=== PATIENT | male | born 1950 | race Caucasian/White ===

== ENCOUNTER 2021-01-18 20:30 | Emergency (ER) | payer OTHER ==
[2021-01-18] MEDS ORDERED: SODIUM CHLORIDE 0.9% 1,000 ML IV STA (21:09)
[2021-01-18] MEDS ORDERED: MORPHINE SULFATE 2 MG/ML SYRINGE IVP STA (21:09)
[2021-01-18] MEDS ORDERED: KETOROLAC 15 MG/ML 1 ML VIAL IVP STA (21:24)
[2021-01-18 21:41] LABS: Basophils # (A) 0.1 k/uL (0-0.2); Basophils % (A) 1 %; Eosinophils # (A) 0.3 k/uL (0-0.7); Eosinophils % (A) 3 %; HCT 39.8 % (39.0-53.0); HGB 12.4 gm/dL (13.0-17.5); Lymphocytes # (A) 1.5 k/uL (1.0-4.8); Lymphocytes % (A) 15 %; MCH 25.7 pg (25.0-35.0); MCHC 31.2 g/dL (31.0-37.0); MCV 82.2 fL (80.0-100.0); Mean Platelet Volume 7.2; Monocytes # (A) 0.4 k/uL (0-1.0); Monocytes % (A) 3 %; Neutrophils # (A) 7.7 k/uL (1.3-7.7); Neutrophils % (A) 76 %; Platelet Count 230 k/uL (150-450); RBC 4.84 m/uL (4.30-5.90); RDW 15.4 % (11.5-15.5); WBC 10.1 k/uL (3.8-10.6)
[2021-01-18 21:58] LABS: Albumin 4.4 g/dL (3.5-5.0); Calcium 10.1 mg/dL (8.4-10.2); Potassium 4.7 mmol/L (3.5-5.1); Total Bilirubin 0.6 mg/dL (0.2-1.3); Total Protein 7.7 g/dL (6.3-8.2)
--- NOTE | 2021-01-18 22:33 | XR ---
EXAMINATION TYPE: XR KUB DATE OF EXAM: 01/18/2021 COMPARISON: NONE HISTORY: Abdominal pain TECHNIQUE: 2 views FINDINGS: There is some blunting of the costophrenic angles. There is gaseous distention of multiple small bowel loops. There is lesion surgery in the lumbar spine. There is left hip prosthesis. IMPRESSION: There is evidence of intestinal ileus. No free air. Small pleural effusions and pleural r eaction at the lung bases.
--- NOTE | 2021-01-18 22:37 | ED ---
Abdominal Pain HPI <RamonGabe - Last Filed: 01/19/21 03:17> - General Source: patient, EMS, RN notes reviewed Mode of arrival: EMS Limitations: no limitations <Kvng Villarreal - Last Filed: 01/19/21 14:54> - General Chief Complaint: Abdominal Pain Stated Complaint: GI issues Time Seen by Provider: 01/18/21 20:53 - History of Present Illness Initial Comments: Patient is a 70-year-old male that presents to the emergency department complaining of abdominal pain with diarrhea. He notes he was recently discharged from [facility] this morning. He notes he was diagnosed with possible acute mild diverticulitis. He was sent home with antibiotics. Is on Bactrim and Flagyl. Patient notes that he came back to the hospital due to still having diarrhea. Patient was otherwise well-appearing. He denied any other issues or complaints. He denied chest pain shortness of breath headache nausea vomiting constipation fever fatigue chills. (Kvng Villarreal) - Related Data Home Medications Medication Instructions Recorded Confirmed ALPRAZolam [Xanax] 1 mg PO HS PRN 01/18/21 01/18/21 Previous Rx's Medication Instructions Recorded Levofloxacin [Levaquin] 750 mg PO DAILY 10 Days #10 tab 01/18/21 Allergies Allergy/AdvReac Type Severity Reaction Status Date / Time iodine Allergy Anaphylaxis Verified 01/18/21 22:52 Review of Systems ROS Other: All systems not noted in ROS Statement are negative. <Gabe Navarro - Last Filed: 01/19/21 03:17> ROS Other: All systems not noted in ROS Statement are negative. <Kvng Villarreal - Last Filed: 01/19/21 14:54> ROS Statement: Those systems with pertinent positive or pertinent negative responses have been documented in the HPI. Past Medical History Past Medical History: Atrial Fibrillation, Chest Pain / Angina, COPD, Eye Disorder, Hypertension, Myocardial Infarction ([place]), Respiratory Disorder, Thyroid Disorder History of Any Multi-Drug Resistant Organisms: None Reported Past Surgical History: Back Surgery, Heart Catheterization With Stent Additional Past Surgical History / Comment(s): eye resection Past Psychological History: Anxiety, Depression, PTSD Smoking Status: Former smoker Past Alcohol Use History: None Reported Past Drug Use History: None Reported <Kvng Villarreal - Last Filed: 01/19/21 14:54> General Exam Limitations: no limitations General appearance: alert, in no apparent distress, obese Head exam: Present: atraumatic, normocephalic, normal inspection Eye exam: Present: normal appearance, PERRL, EOMI. Absent: scleral icterus, conjunctival injection, periorbital swelling ENT exam: Present: normal exam, mucous membranes moist Neck exam: Present: normal inspection Respiratory exam: Present: normal lung sounds bilaterally. Absent: respiratory distress, wheezes, rales, rhonchi, stridor Cardiovascular Exam: Present: regular rate, normal rhythm, normal heart sounds. Absent: systolic murmur, diastolic murmur, rubs, gallop, clicks GI/Abdominal exam: Present: soft, tenderness (Left Lower quadrant), normal bowel sounds. Absent: distended, guarding, rebound, rigid Extremities exam: Present: normal inspection, full ROM, normal capillary refill. Absent: tenderness, pedal edema, joint swelling, calf tenderness Neurological exam: Present: alert, oriented X3 Psychiatric exam: Present: normal affect, normal mood Skin exam: Present: warm, dry, intact, normal color. Absent: rash <Kvng Villarreal - Last Filed: 01/19/21 14:54> Course Vital Signs 01/18/21 01/18/21 01/18/21 20:48 21:56 23:00 Temperature 99.3 F Pulse Rate 123 H 118 H 110 H Respiratory 16 22 25 H Rate Blood Pressure 160/116 151/100 130/87 O2 Sat by Pulse 95 97 97 Oximetry 01/19/21 01/19/21 06:00 11:44 Temperature 97.2 F L Pulse Rate 86 86 Respiratory 20 18 Rate Blood Pressure 157/87 112/74 O2 Sat by Pulse 95 96 Oximetry Medical Decision Making - Lab Data Result diagrams: 01/18/21 21:31 01/18/21 21:31 <Gabe Navarro - Last Filed: 01/19/21 03:17> - Lab Data Result diagrams: 01/18/21 21:31 01/18/21 21:31 <Kvng Villarreal - Last Filed: 01/19/21 14:54> - Medical Decision Making I did see the patient and complete the clinical symptoms (Gabe Navarro) Patient is 70-year-old male complaining of diarrhea with left lower quadrant pain. Computed tomography scan results from [facility] show tiny increased density noted dependent portion of the gallbladder raising suspicion for gallbladder stone sludge. Mild wall thickening along the sigmoid colon which could be related to early developing acute diverticulitis versus colitis. No bowel obstruction. 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 Labs unremarkable within normal limits. No white count. Case discussed with Dr. Mcmahon, patient will be discharged home on different antibiotics. Levaquin and Flagyl sent to pharmacy. Patient informed to discontinue Bactrim. EPS evaluation patient will work on transferring to [facility] for psych. (Kvng Villarreal) - Lab Data Lab Results 01/18/21 01/18/21 01/19/21 Range/Units 21:31 21:31 01:30 EST WBC 10.1 (3.8-10.6) k/uL RBC 4.84 (4.30-5.90) m/uL Hgb 12.4 L (13.0-17.5) gm/dL Hct 39.8 (39.0-53.0) % MCV 82.2 (80.0-100.0) fL MCH 25.7 (25.0-35.0) pg MCHC 31.2 (31.0-37.0) g/dL RDW 15.4 (11.5-15.5) % Plt Count 230 (150-450) k/uL MPV 7.2 Neutrophils % 76 % Lymphocytes % 15 % Monocytes % 3 % Eosinophils % 3 % Basophils % 1 % Neutrophils # 7.7 (1.3-7.7) k/uL Lymphocytes # 1.5 (1.0-4.8) k/uL Monocytes # 0.4 (0-1.0) k/uL Eosinophils # 0.3 (0-0.7) k/uL Basophils # 0.1 (0-0.2) k/uL Sodium 135 L (137-145) mmol/L Potassium 4.7 (3.5-5.1) mmol/L Chloride 99 (98-107) mmol/L Carbon Dioxide 21 L (22-30) mmol/L Anion Gap 15 mmol/L BUN 26 H (9-20) mg/dL Creatinine 2.17 H (0.66-1.25) mg/dL Est GFR (CKD-EPI)AfAm 35 (>60 ml/min/1.73 sqM) Est GFR (CKD-EPI)NonAf 30 (>60 ml/min/1.73 sqM) Glucose 88 (74-99) mg/dL Calcium 10.1 (8.4-10.2) mg/dL Total Bilirubin 0.6 (0.2-1.3) mg/dL AST 28 (17-59) U/L ALT 11 (4-49) U/L Alkaline Phosphatase 139 H (38-126) U/L Total Protein 7.7 (6.3-8.2) g/dL Albumin 4.4 (3.5-5.0) g/dL Amylase 54 (30-110) U/L Lipase 163 (23-300) U/L Urine Color Urine Appearance (Clear) Urine pH (5.0-8.0) Ur Specific [place] (1.001-1.035) Urine Protein (Negative) Urine Glucose (UA) (Negative) Urine Ketones (Negative) Urine Blood (Negative) Urine Nitrite (Negative) Urine Bilirubin (Negative) Urine Urobilinogen (<2.0) mg/dL Ur Leukocyte Esterase (Negative) Urine RBC (0-5) /hpf Urine WBC (0-5) /hpf Ur Squamous Epith Cells (0-4) /hpf Urine Bacteria (None) /hpf Hyaline Casts (0-2) /lpf Urine Mucus (None) /hpf Urine Opiates Screen (NotDetected) Ur Oxycodone Screen (NotDetected) Urine Methadone Screen (NotDetected) Ur Propoxyphene Screen (NotDetected) Ur Barbiturates Screen (NotDetected) U Tricyclic Antidepress (NotDetected) Ur Phencyclidine Scrn (NotDetected) Ur Amphetamines Screen (NotDetected) U Methamphetamines Scrn (NotDetected) U Benzodiazepines Scrn (NotDetected) Urine Cocaine Screen (NotDetected) U Marijuana (THC) Screen (NotDetected) Coronavirus (PCR) Not Detected (Not Detectd) 01/19/21 01/19/21 Range/Units 02:01 02:01 WBC (3.8-10.6) k/uL RBC (4.30-5.90) m/uL Hgb (13.0-17.5) gm/dL Hct (39.0-53.0) % MCV (80.0-100.0) fL MCH (25.0-35.0) pg MCHC (31.0-37.0) g/dL RDW (11.5-15.5) % Plt Count (150-450) k/uL MPV Neutrophils % % Lymphocytes % % Monocytes % % Eosinophils % % Basophils % % Neutrophils # (1.3-7.7) k/uL Lymphocytes # (1.0-4.8) k/uL Monocytes # (0-1.0) k/uL Eosinophils # (0-0.7) k/uL Basophils # (0-0.2) k/uL Sodium (137-145) mmol/L Potassium (3.5-5.1) mmol/L Chloride (98-107) mmol/L Carbon Dioxide (22-30) mmol/L Anion Gap mmol/L BUN (9-20) mg/dL Creatinine (0.66-1.25) mg/dL Est GFR (CKD-EPI)AfAm (>60 ml/min/1.73 sqM) Est GFR (CKD-EPI)NonAf (>60 ml/min/1.73 sqM) Glucose (74-99) mg/dL Calcium (8.4-10.2) mg/dL Total Bilirubin (0.2-1.3) mg/dL AST (17-59) U/L ALT (4-49) U/L Alkaline Phosphatase (38-126) U/L Total Protein (6.3-8.2) g/dL Albumin (3.5-5.0) g/dL Amylase (30-110) U/L Lipase (23-300) U/L Urine Color Yellow Urine Appearance Clear (Clear) Urine pH 6.0 (5.0-8.0) Ur Specific [place] 1.022 (1.001-1.035) Urine Protein 3+ H (Negative) Urine Glucose (UA) Negative (Negative) Urine Ketones 2+ H (Negative) Urine Blood Small H (Negative) Urine Nitrite Negative (Negative) Urine Bilirubin 1+ H (Negative) Urine Urobilinogen 3.0 (<2.0) mg/dL Ur Leukocyte Esterase Negative (Negative) Urine RBC 1 (0-5) /hpf Urine WBC 1 (0-5) /hpf Ur Squamous Epith Cells 1 (0-4) /hpf Urine Bacteria Rare H (None) /hpf Hyaline Casts 3 H (0-2) /lpf Urine Mucus Rare H (None) /hpf Urine Opiates Screen Not Detected (NotDetected) Ur Oxycodone Screen Not Detected (NotDetected) Urine Methadone Screen Not Detected (NotDetected) Ur Propoxyphene Screen Not Detected (NotDetected) Ur Barbiturates Screen Not Detected (NotDetected) U Tricyclic Antidepress Not Detected (NotDetected) Ur Phencyclidine Scrn Not Detected (NotDetected) Ur Amphetamines Screen Not Detected (NotDetected) U Methamphetamines Scrn Not Detected (NotDetected) U Benzodiazepines Scrn Detected H (NotDetected) Urine Cocaine Screen Not Detected (NotDetected) U Marijuana (THC) Screen Detected H (NotDetected) Coronavirus (PCR) (Not Detectd) Disposition <Gabe Navarro - Last Filed: 01/19/21 03:17> Is patient prescribed a controlled substance at d/c from ED?: No Time of Disposition: 14:54 <Kvng Villarreal - Last Filed: 01/19/21 14:54> Clinical Impression: Diverticulitis Disposition: TRANSFER TO PSYCH HOSP/UNIT Condition: Stable Instructions (If sedation given, give patient instructions): Diverticulitis (ED) Additional Instructions: Please return to the Emergency Department if symptoms worsen or any other concerns. Follow-up with primary care in 1-2 days. Discontinue Bactrim, start Levaquin and continue Flagyl. Prescriptions: Levofloxacin [Levaquin] 750 mg PO DAILY 10 Days #10 tab Referrals: [facility],Clinic [Primary Care Provider] - 1-2 days
[2021-01-19 02:17] LABS: Appearance,Urine Clear (Clear); Bacteria,Urine Rare /hpf; Bilirubin,Urine 1+ (Negative); Blood,Urine Small (Negative); Color,Urine Yellow; Glucose,Urine (UA) Negative (Negative); Hyaline Casts,Urine 3 /lpf (0-2); Ketones,Urine 2+ (Negative); Leukocyte Esterase,Urine Negative (Negative); Mucus,Urine Rare /hpf; Nitrite,Urine Negative (Negative); Protein,Urine 3+ (Negative); RBC,Urine 1 /hpf (0-5); Specific Gravity,Urine 1.022 (1.001-1.035); Squamous Epithelial Cell,Urine 1 /hpf (0-4); WBC,Urine 1 /hpf (0-5)
[2021-01-19 02:24] LABS: Amphetamine Screen,Urine Not Detected (NotDetected); Barbiturate Screen,Urine Not Detected (NotDetected); Benzodiazepines Screen,Urine Detected (NotDetected); Cocaine Screen,Urine Not Detected (NotDetected); Methadone Screen, Urine Not Detected (NotDetected); Opiate Screen,Urine Not Detected (NotDetected); Oxycodone Screen, Urine Not Detected (NotDetected); Phencyclidine Screen,Urine Not Detected (NotDetected); Tricyclic Antidepressant,Urine Not Detected (NotDetected); Urn Cannabinoid Scrn Detected (NotDetected)
[2021-01-19] MEDS ORDERED: KETOROLAC 15 MG/ML 1 ML VIAL IM STA ×2 (08:33→19:52)
[2021-01-19 11:45] VITALS: RESP 18; TEMP 97.2
[2021-01-19] MEDS ORDERED: MORPHINE SULFATE 4 MG/ML SYRINGE IM STA (11:53)
--- NOTE | 2021-01-19 15:30 | ED ---
Medical Decision Making - Medical Decision Making EPS to Return called and states that she's called several hospitals Take patient due to his O2 need. Patient can discharge home with outpatient resources and to continue his antibiotics here Case discussed with Dr. Mcmahon, patient discharge home with follow-up to his primary care. Patient was informed that he does need to take his antibiotics as prescribed for diverticulitis. - Lab Data Result diagrams: 01/18/21 21:01/18/21 21:31 Lab Results 01/18/21 01/18/21 01/19/21 Range/Units : 21: 01:30 EST WBC 10.1 (3.8-10.6) k/uL RBC 4.84 (4.30-5.90) m/uL Hgb 12.4 L (13.0-17.5) gm/dL Hct 39.8 (39.0-53.0) % MCV 82.2 (80.0-100.0) fL MCH 25.7 (25.0-35.0) pg MCHC 31.2 (31.0-37.0) g/dL RDW 15.4 (11.5-15.5) % Plt Count 230 (150-450) k/uL MPV 7.2 Neutrophils % 76 % Lymphocytes % 15 % Monocytes % 3 % Eosinophils % 3 % Basophils % 1 % Neutrophils # 7.7 (1.3-7.7) k/uL Lymphocytes # 1.5 (1.0-4.8) k/uL Monocytes # 0.4 (0-1.0) k/uL Eosinophils # 0.3 (0-0.7) k/uL Basophils # 0.1 (0-0.2) k/uL Sodium 135 L (137-145) mmol/L Potassium 4.7 (3.5-5.1) mmol/L Chloride 99 (98-107) mmol/L Carbon Dioxide 21 L (22-30) mmol/L Anion Gap 15 mmol/L BUN 26 H (9-20) mg/dL Creatinine 2.17 H (0.66-1.25) mg/dL Est GFR (CKD-EPI)AfAm 35 (>60 ml/min/1.73 sqM) Est GFR (CKD-EPI)NonAf 30 (>60 ml/min/1.73 sqM) Glucose 88 (74-99) mg/dL Calcium 10.1 (8.4-10.2) mg/dL Total Bilirubin 0.6 (0.2-1.3) mg/dL AST 28 (17-59) U/L ALT 11 (4-49) U/L Alkaline Phosphatase 139 H (38-126) U/L Total Protein 7.7 (6.3-8.2) g/dL Albumin 4.4 (3.5-5.0) g/dL Amylase 54 (30-110) U/L Lipase 163 (23-300) U/L Urine Color Urine Appearance (Clear) Urine pH (5.0-8.0) Ur Specific [place] (1.001-1.035) Urine Protein (Negative) Urine Glucose (UA) (Negative) Urine Ketones (Negative) Urine Blood (Negative) Urine Nitrite (Negative) Urine Bilirubin (Negative) Urine Urobilinogen (<2.0) mg/dL Ur Leukocyte Esterase (Negative) Urine RBC (0-5) /hpf Urine WBC (0-5) /hpf Ur Squamous Epith Cells (0-4) /hpf Urine Bacteria (None) /hpf Hyaline Casts (0-2) /lpf Urine Mucus (None) /hpf Urine Opiates Screen (NotDetected) Ur Oxycodone Screen (NotDetected) Urine Methadone Screen (NotDetected) Ur Propoxyphene Screen (NotDetected) Ur Barbiturates Screen (NotDetected) U Tricyclic Antidepress (NotDetected) Ur Phencyclidine Scrn (NotDetected) Ur Amphetamines Screen (NotDetected) U Methamphetamines Scrn (NotDetected) U Benzodiazepines Scrn (NotDetected) Urine Cocaine Screen (NotDetected) U Marijuana (THC) Screen (NotDetected) Coronavirus (PCR) Not Detected (Not Detectd) 01/19/21 01/19/21 Range/Units 02:01 02:01 WBC (3.8-10.6) k/uL RBC (4.30-5.90) m/uL Hgb (13.0-17.5) gm/dL Hct (39.0-53.0) % MCV (80.0-100.0) fL MCH (25.0-35.0) pg MCHC (31.0-37.0) g/dL RDW (11.5-15.5) % Plt Count (150-450) k/uL MPV Neutrophils % % Lymphocytes % % Monocytes % % Eosinophils % % Basophils % % Neutrophils # (1.3-7.7) k/uL Lymphocytes # (1.0-4.8) k/uL Monocytes # (0-1.0) k/uL Eosinophils # (0-0.7) k/uL Basophils # (0-0.2) k/uL Sodium (137-145) mmol/L Potassium (3.5-5.1) mmol/L Chloride (98-107) mmol/L Carbon Dioxide (22-30) mmol/L Anion Gap mmol/L BUN (9-20) mg/dL Creatinine (0.66-1.25) mg/dL Est GFR (CKD-EPI)AfAm (>60 ml/min/1.73 sqM) Est GFR (CKD-EPI)NonAf (>60 ml/min/1.73 sqM) Glucose (74-99) mg/dL Calcium (8.4-10.2) mg/dL Total Bilirubin (0.2-1.3) mg/dL AST (17-59) U/L ALT (4-49) U/L Alkaline Phosphatase (38-126) U/L Total Protein (6.3-8.2) g/dL Albumin (3.5-5.0) g/dL Amylase (30-110) U/L Lipase (23-300) U/L Urine Color Yellow Urine Appearance Clear (Clear) Urine pH 6.0 (5.0-8.0) Ur Specific [place] 1.022 (1.001-1.035) Urine Protein 3+ H (Negative) Urine Glucose (UA) Negative (Negative) Urine Ketones 2+ H (Negative) Urine Blood Small H (Negative) Urine Nitrite Negative (Negative) Urine Bilirubin 1+ H (Negative) Urine Urobilinogen 3.0 (<2.0) mg/dL Ur Leukocyte Esterase Negative (Negative) Urine RBC 1 (0-5) /hpf Urine WBC 1 (0-5) /hpf Ur Squamous Epith Cells 1 (0-4) /hpf Urine Bacteria Rare H (None) /hpf Hyaline Casts 3 H (0-2) /lpf Urine Mucus Rare H (None) /hpf Urine Opiates Screen Not Detected (NotDetected) Ur Oxycodone Screen Not Detected (NotDetected) Urine Methadone Screen Not Detected (NotDetected) Ur Propoxyphene Screen Not Detected (NotDetected) Ur Barbiturates Screen Not Detected (NotDetected) U Tricyclic Antidepress Not Detected (NotDetected) Ur Phencyclidine Scrn Not Detected (NotDetected) Ur Amphetamines Screen Not Detected (NotDetected) U Methamphetamines Scrn Not Detected (NotDetected) U Benzodiazepines Scrn Detected H (NotDetected) Urine Cocaine Screen Not Detected (NotDetected) U Marijuana (THC) Screen Detected H (NotDetected) Coronavirus (PCR) (Not Detectd) Disposition Clinical Impression: Diverticulitis Disposition: HOME SELF-CARE Condition: Stable Instructions (If sedation given, give patient instructions): Diverticulitis (ED) Additional Instructions: Please return to the Emergency Department if symptoms worsen or any other concerns. Follow-up with primary care in 1-2 days. Discontinue Bactrim, start Levaquin and continue Flagyl. Prescriptions: Levofloxacin [Levaquin] 750 mg PO DAILY 10 Days #10 tab Is patient prescribed a controlled substance at d/c from ED?: No Referrals: [facility],Clinic [Primary Care Provider] - 1-2 days Time of Disposition: 15:30
[2021-01-19 20:10] VITALS: BP 135/88; PULSE 94
== END 2021-01-19 20:15 | disposition home or self-care (01) ==
LOC: EC 20:30
DX: K57.32 Diverticulitis of large intestine without perforation or abscess without bleeding (principal); I48.91 Unspecified atrial fibrillation; J44.9 Chronic obstructive pulmonary disease, unspecified; I10 Essential (primary) hypertension; I25.2 Old myocardial infarction; E07.9 Disorder of thyroid, unspecified; F32.9 Major depressive disorder, single episode, unspecified; F41.9 Anxiety disorder, unspecified; F43.12 Post-traumatic stress disorder, chronic; Z20.822 Contact with and (suspected) exposure to COVID-19; Z87.891 Personal history of nicotine dependence
CPT/HCPCS: 99285; 96374; 96372 ×3; 96361; 82075; 80053; 82150; 83690; 85025; 81001; 80306; 87635; 74018; J2270; J1885 ×2

== ENCOUNTER 2021-01-20 16:39 | Emergency (ER) | payer OTHER ==
[2021-01-20 16:48] VITALS: BP 125/86; PULSE 77; RESP 16
--- NOTE | 2021-01-20 17:16 | ED ---
General Adult HPI - General Chief complaint: Psychiatric Symptoms Stated complaint: Altered mental state Time Seen by Provider: 01/20/21 17:01 Source: patient, RN notes reviewed, old records reviewed Mode of arrival: EMS Limitations: no limitations - History of Present Illness Initial comments: 70-year-old male presents under court ordered psychiatric evaluation. Patient has been recommended to admission for psychiatric evaluation. He does have a history of depression and apparently has made some statements indicating that he no longer wants to live and may take his medication inappropriately. Patient currently denying this. Uncertain exactly why he was here. He has no physical complaints. - Related Data Home Medications Medication Instructions Recorded Confirmed ALPRAZolam [Xanax] 1 mg PO HS PRN 01/18/21 01/20/21 Previous Rx's Medication Instructions Recorded Levofloxacin [Levaquin] 750 mg PO DAILY 10 Days #10 tab 01/18/21 Allergies Allergy/AdvReac Type Severity Reaction Status Date / Time iodine Allergy Anaphylaxis Verified 01/20/21 18:41 Review of Systems ROS Statement: Those systems with pertinent positive or pertinent negative responses have been documented in the HPI. ROS Other: All systems not noted in ROS Statement are negative. Past Medical History Past Medical History: Atrial Fibrillation, Chest Pain / Angina, COPD, Eye Disorder, Hypertension, Myocardial Infarction ([place]), Respiratory Disorder, Thyroid Disorder History of Any Multi-Drug Resistant Organisms: None Reported Past Surgical History: Back Surgery, Heart Catheterization With Stent Additional Past Surgical History / Comment(s): eye resection Past Psychological History: Anxiety, Depression, PTSD Smoking Status: Former smoker Past Alcohol Use History: None Reported Past Drug Use History: None Reported General Exam Limitations: no limitations General appearance: alert, in no apparent distress Head exam: Present: atraumatic, normocephalic Eye exam: Present: normal appearance, PERRL ENT exam: Present: normal exam Neck exam: Present: normal inspection. Absent: tenderness, meningismus Respiratory exam: Present: normal lung sounds bilaterally. Absent: respiratory distress, wheezes Cardiovascular Exam: Present: regular rate, normal rhythm GI/Abdominal exam: Present: soft. Absent: distended, tenderness, guarding Extremities exam: Present: normal inspection, normal capillary refill. Absent: pedal edema Neurological exam: Present: alert, oriented X3, CN II-XII intact. Absent: motor sensory deficit Psychiatric exam: Present: depressed, suicidal ideation Skin exam: Present: warm, dry, intact. Absent: cyanosis, diaphoretic Course Vital Signs 01/20/21 16:41 Pulse Rate 77 Respiratory 16 Rate Blood Pressure 125/86 O2 Sat by Pulse 98 Oximetry Medical Decision Making - Medical Decision Making Patient was evaluated by EPS. He was found to have a bed waiting for him at the [facility] in [place] he will be discharged from this ER, his [facility] [place] [facility]. - Lab Data Lab Results 01/20/21 01/20/21 Range/Units 18:39 18:39 Urine Opiates Screen Detected H (NotDetected) Ur Oxycodone Screen Not Detected (NotDetected) Urine Methadone Screen Not Detected (NotDetected) Ur Propoxyphene Screen Not Detected (NotDetected) Ur Barbiturates Screen Not Detected (NotDetected) U Tricyclic Antidepress Not Detected (NotDetected) Ur Phencyclidine Scrn Not Detected (NotDetected) Ur Amphetamines Screen Not Detected (NotDetected) U Methamphetamines Scrn Not Detected (NotDetected) U Benzodiazepines Scrn Detected H (NotDetected) Urine Cocaine Screen Not Detected (NotDetected) U Marijuana (THC) Screen Detected H (NotDetected) Serum Alcohol <10 mg/dL Disposition Clinical Impression: Depression Disposition: HOME SELF-CARE Condition: Fair Instructions (If sedation given, give patient instructions): Depression (ED) Is patient prescribed a controlled substance at d/c from ED?: No Referrals: [facility],Clinic [Primary Care Provider] - 1-2 days Time of Disposition: 22:20
[2021-01-20 19:03] LABS: Amphetamine Screen,Urine Not Detected (NotDetected); Barbiturate Screen,Urine Not Detected (NotDetected); Benzodiazepines Screen,Urine Detected (NotDetected); Cocaine Screen,Urine Not Detected (NotDetected); Methadone Screen, Urine Not Detected (NotDetected); Opiate Screen,Urine Detected (NotDetected); Oxycodone Screen, Urine Not Detected (NotDetected); Phencyclidine Screen,Urine Not Detected (NotDetected); Tricyclic Antidepressant,Urine Not Detected (NotDetected); Urn Cannabinoid Scrn Detected (NotDetected)
== END 2021-01-20 23:45 | disposition home or self-care (01) ==
LOC: EC 16:39
DX: F32.9 Major depressive disorder, single episode, unspecified (principal); I10 Essential (primary) hypertension; I25.2 Old myocardial infarction; F41.9 Anxiety disorder, unspecified; Z87.891 Personal history of nicotine dependence
CPT/HCPCS: 36415; 80306; 80320; 82075; 99284

== ENCOUNTER 2023-09-27 08:00 | Inpatient (IN) | payer OTHER, MEDICARE ==
[2023-09-27] MEDS: IPRATROPIUM-ALBUTEROL 3 ML NEB INHALATION STA ×2 (08:14→11:25)
--- NOTE | 2023-09-27 08:15 | ED ---
SOB HPI - General Chief Complaint: Shortness of Breath Stated Complaint: COPD, KARTHIK Time Seen by Provider: 09/27/23 08:10 Source: EMS, RN notes reviewed, old records reviewed Mode of arrival: EMS Limitations: no limitations - History of Present Illness Initial Comments: This is a 72-year-old male to the ER today. He presents for significant shortness of breath with possible unresponsiveness. Unresponsive initially on EMS arrival patient is generalized weakness shortness of breath and altered mental status initially placed on BiPAP here in the emergency department secondary to altered mental status and hypoxia. EMS reports patient was difficult to respond on initial evaluation. Patient does suffer from severe asthma and obesity MD Complaint: shortness of breath, cough, "asthma attack", anxiety -: unknown Severity: severe Severity scale (1-10): 10 Consistency: constant Improves With: nothing Worsens With: exertion, movement Known History Of: COPD, asthma Associated Symptoms: other (Mental status and confusion) Treatments Prior to Arrival: none - Related Data Home Medications Medication Instructions Recorded Confirmed ALPRAZolam [Xanax] 1 mg PO TID PRN 01/18/21 09/27/23 Albuterol Inhaler [Ventolin Hfa 1 puff INHALATION RT-Q4H PRN 09/27/23 09/27/23 Inhaler] Carboxymethylcellulose Sodium 1 drop BOTH EYES QID PRN 09/27/23 09/27/23 [Refresh Tears] Cholecalciferol [Vitamin D3 (25 25 mcg PO DAILY 09/27/23 09/27/23 Mcg = 1000 Iu)] Fluticasone/Umeclidin/Vilanter 1 puff INHALATION RT-DAILY 09/27/23 09/27/23 [Trelegy Ellipta 100-62.5-25] Isosorbide Mononitrate ER [Imdur] 15 mg PO DAILY 09/27/23 09/27/23 Levothyroxine Sodium [Synthroid] 274 mcg PO DAILY 09/27/23 09/27/23 Metoprolol Tartrate [Lopressor] 75 mg PO BID 09/27/23 09/27/23 Rivaroxaban [Xarelto] 15 mg PO DAILY 09/27/23 09/27/23 Rosuvastatin Calcium [Crestor] 20 mg PO HS 09/27/23 09/27/23 Sertraline [Zoloft] 200 mg PO DAILY 09/27/23 09/27/23 hydroCHLOROthiazide [Hydrodiuril] 25 mg PO DAILY 09/27/23 09/27/23 predniSONE 5 mg PO DAILY 09/27/23 09/27/23 Previous Rx's Medication Instructions Recorded predniSONE [Deltasone] 40 mg PO DAILY #6 tab 09/29/23 Allergies Allergy/AdvReac Type Severity Reaction Status Date / Time iodine AdvReac Hypotension, Verified 09/27/23 10:58 itching, watering eyes lisinopril AdvReac hyperkalemi Verified 09/27/23 10:58 a morphine AdvReac hallucinations, Verified 09/27/23 10:58 behavior change temazepam AdvReac headache Verified 09/27/23 10:58 Review of Systems ROS Statement: Those systems with pertinent positive or pertinent negative responses have been documented in the HPI. ROS Other: All systems not noted in ROS Statement are negative. Past Medical History Past Medical History: Atrial Fibrillation, Chest Pain / Angina, COPD, Eye Disorder, Hypertension, Myocardial Infarction ([place]), Respiratory Disorder, Thyroid Disorder History of Any Multi-Drug Resistant Organisms: None Reported Past Surgical History: Back Surgery, Heart Catheterization With Stent Additional Past Surgical History / Comment(s): eye resection Past Psychological History: Anxiety, Depression, PTSD Smoking Status: Former smoker Past Alcohol Use History: None Reported Past Drug Use History: None Reported - Past Family History Mother History Unknown: Yes Father History Unknown: Yes General Exam Limitations: altered mental status, physical limitation General appearance: alert, in no apparent distress, anxious, in distress Head exam: Present: atraumatic, normocephalic, normal inspection Eye exam: Present: normal appearance, PERRL, EOMI. Absent: scleral icterus, conjunctival injection, periorbital swelling ENT exam: Present: normal exam, mucous membranes moist Neck exam: Present: normal inspection. Absent: tenderness, meningismus, lymphadenopathy Respiratory exam: Present: respiratory distress, wheezes, accessory muscle use, decreased breath sounds, prolonged expiratory. Absent: rales, rhonchi, stridor Cardiovascular Exam: Present: regular rate, normal rhythm, normal heart sounds. Absent: systolic murmur, diastolic murmur, rubs, gallop, clicks GI/Abdominal exam: Present: soft, normal bowel sounds. Absent: distended, tenderness, guarding, rebound, rigid Extremities exam: Present: normal inspection, full ROM, normal capillary refill. Absent: tenderness, pedal edema, joint swelling, calf tenderness Back exam: Present: normal inspection Neurological exam: Present: alert, oriented X3, CN II-XII intact Psychiatric exam: Present: normal affect, normal mood Skin exam: Present: warm, dry, intact, normal color. Absent: rash Course Vital Signs 09/27/23 09/27/23 09/27/23 08:01 08:07 08:08 Temperature 96.8 F L Pulse Rate 78 Respiratory 18 Rate Blood Pressure 113/72 Blood Pressure [Right Arm] O2 Sat by Pulse 92 L Oximetry Fraction of 50 40 Inspired Oxygen (FIO2) 09/27/23 09/27/23 09/27/23 08:09 08:10 08:11 Temperature Pulse Rate Respiratory 8 L 10 L Rate Blood Pressure Blood Pressure [Right Arm] O2 Sat by Pulse 97 Oximetry Fraction of 40 Inspired Oxygen (FIO2) 09/27/23 09/27/23 09/27/23 08:12 08:17 08:25 Temperature Pulse Rate 75 Respiratory 8 L Rate Blood Pressure Blood Pressure [Right Arm] O2 Sat by Pulse Oximetry Fraction of 40 Inspired Oxygen (FIO2) 09/27/23 09/27/23 09/27/23 08:29 09:05 11:05 Temperature Pulse Rate 74 67 83 Respiratory 10 L 16 Rate Blood Pressure 105/66 131/93 Blood Pressure [Right Arm] O2 Sat by Pulse 93 L 95 Oximetry Fraction of Inspired Oxygen (FIO2) 09/27/23 09/27/23 09/27/23 11:23 11:25 11:44 Temperature Pulse Rate 76 84 Respiratory Rate Blood Pressure Blood Pressure [Right Arm] O2 Sat by Pulse Oximetry Fraction of 40 Inspired Oxygen (FIO2) 09/27/23 09/27/23 09/27/23 12:26 13:00 14:37 Temperature Pulse Rate 76 Respiratory 16 12 Rate Blood Pressure 134/67 Blood Pressure [Right Arm] O2 Sat by Pulse 96 96 99 Oximetry Fraction of Inspired Oxygen (FIO2) 09/27/23 09/27/23 09/27/23 16:32 16:45 17:05 Temperature Pulse Rate 84 90 72 Respiratory 12 Rate Blood Pressure 128/72 Blood Pressure [Right Arm] O2 Sat by Pulse 99 Oximetry Fraction of Inspired Oxygen (FIO2) 09/27/23 09/27/23 09/27/23 18:21 19:55 20:06 Temperature Pulse Rate 84 80 77 Respiratory 12 Rate Blood Pressure 125/85 Blood Pressure [Right Arm] O2 Sat by Pulse 99 Oximetry Fraction of Inspired Oxygen (FIO2) 09/27/23 09/27/23 20:43 21:00 Temperature 98.2 F Pulse Rate 77 Respiratory 16 19 Rate Blood Pressure 124/76 Blood Pressure 109/62 [Right Arm] O2 Sat by Pulse 97 96 Oximetry Fraction of Inspired Oxygen (FIO2) - Reevaluation(s) Reevaluation #1: 09/27/23 08:38 Medical record is reviewed Reevaluation #2: 09/27/23 08:39 Patient is remains difficult to respond here in the ER Reevaluation #3: 09/27/23 10:36 Patient symptoms are improving and patient just woke up after 3 hours of BiPAP treatment and no response, initially unresponsive in the emergency department Reevaluation #4: Was pt. sent in by a medical professional or institution (, PA, BEATER OUT, urgent care, hospital, or alf...) When possible be specific @ -no Did you speak to anyone other than the patient for history (EMS, parent, family, police, friend...)? What history was obtained from this source @ -no Did you review nursing and triage notes (agree or disagree)? Why? @ -agree Are old charts reviewed (outside hosp., previous admission, EMS record, old EKG, old radiological studies, urgent care reports/EKG's, alf records)? Report findings @ -yes Differential Diagnosis (chest pain, altered mental status, abdominal pain women, abdominal pain men, vaginal bleeding, weakness, fever, dyspnea, syncope, headache, dizziness, GI bleed, back pain, seizure, CVA, palpatations, mental health, musculoskeletal)? @ -prior EKG interpreted by me (3pts min.). @ -yes X-rays interpreted by me (1pt min.). @ -yes negative for acute disease CT interpreted by me (1pt min.). @ -no U/S interpreted by me (1pt. min.). @ -no What testing was considered but not performed or refused? (CT, X-rays, U/S, labs)? Why? @ -none What meds were considered but not given or refused? Why? @ -none Did you discuss the management of the patient with other professionals (professionals i.e. , PA, BEATER OUT, lab, RT, psych nurse, social worker palliative care, intellectual property lawyer, teacher, chief privacy officer, case therapist)? Give summary @ -no Was smoking cessation discussed for >3mins.? @ -no Was critical care preformed (if so, how long)? @ -yes31 Were there social determinants of health that impacted care today? How? (Homelessness, low income, unemployed, alcoholism, drug addiction, transportation, low edu. Level, literacy, decrease access to med. care, prison, rehab)? @ -none Was there de-escalation of care discussed even if they declined (Discuss DNR or withdrawal of care, Hospice)? DNR status @ -no What co-morbidities impacted this encounter? (DM, HTN, Smoking, COPD, CAD, Cancer, CVA, ARF, Chemo, Hep., AIDS, mental health diagnosis, sleep apnea, morbid obesity)? @ -none Was patient admitted / discharged? Hospital course, mention meds given and route, prescriptions, significant lab abnormalities, going to OR and other pert inent info. @ - 72 male to the ER for significant respiratory failure, patient came in unresponsive and slowly improved after prolonged BiPAP treatment, patient will be admitted for further supportive care with respiratory failure Admitted Undiagnosed new problem with uncertain prognosis? @ -no Drug Therapy requiring intensive monitoring for toxicity (Heparin, Nitro, Insulin, Cardizem)? @ -no Were any procedures done? @ -no Diagnosis/symptom? @ -Respiratory failure Acute, or Chronic, or Acute on Chronic? @ -Acute Uncomplicated (without systemic symptoms) or Complicated (systemic symptoms)? @ -Complicated Side effects of treatment? @ -no Exacerbation, Progression, or Severe Exacerbation? @ -exacerbation Poses a threat to life or bodily function? How? (Chest pain, [place], [place], pneumonia, PE, COPD, DKA, ARF, appy, cholecystitis, CVA, Diverticulitis, Homicidal, Suicidal, threat to staff... and all critical care pts) @ -yes extremes of age Reevaluation #5: Differential Dyspnea: Coronary syndrome, arrhythmia, tamponade, asthma, COPD, pulmonary embolism, pne umonia, pneumothorax, pulmonary effusion, anaphylaxis, diabetic ketoacidosis, flailed chest, pulmonary contusion, diaphragmatic rupture, anemia, neuromuscular, this is not meant to be an all-inclusive list. - Consultations Consultation #1: Spoke with heather who agrees to admit this patient Medical Decision Making - Medical Decision Making 72 male to the ER for significant respiratory failure, patient came in unresponsive and slowly improved after prolonged BiPAP treatment, patient will be admitted for further supportive care with respiratory failure - Lab Data Result diagrams: 09/29/23 07:51 09/29/23 07:51 Lab Results 09/27/23 09/27/23 09/27/23 Range/Units 08:11 08:13 08:13 WBC 9.4 (3.8-10.6) k/uL RBC 4.16 L (4.30-5.90) m/uL Hgb 11.7 L (13.0-17.5) gm/dL Hct 38.7 L (39.0-53.0) % MCV 93.0 (80.0-100.0) fL MCH 28.1 (25.0-35.0) pg MCHC 30.2 L (31.0-37.0) g/dL RDW 15.3 (11.5-15.5) % Plt Count 131 L (150-450) k/uL MPV 8.1 Neutrophils % 87 % Lymphocytes % 5 % Monocytes % 7 % Eosinophils % 1 % Basophils % 0 % Neutrophils # 8.1 H (1.3-7.7) k/uL Lymphocytes # 0.5 L (1.0-4.8) k/uL Monocytes # 0.6 (0-1.0) k/uL Eosinophils # 0.1 (0-0.7) k/uL Basophils # 0.0 (0-0.2) k/uL Hypochromasia Moderate PT 10.3 (10.0-12.5) sec INR 0.9 (<1.2) APTT 24.3 (22.0-30.0) sec VBG pH (7.31-7.41) VBG pCO2 (37-51) mmHg VBG HCO3 (24-28) mmol/L Sodium (137-145) mmol/L Potassium (3.5-5.1) mmol/L Chloride (98-107) mmol/L Carbon Dioxide (22-30) mmol/L Anion Gap mmol/L BUN (9-20) mg/dL Creatinine (0.66-1.25) mg/dL Est GFR (CKD-EPI)AfAm (>60 ml/min/1.73 sqM) Est GFR (CKD-EPI)NonAf (>60 ml/min/1.73 sqM) Glucose (74-99) mg/dL POC Glucose (mg/dL) 126 H (70-110) mg/dL POC Glu Cushion Assembler ID Kasey, Jose G Plasma Lactic Acid [place] (0.7-2.0) mmol/L Calcium (8.4-10.2) mg/dL Magnesium (1.6-2.3) mg/dL Total Bilirubin (0.2-1.3) mg/dL AST (17-59) U/L ALT (4-49) U/L Alkaline Phosphatase (38-126) U/L Troponin I (0.000-0.034) ng/mL NT-Pro-B Natriuret Pep pg/mL Total Protein (6.3-8.2) g/dL Albumin (3.5-5.0) g/dL Urine Color Urine Appearance (Clear) Urine pH (5.0-8.0) Ur Specific [place] (1.001-1.035) Urine Protein (Negative) Urine Glucose (UA) (Negative) Urine Ketones (Negative) Urine Blood (Negative) Urine Nitrite (Negative) Urine Bilirubin (Negative) Urine Urobilinogen (<2.0) mg/dL Ur Leukocyte Esterase (Negative) Urine RBC (0-5) /hpf Urine WBC (0-5) /hpf Ur Squamous Epith Cells (0-4) /hpf Amorphous Sediment (None) /hpf Urine Bacteria (None) /hpf Urine Opiates Screen (NotDetected) Ur Oxycodone Screen (NotDetected) Urine Methadone Screen (NotDetected) Ur Barbiturates Screen (NotDetected) U Tricyclic Antidepress (NotDetected) Ur Phencyclidine Scrn (NotDetected) Ur Amphetamines Screen (NotDetected) U Methamphetamines Scrn (NotDetected) U Benzodiazepines Scrn (NotDetected) Urine Cocaine Screen (NotDetected) U Marijuana (THC) Screen (NotDetected) Serum Alcohol mg/dL 09/27/23 09/27/23 09/27/23 Range/Units 08:13 08:13 08:13 WBC (3.8-10.6) k/uL RBC (4.30-5.90) m/uL Hgb (13.0-17.5) gm/dL Hct (39.0-53.0) % MCV (80.0-100.0) fL MCH (25.0-35.0) pg MCHC (31.0-37.0) g/dL RDW (11.5-15.5) % Plt Count (150-450) k/uL MPV Neutrophils % % Lymphocytes % % Monocytes % % Eosinophils % % Basophils % % Neutrophils # (1.3-7.7) k/uL Lymphocytes # (1.0-4.8) k/uL Monocytes # (0-1.0) k/uL Eosinophils # (0-0.7) k/uL Basophils # (0-0.2) k/uL Hypochromasia PT (10.0-12.5) sec INR (<1.2) APTT (22.0-30.0) sec VBG pH (7.31-7.41) VBG pCO2 (37-51) mmHg VBG HCO3 (24-28) mmol/L Sodium 142 (137-145) mmol/L Potassium 5.2 H (3.5-5.1) mmol/L Chloride 101 (98-107) mmol/L Carbon Dioxide 38 H (22-30) mmol/L Anion Gap 3 mmol/L BUN 59 H (9-20) mg/dL Creatinine 2.22 H (0.66-1.25) mg/dL Est GFR (CKD-EPI)AfAm 34 (>60 ml/min/1.73 sqM) Est GFR (CKD-EPI)NonAf 29 (>60 ml/min/1.73 sqM) Glucose 124 H (74-99) mg/dL POC Glucose (mg/dL) (70-110) mg/dL POC Glu Cushion Assembler ID Plasma Lactic Acid [place] 0.7 (0.7-2.0) mmol/L Calcium 9.2 (8.4-10.2) mg/dL Magnesium 2.2 (1.6-2.3) mg/dL Total Bilirubin 0.5 (0.2-1.3) mg/dL AST 31 (17-59) U/L ALT 18 (4-49) U/L Alkaline Phosphatase 124 (38-126) U/L Troponin I 0.017 (0.000-0.034) ng/mL NT-Pro-B Natriuret Pep 6000 pg/mL Total Protein 6.8 (6.3-8.2) g/dL Albumin 3.9 (3.5-5.0) g/dL Urine Color Urine Appearance (Clear) Urine pH (5.0-8.0) Ur Specific [place] (1.001-1.035) Urine Protein (Negative) Urine Glucose (UA) (Negative) Urine Ketones (Negative) Urine Blood (Negative) Urine Nitrite (Negative) Urine Bilirubin (Negative) Urine Urobilinogen (<2.0) mg/dL Ur Leukocyte Esterase (Negative) Urine RBC (0-5) /hpf Urine WBC (0-5) /hpf Ur Squamous Epith Cells (0-4) /hpf Amorphous Sediment (None) /hpf Urine Bacteria (None) /hpf Urine Opiates Screen (NotDetected) Ur Oxycodone Screen (NotDetected) Urine Methadone Screen (NotDetected) Ur Barbiturates Screen (NotDetected) U Tricyclic Antidepress (NotDetected) Ur Phencyclidine Scrn (NotDetected) Ur Amphetamines Screen (NotDetected) U Methamphetamines Scrn (NotDetected) U Benzodiazepines Scrn (NotDetected) Urine Cocaine Screen (NotDetected) U Marijuana (THC) Screen (NotDetected) Serum Alcohol mg/dL 09/27/23 09/27/23 09/27/23 Range/Units 09:30 09:30 09:57 WBC (3.8-10.6) k/uL RBC (4.30-5.90) m/uL Hgb (13.0-17.5) gm/dL Hct (39.0-53.0) % MCV (80.0-100.0) fL MCH (25.0-35.0) pg MCHC (31.0-37.0) g/dL RDW (11.5-15.5) % Plt Count (150-450) k/uL MPV Neutrophils % % Lymphocytes % % Monocytes % % Eosinophils % % Basophils % % Neutrophils # (1.3-7.7) k/uL Lymphocytes # (1.0-4.8) k/uL Monocytes # (0-1.0) k/uL Eosinophils # (0-0.7) k/uL Basophils # (0-0.2) k/uL Hypochromasia PT (10.0-12.5) sec INR (<1.2) APTT (22.0-30.0) sec VBG pH 7.21 L (7.31-7.41) VBG pCO2 94 H* (37-51) mmHg VBG HCO3 37 H (24-28) mmol/L Sodium (137-145) mmol/L Potassium (3.5-5.1) mmol/L Chloride (98-107) mmol/L Carbon Dioxide (22-30) mmol/L Anion Gap mmol/L BUN (9-20) mg/dL Creatinine (0.66-1.25) mg/dL Est GFR (CKD-EPI)AfAm (>60 ml/min/1.73 sqM) Est GFR (CKD-EPI)NonAf (>60 ml/min/1.73 sqM) Glucose (74-99) mg/dL POC Glucose (mg/dL) (70-110) mg/dL POC Glu Cushion Assembler ID Plasma Lactic Acid [place] (0.7-2.0) mmol/L Calcium (8.4-10.2) mg/dL Magnesium (1.6-2.3) mg/dL Total Bilirubin (0.2-1.3) mg/dL AST (17-59) U/L ALT (4-49) U/L Alkaline Phosphatase (38-126) U/L Troponin I (0.000-0.034) ng/mL NT-Pro-B Natriuret Pep pg/mL Total Protein (6.3-8.2) g/dL Albumin (3.5-5.0) g/dL Urine Color Colorless Urine Appearance Clear (Clear) Urine pH 5.5 (5.0-8.0) Ur Specific [place] 1.013 (1.001-1.035) Urine Protein 2+ H (Negative) Urine Glucose (UA) Negative (Negative) Urine Ketones Negative (Negative) Urine Blood Small H (Negative) Urine Nitrite Negative (Negative) Urine Bilirubin Negative (Negative) Urine Urobilinogen <2.0 (<2.0) mg/dL Ur Leukocyte Esterase Negative (Negative) Urine RBC 2 (0-5) /hpf Urine WBC 8 H (0-5) /hpf Ur Squamous Epith Cells 1 (0-4) /hpf Amorphous Sediment Rare H (None) /hpf Urine Bacteria Rare H (None) /hpf Urine Opiates Screen Not Detected (NotDetected) Ur Oxycodone Screen Not Detected (NotDetected) Urine Methadone Screen Not Detected (NotDetected) Ur Barbiturates Screen Not Detected (NotDetected) U Tricyclic Antidepress Not Detected (NotDetected) Ur Phencyclidine Scrn Not Detected (NotDetected) Ur Amphetamines Screen Not Detected (NotDetected) U Methamphetamines Scrn Not Detected (NotDetected) U Benzodiazepines Scrn Detected H (NotDetected) Urine Cocaine Screen Not Detected (NotDetected) U Marijuana (THC) Screen Detected H (NotDetected) Serum Alcohol <10 mg/dL - EKG Data -: EKG Interpreted by Me (EKG is A-fib 76 QRS 182 QTc 446) - Radiology Data Radiology results: report reviewed (Chest x-ray with possible CHF), image reviewed Critical Care Time Critical Care Time: Yes Total Critical Care Time: 31 Disposition Clinical Impression: Acute exacerbation of chronic obstructive pulmonary disease, Acute respiratory failure, Hypoxia, Acute respiratory failure with hypoxia and hypercarbia, Hypercarbia Disposition: ADMITTED IP TO THIS [facility] Condition: Stable Is patient prescribed a controlled substance at d/c from ED?: No Time of Disposition: 10:30
[2023-09-27 08:16] LABS: Glucose,Whole Blood 126 mg/dL (70-110)
[2023-09-27] MEDS: SODIUM CHLORIDE 0.9% 1,000 ML IV STA (08:23)
[2023-09-27] MEDS: methylPREDNISolone SOD SUCCI 125 MG/2 ML VIAL IV STA (08:24)
[2023-09-27] MEDS: NALOXONE 0.4 MG/ML 1 ML VIAL IVP STA (08:25)
[2023-09-27 08:36] LABS: INR 0.9 (<1.2); Partial Thromboplastin Time 24.3 sec (22.0-30.0); Prothrombin Time 10.3 sec (10.0-12.5)
[2023-09-27 08:39] LABS: ALT 18 U/L (4-49); AST 31 U/L (17-59); African American GFR (CKD) 34 (>60 ml/min/1.73 sqM); Albumin 3.9 g/dL (3.5-5.0); Alkaline Phosphatase 124 U/L (38-126); Anion Gap 3 mmol/L; Blood Urea Nitrogen 59 mg/dL (9-20); Calcium 9.2 mg/dL (8.4-10.2); Carbon Dioxide 38 mmol/L (22-30); Chloride 101 mmol/L (98-107); Glucose 124 mg/dL (74-99); Magnesium 2.2 mg/dL (1.6-2.3); Non-African American GFR(CKD) 29 (>60 ml/min/1.73 sqM); Potassium 5.2 mmol/L (3.5-5.1); Sodium 142 mmol/L (137-145); Total Bilirubin 0.5 mg/dL (0.2-1.3); Total Protein 6.8 g/dL (6.3-8.2)
[2023-09-27 08:44] LABS: Basophils % (A) 0 %; Eosinophils # (A) 0.1 k/uL (0-0.7); Eosinophils % (A) 1 %; HCT 38.7 % (39.0-53.0); HGB 11.7 gm/dL (13.0-17.5); Hypochromasia Moderate; Lymphocytes # (A) 0.5 k/uL (1.0-4.8); Lymphocytes % (A) 5 %; MCH 28.1 pg (25.0-35.0); MCHC 30.2 g/dL (31.0-37.0); Mean Platelet Volume 8.1; Monocytes # (A) 0.6 k/uL (0-1.0); Monocytes % (A) 7 %; Neutrophils # (A) 8.1 k/uL (1.3-7.7); Neutrophils % (A) 87 %; Platelet Count 131 k/uL (150-450); RBC 4.16 m/uL (4.30-5.90); RDW 15.3 % (11.5-15.5); WBC 9.4 k/uL (3.8-10.6)
[2023-09-27 08:47] LABS: NT-Pro-B-Type Natriuretic Pept 6000 pg/mL
--- NOTE | 2023-09-27 09:18 | XR ---
EXAMINATION TYPE: XR chest 1V portable DATE OF EXAM: 09/27/2023 Comparison: None Clinical History: 72-year-old male cp Findings: Patient is markedly rotated towards the right and with large body habitus limiting the evaluation. Me aggie sternotomy wires and post-CABG clips. Heart appears enlarged. Left anterior chest wall pacemaker generator with right ventricular lead. Diffuse interstitial densities are present along with small e ffusions. Impression: Portable exam further limited by body habitus and marked patient rotation. Correlate for CHF with int erstitial pulmonary edema and small effusions.
[2023-09-27 10:26] LABS: VBG PH 7.21 (7.31-7.41)
[2023-09-27] MEDS ORDERED: ONDANSETRON 4 MG/2 ML VIAL IVP PRN (10:30)
[2023-09-27] MEDS ORDERED: NALOXONE 0.4 MG/ML 1 ML VIAL IVP PRN (10:30)
[2023-09-27] MEDS ORDERED: NALOXONE 0.4 MG/ML 1 ML VIAL IV PRN (10:30)
[2023-09-27] MEDS ORDERED: HYDROmorphone 1 MG/ML 1 ML SYRINGE IVP PRN (10:30)
[2023-09-27] MEDS: SODIUM CHLORIDE 0.9% 1,000 ML IV SCH (10:37)
[2023-09-27] MEDS: FUROSEMIDE 10 MG/ML 10 ML VIAL IV STA (10:58)
[2023-09-27 11:58] LABS: Amorphous Sediment,Urine Rare /hpf; Appearance,Urine Clear (Clear); Bacteria,Urine Rare /hpf; Bilirubin,Urine Negative (Negative); Blood,Urine Small (Negative); Color,Urine Colorless; Glucose,Urine (UA) Negative (Negative); Ketones,Urine Negative (Negative); Leukocyte Esterase,Urine Negative (Negative); Nitrite,Urine Negative (Negative); PH, Urine 5.5 (5.0-8.0); Protein,Urine 2+ (Negative); RBC,Urine 2 /hpf (0-5); Specific Gravity,Urine 1.013 (1.001-1.035); Squamous Epithelial Cell,Urine 1 /hpf (0-4); Urobilinogen,Urine <2.0 mg/dL (<2.0); WBC,Urine 8 /hpf (0-5)
[2023-09-27 12:12] LABS: Amphetamine Screen,Urine Not Detected (NotDetected); Benzodiazepines Screen,Urine Detected (NotDetected); Cocaine Screen,Urine Not Detected (NotDetected); Opiate Screen,Urine Not Detected (NotDetected); Phencyclidine Screen,Urine Not Detected (NotDetected); Urn Cannabinoid Scrn Detected (NotDetected)
[2023-09-27 12:13] LABS: Barbiturate Screen,Urine Not Detected (NotDetected); Methadone Screen, Urine Not Detected (NotDetected); Oxycodone Screen, Urine Not Detected (NotDetected); Tricyclic Antidepressant,Urine Not Detected (NotDetected)
[2023-09-27] MEDS: methylPREDNISolone SOD SUCCI 125 MG/2 ML VIAL IV SCH (12:23)
--- NOTE | 2023-09-27 13:29 | P.HPIM ---
History of Present Illness H&P Date: 09/27/23 Subjective: 72-year-old male with a past medical history of hypertension, COPD (on 3 to 4 L nasal cannula), asthma, A-fib on Xarelto, hypothyroidism, and CHF presents with shortness of breath for the last 4 days. Patient reports on Wednesday night his BiPAP machine broke, and has been going about his daily life without it since then. Patient reports the shortness of breath gradually got worse over the last 4 days until it got so bad today that his called EMS who brought him to the ED. While in transit, patient was put on BiPAP by EMS. In the ED the patient's vitals were within normal limits with the exception of his O2 saturation was 92. Labs in the ED were significant for sodium 142, potassium 5.2, bicarb 38, BUN 59, creatinine 2.22, glucose 124, WBC 9.4, hemoglobin 11.7, MCV 93, VBG pH 7.21, VBG pCO2 94, and VBG HCO3 37. Imaging in the ED were significant for an EKG which showed atrial fibrillation, right bundle branch block (120 ms QRS duration), left posterior fascicular block. Patient also received CXR which was limited by body habitus and patient rotation but correlate for CHF with interstitial pulmonary edema and small effusions. In the ED patient received ipratropium nebulized, methylprednisolone, Zofran, Protonix, and NS IV 130 MLS per hour. After receiving treatment patient reported feeling much better than this morning. Patient will be admitted for workup of acute on chronic respiratory failure. Pertinent positives and negatives discussed above, a complete review of systems was preformed and all the other sytems were negative. Vitals Signs Reveiwed. General: non toxic, no distress, appears at stated age, morbidly obese Derm: no unusual rashes/lesions, warm Head: atraumatic, normocephalic, symmetric Eyes: EOMI, no lid lag, anicteric sclera, pupils equal round reactive to light ENT: Nose and ears atraumatic Neck: No cervical lymphadenopathy, trachea midline, supple Mouth: no lip lesion, mucus membranes moist Cardiovascular: S1S2 reg, no murmur, positive dorsalis pedis pulse bilateral, no edema Lungs: Decreased air entry bilaterally, no rhonchi, no rales, no accessory muscle use Abdominal: soft, nontender to palpation, no guarding Ext: muscle strength 5 out of 5 in all 4 extremities grossly, no gross muscle atrophy, no contractures, Neuro: CN II-XI grossly intact, no gross focal neuro deficits Psych: Alert, oriented, appropriate affect Data Reveiwed Today: Patient Labs: Sodium 142, potassium 5.2, bicarb 38, BUN 59, creatinine 2.22, glucose 124, WBC 9.4, hemoglobin 11.7, MCV 93, VBG pH 7.21, the VBG's pCO2 94, and VBG HCO3 37. Imaging: CXR in ED: Limited by body habitus and patient rotation. Correlate for CHF with interstitial pulmonary edema and small effusions. EKG in the ED: Atrial fibrillation, right bundle branch block (120 ms QRS duration), left posterior fascicular block. Assesment and Plan: Acute on chronic respiratory failure: Likely secondary to asthma versus COPD MIRTHA: BUN 59, creatinine 2.22 Etiology = dehydration versus obstruction versus unknown etiology Continue NS IV 130 MLS per hour Will consider consulting nephrology for further recommendations Hyperkalemia: Potassium 5.2 in the ED Continue Lasix and DuoNebs Acute on chronic hypercapnic hypoxic respiratory failure: VBG shows primary respiratory acidosis with secondary metabolic alkalosis Continue BiPAP Continue IV diuresis Continue management for COPD as below Follow-up with pulmonology's recommendations Acute on chronic COPD exacerbation: Continue Trelegy INH daily DuoNeb scheduled and as needed for shortness of breath and wheezing Solu-Medrol 60 mg IV every 6 hours Follow-up pulmonology recommendations CKD: BUN 59, creatinine 2.22 Appears at baseline CHF exacerbation with unknown EF: Fluids have been discontinued Lasix 60 IV twice daily Patient had no pitting edema Strict I's and O's, daily weights, monitor electrolytes and renal function while on Lasix. Echo ordered Chronic: Hypothyroidism (continue home Synthroid to 74 mcg p.o. daily), atrial fibrillation (rate controlled. Xarelto 15 mg p.o. daily for AC. Metoprolol 75 mg p.o. twice daily.), Anxiety and depression (continue home sertraline 200 mg p.o. daily), and CAD with CABG (Xarelto and metoprolol as above. And Lipitor 40 mg p.o. nightly.) F none E none N clear liquid A[] DVT ppx: Xarelto Code Status: Full code Anticipated discharge place: To home Anticipated discharge time: Pending clinical course I have seen and evaluated the patient today. Discussed with the resident and agree with the residents subjective and objective as documented in the resident's note. The assessment and plan was discussed and outlined as below. 72 year old M with PMH of COPD on home O2, YVETTE on CPAP, AFib, CHF, Hypothyroidism, Anxiety and Depression presents to the ED for altered mental status. Patient is currently on continuous BiPAP 14/5 FiO2 40%, history of limited to discussion with ER physician. Case was discussed with the over the phone. It appears patient has had issues with using his BiPAP at home for the past 3 days. He is a previous smoker quit 25 years ago. He does [facility]. noted that he has soiled himself and confused which prompted her to call EMS. EMS noted his O2 sat to be in the 70s on EMS arrival. In the ED he underwent extensive evaluation. BP 113/72, T 96.8 F, HR 78, 92% on BiPAP. CBC, Coag panel, CMP significant for RBC 4.16, Hg 11.7, Hct 38.7, Plt 131, K 5.2, bicarb 38, BUN 59, Cr 2.22, glu 124. Lactic acid 0.7. Mag 2.2. Trop 0.017. BNP 6000. VBG pH 7.21, pCO2 94. EtOH < 10. EKG showed atrial fibrillation. CXR findings of pulmonary vascular congestion and pulmonary effusion. UA negative LE or nitrite. He was given bronchodilators, SoluMedrol, normal saline and admitted for further workup and management. General: non toxic, moderate distress, appears at stated age Derm: warm, dry Head: atraumatic, normocephalic, symmetric Eyes: EOMI, no lid lag, anicteric sclera Mouth: no lip lesion, mucus membranes moist Cardiovascular: S1S2 irreg, no murmur Lungs: Decreased BS bilateral, no rhonchi, + rales , no accessory muscle use Ext: no gross muscle atrophy, no edema, no contractures Neuro: no focal neuro deficits Psych: Alert, oriented x 2, lethargic Acute metabolic encepalopathy likely due to below: Hold Xanax for now. Fall precautions. PT and OT consult. Acute on chronic hypercapnic hypoxic respiratory failure: VBG shows primary respiratory acidosis with secondary metabolic alkaosis. Continue BiPAP. Continue IV diuresis as below. Continue management for COPD as below. Pulmonary consult. CHF exacerbation with unknown EF: Discontinue NS started in the ED. Lasix 60 mg IV BID. Strict intake and outtake. Daily weights. Monitor electrolytes and renal function while on Lasix. Echocardiogram ordered. Acute on chronic COPD exacerbation: Continue Trelegy INH QD. DuoNeb scheduled and PRN for SOB/wheezing. SoluMedrol 60 mg IV Q6H. Pulmonary consult. Hyperkalemia: Hopeful improvement with Lasix. Chronic kidney disease: Appears at baseline. Hypothyroidism: Synthroid 274 mcg PO QD. Atrial fibrillation: Rate controlled. Xarelto 15 mg PO QD for AC. Metoprolol 75 mg PO BID. Anxiety and Depression: Sertraline 200 mg PO QD. CAD with CABG: Xarelto and Metoprolol as above. Lipitor 40 mg PO QHS. CODE STATUS: FULL CODE DVT Prophylaxis: Xarelto GI Prophylaxis: Protonix Designated medical POA if patient is not able to make medical decisions for themselves: I have reviewed the following account consultant notes: ED note. I have reviewed the results of the following tests: As above. I have ordered the following tests: As above. I have discussed the care of this patient with the following independent histori an: I have independently interpreted the following test below: CXR. I have discussed the management of this patient with the following physician: Dr. Ackerman Past Medical History Past Medical History: Atrial Fibrillation, Chest Pain / Angina, COPD, Eye Disorder, Hypertension, Myocardial Infarction ([place]), Respiratory Disorder, Thyroid Disorder History of Any Multi-Drug Resistant Organisms: None Reported Past Surgical History: Back Surgery, Heart Catheterization With Stent Additional Past Surgical History / Comment(s): eye resection Past Psychological History: Anxiety, Depression, PTSD Smoking Status: Former smoker Past Alcohol Use History: None Reported Past Drug Use History: None Reported Medications and Allergies Home Medications Medication Instructions Recorded Confirmed Type ALPRAZolam [Xanax] 1 mg PO TID PRN 01/18/21 09/27/23 History Albuterol Inhaler [Ventolin Hfa 1 puff INHALATION RT-Q4H PRN 09/27/23 09/27/23 History Inhaler] Carboxymethylcellulose Sodium 1 drop BOTH EYES QID PRN 09/27/23 09/27/23 History [Refresh Tears] Cholecalciferol [Vitamin D3 (25 25 mcg PO DAILY 09/27/23 09/27/23 History Mcg = 1000 Iu)] Fluticasone/Umeclidin/Vilanter 1 puff INHALATION RT-DAILY 09/27/23 09/27/23 History [Trelegy Ellipta 100-62.5-25] Isosorbide Mononitrate ER [Imdur] 15 mg PO DAILY 09/27/23 09/27/23 History Levothyroxine Sodium [Synthroid] 274 mcg PO DAILY 09/27/23 09/27/23 History Metoprolol Tartrate [Lopressor] 75 mg PO BID 09/27/23 09/27/23 History Rivaroxaban [Xarelto] 15 mg PO DAILY 09/27/23 09/27/23 History Rosuvastatin Calcium [Crestor] 20 mg PO HS 09/27/23 09/27/23 History Sertraline [Zoloft] 200 mg PO DAILY 09/27/23 09/27/23 History hydroCHLOROthiazide [Hydrodiuril] 25 mg PO DAILY 09/27/23 09/27/23 History predniSONE 5 mg PO DAILY 09/27/23 09/27/23 History Allergies Allergy/AdvReac Type Severity Reaction Status Date / Time iodine AdvReac Hypotension, Verified 09/27/23 10:58 itching, watering eyes lisinopril AdvReac hyperkalemi Verified 09/27/23 10:58 a morphine AdvReac hallucinations, Verified 09/27/23 10:58 behavior change temazepam AdvReac headache Verified 09/27/23 10:58 Physical Exam Vitals: Vital Signs Temp Pulse Resp BP Pulse Ox FiO2 09/27/23 12:26 16 96 09/27/23 11:44 84 09/27/23 11:25 76 09/27/23 11:23 40 09/27/23 11:05 83 16 131/93 95 09/27/23 09:05 67 10 L 105/66 93 L 09/27/23 08:29 74 09/27/23 08:25 8 L 09/27/23 08:17 75 09/27/23 08:12 40 09/27/23 08:11 10 L 97 09/27/23 08:10 8 L 09/27/23 08:09 40 09/27/23 08:08 40 09/27/23 08:07 50 09/27/23 08:01 96.8 F L 78 18 113/72 92 L Intake and Output 09/26/23 09/27/23 09/27/23 22:59 06:59 14:59 Other: Weight 127.006 kg Results CBC & Chem 7: 09/27/23 08:13 09/27/23 08:13 Labs: Abnormal Lab Results - Last 24 Hours (Table) 09/27/23 09/27/23 09/27/23 Range/Units 08:11 08:13 08:13 RBC 4.16 L (4.30-5.90) m/uL Hgb 11.7 L (13.0-17.5) gm/dL Hct 38.7 L (39.0-53.0) % MCHC 30.2 L (31.0-37.0) g/dL Plt Count 131 L (150-450) k/uL Neutrophils # 8.1 H (1.3-7.7) k/uL Lymphocytes # 0.5 L (1.0-4.8) k/uL VBG pH (7.31-7.41) VBG pCO2 (37-51) mmHg VBG HCO3 (24-28) mmol/L Potassium 5.2 H (3.5-5.1) mmol/L Carbon Dioxide 38 H (22-30) mmol/L BUN 59 H (9-20) mg/dL Creatinine 2.22 H (0.66-1.25) mg/dL Glucose 124 H (74-99) mg/dL POC Glucose (mg/dL) 126 H (70-110) mg/dL Urine Protein (Negative) Urine Blood (Negative) Urine WBC (0-5) /hpf Amorphous Sediment (None) /hpf Urine Bacteria (None) /hpf U Benzodiazepines Scrn (NotDetected) U Marijuana (THC) Screen (NotDetected) 09/27/23 09/27/23 Range/Units 09:30 09:57 RBC (4.30-5.90) m/uL Hgb (13.0-17.5) gm/dL Hct (39.0-53.0) % MCHC (31.0-37.0) g/dL Plt Count (150-450) k/uL Neutrophils # (1.3-7.7) k/uL Lymphocytes # (1.0-4.8) k/uL VBG pH 7.21 L (7.31-7.41) VBG pCO2 94 H* (37-51) mmHg VBG HCO3 37 H (24-28) mmol/L Potassium (3.5-5.1) mmol/L Carbon Dioxide (22-30) mmol/L BUN (9-20) mg/dL Creatinine (0.66-1.25) mg/dL Glucose (74-99) mg/dL POC Glucose (mg/dL) (70-110) mg/dL Urine Protein 2+ H (Negative) Urine Blood Small H (Negative) Urine WBC 8 H (0-5) /hpf Amorphous Sediment Rare H (None) /hpf Urine Bacteria Rare H (None) /hpf U Benzodiazepines Scrn Detected H (NotDetected) U Marijuana (THC) Screen Detected H (NotDetected)
--- NOTE | 2023-09-27 14:16 | P.CNPUL ---
History of Present Illness Consult date: 09/27/23 Requesting physician: Alanis Ellis Reason for consult: dyspnea, abnormal CXR/CT Chief complaint: Shortness of breath x 4 days History of present illness: This is a pleasant 72-year-old obese male patient who follows at the [facility] for his primary care needs. He has a history of coronary artery disease with previous stent placement and CABG, hyperlipidemia, hypertension, atrial fibrillation anticoagulated with Xarelto, chronic obstructive pulmonary disease, oxygen and steroid-dependent for. He is maintained on Trelegy and albuterol in the outpatient setting. He normally wears oxygen at 5 L/min per nasal cannula. He presented here to the emergency room by EMS after be being found unresponsive with generalized weakness shortness of breath and altered mental status. He was placed on BiPAP on arrival. 14/5 and 40% FiO2. Chest x-ray revealed cardiomegaly and pulmonary vascular congestion. Count 9.4. Hemoglobin 11.7. Platelets 131. Sodium 142. Potassium 5.2. Bicarb 38. BUN 59. Creatinine 2.22. Glucose 124. Troponin negative x 1. proBNP 6000. Urine drug screen po sitive for benzodiazepines and marijuana. He is seen today in consultation in the emergency department. He is currently sitting up in a chair. Awake and alert in no acute distress. Somewhat of a poor historian. He is now on oxygen at 5 L/min per nasal cannula with O2 saturations in the 90s. He is feeling better. Less short of breath. Denies any chest pain or palpitations. No worsening cough or congestion. No hemoptysis. Review of Systems REVIEW OF SYSTEMS: CONSTITUTIONAL: Positive for altered mental status. Denies any recent significant weight loss or weight gain. EYES: Denies change in vision. EARS, NOSE, MOUTH, THROAT: Denies headaches, denies sore throat. CARDIOVASCULAR: Denies chest pain, palpitations or syncopal episodes. RESPIRATORY: Positive for shortness of breath, cough, congestion no hemoptysis. GASTROINTESTINAL: Denies change in appetite, denies abdominal pain GENITOURINARY: Denies hematuria, denies infections. MUSKULOSKELETAL: Denies pain, denies swelling. INTEGUMENTARY: Denies rash, denies eczema. NEUROLOGICAL: Positive for altered mental status, obtunded. PSYCHIATRIC: Denies anxiety, denies depression. HEMATOLOGIC/LYMPHATIC: Denies anemia, denies enlarged lymph nodes. Past Medical History Past Medical History: Atrial Fibrillation, Chest Pain / Angina, COPD, Eye Disorder, Hypertension, Myocardial Infarction ([place]), Respiratory Disorder, Thyroid Disorder History of Any Multi-Drug Resistant Organisms: None Reported Past Surgical History: Back Surgery, Heart Catheterization With Stent Additional Past Surgical History / Comment(s): eye resection Past Psychological History: Anxiety, Depression, PTSD Smoking Status: Former smoker Past Alcohol Use History: None Reported Past Drug Use History: None Reported Medications and Allergies Home Medications Medication Instructions Recorded Confirmed Type ALPRAZolam [Xanax] 1 mg PO TID PRN 01/18/21 09/27/23 History Albuterol Inhaler [Ventolin Hfa 1 puff INHALATION RT-Q4H PRN 09/27/23 09/27/23 History Inhaler] Carboxymethylcellulose Sodium 1 drop BOTH EYES QID PRN 09/27/23 09/27/23 History [Refresh Tears] Cholecalciferol [Vitamin D3 (25 25 mcg PO DAILY 09/27/23 09/27/23 History Mcg = 1000 Iu)] Fluticasone/Umeclidin/Vilanter 1 puff INHALATION RT-DAILY 09/27/23 09/27/23 History [Trelegy Ellipta 100-62.5-25] Isosorbide Mononitrate ER [Imdur] 15 mg PO DAILY 09/27/23 09/27/23 History Levothyroxine Sodium [Synthroid] 274 mcg PO DAILY 09/27/23 09/27/23 History Metoprolol Tartrate [Lopressor] 75 mg PO BID 09/27/23 09/27/23 History Rivaroxaban [Xarelto] 15 mg PO DAILY 09/27/23 09/27/23 History Rosuvastatin Calcium [Crestor] 20 mg PO HS 09/27/23 09/27/23 History Sertraline [Zoloft] 200 mg PO DAILY 09/27/23 09/27/23 History hydroCHLOROthiazide [Hydrodiuril] 25 mg PO DAILY 09/27/23 09/27/23 History predniSONE 5 mg PO DAILY 09/27/23 09/27/23 History Allergies Allergy/AdvReac Type Severity Reaction Status Date / Time iodine AdvReac Hypotension, Verified 09/27/23 10:58 itching, watering eyes lisinopril AdvReac hyperkalemi Verified 09/27/23 10:58 a morphine AdvReac hallucinations, Verified 09/27/23 10:58 behavior change temazepam AdvReac headache Verified 09/27/23 10:58 Physical Exam Vitals: Vital Signs Temp Pulse Resp BP Pulse Ox FiO2 09/27/23 13:00 96 09/27/23 12:26 16 96 09/27/23 11:44 84 09/27/23 11:25 76 09/27/23 11:23 40 09/27/23 11:05 83 16 131/93 95 09/27/23 09:05 67 10 L 105/66 93 L 09/27/23 08:29 74 09/27/23 08:25 8 L 09/27/23 08:17 75 09/27/23 08:12 40 09/27/23 08:11 10 L 97 09/27/23 08:10 8 L 09/27/23 08:09 40 09/27/23 08:08 40 09/27/23 08:07 50 09/27/23 08:01 96.8 F L 78 18 113/72 92 L Intake and Output 09/26/23 09/27/23 09/27/23 22:59 06:59 14:59 Intake Total 200 Output Total 1200 Balance -1000 Intake: Oral 200 Output: Urine 1200 Other: Weight 127.006 kg GENERAL EXAM: Alert, pleasant, poor historian, obese 72-year-old male patient, on 5 L nasal cannula, up in a chair comfortable in no apparent distress. HEAD: Normocephalic. EYES: Normal reaction of pupils, equal size. NOSE: Clear with pink turbinates. THROAT: No erythema or exudates. NECK: No masses, no JVD. CHEST: No chest wall deformity. LUNGS: Equal air entry with crackles in the posterior bases, diminished throu ghout. CVS: S1 and S2 normal with no audible murmur, regular rhythm. ABDOMEN: No hepatosplenomegaly, normal bowel sounds, no guarding or rigidity. SPINE: No scoliosis or deformity SKIN: No rashes CENTRAL NERVOUS SYSTEM: No focal deficits, tone is normal in all 4 extremities. EXTREMITIES: There is 1+ peripheral edema. No clubbing, no cyanosis. Peripheral pulses are intact. Results - Laboratory Findings CBC and BMP: 09/27/23 08:13 09/27/23 08:13 PT/INR, D-dimer PT 10.3 sec (10.0-12.5) 09/27/23 08:13 INR 0.9 (<1.2) 09/27/23 08:13 Abnormal lab findings: Abnormal Labs 09/27/23 09/27/23 09/27/23 08:11 08:13 08:13 RBC 4.16 L Hgb 11.7 L Hct 38.7 L MCHC 30.2 L Plt Count 131 L Neutrophils # 8.1 H Lymphocytes # 0.5 L VBG pH VBG pCO2 VBG HCO3 Potassium 5.2 H Carbon Dioxide 38 H BUN 59 H Creatinine 2.22 H Glucose 124 H POC Glucose (mg/dL) 126 H Urine Protein Urine Blood Urine WBC Amorphous Sediment Urine Bacteria U Benzodiazepines Scrn U Marijuana (THC) Screen 09/27/23 09/27/23 09:30 09:57 RBC Hgb Hct MCHC Plt Count Neutrophils # Lymphocytes # VBG pH 7.21 L VBG pCO2 94 H* VBG HCO3 37 H Potassium Carbon Dioxide BUN Creatinine Glucose POC Glucose (mg/dL) Urine Protein 2+ H Urine Blood Small H Urine WBC 8 H Amorphous Sediment Rare H Urine Bacteria Rare H U Benzodiazepines Scrn Detected H U Marijuana (THC) Screen Detected H - Diagnostic Findings Chest x-ray: image reviewed Assessment and Plan Assessment: Acute on chronic hypoxemic respiratory failure secondary to acute exacerbation of suspected systolic versus diastolic congestive heart failure, COPD exacerbation Acute kidney injury Hyperkalemia secondary to above Chronic hypoxemic respiratory failure secondary to suspected severe COPD Chronic obstructive pulmonary disease, oxygen and steroid dependent, on Trelegy and albuterol History of congestive heart failure History of coronary disease with previous stent placement, bypass Atrial fibrillation anticoagulated with Xarelto Pacemaker implantation Obesity Hypertension Hyperlipidemia Hypothyroidism History of anxiety/depression Former smoker Marijuana use Plan: The patient was seen and evaluated Chest x-ray, labs and medications reviewed Received Lasix 60 mg IVP x 1 Echocardiogram pending Continue to titrate the FiO2 as tolerated BiPAP support if needed or becomes altered Add Symbicort, DuoNeb inhalations, Solu-Medrol Anticoagulated with Xarelto We will continue to follow and make further recommendations based on his clinical status I have personally seen and examined the patient, performed the documentation and the assessment and plan as written. Number of minutes spent on the visit: 20.
[2023-09-27] MEDS: IPRATROPIUM-ALBUTEROL 3 ML NEB INHALATION SCH (16:32)
[2023-09-27] MEDS: ALPRAZolam 1 MG TAB PO PRN (19:12)
[2023-09-27] MEDS: ALPRAZolam 1 MG TAB PO SCH (19:16)
[2023-09-27] MEDS: SYMBICORT 160-4.5 MCG INHALER INHALATION SCH (19:55)
[2023-09-27] MEDS: ATORVASTATIN 40 MG TAB PO SCH (20:05)
[2023-09-27] MEDS: METOPROLOL TARTRATE 50 MG TAB PO SCH (20:05)
[2023-09-27] MEDS ORDERED: ALPRAZolam 1 MG TAB PO SCH (22:00)
[2023-09-28] MEDS: LEVOTHYROXINE 137 MCG TAB PO SCH (06:21)
[2023-09-28] MEDS: PANTOPRAZOLE 40 MG TABLET PO SCH (06:21)
[2023-09-28 07:15] LABS: Basophils % (A) 0 %; Eosinophils % (A) 0 %; HCT 36.2 % (39.0-53.0); HGB 10.9 gm/dL (13.0-17.5); Hypochromasia Marked; Lymphocytes # (A) 0.5 k/uL (1.0-4.8); Lymphocytes % (A) 6 %; MCH 28.2 pg (25.0-35.0); MCHC 30.1 g/dL (31.0-37.0); MCV 93.7 fL (80.0-100.0); Mean Platelet Volume 8.4; Monocytes # (A) 0.2 k/uL (0-1.0); Monocytes % (A) 3 %; Neutrophils # (A) 6.6 k/uL (1.3-7.7); Neutrophils % (A) 90 %; Platelet Count 154 k/uL (150-450); RBC 3.86 m/uL (4.30-5.90); RDW 15.1 % (11.5-15.5); WBC 7.4 k/uL (3.8-10.6)
[2023-09-28 07:37] LABS: ALT 16 U/L (4-49); AST 24 U/L (17-59); African American GFR (CKD) 37 (>60 ml/min/1.73 sqM); Albumin 3.5 g/dL (3.5-5.0); Alkaline Phosphatase 102 U/L (38-126); Anion Gap 3 mmol/L; Blood Urea Nitrogen 58 mg/dL (9-20); Calcium 8.9 mg/dL (8.4-10.2); Carbon Dioxide 39 mmol/L (22-30); Chloride 96 mmol/L (98-107); Glucose 130 mg/dL (74-99); Non-African American GFR(CKD) 32 (>60 ml/min/1.73 sqM); Phosphorus 3.9 mg/dL (2.5-4.5); Potassium 4.7 mmol/L (3.5-5.1); Sodium 138 mmol/L (137-145); Total Bilirubin 0.6 mg/dL (0.2-1.3); Total Protein 6.1 g/dL (6.3-8.2)
[2023-09-28] MEDS ORDERED: IPRATROPIUM 0.5 MG/2.5 ML NEBU INHALATION SCH (08:00)
[2023-09-28] MEDS ORDERED: SYMBICORT 80-4.5 MCG INHALER INHALATION SCH (08:00)
[2023-09-28] MEDS: RIVAROXABAN 15 MG TAB PO SCH (08:25)
[2023-09-28] MEDS: hydroCHLOROthiazide 25 MG TAB PO SCH (08:26)
[2023-09-28] MEDS: ISOSORBIDE MONONITRATE ER 15 MG TAB PO SCH (08:26)
[2023-09-28] MEDS: SERTRALINE 100 MG TAB PO SCH (08:26)
[2023-09-28] MEDS ORDERED: predniSONE 5 MG TAB PO SCH (09:00)
--- NOTE | 2023-09-28 10:58 | XR ---
EXAMINATION TYPE: XR chest 2V DATE OF EXAM: 09/28/2023 10:52 AM COMPARISON: Chest radiographs from 09/27/2023 TECHNIQUE: XR chest 2V Frontal and lateral views of the chest. CLINICAL INDICATION:Male, 72 years old with history of hypoxia; FINDINGS: Patient is rotated with some dilation. Additionally patient body habitus limits evaluation. Lungs/Pleura: No pneumothorax. Small bilateral pleural effusions. Diffuse interstitial densities. Pulmonary vascularity: Pulmonary vascular congestion. Heart/mediastinum: Cardiomediastinal silhouette is enlarged and stable. Left anterior chest wall pace maker generator with right ventricular lead redemonstrated. Musculoskeletal: No acute osseous pathology. Midline sternotomy wires and surgical clips project over the mediastinum. IMPRESSION: Cardiomegaly, pulmonary vascular congestion and bilateral small pleural effusions. Correlate with BNP for congestive heart failure.
[2023-09-28 11:30] LABS: Glucose,Whole Blood 134 mg/dL (70-110)
--- NOTE | 2023-09-28 11:52 | P.PN ---
Subjective Progress Note Date: 09/28/23 Principal diagnosis: Shortness of breath. This is a pleasant 72-year-old obese male patient who follows at the [facility] for his primary care needs. He has a history of coronary artery disease with previous stent placement and CABG, hyperlipidemia, hypertension, atrial fibrillation anticoagulated with Xarelto, chronic obstructive pulmonary disease, oxygen and steroid-dependent for. He is maintained on Trelegy and albuterol in the outpatient setting. He normally wears oxygen at 5 L/min per nasal cannula. He presented here to the emergency room by EMS after be being found unresponsive with generalized weakness shortness of breath and altered mental status. He was placed on BiPAP on arrival. 14/5 and 40% FiO2. Chest x-ray revealed cardiomegaly and pulmonary vascular congestion. Count 9.4. Hemoglobin 11.7. Platelets 131. Sodium 142. Potassium 5.2. Bicarb 38. BUN 59. Creatinine 2.22. Glucose 124. Troponin negative x 1. proBNP 6000. Urine drug screen po sitive for benzodiazepines and marijuana. He is seen today in consultation in the emergency department. He is currently sitting up in a chair. Awake and alert in no acute distress. Somewhat of a poor historian. He is now on oxygen at 5 L/min per nasal cannula with O2 saturations in the 90s. He is feeling better. Less short of breath. Denies any chest pain or palpitations. No worsening cough or congestion. No hemoptysis. Progress note dated September 28, 2023. 72-year-old male seen in the emergency department yesterday. The patient came in with increasing shortness of breath, and was found to have CHF exacerbation. Currently, the patient is on 5 L nasal cannula. He is not receiving any IV fluids. Last night, the patient was on BiPAP, with settings of 14/5, and 40%. He states the BiPAP really does help him quite a bit. Current labs include a white count of 7.4, hemoglobin 10.9, hematocrit 36.2, and platelet count 154,000. Sodium 138, potassium 4.7, chloride 96, CO2 39, BUN 58, creatinine 2.05. That compares to BUN/creatinine of 59-2.22 yesterday. Glucose is 134. Chest x-ray shows cardiomegaly, small bilateral effusions, and pulmonary vascular congestion. Objective - Vital Signs Vital signs: Vital Signs Temp 98.2 F 09/28/23 08:31 Pulse 80 09/28/23 11:38 Resp 18 09/28/23 11:38 BP 94/56 09/28/23 11:30 Pulse Ox 100 09/28/23 11:30 FiO2 40 09/28/23 08:50 Intake & Output 09/27/23 09/28/23 09/28/23 18:59 06:59 18:59 Intake Total 800 360 237 Output Total 2200 300 350 Balance -1400 60 -113 Weight 127.006 kg 135 kg Intake: Oral 800 360 237 Output: Urine 2200 300 350 Other: Voiding Method Urinal Urinal External Catheter - Exam No acute distress, oriented 3. The patient is currently on 5 L nasal cannula. HEENT examination is grossly unremarkable. Mucous membranes are moist. No oral lesions. Neck supple. Full range of motion. No adenopathy thyromegaly or neck vein di stention. Cardiovascular examination reveals regular rhythm rate. S1-S2 normal. No S3 or S4. No discernible murmur noted. Heart rate 80 bpm. Lungs reveal basilar crackles. No wheezes. No rhonchi. Breath sounds are equal bilaterally. 5 L saturations is 100%. Abdomen soft bowel sounds are heard. No masses or tenderness. Extremities are intact. No cyanosis or clubbing noted. 1+ edema appreciated. Skin is without rash or lesion. Neurologic examination is brief but nonfocal. - Labs CBC & Chem 7: 09/28/23 06:51 09/28/23 06:51 Labs: Abnormal Lab Results - Last 24 Hours (Table) 09/27/23 09/28/23 09/28/23 Range/Units 09:30 06:51 06:51 RBC 3.86 L (4.30-5.90) m/uL Hgb 10.9 L (13.0-17.5) gm/dL Hct 36.2 L (39.0-53.0) % MCHC 30.1 L (31.0-37.0) g/dL Lymphocytes # 0.5 L (1.0-4.8) k/uL Chloride 96 L (98-107) mmol/L Carbon Dioxide 39 H (22-30) mmol/L BUN 58 H (9-20) mg/dL Creatinine 2.05 H (0.66-1.25) mg/dL Glucose 130 H (74-99) mg/dL POC Glucose (mg/dL) (70-110) mg/dL Total Protein 6.1 L (6.3-8.2) g/dL Urine Protein 2+ H (Negative) Urine Blood Small H (Negative) Urine WBC 8 H (0-5) /hpf Amorphous Sediment Rare H (None) /hpf Urine Bacteria Rare H (None) /hpf U Benzodiazepines Scrn Detected H (NotDetected) U Marijuana (THC) Screen Detected H (NotDetected) 09/28/23 Range/Units 11:29 RBC (4.30-5.90) m/uL Hgb (13.0-17.5) gm/dL Hct (39.0-53.0) % MCHC (31.0-37.0) g/dL Lymphocytes # (1.0-4.8) k/uL Chloride (98-107) mmol/L Carbon Dioxide (22-30) mmol/L BUN (9-20) mg/dL Creatinine (0.66-1.25) mg/dL Glucose (74-99) mg/dL POC Glucose (mg/dL) 134 H (70-110) mg/dL Total Protein (6.3-8.2) g/dL Urine Protein (Negative) Urine Blood (Negative) Urine WBC (0-5) /hpf Amorphous Sediment (None) /hpf Urine Bacteria (None) /hpf U Benzodiazepines Scrn (NotDetected) U Marijuana (THC) Screen (NotDetected) Assessment and Plan Assessment: Acute on chronic hypoxemic respiratory failure secondary to acute exacerbation of suspected systolic versus diastolic congestive heart failure, and COPD exacerbation. Acute kidney injury. Hyperkalemia secondary to above. Chronic hypoxemic respiratory failure secondary to suspected severe COPD. Chronic obstructive pulmonary disease, oxygen and steroid dependent. History of congestive heart failure. History of coronary disease with previous stent placement, bypass. Atrial fibrillation. Pacemaker implantation. Obesity. Hypertension. Hyperlipidemia. Hypothyroidism. History of anxiety/depression. Former smoker. Marijuana use. Plan: Plan dated September 28, 2023. The patient is seen today in room 353. The patient is currently on 5 L of oxygen. He is laying comfortably in bed. He states the BiPAP helped him tremendously last night. Overall, his breathing is much improved. The patient continues on appropriate medications, diuretics, breathing treatments, steroids, etc. We will continue to follow make recommendations along the way. Patient's overall prognosis remains guarded. Time with Patient: Less than 30
--- NOTE | 2023-09-28 17:06 | P.PN ---
Subjective Progress Note Date: 09/28/23 Subjective: Patient seen at bedside. No significant overnight events. Currently saturating well at 98% on 5 L nasal cannula (regular home O2 requirement) Pertinent positives and negatives discussed above, a complete review of systems was preformed and all the other sytems were negative. Vitals Signs Reveiwed. General: non toxic, no distress, appears at stated age, normal weight Derm: no unusual rashes/lesions, warm Head: atraumatic, normocephalic, symmetric Eyes: EOMI, no lid lag, anicteric sclera, pupils equal round reactive to light ENT: Nose and ears atraumatic Neck: No cervical lymphadenopathy, trachea midline, supple Mouth: no lip lesion, mucus membranes moist Cardiovascular: S1S2 reg, no murmur, positive dorsalis pedis pulse bilateral, no edema Lungs: Decreased air entry bilaterally, no rhonchi, no rales, no accessory muscle use, supplemental oxygen Abdominal: soft, nontender to palpation, no guarding Ext: muscle strength 5 out of 5 in all 4 extremities grossly, no gross muscle atrophy, no contractures, Neuro: CN II-XI grossly intact, no gross focal neuro deficits Psych: Alert, oriented, appropriate affect Data Reveiwed Today: Patient Labs: Sodium 138, potassium 4.7, chloride 96, bicarb 39, BUN 58, creatinine 2.05, glucose 130, WBC 7.4, hemoglobin 10.9, and MCV 93.7. Imaging: CXR independently interpreted, similar to yesterday: Cardiomegaly, pulmonary vascular congestion and bilateral small pleural effusions. Assesment:72-year-old male with a past medical history of hypertension, COPD (on 3 to 4 L nasal cannula), asthma, A-fib on Xarelto, hypothyroidism, and CHF presents with c/o shortness of breath. Patient will be admitted for workup of acute on chronic hypercapnic hypoxic respiratory failure. Plan: Acute on chronic hypercapnic hypoxic respiratory failure: -Patient does not have tubing for his BiPAP, which is why he was not able to utilize it at home VBG shows primary respiratory acidosis with secondary metabolic alkalosis Continue BiPAP Continue management for COPD as below Acute on chronic COPD exacerbation: Continue Trelegy INH daily DuoNeb scheduled and as needed for shortness of breath and wheezing Started prednisone 40 mg p.o. daily that we will begin tomorrow (09/28), IV steroids discontinued -Pulmonology note reviewed, continue current therapy Hyperkalemia: Resolved Potassium 4.7 today Continue James CKD stage III: BUN 59, creatinine 2.22 Appears at baseline CHF with mild exacerbation with unknown EF: Fluids have been discontinued Patient had no pitting edema Strict I's and O's, daily weights, monitor electrolytes Echo scheduled for tomorrow CXR showed cardiomegaly, pulmonary vascular congestion and bilateral small pleural effusions. -If worsening respiratory status, will give another dose of IV Lasix Chronic: Hypothyroidism (continue home Synthroid 274 mcg p.o. daily), atrial fibrillation (rate controlled. Xarelto 15 mg p.o. daily for AC. Metoprolol 75 mg p.o. twice daily.), Anxiety and depression (continue home sertraline 200 mg p.o. daily), and CAD with CABG (metoprolol as above. And Lipitor 40 mg p.o. nightly.) Hypertension - Continue hydrochlorothiazide 25 mg p.o. daily, Imdur 15 mg daily F none E none N clear liquid A normally ambulates at home with a walker. DVT ppx: Xarelto Code Status: Full code Anticipated discharge place: To home Anticipated discharge time: Pending clinical course I have seen and evaluated the patient today. Discussed with the resident and agree with the residents finding and plan as documented in the resident's note. Changes highlighted in blue font. Objective - Vital Signs Vital signs: Vital Signs Temp 99.3 F 09/28/23 04:00 Pulse 82 09/28/23 04:00 Resp 14 09/28/23 04:00 BP 128/73 09/28/23 04:00 Pulse Ox 98 09/28/23 04:00 FiO2 40 09/28/23 00:06 Intake & Output 09/27/23 09/27/23 09/28/23 06:59 18:59 06:59 Intake Total 800 360 Output Total 2200 300 Balance -1400 60 Weight 127.006 kg 135 kg Intake: Oral 800 360 Output: Urine 2200 300 Other: Voiding Method Urinal External Catheter - Labs CBC & Chem 7: 09/28/23 06:51 09/28/23 06:51 Labs: Abnormal Lab Results - Last 24 Hours (Table) 09/27/23 09/27/23 09/27/23 Range/Units 08:11 08:13 08:13 RBC 4.16 L (4.30-5.90) m/uL Hgb 11.7 L (13.0-17.5) gm/dL Hct 38.7 L (39.0-53.0) % MCHC 30.2 L (31.0-37.0) g/dL Plt Count 131 L (150-450) k/uL Neutrophils # 8.1 H (1.3-7.7) k/uL Lymphocytes # 0.5 L (1.0-4.8) k/uL VBG pH (7.31-7.41) VBG pCO2 (37-51) mmHg VBG HCO3 (24-28) mmol/L Potassium 5.2 H (3.5-5.1) mmol/L Carbon Dioxide 38 H (22-30) mmol/L BUN 59 H (9-20) mg/dL Creatinine 2.22 H (0.66-1.25) mg/dL Glucose 124 H (74-99) mg/dL POC Glucose (mg/dL) 126 H (70-110) mg/dL Urine Protein (Negative) Urine Blood (Negative) Urine WBC (0-5) /hpf Amorphous Sediment (None) /hpf Urine Bacteria (None) /hpf U Benzodiazepines Scrn (NotDetected) U Marijuana (THC) Screen (NotDetected) 09/27/23 09/27/23 Range/Units 09:30 09:57 RBC (4.30-5.90) m/uL Hgb (13.0-17.5) gm/dL Hct (39.0-53.0) % MCHC (31.0-37.0) g/dL Plt Count (150-450) k/uL Neutrophils # (1.3-7.7) k/uL Lymphocytes # (1.0-4.8) k/uL VBG pH 7.21 L (7.31-7.41) VBG pCO2 94 H* (37-51) mmHg VBG HCO3 37 H (24-28) mmol/L Potassium (3.5-5.1) mmol/L Carbon Dioxide (22-30) mmol/L BUN (9-20) mg/dL Creatinine (0.66-1.25) mg/dL Glucose (74-99) mg/dL POC Glucose (mg/dL) (70-110) mg/dL Urine Protein 2+ H (Negative) Urine Blood Small H (Negative) Urine WBC 8 H (0-5) /hpf Amorphous Sediment Rare H (None) /hpf Urine Bacteria Rare H (None) /hpf U Benzodiazepines Scrn Detected H (NotDetected) U Marijuana (THC) Screen Detected H (NotDetected)
[2023-09-29] MEDS: predniSONE 20 MG TAB PO SCH (08:32)
[2023-09-29 09:09] LABS: Basophils % (A) 0 %; Eosinophils % (A) 0 %; HCT 36.6 % (39.0-53.0); HGB 11.1 gm/dL (13.0-17.5); Hypochromasia Moderate; Lymphocytes # (A) 1.1 k/uL (1.0-4.8); Lymphocytes % (A) 11 %; MCHC 30.3 g/dL (31.0-37.0); MCV 92.4 fL (80.0-100.0); Mean Platelet Volume 8.6; Monocytes # (A) 0.8 k/uL (0-1.0); Monocytes % (A) 7 %; Neutrophils # (A) 8.7 k/uL (1.3-7.7); Neutrophils % (A) 81 %; Platelet Count 190 k/uL (150-450); RBC 3.96 m/uL (4.30-5.90); RDW 15.5 % (11.5-15.5); WBC 10.7 k/uL (3.8-10.6)
[2023-09-29 09:33] LABS: African American GFR (CKD) 31 (>60 ml/min/1.73 sqM); Anion Gap 5 mmol/L; Blood Urea Nitrogen 65 mg/dL (9-20); Calcium 9.3 mg/dL (8.4-10.2); Carbon Dioxide 38 mmol/L (22-30); Chloride 95 mmol/L (98-107); Glucose 102 mg/dL (74-99); Non-African American GFR(CKD) 27 (>60 ml/min/1.73 sqM); Potassium 4.8 mmol/L (3.5-5.1); Sodium 138 mmol/L (137-145)
--- NOTE | 2023-09-29 10:04 | CA ---
Transthoracic Echo Report Name: Aris Grady Age: 72 Gender: M : 1950 Exam Date: 09/28/2023 14:06 Exam Location: [facility] Ht (in): 73 Wt (lb): 280 Ordering Physician: George Yanes MD Attending/Referring Phys: Green Building Engineer Taty Aquino RDCS Procedure CPT: Indications: Respiratory Failure Cardiac Hx: Technical Quality: Technically difficult study Contrast 1: Definity Total Dose (mL): 2 Contrast 2: Total Dose (mL): MEASUREMENTS (Male / Female) Normal Values 2D ECHO LV Diastolic Diameter PLAX 5.4 cm 4.2 - 5.9 / 3.9 - 5.3 cm LV Systolic Diameter PLAX 3.7 cm IVS Diastolic Thickness 1.0 cm 0.6 - 1.0 / 0.6 - 0.9 cm LVPW Diastolic Thickness 1.2 cm 0.6 - 1.0 / 0.6 - 0.9 cm LV Relative Wall Thickness 0.4 LVOT Diameter 2.1 cm LV Diastolic Volume MOD 4C 110.2 cm??? LV Systolic Volume MOD 4C 44.8 cm??? LV Ejection Fraction MOD 4C 59.3 % LV Cardiac Index MOD 4C 1958.7 cm???/min???m??? LV Diastolic Length 4C 8.6 cm LV Systolic Length 4C 6.9 cm LA Volume 140.3 cm??? 18 - 58 / 22 - 52 cm??? LA Volume Index 53.9 cm???/m??? 16 - 28 cm???/m??? DOPPLER AV Peak Velocity 169.8 cm/s AV Peak Gradient 11.5 mmHg AV Mean Velocity 111.4 cm/s AV Mean Gradient 5.8 mmHg AV Velocity Time Integral 29.9 cm LVOT Peak Velocity 114.9 cm/s LVOT Peak Gradient 5.3 mmHg LVOT Velocity Time Integral 21.2 cm LVOT Stroke Volume 72.2 cm??? LVOT Stroke Volume Index 29.1 ml/m??? LVOT Cardiac Index 2162.5 cm???/min???m??? AV Area Cont Eq vti 2.4 cm??? AV Area Cont Eq pk 2.3 cm??? TR Peak Velocity 289.9 cm/s TR Peak Gradient 33.6 mmHg Right Atrial Pressure 10.0 mmHg Pulmonary Artery Systolic Pressu 43.6 mmHg Right Ventricular Systolic Press 43.6 mmHg PV Peak Velocity 84.7 cm/s PV Peak Gradient 2.9 mmHg FINDINGS Left Ventricle Left ventricular ejection fraction is estimated at 55-60 %. Left ventricular cavity size normal. Left ventricular wall thickness normal. No obvious regional wall motion abnormalities. Right Ventricle Right ventricular dilatation with mild to moderately reduced fuction. Mild pulmonary hypertension. Right Atrium Severe right atrial dilatation. Catheter/pacemaker wire in the right atrial cavity. Left Atrium Severely increased left atrial volume. Moderately increased left atrial area. Mitral Valve Structurally normal mitral valve. No evidence for mitral valve prolapse. No mitral stenosis. Trace mitral regurgitation. Aortic Valve Trileaflet aortic valve. Aortic valve sclerosis. No aortic stenosis. No aortic regurgitation. Tricuspid Valve Structurally normal tricuspid valve. No tricuspid stenosis. Moderate to severe tricuspid regurgitation. Pulmonic Valve Structurally normal pulmonic valve. No pulmonic stenosis. Mild pulmonic regurgitation. Pericardium No pericardial effusion. Aorta Aortic annulus normal. Ascending aorta not well visualized. CONCLUSIONS Left ventricular ejection fraction 55-60% RVSP 43 Severe biatrial enlargement Trace mitral regurgitation Moderate to severe tricuspid regurgitation No pericardial effusion Previewed by: Dr. Donell Flores DO (Electronically Signed) Final Date: 29 September 2023 10:03
[2023-09-29 12:08] VITALS: BP 111/72; TEMP 98.1
--- NOTE | 2023-09-29 14:06 | P.PN ---
Subjective Progress Note Date: 09/29/23 Principal diagnosis: Shortness of breath. This is a pleasant 72-year-old obese male patient who follows at the [facility] for his primary care needs. He has a history of coronary artery disease with previous stent placement and CABG, hyperlipidemia, hypertension, atrial fibrillation anticoagulated with Xarelto, chronic obstructive pulmonary disease, oxygen and steroid-dependent for. He is maintained on Trelegy and albuterol in the outpatient setting. He normally wears oxygen at 5 L/min per nasal cannula. He presented here to the emergency room by EMS after be being found unresponsive with generalized weakness shortness of breath and altered mental status. He was placed on BiPAP on arrival. 14/5 and 40% FiO2. Chest x-ray revealed cardiomegaly and pulmonary vascular congestion. Count 9.4. Hemoglobin 11.7. Platelets 131. Sodium 142. Potassium 5.2. Bicarb 38. BUN 59. Creatinine 2.22. Glucose 124. Troponin negative x 1. proBNP 6000. Urine drug screen po sitive for benzodiazepines and marijuana. He is seen today in consultation in the emergency department. He is currently sitting up in a chair. Awake and alert in no acute distress. Somewhat of a poor historian. He is now on oxygen at 5 L/min per nasal cannula with O2 saturations in the 90s. He is feeling better. Less short of breath. Denies any chest pain or palpitations. No worsening cough or congestion. No hemoptysis. Progress note dated September 28, 2023. 72-year-old male seen in the emergency department yesterday. The patient came in with increasing shortness of breath, and was found to have CHF exacerbation. Currently, the patient is on 5 L nasal cannula. He is not receiving any IV fluids. Last night, the patient was on BiPAP, with settings of 14/5, and 40%. He states the BiPAP really does help him quite a bit. Current labs include a white count of 7.4, hemoglobin 10.9, hematocrit 36.2, and platelet count 154,000. Sodium 138, potassium 4.7, chloride 96, CO2 39, BUN 58, creatinine 2.05. That compares to BUN/creatinine of 59-2.22 yesterday. Glucose is 134. Chest x-ray shows cardiomegaly, small bilateral effusions, and pulmonary vascular congestion. Progress note dated September 29, 2023. 73-year-old male who was seen in the emergency department 2 days ago. The patient's birthday is today, and he turned 73. He came in with increasing shortness of breath, was found to have a CHF exacerbation. He is currently on 5 L nasal cannula. The patient uses 5 L at home. Clinically, he feels well. He feels like he does typically at home, at baseline. The patient is not receiving any IV fluids. Current labs include a white count 10.7, hemoglobin 11.1, hematocrit 36.6, and platelet count 190,000. Sodium 138, potassium 4.8, chloride 95, CO2 38, BUN 65, and creatinine 2.35. Glucose is 102. Calcium is 9.3. Chest x-ray from yesterday was consistent with cardiomegaly, and pulmonary vascular congestion. Objective - Vital Signs Vital signs: Vital Signs Temp 98.1 F 09/29/23 12:00 Pulse 74 09/29/23 12:00 Resp 18 09/29/23 12:00 BP 111/72 09/29/23 12:00 Pulse Ox 96 09/29/23 12:00 FiO2 40 09/29/23 08:11 Intake & Output 09/28/23 09/29/23 09/29/23 18:59 06:59 18:59 Intake Total 237 1080 236 Output Total 350 1125 450 Balance -113 -45 -214 Weight 129 kg Intake: Oral 237 1080 236 Output: Urine 350 1125 450 Other: Voiding Method Urinal Urinal - Exam No acute distress, oriented 3. The patient is currently on 5 L nasal cannula. HEENT examination is grossly unremarkable. Mucous membranes are moist. No oral lesions. Neck supple. Full range of motion. No adenopathy thyromegaly or neck vein distention. Cardiovascular examination reveals regular rhythm rate. S1-S2 normal. No S3 or S4. No discernible murmur noted. Heart rate 74 bpm. Lungs reveal basilar crackles. No wheezes. No rhonchi. Breath sounds are equal bilaterally. 5 L saturations is 96 %. Abdomen soft bowel sounds are heard. No masses or tenderness. Extremities are intact. No cyanosis or clubbing noted. 1+ edema appreciated. Skin is without rash or lesion. Neurologic examination is brief but nonfocal. - Labs CBC & Chem 7: 09/29/23 07:51 09/29/23 07:51 Labs: Abnormal Lab Results - Last 24 Hours (Table) 09/29/23 09/29/23 Range/Units 07:51 07:51 WBC 10.7 H (3.8-10.6) k/uL RBC 3.96 L (4.30-5.90) m/uL Hgb 11.1 L (13.0-17.5) gm/dL Hct 36.6 L (39.0-53.0) % MCHC 30.3 L (31.0-37.0) g/dL Neutrophils # 8.7 H (1.3-7.7) k/uL Chloride 95 L (98-107) mmol/L Carbon Dioxide 38 H (22-30) mmol/L BUN 65 H (9-20) mg/dL Creatinine 2.35 H (0.66-1.25) mg/dL Glucose 102 H (74-99) mg/dL Assessment and Plan Assessment: Acute on chronic hypoxemic respiratory failure secondary to acute exacerbation of suspected systolic versus diastolic congestive heart failure, and COPD exacerbation. Acute kidney injury. Hyperkalemia secondary to above. Chronic hypoxemic respiratory failure secondary to suspected severe COPD. Chronic obstructive pulmonary disease, oxygen and steroid dependent. History of congestive heart failure. History of coronary disease with previous stent placement, bypass. Atrial fibrillation. Pacemaker implantation. Obesity. Hypertension. Hyperlipidemia. Hypothyroidism. History of anxiety/depression. Former smoker. Marijuana use. Plan: Plan dated September 28, 2023. The patient is seen today in room 353. The patient is currently on 5 L of oxygen. He is laying comfortably in bed. He states the BiPAP helped him tremendously last night. Overall, his breathing is much improved. The patient continues on appropriate medications, diuretics, breathing treatments, steroids, etc. We will continue to follow make recommendations along the way. Patient's overall prognosis remains guarded. Plan dated September 29, 2023. The patient is seen today in follow-up. He is currently doing relatively well. He would like to be discharged home. He does use oxygen at home, at 5 L. He is on 5 L here with saturations of 96%. Labs, x-rays, medications are reviewed. Prognosis is guarded. We will continue to follow the patient, should he not be discharged. Time with Patient: Less than 30
[2023-09-29 15:47] VITALS: RESP 16
[2023-09-29 15:57] VITALS: PULSE 77
--- NOTE | 2023-09-29 17:11 | P.DS ---
Providers Date of admission: 09/27/23 10:30 Expected date of discharge: 09/29/23 Attending physician: Alanis Ellis MD Consults: 09/27/23 10:30 Consult Physician Routine Consulting Provider: Minesh Gonzalez Consult Reason/Comments: respFail Do you want consulting provider notified?: Yes Primary care physician: [facility] Hospital Course: Discharge Diagnosis: Acute on chronic hypercapnic hypoxic respiratory failure Acute on chronic COPD exacerbation Mild diastolic CHF exacerbation with EF of 55 to 60% Hyperkalemia Chronic kidney disease stage III-IV Hospital Course: 72-year-old male with a past medical history of hypertension, COPD (on 5L nasal cannula), asthma, A-fib on Xarelto, hypothyroidism, and CHF presents with shortness of breath for the last 4 days. In the ED the patient's vitals were within normal limits with the exception of his O2 saturation was 92. Labs in the ED were significant for sodium 142, potassium 5.2, bicarb 38, BUN 59, creatinine 2.22, glucose 124, WBC 9.4, hemoglobin 11.7, MCV 93, VBG pH 7.21, VBG pCO2 94, and VBG HCO3 37. Imaging in the ED were significant for an EKG which showed atrial fibrillation, right bundle branch block (120 ms QRS duration), left posterior fascicular block. Patient also received CXR which was limited by body habitus and patient rotation but correlate for CHF with interstitial pulmonary edema and small effusions. In the ED patient received ipratropium nebulized, methylprednisolone, Zofran, Protonix, and NS IV 130 MLS per hour. Patient will be admitted for workup of acute on chronic respiratory failure likely secondary to COPD exacerbation and BiPAP noncompliance. While admitted patient received regular regiment of BiPAP which significantly improved his respiratory distress. Patient was maintained on his home medications for his chronic conditions including but not limited to COPD. Patient received an echocardiogram which showed an EF of 55-60%, severe biatrial enlargement, trace mitral regurgitation, moderate to severe tricuspid regurgitation, and no pericardial effusion. Patient was maintained on 5 L oxygen nasal cannula through out his hospital stay, which is his home oxygen level. The patient was saturating well on his home oxygen level and receiving his normal BiPAP regiment. Was evaluated by pulmonology, stable for discharge on short course of increased steroids. Patient was discharged to home with home health services. Patient advised to follow-up with his PCP and to follow patient instructions received on discharge regarding COPD. Vital signs reveiwed and stable: General: non toxic, no distress, appears at stated age, normal weight Derm: no unusual rashes/lesions, warm Head: atraumatic, normocephalic, symmetric Eyes: EOMI, no lid lag, anicteric sclera, pupils equal round reactive to light ENT: Nose and ears atraumatic Neck: No cervical lymphadenopathy, trachea midline, supple Mouth: no lip lesion, mucus membranes moist Cardiovascular: S1S2 reg, no murmur, positive dorsalis pedis pulse bilateral, no edema Lungs: Decreased air entry bilaterally, no rhonchi, no rales, no accessory muscle use, supplemental oxygen Abdominal: soft, nontender to palpation, no guarding Ext: muscle strength 5 out of 5 in all 4 extremities grossly, no gross muscle atrophy, no contractures, Neuro: CN II-XI grossly intact, no gross focal neuro deficits Psych: Alert, oriented, appropriate affect A total of 33 minutes were spent preparing this complex discharge summary. Patient was discharged on 09/29/2023 at 1410. I have seen and evaluated the patient today. Discussed with the resident and agree with the residents finding and plan as documented in the resident's note. Changes highlighted in blue font. Patient Condition at Discharge: Stable Plan - Discharge Summary Discharge Rx Participant: No New Discharge Prescriptions: New predniSONE [Deltasone] 40 mg PO DAILY #6 tab Continue ALPRAZolam [Xanax] 1 mg PO TID PRN PRN Reason: panic hydroCHLOROthiazide [Hydrodiuril] 25 mg PO DAILY Rivaroxaban [Xarelto] 15 mg PO DAILY Metoprolol Tartrate [Lopressor] 75 mg PO BID Albuterol Inhaler [Ventolin Hfa Inhaler] 1 puff INHALATION RT-Q4H PRN PRN Reason: Shortness Of Breath/COPD Isosorbide Mononitrate ER [Imdur] 15 mg PO DAILY Fluticasone/Umeclidin/Vilanter [Trelegy Ellipta 100-62.5-25] 1 puff INHALATION RT-DAILY Cholecalciferol [Vitamin D3 (25 Mcg = 1000 Iu)] 25 mcg PO DAILY Levothyroxine Sodium [Synthroid] 274 mcg PO DAILY Rosuvastatin Calcium [Crestor] 20 mg PO HS Carboxymethylcellulose Sodium [Refresh Tears] 1 drop BOTH EYES QID PRN PRN Reason: dry eyes predniSONE 5 mg PO DAILY Sertraline [Zoloft] 200 mg PO DAILY Discharge Medication List ALPRAZolam [Xanax] 1 mg PO TID PRN 01/18/21 [History] Albuterol Inhaler [Ventolin Hfa Inhaler] 1 puff INHALATION RT-Q4H PRN 09/27/23 [History] Carboxymethylcellulose Sodium [Refresh Tears] 1 drop BOTH EYES QID PRN 09/27/23 [History] Cholecalciferol [Vitamin D3 (25 Mcg = 1000 Iu)] 25 mcg PO DAILY 09/27/23 [History] Fluticasone/Umeclidin/Vilanter [Trelegy Ellipta 100-62.5-25] 1 puff INHALATION RT-DAILY 09/27/23 [History] Isosorbide Mononitrate ER [Imdur] 15 mg PO DAILY 09/27/23 [History] Levothyroxine Sodium [Synthroid] 274 mcg PO DAILY 09/27/23 [History] Metoprolol Tartrate [Lopressor] 75 mg PO BID 09/27/23 [History] Rivaroxaban [Xarelto] 15 mg PO DAILY 09/27/23 [History] Rosuvastatin Calcium [Crestor] 20 mg PO HS 09/27/23 [History] Sertraline [Zoloft] 200 mg PO DAILY 09/27/23 [History] hydroCHLOROthiazide [Hydrodiuril] 25 mg PO DAILY 09/27/23 [History] predniSONE 5 mg PO DAILY 09/27/23 [History] predniSONE [Deltasone] 40 mg PO DAILY #6 tab 09/29/23 [Rx] Follow up Appointment(s)/Referral(s): [facility],Clinic [Primary Care Provider] - 1-2 days Patient Instructions/Handouts: COPD (Chronic Obstructive Pulmonary Disease) (DC) Activity/Diet/Wound Care/Special Instructions: Please see your PCP and pulmonology. Discharge Disposition: HOME WITH HOME HEALTH SERVICES
== END 2023-09-29 16:48 | disposition home health service (06) | DRG 189 ==
LOC: EC 08:00 → 3SCARD 10:30
PROVIDERS: ADMIT Internal Medicine; ATTEND Internal Medicine
PROC: 5A09357 Assistance with Respiratory Ventilation, Less than 24 Consecutive Hours, Continuous Positive Airway Pressure (ICD-10-PCS; principal; 2023-09-27)
DX: J96.21 Acute and chronic respiratory failure with hypoxia (principal); G93.41 Metabolic encephalopathy; I50.33 Acute on chronic diastolic (congestive) heart failure; I13.0 Hypertensive heart and chronic kidney disease with heart failure and stage 1 through stage 4 chronic kidney disease, or unspecified chronic kidney disease; J44.1 Chronic obstructive pulmonary disease with (acute) exacerbation; N17.9 Acute kidney failure, unspecified; N18.4 Chronic kidney disease, stage 4 (severe); E87.4 Mixed disorder of acid-base balance; I45.2 Bifascicular block; J96.22 Acute and chronic respiratory failure with hypercapnia; F41.9 Anxiety disorder, unspecified; G47.33 Obstructive sleep apnea (adult) (pediatric); I48.91 Unspecified atrial fibrillation; E03.9 Hypothyroidism, unspecified; F32.A Depression, unspecified; I25.10 Atherosclerotic heart disease of native coronary artery without angina pectoris; E87.5 Hyperkalemia; E66.9 Obesity, unspecified; F12.90 Cannabis use, unspecified, uncomplicated; F43.10 Post-traumatic stress disorder, unspecified; E78.5 Hyperlipidemia, unspecified; I07.1 Rheumatic tricuspid insufficiency; Z68.37 Body mass index [BMI] 37.0-37.9, adult; Z79.899 Other long term (current) drug therapy; Z99.81 Dependence on supplemental oxygen; Z95.5 Presence of coronary angioplasty implant and graft; Z95.1 Presence of aortocoronary bypass graft; Z79.01 Long term (current) use of anticoagulants; Z87.891 Personal history of nicotine dependence; Z79.890 Hormone replacement therapy; Z79.52 Long term (current) use of systemic steroids; Z95.0 Presence of cardiac pacemaker; I25.2 Old myocardial infarction; Z91.199 Patient's noncompliance with other medical treatment and regimen due to unspecified reason
CPT/HCPCS: 36415; 71045; 71046; 80048; 80053; 80306; 80320; 81001; 82803; 83605; 83735; 83880; 84100; 84484; 85025; 85610; 85730; 93005; 93306; 94640; 94660; 94760; 96361; 96374; 96375; 96376; 99291

== ENCOUNTER 2023-11-06 19:20 | Inpatient (IN) | payer OTHER, MEDICARE ==
[2023-11-07] MEDS ORDERED: HYDROcodone/APAP 7.5-325MG 1 EACH TAB PO PRN (04:59)
[2023-11-07] MEDS ORDERED: ACETAMINOPHEN TAB 325 MG TAB PO PRN (04:59)
[2023-11-07 05:56] LABS: Basophils # (A) 0.1 k/uL (0-0.2); Basophils % (A) 1 %; Eosinophils # (A) 0.1 k/uL (0-0.7); Eosinophils % (A) 1 %; HCT 35.1 % (39.0-53.0); Hypochromasia Marked; Lymphocytes # (A) 0.4 k/uL (1.0-4.8); Lymphocytes % (A) 5 %; MCH 28.6 pg (25.0-35.0); MCHC 31.2 g/dL (31.0-37.0); MCV 91.6 fL (80.0-100.0); Mean Platelet Volume 7.3; Monocytes # (A) 0.1 k/uL (0-1.0); Monocytes % (A) 1 %; Neutrophils # (A) 7.5 k/uL (1.3-7.7); Neutrophils % (A) 92 %; Platelet Count 215 k/uL (150-450); RBC 3.84 m/uL (4.30-5.90); RDW 14.8 % (11.5-15.5); WBC 8.2 k/uL (3.8-10.6)
[2023-11-07 06:25] LABS: African American GFR (CKD) 54 (>60 ml/min/1.73 sqM); Anion Gap 7 mmol/L; Blood Urea Nitrogen 34 mg/dL (9-20); Calcium 9.6 mg/dL (8.4-10.2); Carbon Dioxide 38 mmol/L (22-30); Chloride 94 mmol/L (98-107); Glucose 126 mg/dL (74-99); Non-African American GFR(CKD) 46 (>60 ml/min/1.73 sqM); Potassium 4.8 mmol/L (3.5-5.1); Sodium 139 mmol/L (137-145)
[2023-11-07] MEDS: IPRATROPIUM-ALBUTEROL 3 ML NEB INHALATION SCH (08:29)
[2023-11-07] MEDS ORDERED: ALBUTEROL NEBULIZED 2.5 MG/3 ML INHALATION PRN (08:39)
[2023-11-07] MEDS ORDERED: ARTIFICIAL TEARS-HYPROMELLOSE DROPS 15 ML BTL BOTH EYES PRN (08:39)
[2023-11-07] MEDS ORDERED: ENOXAPARIN 40 MG/0.4 ML SYRINGE SQ SCH (09:00)
[2023-11-07] MEDS: LEVOTHYROXINE 137 MCG TAB PO SCH (09:00)
[2023-11-07] MEDS: SYMBICORT 80-4.5 MCG INHALER INHALATION SCH (09:04)
[2023-11-07] MEDS: LORazepam 2 MG/ML INJ IV STA (10:36)
[2023-11-07] MEDS: ISOSORBIDE MONONITRATE ER 15 MG TAB PO SCH (10:55)
[2023-11-07] MEDS: hydroCHLOROthiazide 25 MG TAB PO SCH (10:55)
[2023-11-07] MEDS: METOPROLOL TARTRATE 25 MG TAB PO SCH (10:55)
[2023-11-07] MEDS: RIVAROXABAN 15 MG TAB PO SCH (10:55)
[2023-11-07] MEDS: SERTRALINE 100 MG TAB PO SCH (10:56)
[2023-11-07] MEDS: FUROSEMIDE 10 MG/ML 4 ML VIAL IV SCH (10:59)
--- NOTE | 2023-11-07 12:42 | P.PN ---
Subjective Progress Note Date: 11/07/23 Hospital course: Patient is a very pleasant 73-year-old male with a past medical history of CAD status post stenting, hypertension, hyperlipidemia, chronic diastolic heart failure, persistent atrial fibrillation, COPD chronic hypoxic respiratory failure 4 L O2 dependent, chronic kidney disease stage IIIb, anxiety with depression, and PTSD. He presented to the hospital on 11/06/2023 secondary to shortness of breath and is currently admitted for acute on chronic diastolic heart failure exacerbation along with acute respiratory failure with hypoxia and hypercarbia. Patient requiring continuous BiPAP at this time. Physical exam: Patient seen and fully evaluated at bedside. He is currently on BiPAP and very anxious stating he is going home. Patient expressing anxiety and agitation over being hospitalized. Vital signs reviewed and stable. General: Nontoxic, no distress and appears stated age. Derm: Skin warm and dry, normal coloration for ethnicity. Head: Atraumatic, normocephalic and symmetric. Eyes: EOM's intact, no lid lag, and anicteric sclera Mouth: no lip lesions, mucus membranes moist Cardiovascular: Irregularly irregular with systolic murmur. Positive posterior tibial pulses bilaterally, and cap refill < 2 seconds. Lungs: Respirations even, regular, and unlabored on BiPAP. Respirations unlabored however patient does have increased respiratory effort noted. Lungs diminished.. Abdominal: soft, nontender to palpation, no guarding, no appreciable organomegaly Ext: ROM intact. No gross muscle atrophy, 1-2+ bilateral lower extremity pitting edema, no contractures Neuro: Speech clear, face symmetrical and CN II-XII grossly intact with no noted focal neuro deficits Psych: Alert and oriented to person, place, time, and situation. Patient appear s anxious and agitated. Assessment and Plan of Care: Acute on chronic respiratory failure with hypoxia and hypercarbia Acute exacerbation of chronic diastolic heart failure Atrial fibrillation with RVR COPD with acute exacerbation secondary to above History of CAD status post stenting Hypertension Hyperlipidemia Chronic kidney disease stage IIIb -Cardiology consulted secondary to CHF exacerbation and atrial fibrillation with RVR. -Consult placed to Pulmonology secondary to acute respiratory failure with hypoxia and hypercarbia currently BiPAP dependent -Continue BiPAP with IPAP of 10, EPAP 5, FiO2 40% and to be titrated accordingly to keep SpO2 equal to or greater than 90%. Once weaned from BiPAP, patient to receive supplemental patient to be titrated as needed to maintain SPO2 equal to or greater than 90% -Telemetry monitoring. -Monitor pulse-oximetry -Duonebs scheduled 4 times daily and as needed for SOB and/or wheezing along with Symbicort 2 puffs twice daily -Continue Lasix 40 mg IVP twice daily. -Strict I's and O's with daily weights -Continue cardiac medication regimen with Xarelto 15 mg daily, atorvastatin 40 mg nightly, hydrochlorothiazide 25 mg daily, isosorbide mononitrate 15 mg daily, metoprolol 75 mg twice daily. -Continue close monitoring of renal function and electrolytes while diuresing. Currently creatinine 1.5 with a baseline creatinine around 2.1. Hypothyroidism Continue daily medication regimen with levothyroxine 274 mcg daily obtain a TSH with free T4 to evaluate thyroid function with current atrial fibrillation with RVR. Anxiety and depression PTSD -Continue daily medication regimen with Zoloft 200 mg daily and Xanax 1 mg 3 times daily as needed for severe anxiety/panic attack and 2 mg nightly as needed for insomnia. Data and imaging reviewed: Vital signs reviewed. Blood pressure 148/81, heart rate 100, respiratory rate 24, temp 98.4 F, and SpO2 of 94% on BiPAP with FiO2 40%. Initial labs reviewed. CBC showing normocytic anemia with hemoglobin of 11.0. BMP revealing hypochloremia with chloride of 94 and hypercarbia with bicarb of 38. BUN 34, creatinine of 1.50, and GFR 46. CTA chest completed and radiology report reviewed showing small right pleural effusion and atelectasis at the left lung base. CODE STATUS: Full code DVT prophylaxis: Xarelto Anticipated discharge date: Pending clinical course Anticipated discharge place: Pending clinical course Patient was seen independently by Nurse Pracitioner. This document was prepared using [employer] dictation software. Please allow for errors in geospatial analyst, while rare they do occur. Arnoldo He NP rendered care for this patient independently, reviewed the findings and plan as documented in the note above. I did not physically speak with or examine the patient on this date. Objective - Vital Signs Vital signs: Vital Signs Temp 98.2 F 11/07/23 04:55 Pulse 100 11/07/23 08:29 Resp 20 11/07/23 06:05 BP 110/74 11/07/23 06:05 Pulse Ox 93 L 11/07/23 06:05 FiO2 40 11/07/23 08:25 Intake & Output 11/06/23 11/07/23 11/07/23 18:59 06:59 18:59 Output Total 400 Balance -400 Weight 122.72 kg Output: Urine 400 Other: Voiding Method Urinal - Labs CBC & Chem 7: 11/08/23 06:59 11/08/23 06:59 Labs: Abnormal Lab Results - Last 24 Hours (Table) 11/07/23 11/07/23 Range/Units 04:42 04:42 RBC 3.84 L (4.30-5.90) m/uL Hgb 11.0 L (13.0-17.5) gm/dL Hct 35.1 L (39.0-53.0) % Lymphocytes # 0.4 L (1.0-4.8) k/uL Chloride 94 L (98-107) mmol/L Carbon Dioxide 38 H (22-30) mmol/L BUN 34 H (9-20) mg/dL Creatinine 1.50 H (0.66-1.25) mg/dL Glucose 126 H (74-99) mg/dL
--- NOTE | 2023-11-07 13:09 | P.CNPUL ---
History of Present Illness Consult date: 11/07/23 Requesting physician: Keiko Mccarthy Reason for consult: COPD Chief complaint: sob History of present illness: This is a 73-year-old white male with history of multiple medical including COPD, patient quit smoking over 20 years ago, history of chronic atrial fibrillation, chronic diastolic congestive heart failure, hypertension, dyslipidemia, coronary artery disease and previous stenting. Patient has history of chronic hypoxic respiratory failure maintained on oxygen and he does have severe obstructive sleep apnea syndrome maintained on BiPAP at home. In addition he has chronic kidney disease stage IIIb, depression, posttraumatic shock disorder, patient was admitted yesterday to [facility] with 3 days history of increased shortness of breath, and he was felt to have acute on chronic diastolic congestive heart failure. Patient was admitted, placed on diuretics, he was also placed on bronchodilators for underlying COPD, patient normally has CPAP at home apparently he had issues with his CPAP, and it is not functional. At any rate considering his presentation and his symptoms, this consult was initiated. At the time of my evaluation, patient was telling me that he wants to go home AGAINST MEDICAL ADVICE. CT angiogram and this admission showed a right small pleural effusion and atelectasis left lung base. There was no evidence of pulmonary embolism. Review of Systems REVIEW OF SYSTEMS: CONSTITUTIONAL: Weakness EYES: Negative. ENT: Negative. CARDIAC: Chronic shortness of breath PULMONARY: As noted in HPI GI: Negative. GENITOURINARY: Negative. MUSCULOSKELETAL: Negative. SKIN: Negative. NEUROPSYCH: Negative. ENDOCRINE: Negative. HEMATOLOGIC: Negative. Past Medical History Past Medical History: Atrial Fibrillation, Chest Pain / Angina, COPD, Eye Disorder, Hypertension, Myocardial Infarction (HI), Respiratory Disorder, Thyroid Disorder Last Myocardial Infarction Date:: 2004 History of Any Multi-Drug Resistant Organisms: None Reported Past Surgical History: Back Surgery, Heart Catheterization With Stent Additional Past Surgical History / Comment(s): eye resection Past Anesthesia/Blood Transfusion Reactions: No Reported Reaction Date of Last Stent Placement:: unknown Past Psychological History: Anxiety, Depression, PTSD Smoking Status: Former smoker Past Alcohol Use History: None Reported Past Drug Use History: None Reported - Past Family History Mother History Unknown: Yes Father History Unknown: Yes Medications and Allergies Home Medications Medication Instructions Recorded Confirmed Type ALPRAZolam [Xanax] 1 mg PO TID PRN 01/18/21 11/07/23 History Albuterol Inhaler [Ventolin Hfa 1 puff INHALATION RT-Q4H PRN 09/27/23 11/07/23 History Inhaler] Cholecalciferol [Vitamin D3 (25 25 mcg PO DAILY 09/27/23 11/07/23 History Mcg = 1000 Iu)] Fluticasone/Umeclidin/Vilanter 1 puff INHALATION RT-DAILY 09/27/23 11/07/23 History [Trelegy Ellipta 100-62.5-25] Isosorbide Mononitrate ER [Imdur] 15 mg PO DAILY 09/27/23 11/07/23 History Levothyroxine Sodium [Synthroid] 137 mcg PO DAILY 09/27/23 11/07/23 History Metoprolol Tartrate [Lopressor] 75 mg PO BID 09/27/23 11/07/23 History Rivaroxaban [Xarelto] 15 mg PO DAILY 09/27/23 11/07/23 History Rosuvastatin Calcium [Crestor] 20 mg PO HS 09/27/23 11/07/23 History Sertraline [Zoloft] 200 mg PO DAILY 09/27/23 11/07/23 History hydroCHLOROthiazide [Hydrodiuril] 25 mg PO DAILY 09/27/23 11/07/23 History ALPRAZolam [Xanax] 2 mg PO HS PRN 11/07/23 11/07/23 History Allergies Allergy/AdvReac Type Severity Reaction Status Date / Time iodine AdvReac Hypotension, Verified 11/07/23 11:03 itching, watering eyes lisinopril AdvReac hyperkalemi Verified 11/07/23 11:03 a morphine AdvReac hallucinations, Verified 11/07/23 11:03 behavior change temazepam AdvReac headache Verified 11/07/23 11:03 Physical Exam Vitals: Vital Signs Temp Pulse Pulse Pulse Resp BP Pulse Ox 11/07/23 08:46 98 11/07/23 08:29 100 11/07/23 08:25 11/07/23 08:00 98.4 F 83 24 148/81 94 L 11/07/23 06:41 11/07/23 06:05 111 H 20 110/74 93 L 11/07/23 05:35 11/07/23 04:55 98.2 F 110 H 18 117/76 91 L 11/07/23 04:00 16 FiO2 11/07/23 08:46 11/07/23 08:29 11/07/23 08:25 40 11/07/23 08:00 40 11/07/23 06:41 40 11/07/23 06:05 40 11/07/23 05:35 40 11/07/23 04:55 11/07/23 04:00 Intake and Output 11/06/23 11/07/23 11/07/23 22:59 06:59 14:59 Output Total 400 Balance -400 Output: Urine 400 Other: Voiding Method Urinal Weight 122.72 kg General: Reveals 73-year-old white male on BiPAP, in no distress. Patient is on 10/ 5/40% Skin: Skin is warm and dry and no rashes or lesions are noted. Eye: Pupils are equal, round and reactive to light, extra-ocular movements are intact; there is normal conjunctiva bilaterally. Ears, nose, mouth and throat: There are moist mucous membranes and no oral lesions. Neck: The neck is supple, there is no tenderness or JVD. Cardiovascular: There is a regular rate and rhythm. No murmur, rub or gallop is appreciated. Respiratory: Diminished breath sounds at the bases no crackles rhonchi or wheezes Gastrointestinal: Soft, non-distended, non-tender abdomen without masses or organomegaly noted. There is no rebound or guarding present. Bowel sounds are unremarkable. Back: There is no tenderness to palpation in the midline. There is no obvious deformity. Musculoskeletal: Normal ROM, no tenderness, There is no pedal edema. There is no calf tenderness or swelling. No cords were appreciated. Neurological: CN II-XII intact, Cranial nerves III through XII are intact. There are no obvious motor or sensory deficits. Coordination appears grossly intact. Speech is normal. Psychiatric: Cooperative, appropriate mood & affect, normal judgment. Results - Laboratory Findings CBC and BMP: 11/07/23 04:42 11/07/23 04:42 Abnormal lab findings: Abnormal Labs 11/07/23 11/07/23 04:42 04:42 RBC 3.84 L Hgb 11.0 L Hct 35.1 L Lymphocytes # 0.4 L Chloride 94 L Carbon Dioxide 38 H BUN 34 H Creatinine 1.50 H Glucose 126 H Assessment and Plan Assessment: Impression: Acute on chronic hypoxic and hypercapnic respiratory failure Acute exacerbation of chronic diastolic congestive heart failure Underlying COPD, presently inactive. And the patient is not in acute exacerbation of COPD. Chronic atrial fibrillation Coronary artery disease and previous stent placement Benign essential hypertension Chronic kidney disease stage IIIb Dyslipidemia history of depression/Anxiety Recommendation: Agree with the present treatment plan Continue BiPAP for now, eventually transition to nasal cannula Continue Lasix 40 mg twice daily Continue strict I's and O's Continue bronchodilators CT angiogram of the chest is reassuring Consider discharge planning in the next 24 hours. Time with Patient: Greater than 30
[2023-11-07] MEDS: CLOPIDOGREL 75 MG TAB PO SCH (14:03)
[2023-11-07] MEDS: ALPRAZolam 1 MG TAB PO PRN ×2 (15:01→20:34)
[2023-11-07] MEDS: ATORVASTATIN 40 MG TAB PO SCH (20:27)
[2023-11-08 08:17] LABS: HCT 32.4 % (39.0-53.0); HGB 10.1 gm/dL (13.0-17.5); Hypochromasia Marked; MCH 28.5 pg (25.0-35.0); MCHC 31.1 g/dL (31.0-37.0); MCV 91.7 fL (80.0-100.0); Mean Platelet Volume 7.8; Platelet Count 190 k/uL (150-450); RBC 3.53 m/uL (4.30-5.90); RDW 15.3 % (11.5-15.5)
[2023-11-08 08:58] LABS: African American GFR (CKD) 36 (>60 ml/min/1.73 sqM); Blood Urea Nitrogen 41 mg/dL (9-20); Calcium 9.1 mg/dL (8.4-10.2); Chloride 92 mmol/L (98-107); Glucose 87 mg/dL (74-99); Non-African American GFR(CKD) 31 (>60 ml/min/1.73 sqM); Potassium 4.1 mmol/L (3.5-5.1); Sodium 137 mmol/L (137-145)
[2023-11-08 09:04] LABS: Anion Gap 2 mmol/L
[2023-11-08 09:14] LABS: Carbon Dioxide 43 mmol/L (22-30)
[2023-11-08] MEDS: CHOLECALCIFEROL 25 MCG (1000 IU) TABLET PO SCH (09:17)
[2023-11-08] MEDS: CLOPIDOGREL 75 MG TAB ONE (12:09)
[2023-11-08] MEDS: LORazepam 2 MG/ML INJ ONE (12:09)
[2023-11-08] MEDS: FUROSEMIDE 10 MG/ML 4 ML VIAL ONE ×3 (12:09→12:10)
[2023-11-08] MEDS: IPRATROPIUM-ALBUTEROL 3 ML NEB ONE (12:09)
[2023-11-08] MEDS: METOPROLOL TARTRATE 25 MG TAB ONE ×4 (12:09→12:10)
[2023-11-08] MEDS: METOPROLOL TARTRATE 50 MG TAB ONE (12:10)
--- NOTE | 2023-11-08 12:43 | P.PN ---
Subjective Progress Note Date: 11/08/23 Principal diagnosis: Shortness of breath. This is a 73-year-old white male with history of multiple medical including COPD, patient quit smoking over 20 years ago, history of chronic atrial fibrillation, chronic diastolic congestive heart failure, hypertension, dyslipidemia, coronary artery disease and previous stenting. Patient has history of chronic hypoxic respiratory failure maintained on oxygen and he does have severe obstructive sleep apnea syndrome maintained on BiPAP at home. In addition he has chronic kidney disease stage IIIb, depression, posttraumatic shock disorder, patient was admitted yesterday to [facility] with 3 days history of increased shortness of breath, and he was felt to have acute on chronic diastolic congestive heart failure. Patient was admitted, placed on diuretics, he was also placed on bronchodilators for underlying COPD, patient normally has CPAP at home apparently he had issues with his CPAP, and it is not functional. At any rate considering his presentation and his symptoms, this consult was initiated. At the time of my evaluation, patient was telling me that he wants to go home AGAINST MEDICAL ADVICE. CT angiogram and this admission showed a right small pleural effusion and atelectasis left lung base. There was no evidence of pulmonary embolism. Progress note dated November 08, 2023. 73-year-old male, who looks much older than his stated age, is seen today in room 361. The patient did use BiPAP last night, with settings of 10/5, and 40%. He is currently on 6 L nasal cannula. He is not receiving any IV fluids. The patient was initially seen for congestive heart failure. The patient has a his tory of chronic atrial fibrillation, COPD, hypertension, hyperlipidemia, coronary disease, and previous stent placement. Current labs include a white count 7, hemoglobin 10.1, hematocrit 32.4, and a normal platelet count. Sodium 137, potassium 4.1, chloride 92, CO2 43, BUN 41, creatinine 2.10, increased from 34 and 1.50 yesterday. N-terminal proBNP was 2090. TSH is elevated 10.8. Objective - Vital Signs Vital signs: Vital Signs Temp 97.8 F 11/08/23 12:00 Pulse 77 11/08/23 12:00 Resp 20 11/08/23 12:00 BP 112/60 11/08/23 12:00 Pulse Ox 98 11/08/23 12:00 FiO2 40 11/08/23 04:15 Intake & Output 11/07/23 11/08/23 11/08/23 18:59 06:59 18:59 Intake Total 540 Output Total 825 700 Balance 540 -825 -700 Intake: Oral 540 Output: Urine 825 700 Other: Voiding Method Urinal Urinal - Exam No acute distress, oriented 3. No respiratory distress. Currently on 6 L nasal cannula. HEENT examination is grossly unremarkable. Mucous membranes are moist. No oral lesions. Neck supple. Full range of motion. No adenopathy thyromegaly or neck vein distention. Cardiovascular examination reveals a irregular rhythm and rate. S1-S2 normal. No S3 or S4. No discernible murmur noted. Heart rate 77 bpm. Lungs reveal bibasilar crackles. No wheezes or rhonchi. Breath sounds equal. Saturations are in the mid 90s. Abdomen soft bowel sounds are heard. No masses or tenderness. Extremities are intact. No cyanosis clubbing or edema. Skin is without rash or lesion. Neurologic examination is brief but nonfocal. - Labs CBC & Chem 7: 11/08/23 06:59 11/08/23 06:59 Labs: Abnormal Lab Results - Last 24 Hours (Table) 11/08/23 11/08/23 Range/Units 06:59 06:59 RBC 3.53 L (4.30-5.90) m/uL Hgb 10.1 L (13.0-17.5) gm/dL Hct 32.4 L (39.0-53.0) % Chloride 92 L (98-107) mmol/L Carbon Dioxide 43 H* (22-30) mmol/L BUN 41 H (9-20) mg/dL Creatinine 2.10 H (0.66-1.25) mg/dL TSH 10.800 H (0.465-4.680) mIU/L Assessment and Plan Assessment: Chronic hypoxemic and hypercapnic respiratory failure. Acute exacerbation of chronic diastolic CHF. COPD, currently inactive. History of chronic atrial fibrillation. Coronary artery disease with previous stent placement. Benign essential hypertension. Stage IIIb chronic kidney disease. Dyslipidemia. History of depression/anxiety. Plan: Plan dated November 08, 2023. The patient is seen today in room 361. The patient appears to be on appropriate treatment. He is on O2 at 6 L by nasal cannula. He is not receiving any IV fluids. The patient did use the BiPAP device last night, with settings of 10/5, and 40%. Continue Lasix. We will continue to follow make recommendations. Prognosis is guarded. Labs, x-rays, and all medications have been reviewed. Time with Patient: Less than 30
--- NOTE | 2023-11-08 12:48 | P.CRDCN ---
History of Present Illness Consult date: 11/08/23 Consult reason: congestive heart failure History of present illness: This is a 73-year-old male with past medical history of CAD status post CABG in 1988, permanent atrial fibrillation, permanent pacemaker, obstructive sleep apnea, hypertension, hyperlipidemia, chronic diastolic heart failure, chronic hypoxic respiratory failure on home O2, obstructive sleep apnea, chronic kidney disease stage III. We have been asked to evaluate the patient for CHF. Patient states that he came into the hospital because his CPAP broke. He states he was here 2 weeks ago for the same thing. He denies any lower extremity edema. Patient was seen in the past by Dr. Brush in 2019 but states [facility]. patient has been started on IV Lasix 40 mg twice daily. Blood pressure 112/60, heart rate 77, pulse ox 98% on 4 L nasal cannula. EKG: Chest x-ray: Laboratory studies: WBC 7, hemoglobin 10.1. Potassium 4.1, CO2 43, BUN 41 creatinine 2.1. proBNP 2089. TSH 10.8 Home cardiac medications: Hydrochlorothiazide 25 mg daily, Imdur 15 mg daily, Lopressor 75 mg twice daily, Xarelto 15 mg daily, Crestor 20 mg at bedtime. Echocardiogram performed on 09/27/2023 revealed EF of 55 to 60%, RVSP 43, moderate to severe TR, trace MR. Review Of Systems: At the time of my exam: CONSTITUTIONAL: Denies fever or chills. HEENT: Denies blurred vision, vision changes, or eye pain. Denies hemoptysis CARDIOVASCULAR: Denies chest pain. Denies orthopnea. Denies PND. Denies palpitations RESPIRATORY: Reports shortness of breath. GASTROINTESTINAL: Denies abdominal pain. Denies nausea or vomiting. HEMATOLOGIC: Denies bleeding disorders. GENITOURINARY: Denies any blood in urine. SKIN: Denies puritis. Denies rash. Physical examination: Gen: This is a 73-year-old male appears to be in no acute distress. VS: reviewed HEENT: Head is atraumatic, normocephalic. Pupils equal, round. Sclerae is anicteric. NECK: Supple. No JVD. LUNGS: Diminished breath sounds bilaterally. No intercostal retractions. HEART: Irregular rate and rhythm. No murmur. ABDOMEN: Soft No tenderness. EXTREMITIES: No lower extremity edema. No calf tenderness. NEUROLOGICAL: Patient is awake, alert and oriented x3. Assessment: Shortness of breath rule out CHF History of coronary artery disease Permanent atrial fibrillation Chronic kidney disease stage III Acute kidney injury Chronic hypoxic and hypercapnic respiratory failure on home O2 at 4 L nasal cannula COPD Abnormal TSH Obstructive sleep apnea with malfunctioning CPAP Plan: Resume patient's home cardiac medications Continue IV Lasix Monitor MARGARET, daily weights, electrolytes and renal function No need to repeat echocardiogram Further recommendations to follow based upon clinical course Thank you kindly for this consultation. Nurse practitioner note has been reviewed, I agree with documented findings and plan of care. Patient was seen and examined. Past Medical History Past Medical History: Atrial Fibrillation, Chest Pain / Angina, COPD, Eye Disorder, Hypertension, Myocardial Infarction (NH), Respiratory Disorder, Thyroid Disorder Last Myocardial Infarction Date:: 2004 History of Any Multi-Drug Resistant Organisms: None Reported Past Surgical History: Back Surgery, Heart Catheterization With Stent Additional Past Surgical History / Comment(s): eye resection Past Anesthesia/Blood Transfusion Reactions: No Reported Reaction Date of Last Stent Placement:: unknown Past Psychological History: Anxiety, Depression, PTSD Smoking Status: Former smoker Past Alcohol Use History: None Reported Past Drug Use History: None Reported - Past Family History Mother History Unknown: Yes Father History Unknown: Yes Medications and Allergies Home Medications Medication Instructions Recorded Confirmed Type ALPRAZolam [Xanax] 1 mg PO TID PRN 01/18/21 11/07/23 History Albuterol Inhaler [Ventolin Hfa 1 puff INHALATION RT-Q4H PRN 09/27/23 11/07/23 History Inhaler] Fluticasone/Umeclidin/Vilanter 1 puff INHALATION RT-DAILY 09/27/23 11/07/23 History [Trelegy Ellipta 100-62.5-25] Isosorbide Mononitrate ER [Imdur] 15 mg PO DAILY 09/27/23 11/07/23 History Levothyroxine Sodium [Synthroid] 274 mcg PO DAILY 09/27/23 11/07/23 History Metoprolol Tartrate [Lopressor] 75 mg PO BID 09/27/23 11/07/23 History Rivaroxaban [Xarelto] 15 mg PO DAILY 09/27/23 11/07/23 History Rosuvastatin Calcium [Crestor] 20 mg PO HS 09/27/23 11/07/23 History Sertraline [Zoloft] 200 mg PO DAILY 09/27/23 11/07/23 History hydroCHLOROthiazide [Hydrodiuril] 25 mg PO DAILY 09/27/23 11/07/23 History ALPRAZolam [Xanax] 2 mg PO HS PRN 11/07/23 11/07/23 History Allergies Allergy/AdvReac Type Severity Reaction Status Date / Time iodine AdvReac Hypotension, Verified 11/07/23 13:55 itching, watering eyes lisinopril AdvReac hyperkalemi Verified 11/07/23 13:55 a morphine AdvReac hallucinations, Verified 11/07/23 13:55 behavior change temazepam AdvReac headache Verified 11/07/23 13:55 Physical Exam Vitals: Vital Signs Temp Pulse Resp BP Pulse Ox FiO2 11/08/23 04:15 40 11/08/23 03:12 97.5 F L 63 17 113/72 95 11/08/23 00:15 40 11/07/23 23:42 97.3 F L 67 19 110/79 96 11/07/23 20:00 98.2 F 71 20 114/78 95 11/07/23 16:00 98.1 F 81 20 116/68 96 11/07/23 12:00 105 H 22 111/72 92 L Intake and Output 11/07/23 11/08/23 11/08/23 22:59 06:59 14:59 Output Total 300 525 Balance -300 -525 Output: Urine 300 525 Other: Voiding Method Urinal Urinal Results 11/08/23 06:59 11/08/23 06:59 CBC 11/08/23 Range/Units 06:59 WBC 7.0 (3.8-10.6) k/uL RBC 3.53 L (4.30-5.90) m/uL Hgb 10.1 L (13.0-17.5) gm/dL Hct 32.4 L (39.0-53.0) % Plt Count 190 (150-450) k/uL Current Medications Generic Name Dose Route Start Last Admin Trade Name Freq PRN Reason Stop Dose Admin Acetaminophen 650 mg 11/07/23 04:59 Acetaminophen Tab 325 Mg Tab PO Q6HR PRN Fever and/ or Pain Hydrocodone Bitart/Acetaminophen 1 each 11/07/23 04:59 Hydrocodone/Apap 7.5-325mg 1 Each Tab PO Q4H PRN Moderate Pain (Scale 4 to 6) Albuterol Sulfate 2.5 mg 11/07/23 08:39 Albuterol Nebulized 2.5 Mg/3 Ml INHALATION RT-Q4H PRN Shortness Of Breath/COPD Albuterol/Ipratropium 3 ml 11/07/23 08:00 11/07/23 20:55 Ipratropium-Albuterol 3 Ml Neb INHALATION Not Given RT-QID FERNANDO Alprazolam 1 mg 11/07/23 11:27 11/07/23 15:01 Alprazolam 1 Mg Tab PO 1 mg TID PRN Administration panic Alprazolam 2 mg 11/07/23 11:28 11/07/23 20:34 Alprazolam 1 Mg Tab PO 2 mg HS PRN Administration Insomnia Artificial Tears 1 drops 11/07/23 08:39 Artificial Tears-Hypromellose Drops 15 Ml Btl BOTH EYES QID PRN dry eyes Atorvastatin Calcium 40 mg 11/07/23 21:00 11/07/23 20:27 Atorvastatin 40 Mg Tab PO 40 mg HS FERNANDO Administration Budesonide/Formoterol Fumarate 2 puff 11/07/23 09:00 11/07/23 20:55 Symbicort 80-4.5 Mcg Inhaler INHALATION Not Given RT-BID FERNANDO Cholecalciferol 25 mcg 11/08/23 09:00 Cholecalciferol 25 Mcg (1000 Iu) Tablet PO DAILY FERNANDO Furosemide 40 mg 11/07/23 09:00 11/07/23 20:27 Furosemide 10 Mg/Ml 4 Ml Vial IV 40 mg BID FERNANDO Administration Hydrochlorothiazide 25 mg 11/07/23 09:00 11/07/23 10:55 Hydrochlorothiazide 25 Mg Tab PO 25 mg DAILY FERNANDO Administration Isosorbide Mononitrate 15 mg 11/07/23 09:00 11/07/23 10:55 Isosorbide Mononitrate Er 15 Mg Tab PO 15 mg DAILY FERNANDO Administration Levothyroxine Sodium 274 mcg 11/07/23 09:00 11/08/23 05:38 Levothyroxine 137 Mcg Tab PO 274 mcg DAILY@0630 FERNANDO Administration Metoprolol Tartrate 75 mg 11/07/23 09:00 11/07/23 20:27 Metoprolol Tartrate 25 Mg Tab PO 75 mg BID FERNANDO Administration Rivaroxaban 15 mg 11/07/23 09:00 11/07/23 10:55 Rivaroxaban 15 Mg Tab PO 15 mg DAILY FERNANDO Administration Protocol Sertraline HCl 200 mg 11/07/23 09:00 11/07/23 10:56 Sertraline 100 Mg Tab PO 200 mg DAILY FERNANDO Administration Intake and Output 11/07/23 11/08/23 11/08/23 22:59 06:59 14:59 Output Total 300 525 Balance -300 -525 Output: Urine 300 525 Other: Voiding Method Urinal Urinal 11/08/23 06:59 11/07/23 04:42
--- NOTE | 2023-11-08 14:16 | P.PN ---
Subjective Progress Note Date: 11/08/23 Hospital course: Patient is a very pleasant 73-year-old male with a past medical history of CAD status post stenting, hypertension, hyperlipidemia, chronic diastolic heart failure, persistent atrial fibrillation, COPD chronic hypoxic respiratory failure 4 L O2 dependent, chronic kidney disease stage IIIb, anxiety with depression, and PTSD. He presented to the hospital on 11/06/2023 secondary to shortness of breath and is currently admitted for acute on chronic diastolic heart failure exacerbation along with acute respiratory failure with hypoxia and hypercarbia. Patient initially requiring continuous BiPAP but has been weaned down to nasal cannula. Physical exam: Patient seen and fully evaluated at bedside. He has been weaned off of BiPAP and currently on 5 L O2. Patient does have noted conversational dyspnea but anxiety appears to have improved. The patient reports continued shortness of breath but denies any other complaints. Patient states he was able to walk from bed to chair this morning but did have to stop and catch his breath. Vital signs reviewed and stable. General: Nontoxic, no distress and appears stated age. Derm: Skin warm and dry, normal coloration for ethnicity. Head: Atraumatic, normocephalic and symmetric. Eyes: EOM's intact, no lid lag, and anicteric sclera Mouth: no lip lesions, mucus membranes moist Cardiovascular: Irregularly irregular with systolic murmur. Positive posterior tibial pulses bilaterally, and cap refill < 2 seconds. Lungs: Respirations even, regular, and unlabored on 5 L O2 via nasal cannula. Respirations unlabored however patient does have increased respiratory effort noted. Lungs diminished with soft expiratory wheezes noted.. Abdominal: soft, nontender to palpation, no guarding, no appreciable organ omegaly Ext: ROM intact. No gross muscle atrophy, 1-2+ bilateral lower extremity pitting edema, no contractures Neuro: Speech clear, face symmetrical and CN II-XII grossly intact with no noted focal neuro deficits Psych: Alert and oriented to person, place, time, and situation. Patient appears anxious and agitated. Assessment and Plan of Care: Acute on chronic respiratory failure with hypoxia and hypercarbia Acute exacerbation of chronic diastolic heart failure Atrial fibrillation with RVR COPD with acute exacerbation secondary to above History of CAD status post stenting Hypertension Hyperlipidemia Chronic kidney disease stage IIIb -Cardiology consulted secondary to CHF exacerbation and atrial fibrillation with RVR. -Pulmonology following secondary to acute respiratory failure with hypoxia and hypercarbia resulting in initial need for continuous BiPAP placement -Patient has been weaned off of BiPAP this morning currently on 5 L nasal cannula with SpO2 of 92%. -Telemetry monitoring. -Monitor pulse-oximetry -Duonebs scheduled 4 times daily and as needed for SOB and/or wheezing along with Symbicort 2 puffs twice daily -Continue Lasix 40 mg IVP twice daily. -Strict I's and O's with daily weights -Continue cardiac medication regimen with Xarelto 15 mg daily, atorvastatin 40 mg nightly, hydrochlorothiazide 25 mg daily, isosorbide mononitrate 15 mg daily, metoprolol 75 mg twice daily. -Continue close monitoring of renal function and electrolytes while diuresing. Currently creatinine 1.5 with a baseline creatinine around 2.1. Hypothyroidism Continue daily medication regimen with levothyroxine 274 mcg daily obtain a TSH with free T4 to evaluate thyroid function with current atrial fibrillation with RVR. Anxiety and depression PTSD -Continue daily medication regimen with Zoloft 200 mg daily and Xanax 1 mg 3 times daily as needed for severe anxiety/panic attack and 2 mg nightly as needed for insomnia. Data and imaging reviewed: Vital signs reviewed. Blood pressure 130/85, heart rate 84, respiratory rate 22, temp 98.0 F, SpO2 of 92% on 5 L. Initial labs reviewed. CBC showing stable normocytic anemia with hemoglobin of 10.1. BMP showing metabolic alkalosis with chloride of 92, bicarb 43, and anion gap of 2 with elevated renal function with BUN of 41, creatinine 2.10, and GFR of 31. Patient's baseline creatinine is around 2.1. CODE STATUS: Full code DVT prophylaxis: Xarelto Anticipated discharge date: Pending clinical course Anticipated discharge place: Pending clinical course Patient was seen independently by Nurse Pracitioner. This document was prepared using [employer] dictation software. Please allow for errors in automatic spooler operator, while rare they do occur. Arnoldo He NP rendered care for this patient independently, reviewed the find ings and plan as documented in the note above. I did not physically speak with or examine the patient on this date. Objective - Vital Signs Vital signs: Vital Signs Temp 97.5 F L 11/08/23 03:12 Pulse 63 11/08/23 03:12 Resp 17 11/08/23 03:12 BP 113/72 11/08/23 03:12 Pulse Ox 95 11/08/23 03:12 FiO2 40 11/08/23 04:15 Intake & Output 11/07/23 11/08/23 11/08/23 18:59 06:59 18:59 Intake Total 540 Output Total 825 Balance 540 -825 Intake: Oral 540 Output: Urine 825 Other: Voiding Method Urinal - Labs CBC & Chem 7: 11/08/23 06:59 11/08/23 06:59 Labs: Abnormal Lab Results - Last 24 Hours (Table) 11/08/23 Range/Units 06:59 RBC 3.53 L (4.30-5.90) m/uL Hgb 10.1 L (13.0-17.5) gm/dL Hct 32.4 L (39.0-53.0) %
[2023-11-08] MEDS: SYMBICORT 160-4.5 MCG INHALER INHALATION SCH (21:14)
--- NOTE | 2023-11-09 11:15 | P.PN ---
Subjective Progress Note Date: 11/09/23 Principal diagnosis: Shortness of breath. This is a 73-year-old white male with history of multiple medical including COPD, patient quit smoking over 20 years ago, history of chronic atrial fibrillation, chronic diastolic congestive heart failure, hypertension, dyslipidemia, coronary artery disease and previous stenting. Patient has history of chronic hypoxic respiratory failure maintained on oxygen and he does have severe obstructive sleep apnea syndrome maintained on BiPAP at home. In addition he has chronic kidney disease stage IIIb, depression, posttraumatic shock disorder, patient was admitted yesterday to [facility] with 3 days history of increased shortness of breath, and he was felt to have acute on chronic diastolic congestive heart failure. Patient was admitted, placed on diuretics, he was also placed on bronchodilators for underlying COPD, patient normally has CPAP at home apparently he had issues with his CPAP, and it is not functional. At any rate considering his presentation and his symptoms, this consult was initiated. At the time of my evaluation, patient was telling me that he wants to go home AGAINST MEDICAL ADVICE. CT angiogram and this admission showed a right small pleural effusion and atelectasis left lung base. There was no evidence of pulmonary embolism. Progress note dated November 08, 2023. 73-year-old male, who looks much older than his stated age, is seen today in room 361. The patient did use BiPAP last night, with settings of 10/5, and 40%. He is currently on 6 L nasal cannula. He is not receiving any IV fluids. The patient was initially seen for congestive heart failure. The patient has a his tory of chronic atrial fibrillation, COPD, hypertension, hyperlipidemia, coronary disease, and previous stent placement. Current labs include a white count 7, hemoglobin 10.1, hematocrit 32.4, and a normal platelet count. Sodium 137, potassium 4.1, chloride 92, CO2 43, BUN 41, creatinine 2.10, increased from 34 and 1.50 yesterday. N-terminal proBNP was 2089. TSH is elevated 10.8. Progress note dated November 09, 2023. 73-year-old male seen today in room 361. The patient continues on oxygen at 4 L. The patient is using BiPAP at nighttime, with settings of 10/5, and 40%. The patient is not receiving any IV fluids. Clinically, the patient has been stable. No new labs today. Objective - Vital Signs Vital signs: Vital Signs Temp 97.2 F L 11/09/23 07:45 Pulse 78 11/09/23 07:45 Resp 16 11/09/23 07:45 BP 111/64 11/09/23 07:45 Pulse Ox 95 11/09/23 07:45 FiO2 40 11/09/23 04:00 Intake & Output 11/08/23 11/09/23 11/09/23 18:59 06:59 18:59 Intake Total 822 818 Output Total 1600 1250 Balance -778 -1250 818 Weight 120.2 kg Intake: Oral 822 818 Output: Urine 1600 1250 Other: Voiding Method Urinal Urinal Urinal - Exam No acute distress, oriented 3. No respiratory distress. Currently on 4 L nasal cannula. HEENT examination is grossly unremarkable. Mucous membranes are moist. No oral lesions. Neck supple. Full range of motion. No adenopathy thyromegaly or neck vein distention. Cardiovascular examination reveals a irregular rhythm and rate. S1-S2 normal. No S3 or S4. No discernible murmur noted. Heart rate 78 bpm. Lungs reveal bibasilar crackles. No wheezes or rhonchi. Breath sounds equal. Saturations are 95%. Abdomen soft bowel sounds are heard. No masses or tenderness. Extremities are intact. No cyanosis clubbing or edema. Skin is without rash or lesion. Neurologic examination is brief but nonfocal. - Labs CBC & Chem 7: 11/08/23 06:59 11/08/23 06:59 Assessment and Plan Assessment: Chronic hypoxemic and hypercapnic respiratory failure. Acute exacerbation of chronic diastolic CHF. COPD, currently inactive. History of chronic atrial fibrillation. Coronary artery disease with previous stent placement. Benign essential hypertension. Stage IIIb chronic kidney disease. Dyslipidemia. History of depression/anxiety. Plan: Plan dated November 08, 2023. The patient is seen today in room 361. The patient appears to be on appropriate treatment. He is on O2 at 6 L by nasal cannula. He is not receiving any IV fluids. The patient did use the BiPAP device last night, with settings of 10/5, and 40%. Continue Lasix. We will continue to follow make recommendations. Prognosis is guarded. Labs, x-rays, and all medications have been reviewed. Plan dated November 09, 2023. The patient appears to be doing relatively well. He continues on oxygen, at 4 L. It is down from yesterday where he was on 6 L. He is using BiPAP at night time. BiPAP settings include IPAP of 10, EPAP of 5, and an FiO2 of 40%. No IV fluids are being given to this patient. The patient is doing better, and we will continue to follow the patient, and make recommendations where appropriate. Labs, x-rays, and all medications have been reviewed. Time with Patient: Less than 30
[2023-11-09 13:31] LABS: HCT 33.5 % (39.0-53.0); HGB 10.4 gm/dL (13.0-17.5); Hypochromasia Marked; MCH 28.8 pg (25.0-35.0); MCHC 31.2 g/dL (31.0-37.0); MCV 92.5 fL (80.0-100.0); Mean Platelet Volume 8.3; Platelet Count 205 k/uL (150-450); RBC 3.62 m/uL (4.30-5.90); RDW 15.1 % (11.5-15.5); WBC 7.7 k/uL (3.8-10.6)
[2023-11-09 13:40] LABS: African American GFR (CKD) 37 (>60 ml/min/1.73 sqM); Blood Urea Nitrogen 46 mg/dL (9-20); Calcium 8.9 mg/dL (8.4-10.2); Chloride 88 mmol/L (98-107); Glucose 178 mg/dL (74-99); Magnesium 1.8 mg/dL (1.6-2.3); Non-African American GFR(CKD) 32 (>60 ml/min/1.73 sqM); Potassium 4.6 mmol/L (3.5-5.1); Sodium 137 mmol/L (137-145)
[2023-11-09 13:46] LABS: Anion Gap 2 mmol/L
--- NOTE | 2023-11-09 13:46 | P.PN ---
Subjective Progress Note Date: 11/09/23 Hospital course: Patient is a very pleasant 73-year-old male with a past medical history of CAD status post stenting, hypertension, hyperlipidemia, chronic diastolic heart failure, persistent atrial fibrillation, COPD chronic hypoxic respiratory failure 4 L O2 dependent, chronic kidney disease stage IIIb, anxiety with depression, and PTSD. He presented to the hospital on 11/06/2023 secondary to shortness of breath and is currently admitted for acute on chronic diastolic heart failure exacerbation along with acute respiratory failure with hypoxia and hypercarbia. Patient initially requiring continuous BiPAP but has been weaned down to nasal cannula with BiPAP nightly. Physical exam: Patient seen and fully evaluated at bedside. He is currently on 4 L O2 via nasal cannula, and has been continuing with BiPAP nightly. He reports his breathing is better and is upset over how much he has been urinating. Patient educated on Lasix and importance of IV diuresis. Denies any headache, lightheadedness, dizziness, chest pain, or any other complaints at this time. Vital signs reviewed and stable. General: Nontoxic, no distress and appears stated age. Derm: Skin warm and dry, normal coloration for ethnicity. Head: Atraumatic, normocephalic and symmetric. Eyes: EOM's intact, no lid lag, and anicteric sclera Mouth: no lip lesions, mucus membranes moist Cardiovascular: Irregularly irregular with systolic murmur. Positive posterior tibial pulses bilaterally, and cap refill < 2 seconds. Lungs: Respirations even, regular, and unlabored on 5 L O2 via nasal cannula. Respirations unlabored however patient does have increased respiratory effort noted. Lungs diminished with soft expiratory wheezes noted.. Abdominal: soft, nontender to palpation, no guarding, no appreciable organomegaly Ext: ROM intact. No gross muscle atrophy, 1-2+ bilateral lower extremity pitting edema, no contractures Neuro: Speech clear, face symmetrical and CN II-XII grossly intact with no noted focal neuro deficits Psych: Alert and oriented to person, place, time, and situation. Patient appears anxious and agitated. Assessment and Plan of Care: Acute on chronic respiratory failure with hypoxia and hypercarbia Acute exacerbation of chronic diastolic heart failure Atrial fibrillation with RVR COPD with acute exacerbation secondary to above History of CAD status post stenting Hypertension Hyperlipidemia Chronic kidney disease stage IIIb -Cardiology consulted secondary to CHF exacerbation and atrial fibrillation with RVR. Reviewed documentation in chart. -Pulmonology following secondary to acute respiratory failure with hypoxia and hypercarbia resulting in initial need for continuous BiPAP placement. Reviewed documentation in chart. -Continue BiPAP nightly and supplemental oxygen throughout the day, titrate to maintain SpO2 equal to or greater than 90%. 4 L. -Telemetry monitoring. -Monitor pulse-oximetry -Duonebs scheduled 4 times daily and as needed for SOB and/or wheezing along with Symbicort 2 puffs twice daily -Continue Lasix 40 mg IVP twice daily. -Strict I's and O's with daily weights. -Continue cardiac medication regimen with Xarelto 15 mg daily, atorvastatin 40 mg nightly, hydrochlorothiazide 25 mg daily, isosorbide mononitrate 15 mg daily, metoprolol 75 mg twice daily. -Continue close monitoring of renal function and electrolytes while diuresing. Currently creatinine 1.5 with a baseline creatinine around 2.1. Hypothyroidism Continue daily medication regimen with levothyroxine 274 mcg daily obtain a TSH with free T4 to evaluate thyroid function with current atrial fibrillation with RVR. Anxiety and depression PTSD -Continue daily medication regimen with Zoloft 200 mg daily and Xanax 1 mg 3 times daily as needed for severe anxiety/panic attack and 2 mg nightly as needed for insomnia. Data and imaging reviewed: Vital signs reviewed. Blood pressure 111/64, heart rate 78, respiratory rate 16, temp 97.2 F, and SpO2 of 95% on 4 L. Daily labs reviewed. CBC showing stable normocytic anemia with hemoglobin of 10.4. BMP showing hypochloremia with chloride of 88, bicarb 47, anion gap of 2 and BUN of 46, creatinine of 2.05, GFR of 32. Blood glucose 178 and magnesium 1.8. CODE STATUS: Full code DVT prophylaxis: Xarelto Anticipated discharge date: Pending clinical course Anticipated discharge place: Pending clinical course Patient was seen independently by Nurse Pracitioner. This document was prepared using [employer] dictation software. Please allow for e rrors in teacher cclc, while rare they do occur. I reviewed the documentation as provided by the XAVIER above, who is the original author of this note. I agree with the documented assessment and plan, with the following changes: none Objective - Vital Signs Vital signs: Vital Signs Temp 97.2 F L 11/09/23 07:45 Pulse 78 11/09/23 07:45 Resp 16 11/09/23 07:45 BP 111/64 11/09/23 07:45 Pulse Ox 95 11/09/23 07:45 FiO2 40 11/09/23 04:00 Intake & Output 11/08/23 11/09/23 11/09/23 18:59 06:59 18:59 Intake Total 822 480 Output Total 1600 1250 Balance -778 -1250 480 Weight 120.2 kg Intake: Oral 822 480 Output: Urine 1600 1250 Other: Voiding Method Urinal Urinal - Labs CBC & Chem 7: 11/10/23 09:10 11/10/23 09:10 Labs: Abnormal Lab Results - Last 24 Hours (Table) 11/08/23 Range/Units 06:59 Chloride 92 L (98-107) mmol/L Carbon Dioxide 43 H* (22-30) mmol/L BUN 41 H (9-20) mg/dL Creatinine 2.10 H (0.66-1.25) mg/dL TSH 10.800 H (0.465-4.680) mIU/L
[2023-11-09 13:48] LABS: Carbon Dioxide 47 mmol/L (22-30)
[2023-11-10] MEDS: ALPRAZolam 1 MG TAB PO STA (03:02)
[2023-11-10] MEDS: FUROSEMIDE 20 MG TAB PO SCH (09:30)
[2023-11-10 10:02] LABS: HCT 37.3 % (39.0-53.0); HGB 11.3 gm/dL (13.0-17.5); Hypochromasia Marked; MCH 27.9 pg (25.0-35.0); MCHC 30.2 g/dL (31.0-37.0); MCV 92.2 fL (80.0-100.0); Mean Platelet Volume 7.6; Platelet Count 216 k/uL (150-450); RBC 4.04 m/uL (4.30-5.90); WBC 8.6 k/uL (3.8-10.6)
[2023-11-10 10:18] LABS: African American GFR (CKD) 35 (>60 ml/min/1.73 sqM); Anion Gap 10 mmol/L; Blood Urea Nitrogen 47 mg/dL (9-20); Calcium 9.2 mg/dL (8.4-10.2); Chloride 90 mmol/L (98-107); Glucose 151 mg/dL (74-99); Magnesium 1.9 mg/dL (1.6-2.3); Non-African American GFR(CKD) 30 (>60 ml/min/1.73 sqM); Sodium 140 mmol/L (137-145)
[2023-11-10 10:48] LABS: Carbon Dioxide 42 mmol/L (22-30)
[2023-11-10 11:24] VITALS: BP 103/64; PULSE 67; RESP 17; TEMP 98.1
--- NOTE | 2023-11-10 11:39 | P.PN ---
Subjective Progress Note Date: 11/10/23 Principal diagnosis: Shortness of breath. This is a 73-year-old white male with history of multiple medical including COPD, patient quit smoking over 20 years ago, history of chronic atrial fibrillation, chronic diastolic congestive heart failure, hypertension, dyslipidemia, coronary artery disease and previous stenting. Patient has history of chronic hypoxic respiratory failure maintained on oxygen and he does have severe obstructive sleep apnea syndrome maintained on BiPAP at home. In addition he has chronic kidney disease stage IIIb, depression, posttraumatic shock disorder, patient was admitted yesterday to with 3 days history of increased shortness of breath, and he was felt to have acute on chronic diastolic congestive heart failure. Patient was admitted, placed on diuretics, he was also placed on bronchodilators for underlying COPD, patient normally has CPAP at home apparently he had issues with his CPAP, and it is not functional. At any rate considering his presentation and his symptoms, this consult was initiated. At the time of my evaluation, patient was telling me that he wants to go home AGAINST MEDICAL ADVICE. CT angiogram and this admission showed a right small pleural effusion and atelectasis left lung base. There was no evidence of pulmonary embolism. Progress note dated November 08, 2023. 73-year-old male, who looks much older than his stated age, is seen today in room 361. The patient did use BiPAP last night, with settings of 10/5, and 40%. He is currently on 6 L nasal cannula. He is not receiving any IV fluids. The patient was initially seen for congestive heart failure. The patient has a his tory of chronic atrial fibrillation, COPD, hypertension, hyperlipidemia, coronary disease, and previous stent placement. Current labs include a white count 7, hemoglobin 10.1, hematocrit 32.4, and a normal platelet count. Sodium 137, potassium 4.1, chloride 92, CO2 43, BUN 41, creatinine 2.10, increased from 34 and 1.50 yesterday. N-terminal proBNP was 2089. TSH is elevated 10.8. Progress note dated November 09, 2023. 73-year-old male seen today in room 361. The patient continues on oxygen at 4 L. The patient is using BiPAP at nighttime, with settings of 10/5, and 40%. The patient is not receiving any IV fluids. Clinically, the patient has been stable. No new labs today. Progress note dated November 10, 2023. 73-year-old male seen in room 361. The patient is sitting in the chair next to his hospital bed. He looks very comfortable, and is not having any shortness of breath. The patient is not receiving any IV fluids. He is on nasal O2 at 6 L. White count 8.6, hemoglobin 11.3, hematocrit 37.3, platelet count 216,000. Sodium 140, potassium 4, chloride 90, CO2 42, BUN 47, and creatinine 2.14. Glucose is 151. Objective - Vital Signs Vital signs: Vital Signs Temp 98.1 F 11/10/23 11:23 Pulse 67 11/10/23 11:23 Resp 17 11/10/23 11:23 BP 103/64 11/10/23 11:23 Pulse Ox 92 L 11/10/23 11:23 FiO2 40 11/10/23 03:54 Intake & Output 11/09/23 11/10/23 11/10/23 18:59 06:59 18:59 Intake Total 1054 358 Output Total 750 750 Balance 1054 -750 -392 Weight 120.2 kg Intake: Oral 1054 358 Output: Urine 750 750 Other: Voiding Method Urinal Urinal Urinal - Exam No acute distress, oriented 3. No respiratory distress. Currently on 6 L nasal cannula. HEENT examination is grossly unremarkable. Mucous membranes are moist. No oral lesions. Neck supple. Full range of motion. No adenopathy thyromegaly or neck vein distention. Cardiovascular examination reveals a irregular rhythm and rate. S1-S2 normal. No S3 or S4. No discernible murmur noted. Heart rate 67 bpm. Lungs reveal bibasilar crackles. No wheezes or rhonchi. Breath sounds equal. Saturations are 93 %. Abdomen soft bowel sounds are heard. No masses or tenderness. Extremities are intact. No cyanosis clubbing or edema. Skin is without rash or lesion. Neurologic examination is brief but nonfocal. - Labs CBC & Chem 7: 11/10/23 09:10 11/10/23 09:10 Labs: Abnormal Lab Results - Last 24 Hours (Table) 11/09/23 11/09/23 11/10/23 Range/Units 12:57 12:57 09:10 RBC 3.62 L 4.04 L (4.30-5.90) m/uL Hgb 10.4 L 11.3 L (13.0-17.5) gm/dL Hct 33.5 L 37.3 L (39.0-53.0) % MCHC 30.2 L (31.0-37.0) g/dL Chloride 88 L (98-107) mmol/L Carbon Dioxide 47 H* (22-30) mmol/L BUN 46 H (9-20) mg/dL Creatinine 2.05 H (0.66-1.25) mg/dL Glucose 178 H (74-99) mg/dL 11/10/23 Range/Units 09:10 RBC (4.30-5.90) m/uL Hgb (13.0-17.5) gm/dL Hct (39.0-53.0) % MCHC (31.0-37.0) g/dL Chloride 90 L (98-107) mmol/L Carbon Dioxide 42 H* (22-30) mmol/L BUN 47 H (9-20) mg/dL Creatinine 2.14 H (0.66-1.25) mg/dL Glucose 151 H (74-99) mg/dL Assessment and Plan Assessment: Chronic hypoxemic and hypercapnic respiratory failure. Acute exacerbation of chronic diastolic CHF. COPD, currently inactive. History of chronic atrial fibrillation. Coronary artery disease with previous stent placement. Benign essential hypertension. Stage IIIb chronic kidney disease. Dyslipidemia. History of depression/anxiety. Plan: Plan dated November 08, 2023. The patient is seen today in room 361. The patient appears to be on appropriate treatment. He is on O2 at 6 L by nasal cannula. He is not receiving any IV fluids. The patient did use the BiPAP device last night, with settings of 10/5, and 40%. Continue Lasix. We will continue to follow make recommendations. Prognosis is guarded. Labs, x-rays, and all medications have been reviewed. Plan dated November 09, 2023. The patient appears to be doing relatively well. He continues on oxygen, at 4 L. It is down from yesterday where he was on 6 L. He is using BiPAP at nighttime. BiPAP settings include IPAP of 10, EPAP of 5, and an FiO2 of 40%. No IV fluids are being given to this patient. The patient is doing better, and we will continue to follow the patient, and make recommendations where appropriate. Labs, x-rays, and all medications have been reviewed. Plan dated November 10, 2023. The patient looks relatively comfortable. He sitting in the chair next to his hospital bed. He is on 6 L of oxygen. He is not receiving any IV fluids. The patient is angry because he states that he was admitted primarily for somebody to fix his CPAP device. We told him that would not and cannot be done as an inp atient. The patient needs to follow-up with the sleep center. No additional recommendations are made. Prognosis is guarded. The patient is stable from the pulmonary standpoint. Discharge plans are underway. Time with Patient: Less than 30
--- NOTE | 2023-11-10 11:59 | P.DS ---
Providers Date of admission: 11/06/23 23:45 Expected date of discharge: 11/10/23 Attending physician: Keiko Mccarthy MD Consults: 11/07/23 04:44 Consult Physician Routine Consulting Provider: Kareem Alejandra Consult Reason/Comments: CHF Do you want consulting provider notified?: Yes, Notify in am 11/07/23 09:33 Consult Physician Routine Consulting Provider: Derrick Man Consult Reason/Comments: Bipap dependent due to CHF exacerbation Do you want consulting provider notified?: Already Contacted Primary care physician: [facility] Hospital Course: 73-year-old male with a past medical history of CAD status post stenting, hypertension, hyperlipidemia, chronic diastolic heart failure, persistent atrial fibrillation, COPD chronic hypoxic respiratory failure 4 L O2 dependent, chronic kidney disease stage IIIb, anxiety with depression, and PTSD. He presented to the hospital on 11/06/2023 secondary to shortness of breath and is currently admitted for acute on chronic diastolic heart failure exacerbation along with acute respiratory failure with hypoxia and hypercarbia. Patient initially requiring continuous BiPAP but has been weaned down to nasal cannula. He was admitted, was found to have acute on chronic respiratory failure with hypoxia and hypercarbia likely due to acute exacerbation of chronic diastolic heart failure, atrial fibrillation with RVR. Was diuresed with lasix IV, then weaned off bipap and switched back to NC. Was continued on his cardiac medication regimen with Xarelto 15 mg daily, atorvastatin 40 mg nightly, hydrochlorothiazide 25 mg daily, isosorbide mononitrate 15 mg daily, metoprolol 75 mg twice daily. Underlying COPD, was inactive, no acute exacerbation. IV diuresis switched to oral, tolerated well. Had CT angiogram of the chest which was reassuring. when I saw patient today he was complaining to me that we did not titrate his CPAP machine which he uses at home at night. I advised him that he needed to follow- up with his primary care physician to schedule a sleep study and based on that CPAP can be titrated. time for discharge 35 minutes Patient was seen and examined on the day of discharge 11/09 Plan - Discharge Summary New Discharge Prescriptions: No Action ALPRAZolam [Xanax] 1 mg PO TID PRN PRN Reason: Anxiety hydroCHLOROthiazide [Hydrodiuril] 25 mg PO DAILY Rivaroxaban [Xarelto] 15 mg PO DAILY Metoprolol Tartrate [Lopressor] 75 mg PO BID Albuterol Inhaler [Ventolin Hfa Inhaler] 1 puff INHALATION RT-Q4H PRN PRN Reason: Shortness Of Breath/COPD Isosorbide Mononitrate ER [Imdur] 15 mg PO DAILY Fluticasone/Umeclidin/Vilanter [Trelegy Ellipta 100-62.5-25] 1 puff INHALATION RT-DAILY Levothyroxine Sodium [Synthroid] 274 mcg PO DAILY Rosuvastatin Calcium [Crestor] 20 mg PO HS ALPRAZolam [Xanax] 2 mg PO HS PRN PRN Reason: Insomnia Sertraline [Zoloft] 200 mg PO DAILY Discharge Medication List ALPRAZolam [Xanax] 1 mg PO TID PRN 01/18/21 [History] Albuterol Inhaler [Ventolin Hfa Inhaler] 1 puff INHALATION RT-Q4H PRN 09/27/23 [History] Fluticasone/Umeclidin/Vilanter [Trelegy Ellipta 100-62.5-25] 1 puff INHALATION RT-DAILY 09/27/23 [History] Isosorbide Mononitrate ER [Imdur] 15 mg PO DAILY 09/27/23 [History] Levothyroxine Sodium [Synthroid] 274 mcg PO DAILY 09/27/23 [History] Metoprolol Tartrate [Lopressor] 75 mg PO BID 09/27/23 [History] Rivaroxaban [Xarelto] 15 mg PO DAILY 09/27/23 [History] Rosuvastatin Calcium [Crestor] 20 mg PO HS 09/27/23 [History] Sertraline [Zoloft] 200 mg PO DAILY 09/27/23 [History] hydroCHLOROthiazide [Hydrodiuril] 25 mg PO DAILY 09/27/23 [History] ALPRAZolam [Xanax] 2 mg PO HS PRN 11/07/23 [History] Follow up Appointment(s)/Referral(s): [facility],Clinic [Primary Care Provider] - 1 Week
--- NOTE | 2023-11-10 14:06 | P.PN ---
Subjective Progress Note Date: 11/10/23 Consult reason: congestive heart failure History of present illness: This is a 73-year-old male with past medical history of CAD status post CABG in 1988, permanent atrial fibrillation, permanent pacemaker, obstructive sleep apnea, hypertension, hyperlipidemia, chronic diastolic heart failure, chronic hypoxic respiratory failure on home O2, obstructive sleep apnea, chronic kidney disease stage III. We have been asked to evaluate the patient for CHF. Patient states that he came into the hospital because his CPAP broke. He states he was here 2 weeks ago for the same thing. He denies any lower extremity edema. Patient was seen in the past by Dr. Brush in 2019 but [facility]. patient has been started on IV Lasix 40 mg twice daily. Blood pressure 112/60, heart rate 77, pulse ox 98% on 4 L nasal cannula. EKG: Chest x-ray: Laboratory studies: WBC 7, hemoglobin 10.1. Potassium 4.1, CO2 43, BUN 41 creatinine 2.1. proBNP 2089. TSH 10.8 Home cardiac medications: Hydrochlorothiazide 25 mg daily, Imdur 15 mg daily, Lopressor 75 mg twice daily, Xarelto 15 mg daily, Crestor 20 mg at bedtime. Echocardiogram performed on 09/27/2023 revealed EF of 55 to 60%, RVSP 43, moderate to severe TR, trace MR. 8/28 Patient noted to have cough. He is using BiPAP when sleeping. Blood pressure 103/64, heart rate 67, pulse ox 92% on 6 L nasal cannula. Repeat blood work reveals hemoglobin 11.3. BUN 47 creatinine 2.14. Patient is currently on oral Lasix 20 mg daily due to bump in creatinine. Physical examination: Gen: This is a 73-year-old male appears to be in no acute distress. VS: reviewed HEENT: Head is atraumatic, normocephalic. Pupils equal, round. Sclerae is anicteric. NECK: Supple. No JVD. LUNGS: Diminished breath sounds bilaterally. No intercostal retractions. HEART: Irregular rate and rhythm. No murmur. ABDOMEN: Soft No tenderness. EXTREMITIES: No lower extremity edema. No calf tenderness. NEUROLOGICAL: Patient is awake, alert and oriented x3. Assessment: Shortness of breath rule out CHF History of coronary artery disease Permanent atrial fibrillation Chronic kidney disease stage III Acute kidney injury Chronic hypoxic and hypercapnic respiratory failure on home O2 at 4 L nasal cannula COPD Abnormal TSH Obstructive sleep apnea with malfunctioning CPAP Plan: Continue patient's home cardiac medications Continue oral Lasix Monitor MARGARET, daily weights, electrolytes and renal function No need to repeat echocardiogram Further recommendations to follow based upon clinical course Thank you kindly for this consultation. Nurse practitioner note has been reviewed, I agree with documented findings and plan of care. Patient was seen and examined. Objective - Vital Signs Vital signs: Vital Signs Temp 98.1 F 11/10/23 03:21 Pulse 68 11/10/23 03:21 Resp 19 11/10/23 03:21 BP 104/64 11/10/23 03:21 Pulse Ox 94 L 11/10/23 08:58 FiO2 40 11/10/23 03:54 Intake & Output 11/09/23 11/10/23 11/10/23 18:59 06:59 18:59 Intake Total 1054 Output Total 750 Balance 1054 -750 Weight 120.2 kg Intake: Oral 1054 Output: Urine 750 Other: Voiding Method Urinal Urinal - Labs CBC & Chem 7: 11/10/23 09:10 11/10/23 09:10 Labs: Abnormal Lab Results - Last 24 Hours (Table) 11/09/23 11/09/23 Range/Units 12:57 12:57 RBC 3.62 L (4.30-5.90) m/uL Hgb 10.4 L (13.0-17.5) gm/dL Hct 33.5 L (39.0-53.0) % Chloride 88 L (98-107) mmol/L Carbon Dioxide 47 H* (22-30) mmol/L BUN 46 H (9-20) mg/dL Creatinine 2.05 H (0.66-1.25) mg/dL Glucose 178 H (74-99) mg/dL
--- NOTE | 2023-12-01 08:33 | XR ---
Report Patient: Aris Grady A Ordering Physician: Unknown, Unknown ID: [id number] Phone, Pager: Phone: N/A Pager: N/A : [phone] Age/Gender: 73Y, M Primary Location: N/A Procedure: XR CHEST 2V Study Date: 11/06/2023 8:45:55 PM EXAMINATION TYPE: XR chest 2V DATE OF EXAM: 11/06/2023 COMPARISON: 09/28/2023 HISTORY: 73 year-old male shortness of breath TECHNIQUE: AP and lateral views FINDINGS: Right rotation rotational or myocardial mediastinal contours. Median sternotomy wires are post-CABG c lips. Heart mild to moderately enlarged. Diffuse interstitial and vascular densities as well as small bilateral pleural effusions. Left anterior chest wall pacemaker generator with right ventricular fang d. IMPRESSION: Portable, rotated exam. Correlate for CHF with pulmonary vascular congestion. Small bilateral pleural effusions.
== END 2023-11-10 13:56 | disposition home or self-care (01) | DRG 189 ==
LOC: EC 19:20 → 4SSUR 23:45 → 3SCARD 11-07 05:55
PROVIDERS: ADMIT Internal Medicine; ATTEND Internal Medicine
PROC: 5A09457 Assistance with Respiratory Ventilation, 24-96 Consecutive Hours, Continuous Positive Airway Pressure (ICD-10-PCS; principal; 2023-11-06)
DX: J96.22 Acute and chronic respiratory failure with hypercapnia (principal); I50.33 Acute on chronic diastolic (congestive) heart failure; I13.0 Hypertensive heart and chronic kidney disease with heart failure and stage 1 through stage 4 chronic kidney disease, or unspecified chronic kidney disease; I48.21 Permanent atrial fibrillation; J44.1 Chronic obstructive pulmonary disease with (acute) exacerbation; N17.9 Acute kidney failure, unspecified; J98.11 Atelectasis; I25.119 Atherosclerotic heart disease of native coronary artery with unspecified angina pectoris; J96.21 Acute and chronic respiratory failure with hypoxia; N18.32 Chronic kidney disease, stage 3b; E78.5 Hyperlipidemia, unspecified; Z95.5 Presence of coronary angioplasty implant and graft; I25.10 Atherosclerotic heart disease of native coronary artery without angina pectoris; F32.A Depression, unspecified; F41.9 Anxiety disorder, unspecified; F43.10 Post-traumatic stress disorder, unspecified; I25.2 Old myocardial infarction; E07.9 Disorder of thyroid, unspecified; H57.9 Unspecified disorder of eye and adnexa; G47.33 Obstructive sleep apnea (adult) (pediatric); Z87.891 Personal history of nicotine dependence; Z79.01 Long term (current) use of anticoagulants; Z79.890 Hormone replacement therapy; Z79.899 Other long term (current) drug therapy; Z95.1 Presence of aortocoronary bypass graft; Z99.81 Dependence on supplemental oxygen; Z88.8 Allergy status to other drugs, medicaments and biological substances; Z91.041 Radiographic dye allergy status; Z88.5 Allergy status to narcotic agent
CPT/HCPCS: 36600; 71046; 71275; 80048; 83735; 83880; 84439; 84443; 85025; 85027; 94640; 94660; 94760; 96374; 96375; 99285

== ENCOUNTER 2023-11-21 10:05 | Inpatient (IN) | payer OTHER, MEDICARE ==
--- NOTE | 2023-11-21 10:21 | ED ---
General Adult HPI - General Chief complaint: Shortness of Breath Stated complaint: SOB Time Seen by Provider: 11/21/23 10:10 Source: patient, EMS, RN notes reviewed, old records reviewed Mode of arrival: EMS Limitations: no limitations - History of Present Illness Initial comments: This is a 73-year-old male who presents to the emergency department complaining of difficulty breathing for the last 4 to 5 days. Patient states he has COPD and is getting progressively worse. Patient states he is not fever chills patient denies any chest pain palpitations. Patient denies any back pain. Patient has abdominal pain patient has nausea vomiting diarrhea. Patient states he has had a little bit of cough for the last few days. - Related Data Home Medications Medication Instructions Recorded Confirmed ALPRAZolam [Xanax] 1 mg PO TID PRN 01/18/21 11/07/23 Albuterol Inhaler [Ventolin Hfa 1 puff INHALATION RT-Q4H PRN 09/27/23 11/07/23 Inhaler] Fluticasone/Umeclidin/Vilanter 1 puff INHALATION RT-DAILY 09/27/23 11/07/23 [Trelegy Ellipta 100-62.5-25] Isosorbide Mononitrate ER [Imdur] 15 mg PO DAILY 09/27/23 11/07/23 Levothyroxine Sodium [Synthroid] 274 mcg PO DAILY 09/27/23 11/07/23 Metoprolol Tartrate [Lopressor] 75 mg PO BID 09/27/23 11/07/23 Rivaroxaban [Xarelto] 15 mg PO DAILY 09/27/23 11/07/23 Rosuvastatin Calcium [Crestor] 20 mg PO HS 09/27/23 11/07/23 Sertraline [Zoloft] 200 mg PO DAILY 09/27/23 11/07/23 hydroCHLOROthiazide [Hydrodiuril] 25 mg PO DAILY 09/27/23 11/07/23 ALPRAZolam [Xanax] 2 mg PO HS PRN 11/07/23 11/07/23 Previous Rx's Medication Instructions Recorded Furosemide [Lasix] 20 mg PO DAILY 3 Days #60 tab 11/10/23 Allergies Allergy/AdvReac Type Severity Reaction Status Date / Time iodine AdvReac Hypotension, Verified 11/21/23 10:10 itching, watering eyes lisinopril AdvReac hyperkalemi Verified 11/21/23 10:10 a morphine AdvReac hallucinations, Verified 11/21/23 10:10 behavior change temazepam AdvReac headache Verified 11/21/23 10:10 Review of Systems ROS Statement: Those systems with pertinent positive or pertinent negative responses have been documented in the HPI. ROS Other: All systems not noted in ROS Statement are negative. Past Medical History Past Medical History: Atrial Fibrillation, Chest Pain / Angina, COPD, Eye Dis order, Hypertension, Myocardial Infarction ([place]), Respiratory Disorder, Thyroid Disorder Last Myocardial Infarction Date:: 2004 History of Any Multi-Drug Resistant Organisms: None Reported Past Surgical History: Back Surgery, Heart Catheterization With Stent Additional Past Surgical History / Comment(s): eye resection Past Anesthesia/Blood Transfusion Reactions: No Reported Reaction Date of Last Stent Placement:: unknown Past Psychological History: Anxiety, Depression, PTSD Smoking Status: Former smoker Past Alcohol Use History: None Reported Past Drug Use History: None Reported - Past Family History Mother History Unknown: Yes Father History Unknown: Yes General Exam - General Exam Comments Initial Comments: GENERAL: Patient is well-developed and well-nourished. Patient is nontoxic and well- hydrated and is in mild distress. ENT: Neck is soft and supple. No significant lymphadenopathy is noted. Oropharynx is clear. Moist mucous membranes. Neck has full range of motion without eliciting any pain. EYES: The sclera were anicteric and conjunctiva were pink and moist. Extraocular movements were intact and pupils were equal round and reactive to light. Eyelids were unremarkable. PULMONARY: Patient has rhonchi bilaterally and decreased breath sounds on the left CARDIOVASCULAR: There is a regular rate and rhythm without any murmurs gallops or rubs. ABDOMEN: Soft and nontender with normal bowel sounds. SKIN: Skin is clear with no lesions or rashes and otherwise unremarkable. NEUROLOGIC: Patient is alert and oriented x3. Cranial nerves II through XII are grossly intact. Motor and sensory are also intact. Normal speech, volume and content. Symmetrical smile. MUSCULOSKELETAL: Normal extremities with adequate strength and full range of motion. LYMPHATICS: No significant lymphadenopathy is noted PSYCHIATRIC: Normal psychiatric evaluation. Limitations: no limitations Course Vital Signs 11/21/23 11/21/23 11/21/23 10:06 10:53 11:25 Temperature 98.9 F Pulse Rate 96 95 107 H Respiratory 22 20 18 Rate Blood Pressure 107/72 117/68 O2 Sat by Pulse 93 L 93 L Oximetry Medical Decision Making - Medical Decision Making EKG is interpreted by myself read EKG shows atrial fibrillation at 98 bpm QRS is 166 QT interval 399 QTc is 454. Patient EKG shows no ST segment elevation or depression. Was pt. sent in by a medical professional or institution (BORIS Campos, HEALTH UNIT COORDINATOR, urgent care, hospital, or snf...) When possible be specific @ -No Did you speak to anyone other than the patient for history (EMS, parent, family, police, friend...)? What history was obtained from this source @ -No Did you review nursing and triage notes (agree or disagree)? Why? @ -I reviewed and agree with nursing and triage notes Were old charts reviewed (outside hosp., previous admission, EMS record, old EKG, old radiological studies, urgent care reports/EKG's, snf records)? Report findings @ -No old charts were reviewed Differential Diagnosis? @ -Differential Dyspnea: Coronary syndrome, arrhythmia, tamponade, asthma, COPD, pulmonary embolism, pneumonia, pneumothorax, pulmonary effusion, anaphylaxis, diabetic ketoacidosis, flailed chest, pulmonary contusion, diaphragmatic rupture, anemia, neuromuscula r, this is not meant to be an all-inclusive list. EKG interpreted by me (3pts min.). @ -As above X-rays interpreted by me (1pt min.). @ -Chest x-ray shows pulmonary edema CT interpreted by me (1pt min.). @ -None done U/S interpreted by me (1pt. min.). @ -None done What testing was considered but not performed or refused? (CT, X-rays, U/S, labs)? Why? @ -None What meds were considered but not given or refused? Why? @ -None Did you discuss the management of the patient with other professionals ( professionals i.e. BORIS Campos, HEALTH UNIT COORDINATOR, lab, RT, psych nurse, social insurance analyst, activities therapist, teacher, optics technical officer, supervisor case loading)? Give summary @ -I spoke with sound physicians agreed to admit the patient admit the patient with admitting orders I consulted cardiology Was smoking cessation discussed for >3mins.? @ -No Was critical care preformed (if so, how long)? @ -35 minutes Were there social determinants of health that impacted care today? How? (Homelessness, low income, unemployed, alcoholism, drug addiction, transportation, low edu. Level, literacy, decrease access to med. care, residential, rehab)? @ -No Was there de-escalation of care discussed even if they declined (Discuss DNR or withdrawal of care, Hospice)? DNR status @ -No What co-morbidities impacted this encounter? (DM, HTN, Smoking, COPD, CAD, C ancer, CVA, ARF, Chemo, Hep., AIDS, mental health diagnosis, sleep apnea, morbid obesity)? @ -None Was patient admitted / discharged? Hospital course, mention meds given and route, prescriptions, significant lab abnormalities, going to OR and other pertinent info. @ -Patient also has a history of COPD so he did get some breathing treatments while in the emergency department because he did have some diminished breath sounds. Patient also was given Lasix and Nitropaste for the pulmonary edema. P atient will be [facility] to [facility] physicians and cardiology will be consulted Undiagnosed new problem with uncertain prognosis? @ -No Drug Therapy requiring intensive monitoring for toxicity (Heparin, Nitro, Insulin, Cardizem)? @ -No Were any procedures done? @ -No Diagnosis/symptom? @ -Pulmonary edema Acute, or Chronic, or Acute on Chronic? @ -Acute Uncomplicated (without systemic symptoms) or Complicated (systemic symptoms)? @ -Complicated Side effects of treatment? @ -No Exacerbation, Progression, or Severe Exacerbation? @ -No Poses a threat to life or bodily function? How? (Chest pain, [place], [place], pneumonia, PE, COPD, DKA, ARF, appy, cholecystitis, CVA, Diverticulitis, Homicidal, Suicidal, threat to staff... and all critical care pts) @ -Yes this could lead to hypoxia and endorgan dysfunction Diagnosis/symptom? @ -Anemia Acute, or Chronic, or Acute on Chronic? @ -Acute Uncomplicated (without systemic symptoms) or Complicated (systemic symptoms)? @ -Complicated Side effects of treatment? @ -None Exacerbation, Progression, or Severe Exacerbation] @ -No Poses a threat to life or bodily function? @ -No - Lab Data Result diagrams: 11/21/23 10:29 11/21/23 10:29 Lab Results 11/21/23 11/21/2324 Range/Units 10:29 10:29 10:29 WBC 8.2 (3.8-10.6) k/uL RBC 3.59 L (4.30-5.90) m/uL Hgb 9.8 L D (13.0-17.5) gm/dL Hct 32.6 L (39.0-53.0) % MCV 91.0 (80.0-100.0) fL MCH 27.4 (25.0-35.0) pg MCHC 30.2 L (31.0-37.0) g/dL RDW 15.3 (11.5-15.5) % Plt Count 207 (150-450) k/uL MPV 7.9 Neutrophils % 79 % Lymphocytes % 11 % Monocytes % 7 % Eosinophils % 3 % Basophils % 1 % Neutrophils # 6.5 (1.3-7.7) k/uL Lymphocytes # 0.9 L (1.0-4.8) k/uL Monocytes # 0.5 (0-1.0) k/uL Eosinophils # 0.2 (0-0.7) k/uL Basophils # 0.1 (0-0.2) k/uL Hypochromasia Marked PT 11.4 (10.0-12.5) sec INR 1.0 (<1.2) APTT 26.2 (22.0-30.0) sec Sodium 141 (137-145) mmol/L Potassium 4.4 (3.5-5.1) mmol/L Chloride 95 L (98-107) mmol/L Carbon Dioxide 37 H (22-30) mmol/L Anion Gap 9 mmol/L BUN 58 H (9-20) mg/dL Creatinine 1.96 H (0.66-1.25) mg/dL Est GFR (CKD-EPI)AfAm 39 (>60 ml/min/1.73 sqM) Est GFR (CKD-EPI)NonAf 34 (>60 ml/min/1.73 sqM) Glucose 109 H (74-99) mg/dL Plasma Lactic Acid Jaydon (0.7-2.0) mmol/L Calcium 8.9 (8.4-10.2) mg/dL Magnesium 2.0 (1.6-2.3) mg/dL Total Bilirubin 0.6 (0.2-1.3) mg/dL AST 20 (17-59) U/L ALT 10 (4-49) U/L Alkaline Phosphatase 95 (38-126) U/L Troponin I (0.000-0.034) ng/mL NT-Pro-B Natriuret Pep 3940 pg/mL Total Protein 6.0 L (6.3-8.2) g/dL Albumin 3.3 L (3.5-5.0) g/dL 11/21/23 11/21/23 Range/Units 10:29 10:29 WBC (3.8-10.6) k/uL RBC (4.30-5.90) m/uL Hgb (13.0-17.5) gm/dL Hct (39.0-53.0) % MCV (80.0-100.0) fL MCH (25.0-35.0) pg MCHC (31.0-37.0) g/dL RDW (11.5-15.5) % Plt Count (150-450) k/uL MPV Neutrophils % % Lymphocytes % % Monocytes % % Eosinophils % % Basophils % % Neutrophils # (1.3-7.7) k/uL Lymphocytes # (1.0-4.8) k/uL Monocytes # (0-1.0) k/uL Eosinophils # (0-0.7) k/uL Basophils # (0-0.2) k/uL Hypochromasia PT (10.0-12.5) sec INR (<1.2) APTT (22.0-30.0) sec Sodium (137-145) mmol/L Potassium (3.5-5.1) mmol/L Chloride (98-107) mmol/L Carbon Dioxide (22-30) mmol/L Anion Gap mmol/L BUN (9-20) mg/dL Creatinine (0.66-1.25) mg/dL Est GFR (CKD-EPI)AfAm (>60 ml/min/1.73 sqM) Est GFR (CKD-EPI)NonAf (>60 ml/min/1.73 sqM) Glucose (74-99) mg/dL Plasma Lactic Acid Jaydon 1.6 (0.7-2.0) mmol/L Calcium (8.4-10.2) mg/dL Magnesium (1.6-2.3) mg/dL Total Bilirubin (0.2-1.3) mg/dL AST (17-59) U/L ALT (4-49) U/L Alkaline Phosphatase (38-126) U/L Troponin I <0.012 (0.000-0.034) ng/mL NT-Pro-B Natriuret Pep pg/mL Total Protein (6.3-8.2) g/dL Albumin (3.5-5.0) g/dL Disposition Clinical Impression: Anemia, Pulmonary edema Disposition: ADMITTED IP TO THIS HOSP Referrals: [facility]inic [Primary Care Provider] - 1-2 days Time of Disposition: 11:29
[2023-11-21 10:38] LABS: Basophils # (A) 0.1 k/uL (0-0.2); Basophils % (A) 1 %; Eosinophils # (A) 0.2 k/uL (0-0.7); Eosinophils % (A) 3 %; HCT 32.6 % (39.0-53.0); Hypochromasia Marked; Lymphocytes # (A) 0.9 k/uL (1.0-4.8); Lymphocytes % (A) 11 %; MCH 27.4 pg (25.0-35.0); MCHC 30.2 g/dL (31.0-37.0); Mean Platelet Volume 7.9; Monocytes # (A) 0.5 k/uL (0-1.0); Monocytes % (A) 7 %; Neutrophils # (A) 6.5 k/uL (1.3-7.7); Neutrophils % (A) 79 %; Platelet Count 207 k/uL (150-450); RBC 3.59 m/uL (4.30-5.90); RDW 15.3 % (11.5-15.5); WBC 8.2 k/uL (3.8-10.6)
[2023-11-21 10:42] LABS: HGB 9.8 gm/dL (13.0-17.5)
[2023-11-21 10:49] LABS: Partial Thromboplastin Time 26.2 sec (22.0-30.0); Prothrombin Time 11.4 sec (10.0-12.5)
[2023-11-21 10:50] LABS: ALT 10 U/L (4-49); AST 20 U/L (17-59); African American GFR (CKD) 39 (>60 ml/min/1.73 sqM); Albumin 3.3 g/dL (3.5-5.0); Alkaline Phosphatase 95 U/L (38-126); Blood Urea Nitrogen 58 mg/dL (9-20); Calcium 8.9 mg/dL (8.4-10.2); Chloride 95 mmol/L (98-107); Glucose 109 mg/dL (74-99); Non-African American GFR(CKD) 34 (>60 ml/min/1.73 sqM); Potassium 4.4 mmol/L (3.5-5.1); Sodium 141 mmol/L (137-145); Total Bilirubin 0.6 mg/dL (0.2-1.3)
[2023-11-21] MEDS: methylPREDNISolone SOD SUCCI 125 MG/2 ML VIAL IV STA (10:50)
[2023-11-21 10:56] LABS: Anion Gap 9 mmol/L
[2023-11-21 10:58] LABS: NT-Pro-B-Type Natriuretic Pept 3940 pg/mL
[2023-11-21] MEDS: cefTRIAXone IN SWFI 1,000 MG/10 ML SYRINGE IVP STA ×2 (11:03→11:07)
--- NOTE | 2023-11-21 11:09 | XR ---
EXAMINATION TYPE: XR chest 2V DATE OF EXAM: 11/21/2023 COMPARISON: 09/28/2023 HISTORY: Difficulty breathing TECHNIQUE: Frontal and lateral views of the chest are obtained. FINDINGS: There is been prior CABG surgery. There is a single-lead cardiac pacemaker. As on the prior study, there is cardiomegaly, pulmonary vascular congestion, pulmonary edema and prob able small bilateral pleural effusions. IMPRESSION: Findings most consistent with CHF, similar in degree to that seen on the study of 09/28/2023. IMPRESSION: No acute cardiopulmonary process.
[2023-11-21 11:10] LABS: Carbon Dioxide 37 mmol/L (22-30)
[2023-11-21] MEDS: ALBUTEROL NEBULIZED 2.5 MG/3 ML INHALATION STA (11:23)
[2023-11-21] MEDS: IPRATROPIUM 0.5 MG/2.5 ML NEBU INHALATION STA (11:23)
[2023-11-21] MEDS: FUROSEMIDE 10 MG/ML 10 ML VIAL IV STA (11:35)
[2023-11-21 12:21] LABS: Basophils # (A) 0.1 k/uL (0-0.2); Basophils % (A) 1 %; Eosinophils # (A) 0.1 k/uL (0-0.7); Eosinophils % (A) 1 %; HCT 34.7 % (39.0-53.0); HGB 10.5 gm/dL (13.0-17.5); Hypochromasia Marked; Lymphocytes # (A) 0.7 k/uL (1.0-4.8); Lymphocytes % (A) 9 %; MCH 27.9 pg (25.0-35.0); MCHC 30.3 g/dL (31.0-37.0); MCV 92.3 fL (80.0-100.0); Mean Platelet Volume 7.7; Monocytes # (A) 0.4 k/uL (0-1.0); Monocytes % (A) 4 %; Neutrophils # (A) 6.7 k/uL (1.3-7.7); Neutrophils % (A) 84 %; Platelet Count 221 k/uL (150-450); RBC 3.76 m/uL (4.30-5.90); RDW 15.2 % (11.5-15.5)
[2023-11-21] MEDS ORDERED: ALPRAZolam 1 MG TAB PO PRN (12:35)
[2023-11-21] MEDS ORDERED: IPRATROPIUM-ALBUTEROL 3 ML NEB INHALATION PRN (12:37)
[2023-11-21] MEDS: NITROGLYCERIN OINT 1 INCH/GM PACKET TOPICAL SCH (12:43)
--- NOTE | 2023-11-21 13:32 | P.HPIM ---
History of Present Illness H&P Date: 11/21/23 History of Presenting Illness: Patient is a very pleasant 73-year-old male with a past medical history of CAD status post stenting, hypertension, hyperlipidemia, chronic diastolic heart failure, persistent atrial fibrillation, COPD chronic hypoxic respiratory failure 4 L O2 dependent, chronic kidney disease stage IIIb, anxiety with de pression, and PTSD. He presented to the hospital secondary to increased shortness of breath over the past 4 to 5 days accompanied by extreme fatigue. In addition patient reported significant loss of appetite. Patient denies having any fevers, chills, diaphoresis, chest pain, palpitations, increases and or changes in baseline chronic cough, abdominal pain, nausea, vomiting, diarrhea or constipation (stating last bowel movement was yesterday and was normal), denies having any melena or hematochezia, denies any difficulties with or changes in his urinary function, and denies any numbness/ting ling/weakness/swelling in his extremities. On arrival to our facility, patient underwent evaluation in the emergency department. Vital signs upon arrival showing blood pressure 107/72, heart rate 96, respiratory rate 22, temp 98.9 F, and SpO2 of 93% on 5 L. EKG completed showing atrial fibrillation with a controlled ventricular rate of 98 bpm with a right bundle branch block. Chest x-ray completed negative for acute cardiopulmonary process showing CHF but similar in degree to that seen on study of 09/28/2023. Reviewed. CBC showing normocytic anemia with hemoglobin of 9.8 with baseline hemoglobin of 11. BMP showing non-anion gap metabolic alkalosis with chloride of 95, bicarb of 37, and anion gap of 9. Renal function consistent with known CKD stage IIIb with BUN of 58, creatinine of 1.96, GFR of 34 with baseline creatinine of 2.1.. Troponin less than 0.012 and proBNP 3940 which is increased when compared with proBNP just prior to recent discharge from hospital on 11/08/2023 at 2090. Patient was provided with IV Lasix, Solu-Medrol, and nebulizer treatment in the emergency department. He is being admitted under our services with consultation to cardiology and nephrology. Review of systems: Pertinent positives and negatives as discussed in HPI, a complete review of systems was performed and all other systems are negative. Physical exam: Vital signs reviewed and stable. General: Nontoxic, no distress and appears stated age. Chronically ill- appearing. Derm: Skin warm and dry, normal coloration for ethnicity. Head: Atraumatic, normocephalic and symmetric. Eyes: EOM's intact, no lid lag, and anicteric sclera Mouth: no lip lesions, mucus membranes moist Cardiovascular: Irregularly irregular with systolic murmur. Positive posterior tibial pulses bilaterally, and cap refill < 2 seconds. Lungs: Respirations even, regular, and unlabored on 5 L O2 via nasal cannula. Respirations unlabored however patient does have conversational dyspnea after approximately 4 words. Lungs diminished with soft expiratory wheezes noted.. Abdominal: soft, nontender to palpation, no guarding, no appreciable o rganomegaly. Ext: ROM intact. No gross muscle atrophy, no lower extremity edema, no contractures Neuro: Speech clear, face symmetrical and CN II-XII grossly intact with no noted focal neuro deficits Psych: Alert and oriented to person, place, time, and situation. Assessment and Plan of Care: Acute on chronic respiratory failure with hypoxia and hypercarbia Mild exacerbation of chronic diastolic heart failure COPD with mild exacerbation secondary to above Generalized weakness and fatigue, secondary to above Chronic persistent atrial fibrillation History of CAD status post stenting Hypertension Hyperlipidemia Chronic kidney disease stage IIIb -Consults placed to cardiology and nephrology. -Continue to provide supplemental oxygen and titrate as patient tolerates. Currently on 5 L O2 via nasal cannula. -Telemetry monitoring. -Monitor pulse-oximetry -Duonebs scheduled 4 times daily and as needed for SOB and/or wheezing along with Symbicort 2 puffs twice daily -Continue Lasix 40 mg IVP every 8 hours -Strict I's and O's with daily weights -Continue cardiac medication regimen with Xarelto 15 mg daily, atorvastatin 40 mg nightly, hydrochlorothiazide 25 mg daily, isosorbide mononitrate 15 mg daily, metoprolol 75 mg twice daily. -Continue close monitoring of renal function and electrolytes while diuresing. Currently creatinine 1.96 with a baseline creatinine around 2.1. -Consult placed to consult and Occupational Therapy for evaluation secondary to patient's reports of extreme fatigue and weakness. Acute on chronic anemia. -Patient with anemia of chronic disease secondary to CKD. Baseline hemoglobin was around 11 and upon arrival hemoglobin was 9.8 with repeat hemoglobin of 10.5. -Patient denies having any noted bleeding or black tarry stools. -Will continue with Xarelto at this time and continue to m trend hemoglobin closely every 6 hours x 2 and with repeat a.m. labs. If further drop in hemoglobin will hold Xarelto and place additional orders at that time. Hypothyroidism Continue daily medication regimen with levothyroxine 274 mcg daily Anxiety and depression PTSD -Continue daily medication regimen with Zoloft 200 mg daily and Xanax 1 mg 3 times daily as needed for severe anxiety/panic attack and 2 mg nightly as needed for insomnia. Data and imaging reviewed: As stated above in HPI The patient is admitted with an anticipated greater than 2 midnight stay for e valuation of acute on chronic respiratory failure with hypoxia and hypercarbia secondary to acute on chronic diastolic heart failure exacerbation CODE STATUS: Full code DVT prophylaxis: Xarelto Anticipated discharge date: Pending clinical course Anticipated discharge place: Pending clinical course Patient was seen independently by Nurse Practitioner. This document was prepared using [employer] dictation software. Please allow for errors in lawnmower mechanic while rare they do occur. I reviewed the documentation as provided by the XAVIER above, who is the original author of this note. I agree with the documented assessment and plan, with the following changes: none Past Medical History Past Medical History: Atrial Fibrillation, Chest Pain / Angina, COPD, Eye Disorder, Hypertension, Myocardial Infarction ([place]), Respiratory Disorder, Thyroid Disorder Last Myocardial Infarction Date:: 2004 History of Any Multi-Drug Resistant Organisms: None Reported Past Surgical History: Back Surgery, Heart Catheterization With Stent Additional Past Surgical History / Comment(s): eye resection Past Anesthesia/Blood Transfusion Reactions: No Reported Reaction Date of Last Stent Placement:: unknown Past Psychological History: Anxiety, Depression, PTSD Smoking Status: Former smoker Past Alcohol Use History: None Reported Past Drug Use History: None Reported - Past Family History Mother History Unknown: Yes Father History Unknown: Yes Medications and Allergies Home Medications Medication Instructions Recorded Confirmed Type ALPRAZolam [Xanax] 1 mg PO TID PRN 01/18/21 11/21/23 History Albuterol Inhaler [Ventolin Hfa 1 puff INHALATION RT-Q4H PRN 09/27/23 11/21/23 History Inhaler] Fluticasone/Umeclidin/Vilanter 1 puff INHALATION RT-DAILY 09/27/23 11/21/23 Hi story [Trelegy Ellipta 100-62.5-25] Isosorbide Mononitrate ER [Imdur] 15 mg PO DAILY 09/27/23 11/21/23 History Levothyroxine Sodium [Synthroid] 274 mcg PO DAILY 09/27/23 11/21/23 History Metoprolol Tartrate [Lopressor] 75 mg PO BID 09/27/23 11/21/23 History Rivaroxaban [Xarelto] 15 mg PO DAILY 09/27/23 11/21/23 History Rosuvastatin Calcium [Crestor] 20 mg PO HS 09/27/23 11/21/23 History Sertraline [Zoloft] 200 mg PO DAILY 09/27/23 11/21/23 History hydroCHLOROthiazide [Hydrodiuril] 25 mg PO DAILY 09/27/23 11/21/23 History ALPRAZolam [Xanax] 2 mg PO HS PRN 11/07/23 11/21/23 History Furosemide [Lasix] 20 mg PO DAILY 3 Days #60 tab 11/10/23 11/21/23 Rx Allergies Allergy/AdvReac Type Severity Reaction Status Date / Time iodine AdvReac Hypotension, Verified 11/21/23 12:56 itching, watering eyes lisinopril AdvReac hyperkalemi Verified 11/21/23 12:56 a morphine AdvReac hallucinations, Verified 11/21/23 12:56 behavior change temazepam AdvReac headache Verified 11/21/23 12:56 Physical Exam Osteopathic Statement: *. No significant issues noted on an osteopathic structural exam other than those noted in the History and Physical/Consult. Vitals: Vital Signs Temp Pulse Resp BP Pulse Ox 11/21/23 11:25 107 H 18 11/21/23 10:53 95 20 117/68 93 L 11/21/23 10:06 98.9 F 96 22 107/72 93 L Intake and Output 11/20/23 11/21/23 11/21/23 22:59 06:59 14:59 Other: Weight 121.109 kg Results CBC & Chem 7: 11/21/23 11:54 11/21/23 10:29 Labs: Abnormal Lab Results - Last 24 Hours (Table) 11/21/23 11/21/23 11/21/23 Range/Units 10:29 10:29 11:54 RBC 3.59 L 3.76 L (4.30-5.90) m/uL Hgb 9.8 L D 10.5 L (13.0-17.5) gm/dL Hct 32.6 L 34.7 L (39.0-53.0) % MCHC 30.2 L 30.3 L (31.0-37.0) g/dL Lymphocytes # 0.9 L 0.7 L (1.0-4.8) k/uL Chloride 95 L (98-107) mmol/L Carbon Dioxide 37 H (22-30) mmol/L BUN 58 H (9-20) mg/dL Creatinine 1.96 H (0.66-1.25) mg/dL Glucose 109 H (74-99) mg/dL Total Protein 6.0 L (6.3-8.2) g/dL Albumin 3.3 L (3.5-5.0) g/dL
[2023-11-21] MEDS: FUROSEMIDE 10 MG/ML 4 ML VIAL IV SCH (14:08)
[2023-11-21] MEDS: IPRATROPIUM-ALBUTEROL 3 ML NEB INHALATION SCH (15:06)
[2023-11-21] MEDS ORDERED: FUROSEMIDE 40 MG TAB PO SCH (16:00)
[2023-11-21 18:26] LABS: Basophils % (A) 0 %; Eosinophils % (A) 0 %; HCT 31.8 % (39.0-53.0); HGB 9.9 gm/dL (13.0-17.5); Hypochromasia Marked; Lymphocytes # (A) 0.3 k/uL (1.0-4.8); Lymphocytes % (A) 4 %; MCH 28.5 pg (25.0-35.0); MCHC 31.2 g/dL (31.0-37.0); MCV 91.4 fL (80.0-100.0); Mean Platelet Volume 7.6; Monocytes # (A) 0.1 k/uL (0-1.0); Monocytes % (A) 2 %; Neutrophils # (A) 6.5 k/uL (1.3-7.7); Neutrophils % (A) 93 %; Platelet Count 192 k/uL (150-450); RBC 3.48 m/uL (4.30-5.90); RDW 15.2 % (11.5-15.5)
--- NOTE | 2023-11-21 20:03 | P.CRDCN ---
History of Present Illness Consult date: 11/21/23 History of present illness: HISTORY OF PRESENTING ILLNESS 73-year-old with PMH of CAD status post CABG 99, permanent atrial fibrillation, PPM, YVETTE, hypertension, hyperlipidemia, chronic diastolic heart failure, chronic hypoxic respiratory failure, CKD. He was recently hospitalized for CHF exacerbation and was treated with IV diuretics. He presented again to the hospital with acute worsening of shortness of breath and respiratory distress. Along with this he has been reporting significant loss of appetite. He denies any fever or chills. Troponin is not elevated, NT proBNP 4000, TSH 1.8, creatinine 1.96 which appears to be his baseline, hemoglobin 9.9 REVIEW OF SYSTEMS 14 point review of system is negative except what is mentioned above in HPI. PHYSICAL EXAMINATION Vital signs reviewed. Head: Normocephalic. Eyes: Sclerae nonicteric. Neck: Brisk carotid upstroke, elevated jugular venous distention. Lungs: Diminished breath sounds due to diminished inspiratory effort. Mild wheezing audible. Mild crackles audible in the bases Heart: Irregularly irregular, pulse, mild systolic murmur audible Abdomen: Soft nontender, positive bowel sounds. Extremities: 1-2+ pitting edema in bilateral extremity Neuro: Alert, oritented, no focal deficits. Detailed neuro exam was not performed. ASSESSMENT Acute HFpEF exacerbation, NYHA class IV symptoms Acute on chronic hypoxic respiratory failure. On 4 L of oxygen at home Mild to moderate COPD exacerbation CKD stage IIIb Anemia Echo September 2023, EF 55 to 60%, moderate to severe tricuspid regurgitation with RVSP of 43 mmHg, trace MR PLAN Continue IV diuretics Lasix 40 mg twice daily IV From tomorrow start Farxiga 10 mg daily, Xarelto 15 mg daily Metoprolol 75 mg twice daily Continue current cardiac medications Will need to repeat echocardiogram Toi Arce MD, FACC, RPVI Thank you for allowing [facility] to participate in this patient's care. Feel free to reach out in case of any followup questions. Past Medical History Past Medical History: Atrial Fibrillation, Chest Pain / Angina, COPD, Eye Disorder, Hypertension, Myocardial Infarction ([place]), Respiratory Disorder, Thyroid Disorder Last Myocardial Infarction Date:: 2004 History of Any Multi-Drug Resistant Organisms: None Reported Past Surgical History: Back Surgery, Heart Catheterization With Stent Additional Past Surgical History / Comment(s): eye resection Past Anesthesia/Blood Transfusion Reactions: No Reported Reaction Date of Last Stent Placement:: unknown Type of Cardiac Device: Permanent Pacemaker Device Placement Date:: 2012 Past Psychological History: Anxiety, Depression, PTSD Smoking Status: Former smoker Past Alcohol Use History: None Reported Past Drug Use History: None Reported - Past Family History Mother History Unknown: Yes Father History Unknown: Yes Medications and Allergies Home Medications Medication Instructions Recorded Confirmed Type ALPRAZolam [Xanax] 1 mg PO TID PRN 01/18/21 11/21/23 History Albuterol Inhaler [Ventolin Hfa 1 puff INHALATION RT-Q4H PRN 09/27/23 11/21/23 History Inhaler] Fluticasone/Umeclidin/Vilanter 1 puff INHALATION RT-DAILY 09/27/23 11/21/23 History [Trelegy Ellipta 100-62.5-25] Isosorbide Mononitrate ER [Imdur] 15 mg PO DAILY 09/27/23 11/21/23 History Levothyroxine Sodium [Synthroid] 274 mcg PO DAILY 09/27/23 11/21/23 History Metoprolol Tartrate [Lopressor] 75 mg PO BID 09/27/23 11/21/23 History Rivaroxaban [Xarelto] 15 mg PO DAILY 09/27/23 11/21/23 History Rosuvastatin Calcium [Crestor] 20 mg PO HS 09/27/23 11/21/23 History Sertraline [Zoloft] 200 mg PO DAILY 09/27/23 11/21/23 History hydroCHLOROthiazide [Hydrodiuril] 25 mg PO DAILY 09/27/23 11/21/23 History ALPRAZolam [Xanax] 2 mg PO HS PRN 11/07/23 11/21/23 History Furosemide [Lasix] 20 mg PO DAILY 3 Days #60 tab 11/10/23 11/21/23 Rx Allergies Allergy/AdvReac Type Severity Reaction Status Date / Time iodine AdvReac Hypotension, Verified 11/21/23 12:56 itching, watering eyes lisinopril AdvReac hyperkalemi Verified 11/21/23 12:56 a morphine AdvReac hallucinations, Verified 11/21/23 12:56 behavior change temazepam AdvReac headache Verified 11/21/23 12:56 Physical Exam Vitals: Vital Signs Temp Pulse Pulse Resp BP BP Pulse Ox 11/21/23 18:52 11/21/23 16:14 97.3 F L 99 18 105/64 99 11/21/23 15:41 98.0 F 102 H 22 111/77 95 11/21/23 15:08 94 L 11/21/23 15:06 107 H 18 11/21/23 12:39 97.5 F L 92 22 111/67 98 11/21/23 11:34 107 H 18 11/21/23 11:25 107 H 18 11/21/23 10:53 95 20 117/68 93 L 11/21/23 10:06 98.9 F 96 22 107/72 93 L FiO2 11/21/23 18:52 40 11/21/23 16:14 11/21/23 15:41 11/21/23 15:08 11/21/23 15:06 11/21/23 12:39 11/21/23 11:34 11/21/23 11:25 11/21/23 10:53 11/21/23 10:06 Intake and Output 11/21/23 11/21/23 11/21/23 06:59 14:59 22:59 Intake Total 370 Output Total 200 Balance 170 Intake: IV 10 Invasive Line 1 10 Oral 360 Output: Urine 200 Other: Voiding Method Urinal Weight 121.109 kg 121.109 kg Results 11/21/23 18:11 11/21/23 10:29 Cardiac Enzymes 11/21/23 11/21/23 Range/Units 10:29 10:29 AST 20 (17-59) U/L Troponin I <0.012 (0.000-0.034) ng/mL Coagulation 11/21/23 Range/Units 10:29 PT 11.4 (10.0-12.5) sec APTT 26.2 (22.0-30.0) sec CBC 11/21/23 11/21/23 11/21/23 Range/Units 10:29 11:54 18:11 WBC 8.2 8.0 7.0 (3.8-10.6) k/uL RBC 3.59 L 3.76 L 3.48 L (4.30-5.90) m/uL Hgb 9.8 L D 10.5 L 9.9 L (13.0-17.5) gm/dL Hct 32.6 L 34.7 L 31.8 L (39.0-53.0) % Plt Count 207 221 192 (150-450) k/uL Comprehensive Metabolic Panel 11/21/23 Range/Units 10:29 Sodium 141 (137-145) mmol/L Potassium 4.4 (3.5-5.1) mmol/L Chloride 95 L (98-107) mmol/L Carbon Dioxide 37 H (22-30) mmol/L BUN 58 H (9-20) mg/dL Creatinine 1.96 H (0.66-1.25) mg/dL Glucose 109 H (74-99) mg/dL Calcium 8.9 (8.4-10.2) mg/dL AST 20 (17-59) U/L ALT 10 (4-49) U/L Alkaline Phosphatase 95 (38-126) U/L Total Protein 6.0 L (6.3-8.2) g/dL Albumin 3.3 L (3.5-5.0) g/dL Current Medications Generic Name Dose Route Start Last Admin Trade Name Freq PRN Reason Stop Dose Admin Albuterol/Ipratropium 3 ml 11/21/23 16:00 11/21/23 15:06 Ipratropium-Albuterol 3 Ml Neb INHALATION 3 ml RT-QID FERNANDO Administration Albuterol/Ipratropium 3 ml 11/21/23 12:37 Ipratropium-Albuterol 3 Ml Neb INHALATION RT-Q2H PRN Shortness Of Breath Or Wheezing Alprazolam 1 mg 11/21/23 12:35 Alprazolam 1 Mg Tab PO TID PRN Anxiety Alprazolam 2 mg 11/21/23 12:35 Alprazolam 1 Mg Tab PO HS PRN Insomnia Atorvastatin Calcium 40 mg 11/21/23 21:00 Atorvastatin 40 Mg Tab PO HS FERNANDO Budesonide/Formoterol Fumarate 2 puff 11/22/23 08:00 Symbicort 80-4.5 Mcg Inhaler INHALATION RT-BID FERNANDO Furosemide 40 mg 11/21/23 13:02 11/21/23 14:08 Furosemide 10 Mg/Ml 4 Ml Vial IV 40 mg Q12HR FERNANDO Administration Isosorbide Mononitrate 15 mg 11/22/23 09:00 Isosorbide Mononitrate Er 15 Mg Tab PO DAILY [facility] Levothyroxine Sodium 274 mcg 11/22/23 06:30 Levothyroxine 137 Mcg Tab PO DAILY@0630 [facility] Metoprolol Tartrate 75 mg 11/21/23 21:00 Metoprolol Tartrate 50 Mg Tab PO BID [facility] Nitroglycerin 1 inch 11/21/23 12:00 11/21/23 17:42 Nitroglycerin Oint 1 Inch/Gm Packet TOPICAL 11/22/23 11:59 Not Given Q6HR [facility] Rivaroxaban 15 mg 11/22/23 09:00 Rivaroxaban 15 Mg Tab PO DAILY [facility] Protocol Sertraline HCl 200 mg 11/22/23 09:00 Sertraline 100 Mg Tab PO DAILY [facility] Intake and Output 11/21/23 11/21/23 11/21/23 06:59 14:59 22:59 Intake Total 370 Output Total 200 Balance 170 Intake: IV 10 Invasive Line 1 10 Oral 360 Output: Urine 200 Other: Voiding Method Urinal Weight 121.109 kg 121.109 kg Patient Weight 11/22/23 06:59 Weight 121.109 kg 11/21/23 18:11 11/21/23 10:29
[2023-11-21] MEDS: SYMBICORT 80-4.5 MCG INHALER INHALATION SCH (20:08)
[2023-11-21] MEDS: METOPROLOL TARTRATE 50 MG TAB PO SCH (21:22)
[2023-11-21] MEDS: ALPRAZolam 1 MG TAB PO PRN (21:22)
[2023-11-21] MEDS: ATORVASTATIN 40 MG TAB PO SCH (21:22)
[2023-11-22] MEDS: LEVOTHYROXINE 137 MCG TAB PO SCH (06:59)
[2023-11-22 07:07] LABS: HGB 9.7 gm/dL (13.0-17.5); Hypochromasia Moderate; MCH 28.4 pg (25.0-35.0); MCHC 31.3 g/dL (31.0-37.0); MCV 90.8 fL (80.0-100.0); Mean Platelet Volume 8.3; Platelet Count 208 k/uL (150-450); RBC 3.41 m/uL (4.30-5.90); RDW 15.4 % (11.5-15.5); WBC 7.6 k/uL (3.8-10.6)
[2023-11-22 07:20] LABS: ALT 8 U/L (4-49); AST 20 U/L (17-59); African American GFR (CKD) 33 (>60 ml/min/1.73 sqM); Albumin 3.3 g/dL (3.5-5.0); Alkaline Phosphatase 88 U/L (38-126); Blood Urea Nitrogen 59 mg/dL (9-20); Calcium 9.2 mg/dL (8.4-10.2); Chloride 92 mmol/L (98-107); Glucose 100 mg/dL (74-99); Magnesium 1.9 mg/dL (1.6-2.3); Non-African American GFR(CKD) 29 (>60 ml/min/1.73 sqM); Potassium 4.3 mmol/L (3.5-5.1); Sodium 138 mmol/L (137-145); Total Bilirubin 0.4 mg/dL (0.2-1.3); Total Protein 5.9 g/dL (6.3-8.2)
[2023-11-22 07:26] LABS: Anion Gap 9 mmol/L
[2023-11-22 08:19] LABS: Carbon Dioxide 37 mmol/L (22-30)
[2023-11-22] MEDS ORDERED: hydroCHLOROthiazide 25 MG TAB PO SCH (09:00)
[2023-11-22] MEDS: SERTRALINE 100 MG TAB PO SCH (09:21)
[2023-11-22] MEDS: RIVAROXABAN 15 MG TAB PO SCH (09:21)
--- NOTE | 2023-11-22 09:32 | P.NPCON ---
History of Present Illness - Reason for Consult acute renal failure, chronic renal failure - History of Present Illness Reason for consultation: Acute kidney injury on chronic kidney disease History of present illness: Patient is a 73-year-old male seen in renal consultation for acute kidney injury on chronic kidney disease. Patient has chronic kidney disease stage IIIb with baseline creatinine near 2. Creatinine was 1.96 on admission and is 2.22 today. Patient came to the hospital due to worsening shortness of breath over the last 4 to 5 days. Patient does have history of COPD and wears 6 L oxygen at home. He is currently on 6 L nasal cannula. Patient denies history of diabetes. He does have history of coronary artery disease and is status post CABG several years ago. Echocardiogram from September 2023 showed moderate to severe tricuspid regurgitation. He is currently on IV Lasix 40 mg twice daily. Admits to good urine output. Denies gross hematuria or dysuria. Hemodynamically stable. Denies use of nonsteroidals. Vital signs are stable. General: No acute distress. HEENT: Head exam is unremarkable. On nasal cannula. LUNGS: Scattered wheezing. HEART: Rate and Rhythm are regular. ABDOMEN: A obese, nontender. EXTREMITITES: No edema. Past Medical History Past Medical History: Atrial Fibrillation, Chest Pain / Angina, COPD, Eye Disorder, Hypertension, Myocardial Infarction ([place]), Respiratory Disorder, Thyroid Disorder Last Myocardial Infarction Date:: 2004 History of Any Multi-Drug Resistant Organisms: None Reported Past Surgical History: Back Surgery, Heart Catheterization With Stent Additional Past Surgical History / Comment(s): eye resection Past Anesthesia/Blood Transfusion Reactions: No Reported Reaction Date of Last Stent Placement:: unknown Type of Cardiac Device: Permanent Pacemaker Device Placement Date:: 2012 Past Psychological History: Anxiety, Depression, PTSD Smoking Status: Former smoker Past Alcohol Use History: None Reported Past Drug Use History: None Reported - Past Family History Mother History Unknown: Yes Father History Unknown: Yes Medications and Allergies Home Medications Medication Instructions Recorded Confirmed Type ALPRAZolam [Xanax] 1 mg PO TID PRN 01/18/21 11/21/23 History Albuterol Inhaler [Ventolin Hfa 1 puff INHALATION RT-Q4H PRN 09/27/23 11/21/23 History Inhaler] Fluticasone/Umeclidin/Vilanter 1 puff INHALATION RT-DAILY 09/27/23 11/21/23 History [Trelegy Ellipta 100-62.5-25] Isosorbide Mononitrate ER [Imdur] 15 mg PO DAILY 09/27/23 11/21/23 History Levothyroxine Sodium [Synthroid] 274 mcg PO DAILY 09/27/23 11/21/23 History Metoprolol Tartrate [Lopressor] 75 mg PO BID 09/27/23 11/21/23 History Rivaroxaban [Xarelto] 15 mg PO DAILY 09/27/23 11/21/23 History Rosuvastatin Calcium [Crestor] 20 mg PO HS 09/27/23 11/21/23 History Sertraline [Zoloft] 200 mg PO DAILY 09/27/23 11/21/23 History hydroCHLOROthiazide [Hydrodiuril] 25 mg PO DAILY 09/27/23 11/21/23 History ALPRAZolam [Xanax] 2 mg PO HS PRN 11/07/23 11/21/23 History Furosemide [Lasix] 20 mg PO DAILY 3 Days #60 tab 11/10/23 11/21/23 Rx Allergies Allergy/AdvReac Type Severity Reaction Status Date / Time iodine AdvReac Hypotension, Verified 11/21/23 12:56 itching, watering eyes lisinopril AdvReac hyperkalemi Verified 11/21/23 12:56 a morphine AdvReac hallucinations, Verified 11/21/23 12:56 behavior change temazepam AdvReac headache Verified 11/21/23 12:56 Physical Exam Vitals: Vital Signs Temp Pulse Pulse Resp BP BP Pulse Ox 11/22/23 09:16 79 20 113/77 95 11/22/23 08:19 88 11/22/23 08:04 84 11/22/23 04:00 97.5 F L 102 H 20 113/70 95 11/22/23 00:00 100 18 118/71 97 11/21/23 20:21 100 11/21/23 20:11 104 H 11/21/23 20:00 97.8 F 105 H 18 121/72 96 11/21/23 18:52 11/21/23 16:14 97.3 F L 99 18 105/64 99 11/21/23 15:41 98.0 F 102 H 22 111/77 95 11/21/23 15:08 94 L 11/21/23 15:06 107 H 18 11/21/23 12:39 97.5 F L 92 22 111/67 98 11/21/23 11:34 107 H 18 11/21/23 11:25 107 H 18 11/21/23 10:53 95 20 117/68 93 L 11/21/23 10:06 98.9 F 96 22 107/72 93 L FiO2 11/22/23 09:16 11/22/23 08:19 11/22/23 08:04 11/22/23 04:00 11/22/23 00:00 11/21/23 20:21 11/21/23 20:11 11/21/23 20:00 11/21/23 18:52 40 11/21/23 16:14 11/21/23 15:41 11/21/23 15:08 11/21/23 15:06 11/21/23 12:39 11/21/23 11:34 11/21/23 11:25 11/21/23 10:53 11/21/23 10:06 Intake and Output 11/21/23 11/22/23 11/22/23 22:59 06:59 14:59 Intake Total 380 10 240 Output Total 200 400 Balance 180 10 -160 Intake: IV 20 10 Invasive Line 1 20 10 Oral 360 240 Output: Urine 200 400 Other: Voiding Method Urinal Urinal External Catheter External Catheter Weight 121.109 kg 122.2 kg Results - Lab Results Most recent lab results Calcium 9.2 mg/dL (8.4-10.2) 11/22/23 06:12 Magnesium 1.9 mg/dL (1.6-2.3) 11/22/23 06:12 11/22/23 06:12 11/22/23 06:12 Assessment and Plan Plan: Assessment: 1. Acute kidney injury secondary to ATN secondary to cardiorenal syndrome. Creatinine 2.22 today. 2. Chronic kidney disease stage IIIb with baseline creatinine near 2. Suspect nephrosclerosis. 3. Volume overload. 4. Acute on chronic diastolic CHF and moderate to severe tricuspid regurgitation. 5. Volume overload. 6. Coronary artery disease status post CABG. 7. Anemia of chronic kidney disease. Plan: Maintain IV Lasix for now. Check urinalysis. Check renal ultrasound. Check iron studies. Avoid nephrotoxins. Check bladder scan. Follow-up echocardiogram. Thank you for the consultation. I will continue to follow the patient with you during his hospital stay
--- NOTE | 2023-11-22 10:05 | US ---
EXAMINATION TYPE: US kidneys/renal and bladder DATE OF EXAM: 11/22/2023 COMPARISON: NONE CLINICAL INDICATION: Male, 73 years old with history of mirtha; MIRTHA EXAM MEASUREMENTS: Right Kidney: 5.2 x 3.2 x 3.2cm Left Kidney: 11.4 x 4.7 x 6.2cm Right Kidney: appears atropic and hard to evaluate Left Kidney: decreased corticomedullary differentiation Bladder: not distended There is no evidence for hydronephrosis at this point in time. No nephrolithiasis is seen. No maritza s are identified. The urinary bladder is anechoic. Bilateral ureteral jets are seen. IMPRESSION: Atrophic right kidney.
[2023-11-22] MEDS: ISOSORBIDE MONONITRATE ER 15 MG TAB PO SCH (10:28)
--- NOTE | 2023-11-22 11:43 | P.PN ---
Subjective Progress Note Date: 11/22/23 Hospital course: Patient is a very pleasant 73-year-old male with a past medical history of CAD status post stenting, hypertension, hyperlipidemia, chronic diastolic heart failure, persistent atrial fibrillation, COPD chronic hypoxic respiratory failure 4 L O2 dependent, chronic kidney disease stage IIIb, anxiety with depression, and PTSD. He presented to the hospital secondary to increased shortness of breath over the past 4 to 5 days accompanied by extreme fatigue. In addition patient reported significant loss of appetite. On arrival to our facility, patient underwent evaluation in the emergency department. Vital signs upon arrival showing blood pressure 107/72, heart rate 96, respiratory rate 22, temp 98.9 F, and SpO2 of 93% on 5 L. EKG completed showing atrial fibrillation with a controlled ventricular rate of 98 bpm with a right bundle branch block. Chest x-ray completed negative for acute cardiopulmonary process showing CHF but similar in degree to that seen on study of 09/28/2023. Reviewed. CBC showing normocytic anemia with hemoglobin of 9.8 with baseline hemoglobin of 11. BMP showing non-anion gap metabolic alkalosis with chloride of 95, bicarb of 37, and anion gap of 9. Renal function consistent with known CKD stage IIIb with BUN of 58, creatinine of 1.96, GFR of 34 with baseline creatinine of 2.1.. Troponin less than 0.012 and proBNP 3940 which is increased when compared with proBNP just prior to recent discharge from hospital on 11/08/2023 at 2090. Patient was provided with IV Lasix, Solu-Medrol, and nebulizer treatment in the emergency department. He was admitted under our services with consultation to cardiology and nephrology. Physical exam: Patient seen and fully evaluated at bedside. He reports overall feeling "horrible" this morning. Patient reports continued fatigue and shortness of breath. He is currently on 6 L O2 via nasal cannula with SpO2 of 95%. Vital signs reviewed and stable. General: Nontoxic, no distress and appears stated age. Chronically ill- appearing. Derm: Skin warm and dry, normal coloration for ethnicity. Head: Atraumatic, normocephalic and symmetric. Eyes: EOM's intact, no lid lag, and anicteric sclera Mouth: no lip lesions, mucus membranes moist Cardiovascular: Irregularly irregular with systolic murmur. Positive posterior tibial pulses bilaterally, and cap refill < 2 seconds. Lungs: Respirations even, regular, and unlabored on 6 L O2 via nasal cannula. R espirations unlabored however patient does have conversational dyspnea after approximately 4 words. Lungs diminished with soft expiratory wheezes noted.. Abdominal: soft, nontender to palpation, no guarding, no appreciable organomegaly. Ext: ROM intact. No gross muscle atrophy, no lower extremity edema, no contractures Neuro: Speech clear, face symmetrical and CN II-XII grossly intact with no noted focal neuro deficits Psych: Alert and oriented to person, place, time, and situation. Assessment and Plan of Care: Acute on chronic respiratory failure with hypoxia and hypercarbia Mild exacerbation of chronic diastolic heart failure COPD with mild exacerbation secondary to above Generalized weakness and fatigue, secondary to above Chronic persistent atrial fibrillation History of CAD status post stenting Hypertension Hyperlipidemia Chronic kidney disease stage IIIb -Cardiology evaluated recommending starting patient on Farxiga 10 mg daily and repeating echocardiogram. -Nephrology consulted, discussed plan of care with Dr. Bateman and he is recommending only starting pt on Farxiga 5 mg daily. -Continue to provide supplemental oxygen and titrate as patient tolerates. Currently on 5 L O2 via nasal cannula. -Telemetry monitoring. -Monitor pulse-oximetry -Duonebs scheduled 4 times daily and as needed for SOB and/or wheezing along with Symbicort 2 puffs twice daily -Continue Lasix 40 mg IVP every 12 hours -Strict I's and O's with daily weights -Continue cardiac medication regimen with Xarelto 15 mg daily, atorvastatin 40 mg nightly, hydrochlorothiazide 25 mg daily, isosorbide mononitrate 15 mg daily, metoprolol 75 mg twice daily. -Continue close monitoring of renal function and electrolytes while diuresing. Currently creatinine 1.96 with a baseline creatinine around 2.1. -Consult placed to consult and Occupational Therapy for evaluation secondary to patient's reports of extreme fatigue and weakness. -BiPAP nightly and while napping. Acute on chronic anemia. -Hemoglobin currently stable at 9.7.. -Patient denies having any noted bleeding or black tarry stools. -Will continue with Xarelto at this time and continue to m trend hemoglobin closely every 6 hours x 2 and with repeat a.m. labs. If further drop in hemoglobin will hold Xarelto and place additional orders at that time. Hypothyroidism -Continue daily medication regimen with levothyroxine 274 mcg daily. TSH normal findings at 1.830. Anxiety and depression PTSD -Continue daily medication regimen with Zoloft 200 mg daily and Xanax 1 mg 3 times daily as needed for severe anxiety/panic attack and 2 mg nightly as needed for insomnia. Data and imaging reviewed: Morning labs reviewed. CBC showing stable hemoglobin of 9.7. BMP showing continued metabolic alkalosis with chloride of 92, bicarb of 37, and anion gap of 9 with elevated renal function with BUN of 59, creatinine of 2.22, and GFR of 29 with baseline creatinine around 2.1. Blood glucose 100. Liver profile showing hypoalbuminemia with albumin of 3.3. TSH was 1.830. Vital signs reviewed. Blood pressure 113/70, heart rate 102, respiratory rate 20, temp 97.5 F SpO2 of 95% on 6 L. CODE STATUS: Full code DVT prophylaxis: Xarelto Anticipated discharge date: Pending clinical course Anticipated discharge place: Pending clinical course Patient was seen independently by Nurse Practitioner. This document was prepared using [employer] dictation software. Please allow for errors in aircraft refueler while rare they do occur. I reviewed the documentation as provided by the XAVIER above, who is the original author of this note. I agree with the documented assessment and plan, with the following changes: none Objective - Vital Signs Vital signs: Vital Signs Temp 97.5 F L 11/22/23 04:00 Pulse 102 H 11/22/23 04:00 Resp 20 11/22/23 04:00 BP 113/70 11/22/23 04:00 Pulse Ox 95 11/22/23 04:00 FiO2 40 11/21/23 18:52 Intake & Output 11/21/23 11/22/23 11/22/23 18:59 06:59 18:59 Intake Total 370 20 Output Total 200 Balance 170 20 Weight 121.109 kg 122.2 kg Intake: IV 10 20 Invasive Line 1 10 20 Oral 360 Output: Urine 200 Other: Voiding Method Urinal Urinal External Catheter - Labs CBC & Chem 7: 11/23/23 05:58 11/22/23 06:12 Labs: Abnormal Lab Results - Last 24 Hours (Table) 11/21/23 11/21/23 11/21/23 Range/Units 10:29 10:29 11:54 RBC 3.59 L 3.76 L (4.30-5.90) m/uL Hgb 9.8 L D 10.5 L (13.0-17.5) gm/dL Hct 32.6 L 34.7 L (39.0-53.0) % MCHC 30.2 L 30.3 L (31.0-37.0) g/dL Lymphocytes # 0.9 L 0.7 L (1.0-4.8) k/uL Chloride 95 L (98-107) mmol/L Carbon Dioxide 37 H (22-30) mmol/L BUN 58 H (9-20) mg/dL Creatinine 1.96 H (0.66-1.25) mg/dL Glucose 109 H (74-99) mg/dL Total Protein 6.0 L (6.3-8.2) g/dL Albumin 3.3 L (3.5-5.0) g/dL 11/21/23 11/22/23 Range/Units 18:11 06:12 RBC 3.48 L 3.41 L (4.30-5.90) m/uL Hgb 9.9 L 9.7 L (13.0-17.5) gm/dL Hct 31.8 L 31.0 L (39.0-53.0) % MCHC (31.0-37.0) g/dL Lymphocytes # 0.3 L (1.0-4.8) k/uL Chloride (98-107) mmol/L Carbon Dioxide (22-30) mmol/L BUN (9-20) mg/dL Creatinine (0.66-1.25) mg/dL Glucose (74-99) mg/dL Total Protein (6.3-8.2) g/dL Albumin (3.5-5.0) g/dL
[2023-11-22] MEDS: DAPAGLIFLOZIN PROPANEDIOL 5 MG TABLET PO SCH (12:19)
--- NOTE | 2023-11-22 14:04 | P.PN ---
Subjective Progress Note Date: 11/22/23 HISTORY OF PRESENTING ILLNESS 73-year-old with PMH of CAD status post CABG 99, permanent atrial fibrillation, PPM, YVETTE, hypertension, hyperlipidemia, chronic diastolic heart failure, chronic hypoxic respiratory failure, CKD. He was recently hospitalized for CHF exacerbation and was treated with IV diuretics. He presented again to the hospital with acute worsening of shortness of breath and respiratory distress. Along with this he has been reporting significant loss of appetite. He denies any fever or chills. Troponin is not elevated, NT proBNP 4000, TSH 1.8, creatinine 1.96 which appears to be his baseline, hemoglobin 9.9 REVIEW OF SYSTEMS 14 point review of system is negative except what is mentioned above in HPI. 11/21 Patient states he is still having shortness of breath and not back to his baseline. He is normally on 6 L nasal cannula of oxygen at home. He denies having any chest pain. He still has some mild lower extremity edema. Patient is on IV Lasix 40 mg every 12 hours and he has been started on Farxiga at lower dose due to renal function. PHYSICAL EXAMINATION Vital signs reviewed. Head: Normocephalic. Eyes: Sclerae nonicteric. Lungs: Diminished breath sounds bilaterally Heart: Irregularly irregular, pulse, mild systolic murmur audible Abdomen: Soft nontender, positive bowel sounds. Extremities: Mild pitting edema in bilateral extremity Neuro: Alert, oritented, no focal deficits. Detailed neuro exam was not performed. ASSESSMENT Acute HFpEF exacerbation, NYHA class IV symptoms Acute on chronic hypoxic respiratory failure. On 6 L of oxygen at home Mild to moderate COPD exacerbation CKD stage IIIb Anemia Permanent atrial fibrillation Echo September 2023, EF 55 to 60%, moderate to severe tricuspid regurgitation with RVSP of 43 mmHg, trace MR PLAN Continue IV diuretics Lasix 40 mg twice daily IV Continue Farxiga 5 mg daily, Xarelto 15 mg daily, Metoprolol 75 mg twice daily Further recommendations as patient progresses. Nurse practitioner note has been reviewed, I agree with documented findings and plan of care. Patient was seen and examined. Objective - Vital Signs Vital signs: Vital Signs Temp 97.5 F L 11/22/23 04:00 Pulse 84 11/22/23 08:04 Resp 20 11/22/23 04:00 BP 113/70 11/22/23 04:00 Pulse Ox 95 11/22/23 04:00 FiO2 40 11/21/23 18:52 Intake & Output 11/21/23 11/22/23 11/22/23 18:59 06:59 18:59 Intake Total 370 20 Output Total 200 Balance 170 20 Weight 121.109 kg 122.2 kg Intake: IV 10 20 Invasive Line 1 10 20 Oral 360 Output: Urine 200 Other: Voiding Method Urinal Urinal External Catheter - Labs CBC & Chem 7: 11/22/23 06:12 11/22/23 06:12 Labs: Abnormal Lab Results - Last 24 Hours (Table) 11/21/23 11/21/23 11/21/23 Range/Units 10:29 10:29 11:54 RBC 3.59 L 3.76 L (4.30-5.90) m/uL Hgb 9.8 L D 10.5 L (13.0-17.5) gm/dL Hct 32.6 L 34.7 L (39.0-53.0) % MCHC 30.2 L 30.3 L (31.0-37.0) g/dL Lymphocytes # 0.9 L 0.7 L (1.0-4.8) k/uL Chloride 95 L (98-107) mmol/L Carbon Dioxide 37 H (22-30) mmol/L BUN 58 H (9-20) mg/dL Creatinine 1.96 H (0.66-1.25) mg/dL Glucose 109 H (74-99) mg/dL Total Protein 6.0 L (6.3-8.2) g/dL Albumin 3.3 L (3.5-5.0) g/dL 11/21/23 11/22/23 Range/Units 18:11 06:12 RBC 3.48 L 3.41 L (4.30-5.90) m/uL Hgb 9.9 L 9.7 L (13.0-17.5) gm/dL Hct 31.8 L 31.0 L (39.0-53.0) % MCHC (31.0-37.0) g/dL Lymphocytes # 0.3 L (1.0-4.8) k/uL Chloride (98-107) mmol/L Carbon Dioxide (22-30) mmol/L BUN (9-20) mg/dL Creatinine (0.66-1.25) mg/dL Glucose (74-99) mg/dL Total Protein (6.3-8.2) g/dL Albumin (3.5-5.0) g/dL
[2023-11-22 15:50] LABS: % Iron Saturation 10.98 (15.00-50.00)
[2023-11-22 18:45] LABS: Appearance,Urine Clear (Clear); Bilirubin,Urine Negative (Negative); Blood,Urine Negative (Negative); Color,Urine Colorless; Glucose,Urine (UA) 1+ (Negative); Ketones,Urine Negative (Negative); Leukocyte Esterase,Urine Negative (Negative); Nitrite,Urine Negative (Negative); Protein,Urine Trace (Negative); Urobilinogen,Urine <2.0 mg/dL (<2.0)
[2023-11-23] MEDS: FUROSEMIDE 10 MG/ML 4 ML VIAL IV SCH (06:05)
[2023-11-23 07:00] LABS: HCT 30.6 % (39.0-53.0); HGB 9.7 gm/dL (13.0-17.5); Hypochromasia Marked; MCH 28.9 pg (25.0-35.0); MCHC 31.8 g/dL (31.0-37.0); Mean Platelet Volume 8.1; Platelet Count 205 k/uL (150-450); Poikilocytosis Slight; RBC 3.36 m/uL (4.30-5.90); RDW 15.5 % (11.5-15.5); WBC 7.1 k/uL (3.8-10.6)
[2023-11-23 07:34] LABS: African American GFR (CKD) 29 (>60 ml/min/1.73 sqM); Blood Urea Nitrogen 62 mg/dL (9-20); Chloride 91 mmol/L (98-107); Glucose 92 mg/dL (74-99); Magnesium 1.8 mg/dL (1.6-2.3); Non-African American GFR(CKD) 25 (>60 ml/min/1.73 sqM); Sodium 140 mmol/L (137-145)
[2023-11-23 07:48] LABS: Anion Gap 6 mmol/L
[2023-11-23 07:58] LABS: Carbon Dioxide 43 mmol/L (22-30)
[2023-11-23] MEDS ORDERED: DAPAGLIFLOZIN PROPANEDIOL 5 MG TABLET PO SCH (09:00)
--- NOTE | 2023-11-23 11:19 | P.PN ---
Subjective Patient is seen in follow-up for acute kidney injury on chronic kidney disease. Renal function worsening from diuresis. Bicarb level 43. Denies chest pain or shortness of breath. On 6 L nasal cannula. Vital signs are stable. General: No acute distress. HEENT: Head exam is unremarkable. On nasal cannula. LUNGS: No audible rhonchi or wheezes. HEART: Rate and Rhythm are regular. ABDOMEN: Nontender. EXTREMITITES: No edema. Objective - Vital Signs Vital signs: Vital Signs Temp 97.9 F 11/23/23 08:59 Pulse 72 11/23/23 08:59 Resp 20 11/23/23 08:59 BP 111/70 11/23/23 08:59 Pulse Ox 95 11/23/23 08:59 FiO2 40 11/21/23 18:52 Intake & Output 11/22/23 11/23/23 11/23/23 18:59 06:59 18:59 Intake Total 600 190 Output Total 925 450 400 Balance -325 -450 -210 Weight 122.2 kg 117.2 kg Intake: IV 10 Invasive Line 1 10 Oral 600 180 Output: Urine 925 450 400 Other: Voiding Method Urinal Urinal Urinal External Catheter - Labs CBC & Chem 7: 11/23/23 05:58 11/23/23 05:58 Labs: Abnormal Lab Results - Last 24 Hours (Table) 11/22/23 11/22/23 11/23/23 Range/Units 06:12 18:26 05:58 RBC 3.36 L (4.30-5.90) m/uL Hgb 9.7 L (13.0-17.5) gm/dL Hct 30.6 L (39.0-53.0) % Chloride (98-107) mmol/L Carbon Dioxide (22-30) mmol/L BUN (9-20) mg/dL Creatinine (0.66-1.25) mg/dL Iron 36 L (65-175) UG/DL % Saturation 10.98 L (15.00-50.00) Urine Protein Trace H (Negative) Urine Glucose (UA) 1+ H (Negative) 11/23/23 Range/Units 05:58 RBC (4.30-5.90) m/uL Hgb (13.0-17.5) gm/dL Hct (39.0-53.0) % Chloride 91 L (98-107) mmol/L Carbon Dioxide 43 H* (22-30) mmol/L BUN 62 H (9-20) mg/dL Creatinine 2.46 H (0.66-1.25) mg/dL Iron (65-175) UG/DL % Saturation (15.00-50.00) Urine Protein (Negative) Urine Glucose (UA) (Negative) Microbiology - Last 24 Hours (Table) 11/21/23 11:00 Blood Culture - Preliminary Blood Assessment and Plan Plan: Assessment: 1. Acute kidney injury secondary to ATN secondary to cardiorenal syndrome. Renal function worsening with diuresis. Creatinine 2.46 today. UA fairly benign. Right kidney atrophic. No hydronephrosis noted on ultrasound. 2. Chronic kidney disease stage IIIb with baseline creatinine near 2. Suspect nephrosclerosis. 3. Volume overload. Improved with diuresis. 4. Acute on chronic diastolic CHF and moderate to severe tricuspid regurgitation. 5. Metabolic alkalosis from volume contraction. Partially compensatory for underlying respiratory acidosis. 6. Coronary artery disease status post CABG. 7. Anemia of chronic kidney disease. Iron deficiency noted. Plan: Lasix discontinued this morning. Maintain Farxiga. Add IV iron. Avoid nephrotoxins. Repeat labs in the morning. Check chest x-ray tomorrow morning.
--- NOTE | 2023-11-23 11:36 | P.PN ---
Subjective Progress Note Date: 11/23/23 Hospital course: Patient is a very pleasant 73-year-old male with a past medical history of CAD status post stenting, hypertension, hyperlipidemia, chronic diastolic heart failure, persistent atrial fibrillation, COPD chronic hypoxic respiratory failure 4 L O2 dependent, chronic kidney disease stage IIIb, anxiety with depression, and PTSD. He presented to the hospital secondary to increased shortness of breath over the past 4 to 5 days accompanied by extreme fatigue. In addition patient reported significant loss of appetite. On arrival to our facility, patient underwent evaluation in the emergency department. Vital signs upon arrival showing blood pressure 107/72, heart rate 96, respiratory rate 22, temp 98.9 F, and SpO2 of 93% on 5 L. EKG completed showing atrial fibrillation with a controlled ventricular rate of 98 bpm with a right bundle branch block. Chest x-ray completed negative for acute cardiopulmonary process showing CHF but similar in degree to that seen on study of 09/28/2023. Reviewed. CBC showing normocytic anemia with hemoglobin of 9.8 with baseline hemoglobin of 11. BMP showing non-anion gap metabolic alkalosis with chloride of 95, bicarb of 37, and anion gap of 9. Renal function consistent with known CKD stage IIIb with BUN of 58, creatinine of 1.96, GFR of 34 with baseline creatinine of 2.1.. Troponin less than 0.012 and proBNP 3940 which is increased when compared with proBNP just prior to recent discharge from hospital on 11/08/2023 at 2090. Patient was provided with IV Lasix, Solu-Medrol, and nebulizer treatment in the emergency department. He was admitted under our services with consultation to cardiology and nephrology. Physical exam: Patient seen and fully evaluated at bedside. He reports overall feeling a bit better this morning stating breathing a little easier. He remains on 6 L O2 at this time. Patient reports he feels as though things are breaking up and he is to get some of the sputum out when he coughs. Vital signs reviewed and stable. General: Nontoxic, no distress and appears stated age. Chronically ill- appearing. Derm: Skin warm and dry, normal coloration for ethnicity. Head: Atraumatic, normocephalic and symmetric. Eyes: EOM's intact, no lid lag, and anicteric sclera Mouth: no lip lesions, mucus membranes moist Cardiovascular: Irregularly irregular with systolic murmur. Positive posterior tibial pulses bilaterally, and cap refill < 2 seconds. Lungs: Respirations even, regular, and unlabored on 6 L O2 via nasal cannula. Respirations unlabored however patient does have conversational dyspnea after approximately 4 words. Lungs diminished with soft expiratory wheezes noted.. Abdominal: soft, nontender to palpation, no guarding, no appreciable organomegal y. Ext: ROM intact. No gross muscle atrophy, no lower extremity edema, no contractures Neuro: Speech clear, face symmetrical and CN II-XII grossly intact with no noted focal neuro deficits Psych: Alert and oriented to person, place, time, and situation. Assessment and Plan of Care: Acute on chronic respiratory failure with hypoxia and hypercarbia Mild exacerbation of chronic diastolic heart failure COPD with mild exacerbation secondary to above Generalized weakness and fatigue, secondary to above Chronic persistent atrial fibrillation History of CAD status post stenting Hypertension Hyperlipidemia Chronic kidney disease stage IIIb -Cardiology evaluated, discussed plan of care with cardiology [employer]. -Nephrology consulted, discussed plan of care with Dr. Bateman and he is recommending discontinuation of Lasix this morning.. -Continue to provide supplemental oxygen and titrate as patient tolerates. Currently on 5 L O2 via nasal cannula. -Telemetry monitoring. -Monitor pulse-oximetry -Duonebs scheduled 4 times daily and as needed for SOB and/or wheezing along wit h Symbicort 2 puffs twice daily -Continue monitoring I's and O's with daily weights -Continue cardiac medication regimen with Xarelto 15 mg daily, atorvastatin 40 mg nightly, Farxiga 5 mg daily, hydrochlorothiazide 25 mg daily, isosorbide mononitrate 15 mg daily, and metoprolol 75 mg twice daily. -Continue close monitoring of renal function and electrolytes while diuresing. Currently creatinine 1.96 with a baseline creatinine around 2.1. -Consult placed to physical therapy and Occupational Therapy for evaluation secondary to patient's reports of extreme fatigue and weakness. -BiPAP nightly and while napping. Acute on chronic anemia. -Hemoglobin currently stable at 9.7.. -Patient denies having any noted bleeding or black tarry stools. -Will continue with Xarelto at this time and continue to m trend hemoglobin closely. If further drop in hemoglobin may consider holding Xarelto and place additional orders at that time. Hypothyroidism -Continue daily medication regimen with levothyroxine 274 mcg daily. TSH normal findings at 1.830. Anxiety and depression PTSD -Continue daily medication regimen with Zoloft 200 mg daily and Xanax 1 mg 3 times daily as needed for severe anxiety/panic attack and 2 mg nightly as needed for insomnia. Data and imaging reviewed: Morning labs reviewed. CBC showing stable hemoglobin of 9.7. BMP showing continued metabolic alkalosis with chloride of 91, bicarb of 43, and anion gap of 6 with elevated renal function with BUN of 62, creatinine of 2.46, and GFR of 25 with baseline creatinine around 2.1. magnesium 1.8 Vital signs reviewed. Blood pressure 111/70, heart rate 72, respiratory rate 20, temp 97.9 F, and SpO2 of 95% on 6 L. CODE STATUS: Full code DVT prophylaxis: Xarelto Anticipated discharge date: Pending clinical course Anticipated discharge place: Pending clinical course Patient was seen independently by Nurse Practitioner. This document was prepared using [employer] dictation software. Please allow for errors in respiratory coordinator while rare they do occur. I reviewed the documentation as provided by the XAVIER above, who is the original author of this note. I agree with the documented assessment and plan, with the following changes: none Objective - Vital Signs Vital signs: Vital Signs Temp 97.8 F 11/23/23 04:00 Pulse 100 11/23/23 08:19 Resp 20 11/23/23 04:00 BP 110/64 11/23/23 04:00 Pulse Ox 95 11/23/23 04:00 FiO2 40 11/21/23 18:52 Intake & Output 11/22/23 11/23/23 11/23/23 18:59 06:59 18:59 Intake Total 600 180 Output Total 925 450 200 Balance -325 -450 -20 Weight 122.2 kg 117.2 kg Intake: Oral 600 180 Output: Urine 925 450 200 Other: Voiding Method Urinal Urinal External Catheter - Labs CBC & Chem 7: 11/25/23 07:50 11/26/23 06:22 Labs: Abnormal Lab Results - Last 24 Hours (Table) 11/22/23 11/22/23 11/23/23 Range/Units 06:12 18:26 05:58 RBC 3.36 L (4.30-5.90) m/uL Hgb 9.7 L (13.0-17.5) gm/dL Hct 30.6 L (39.0-53.0) % Chloride (98-107) mmol/L Carbon Dioxide (22-30) mmol/L BUN (9-20) mg/dL Creatinine (0.66-1.25) mg/dL Iron 36 L (65-175) UG/DL % Saturation 10.98 L (15.00-50.00) Urine Protein Trace H (Negative) Urine Glucose (UA) 1+ H (Negative) 11/23/23 Range/Units 05:58 RBC (4.30-5.90) m/uL Hgb (13.0-17.5) gm/dL Hct (39.0-53.0) % Chloride 91 L (98-107) mmol/L Carbon Dioxide 43 H* (22-30) mmol/L BUN 62 H (9-20) mg/dL Creatinine 2.46 H (0.66-1.25) mg/dL Iron (65-175) UG/DL % Saturation (15.00-50.00) Urine Protein (Negative) Urine Glucose (UA) (Negative) Microbiology - Last 24 Hours (Table) 11/21/23 11:00 Blood Culture - Preliminary Blood
[2023-11-23] MEDS: SODIUM FERRIC GLUCONAT-SUCROSE 125 MG in SODIUM CHLORIDE 0.9% 100 ML IVPB SCH (13:01)
--- NOTE | 2023-11-23 14:12 | P.PN ---
Subjective Progress Note Date: 11/23/23 HISTORY OF PRESENTING ILLNESS 73-year-old with PMH of CAD status post CABG 99, permanent atrial fibrillation, PPM, YVETTE, hypertension, hyperlipidemia, chronic diastolic heart failure, chronic hypoxic respiratory failure, CKD. He was recently hospitalized for CHF exacerbation and was treated with IV diuretics. He presented again to the hospital with acute worsening of shortness of breath and respiratory distress. Along with this he has been reporting significant loss of appetite. He denies any fever or chills. Troponin is not elevated, NT proBNP 4000, TSH 1.8, creatinine 1.96 which appears to be his baseline, hemoglobin 9.9 REVIEW OF SYSTEMS 14 point review of system is negative except what is mentioned above in HPI. 11/21 Patient states he is still having shortness of breath and not back to his baseline. He is normally on 6 L nasal cannula of oxygen at home. He denies having any chest pain. He still has some mild lower extremity edema. Patient is on IV Lasix 40 mg every 12 hours and he has been started on Farxiga at lower dose due to renal function. 11/22 Patient has been on Lasix 40 mg IV twice daily and noted that renal function has worsened with BUN 62 and creatinine 2.46 and also CO2 is 43. Patient continues to sound congested. He does seem to be more COPD versus CHF. Blood pressure 111/70, heart rate 72, pulse ox 95% on 6 L nasal cannula. Nephrology has started patient on iron infusions. PHYSICAL EXAMINATION Vital signs reviewed. Head: Normocephalic. Eyes: Sclerae nonicteric. Lungs: Diminished breath sounds with bilateral bilaterally Heart: Irregularly irregular, pulse, mild systolic murmur audible Abdomen: Soft nontender, positive bowel sounds. Extremities: Mild pitting edema in bilateral extremity Neuro: Alert, oritented, no focal deficits. Detailed neuro exam was not performed. ASSESSMENT Acute HFpEF exacerbation, NYHA class IV symptoms Acute on chronic hypoxic respiratory failure. On 6 L of oxygen at home Mild to moderate COPD exacerbation CKD stage IIIb Anemia, started on iron infusion Permanent atrial fibrillation Echo September 2023, EF 55 to 60%, moderate to severe tricuspid regurgitation with RVSP of 43 mmHg, trace MR PLAN Discontinue IV Lasix Continue Farxiga 5 mg daily, Xarelto 15 mg daily, Metoprolol 75 mg twice daily Continue treatment for COPD Further recommendations as patient progresses. Nurse practitioner note has been reviewed, I agree with documented findings and plan of care. Patient was seen and examined. Objective - Vital Signs Vital signs: Vital Signs Temp 97.9 F 11/23/23 08:59 Pulse 72 11/23/23 08:59 Resp 20 11/23/23 08:59 BP 111/70 11/23/23 08:59 Pulse Ox 95 11/23/23 08:59 FiO2 40 11/21/23 18:52 Intake & Output 11/22/23 11/23/23 11/23/23 18:59 06:59 18:59 Intake Total 600 190 Output Total 925 450 400 Balance -325 -450 -210 Weight 122.2 kg 117.2 kg Intake: IV 10 Invasive Line 1 10 Oral 600 180 Output: Urine 925 450 400 Other: Voiding Method Urinal Urinal Urinal External Catheter - Labs CBC & Chem 7: 11/23/23 05:58 11/23/23 05:58 Labs: Abnormal Lab Results - Last 24 Hours (Table) 11/22/23 11/22/23 11/23/23 Range/Units 06:12 18:26 05:58 RBC 3.36 L (4.30-5.90) m/uL Hgb 9.7 L (13.0-17.5) gm/dL Hct 30.6 L (39.0-53.0) % Chloride (98-107) mmol/L Carbon Dioxide (22-30) mmol/L BUN (9-20) mg/dL Creatinine (0.66-1.25) mg/dL Iron 36 L (65-175) UG/DL % Saturation 10.98 L (15.00-50.00) Urine Protein Trace H (Negative) Urine Glucose (UA) 1+ H (Negative) 11/23/23 Range/Units 05:58 RBC (4.30-5.90) m/uL Hgb (13.0-17.5) gm/dL Hct (39.0-53.0) % Chloride 91 L (98-107) mmol/L Carbon Dioxide 43 H* (22-30) mmol/L BUN 62 H (9-20) mg/dL Creatinine 2.46 H (0.66-1.25) mg/dL Iron (65-175) UG/DL % Saturation (15.00-50.00) Urine Protein (Negative) Urine Glucose (UA) (Negative) Microbiology - Last 24 Hours (Table) 11/21/23 11:00 Blood Culture - Preliminary Blood
--- NOTE | 2023-11-24 08:10 | XR ---
EXAMINATION TYPE: XR chest 1V DATE OF EXAM: 11/24/2023 HISTORY: Shortness of breath. COMPARISON: 11/21/2023 TECHNIQUE: Single view of the chest is submitted. Current study is limited by patient rotation. FINDINGS: Demonstrated are scattered senescent parenchymal change. Continued cardiomegaly with pulmonary venous congestion. Hilar and mediastinal structures are within normal limits. Degenerative changes are seen of the dorsal spine. IMPRESSION: 1. Continued cardiomegaly with pulmonary venous congestion.
[2023-11-24 10:27] LABS: African American GFR (CKD) 32 (>60 ml/min/1.73 sqM); Blood Urea Nitrogen 59 mg/dL (9-20); Calcium 9.2 mg/dL (8.4-10.2); Chloride 90 mmol/L (98-107); Glucose 108 mg/dL (74-99); Magnesium 1.9 mg/dL (1.6-2.3); Non-African American GFR(CKD) 28 (>60 ml/min/1.73 sqM); Potassium 4.4 mmol/L (3.5-5.1); Sodium 141 mmol/L (137-145)
--- NOTE | 2023-11-24 10:27 | P.PN ---
Subjective Patient is seen in follow-up for acute kidney injury on chronic kidney disease. Lasix stopped November 23, 2023 due to worsening renal function. Denies chest pain or shortness of breath. On 6 L nasal cannula. Did not wear BiPAP last night. Vital signs are stable. General: No acute distress. Lethargic. HEENT: Head exam is unremarkable. On nasal cannula. LUNGS: No audible rhonchi or wheezes. HEART: Rate and Rhythm are regular. ABDOMEN: Nontender. EXTREMITITES: No edema. Objective - Vital Signs Vital signs: Vital Signs Temp 97.4 F L 11/24/23 07:38 Pulse 88 11/24/23 08:40 Resp 18 11/24/23 08:40 BP 115/56 11/24/23 07:38 Pulse Ox 97 11/24/23 08:31 FiO2 40 11/21/23 18:52 Intake & Output 11/23/23 11/24/23 11/24/23 18:59 06:59 18:59 Intake Total 610 10 Output Total 1175 900 Balance -565 -900 10 Weight 116.8 kg Intake: IV 10 10 Invasive Line 1 10 Invasive Line 2 10 Oral 600 Output: Urine 1175 900 Other: Voiding Method Urinal Urinal - Labs CBC & Chem 7: 11/23/23 05:58 11/23/23 05:58 Labs: Microbiology - Last 24 Hours (Table) 11/21/23 11:00 Blood Culture - Preliminary Blood Assessment and Plan Plan: Assessment: 1. Acute kidney injury secondary to ATN secondary to cardiorenal syndrome. Renal function worsening with diuresis. Creatinine 2.46 yesterday. UA fairly benign. Right kidney atrophic. No hydronephrosis noted on ultrasound. 2. Chronic kidney disease stage IIIb with baseline creatinine near 2. Suspect nephrosclerosis. 3. Volume overload. Improved with diuresis. 4. Acute on chronic diastolic CHF and moderate to severe tricuspid regurgitation. 5. Metabolic alkalosis from volume contraction. Partially compensatory for underlying respiratory acidosis. Lasix discontinued November 23, 2023. 6. Coronary artery disease status post CABG. 7. Anemia of chronic kidney disease. Iron deficiency noted. Plan: Lasix discontinued November 23, 2023. Maintain Farxiga. Maintain IV iron. Avoid nephrotoxins. Repeat labs in the morning. Chest x-ray from today shows mild vascular congestion. Patient oxygen requirements stable. Will add Diamox pending morning labs.
[2023-11-24 10:33] LABS: Anion Gap 8 mmol/L
[2023-11-24 10:38] LABS: Carbon Dioxide 43 mmol/L (22-30)
[2023-11-24 11:17] LABS: ABG Base Excess 16.8 mmol/L; ABG Oxygen Saturation 81.7 % (94-97); ABG PH 7.33 (7.35-7.45); ABG TCO2 49 mmol/L (19-24)
[2023-11-24 11:19] LABS: ABG HCO3 46 mmol/L (21-25); ABG PCO2 88 mmHg (35-45); ABG PO2 45 mmHg (83-108)
--- NOTE | 2023-11-24 11:44 | P.PN ---
Subjective Progress Note Date: 11/24/23 Hospital course: Patient is a very pleasant 73-year-old male with a past medical history of CAD status post stenting, hypertension, hyperlipidemia, chronic diastolic heart failure, persistent atrial fibrillation, COPD chronic hypoxic respiratory failure 4 L O2 dependent, chronic kidney disease stage IIIb, anxiety with depression, and PTSD. He presented to the hospital secondary to increased shortness of breath over the past 4 to 5 days accompanied by extreme fatigue. In addition patient reported significant loss of appetite. On arrival to our facility, patient underwent evaluation in the emergency department. Vital signs upon arrival showing blood pressure 107/72, heart rate 96, respiratory rate 22, temp 98.9 F, and SpO2 of 93% on 5 L. EKG completed showing atrial fibrillation with a controlled ventricular rate of 98 bpm with a right bundle branch block. Chest x-ray completed negative for acute cardiopulmonary process showing CHF but similar in degree to that seen on study of 09/28/2023. Reviewed. CBC showing normocytic anemia with hemoglobin of 9.8 with baseline hemoglobin of 11. BMP showing non-anion gap metabolic alkalosis with chloride of 95, bicarb of 37, and anion gap of 9. Renal function consistent with known CKD stage IIIb with BUN of 58, creatinine of 1.96, GFR of 34 with baseline creatinine of 2.1.. Troponin less than 0.012 and proBNP 3940 which is increased when compared with proBNP just prior to recent discharge from hospital on 11/08/2023 at 2090. Patient was provided with IV Lasix, Solu-Medrol, and nebulizer treatment in the emergency department. He was admitted under our services with consultation to cardiology and nephrology. Physical exam: Patient seen and fully evaluated at bedside. Patient slow to respond this morning with slight confusion. Per nursing staff patient refused to wear BiPAP overnight., This acute metabolic encephalopathy is believed to be secondary to hypercarbia. Patient showing no focal neurodeficits. Will obtain an ABG and patient placed on BiPAP at this time. After only 20 minutes of being on BiPAP patient was showing improvement and back to normal mentation. Vital signs reviewed and stable. General: Nontoxic, no distress and appears stated age. Chronically ill- appearing. Derm: Skin warm and dry, normal coloration for ethnicity. Head: Atraumatic, normocephalic and symmetric. Eyes: EOM's intact, no lid lag, and anicteric sclera Mouth: no lip lesions, mucus membranes moist Cardiovascular: Irregularly irregular with systolic murmur. Positive posterior tibial pulses bilaterally, and cap refill < 2 seconds. Lungs: Respirations even, regular, and unlabored on BiPAP at this time. Respirations unlabored however patient does have conversational dyspnea after approximately 4 words. Lungs diminished with soft expiratory wheezes noted.. Abdominal: soft, nontender to palpation, no guarding, no appreciable organomegaly. Ext: ROM intact. No gross muscle atrophy, no lower extremity edema, no contractures Neuro: Speech clear, face symmetrical and CN II-XII grossly intact with no noted focal neuro deficits Psych: Alert and oriented to person, place, time, and situation. Assessment and Plan of Care: Acute on chronic respiratory failure with hypoxia and hypercarbia Exacerbation of chronic diastolic heart failure COPD with exacerbation secondary to above Generalized weakness and fatigue, secondary to above Chronic persistent atrial fibrillation History of CAD status post stenting Hypertension Hyperlipidemia Acute kidney injury on chronic kidney disease stage IIIb -Cardiology evaluated, reviewed documentation in chart. -Nephrology consulted, discussed plan of care with Dr. Bateman and he is recommending continuing to hold Lasix.. -Orders place for stat ABG along with continuous BiPAP with IPAP of 10, EPAP 5, FiO2 30% and to be titrated accordingly to keep SpO2 equal to or greater than 90%. -Consult placed to pulmonology. -Telemetry monitoring. -Monitor pulse-oximetry -Duonebs scheduled 4 times daily and as needed for SOB and/or wheezing along with Symbicort 2 puffs twice daily -Continue monitoring I's and O's with daily weights -Continue cardiac medication regimen with Xarelto 15 mg daily, atorvastatin 40 mg nightly, Farxiga 5 mg daily, hydrochlorothiazide 25 mg daily, isosorbide mononitrate 15 mg daily, and metoprolol 75 mg twice daily. -Consult placed to physical therapy and Occupational Therapy for evaluation secondary to patient's reports of extreme fatigue and weakness. -Once weaned from continous BiPAP, pt to resume BIPAP nightly and while napping. Acute on chronic anemia. -Hemoglobin currently stable at 9.7.. -Patient denies having any noted bleeding or black tarry stools. -Will continue with Xarelto at this time and continue to m trend hemoglobin c losely. If further drop in hemoglobin may consider holding Xarelto and place additional orders at that time. Hypothyroidism -Continue daily medication regimen with levothyroxine 274 mcg daily. TSH normal findings at 1.830. Anxiety and depression PTSD -Continue daily medication regimen with Zoloft 200 mg daily and Xanax 1 mg 3 times daily as needed for severe anxiety/panic attack and 2 mg nightly as needed for insomnia. Data and imaging reviewed: Morning labs reviewed. BMP showing metabolic alkalosis with chloride of 90, bicarb 43, and anion gap of 8. Renal function remains elevated with BUN of 59, creatinine 2.30, GFR of 28. Blood glucose 108. Magnesium 1.9. Vital signs reviewed. Blood pressure 115/56, heart rate 64, respiratory rate 18, temp 97.4 F, and SpO2 of 97% on 6 L. CODE STATUS: Full code DVT prophylaxis: Xarelto Anticipated discharge date: Pending clinical course Anticipated discharge place: Pending clinical course Patient was seen independently by Nurse Practitioner. This document was prepared using [employer] dictation software. Please allow for errors in steam shovel runner while rare they do occur. .I reviewed the documentation as provided by the XAVIER above, who is the original author of this note. I agree with the documented assessment and plan, with the following changes: none Objective - Vital Signs Vital signs: Vital Signs Temp 97.4 F L 11/24/23 07:38 Pulse 87 11/24/23 08:31 Resp 18 11/24/23 08:31 BP 115/56 11/24/23 07:38 Pulse Ox 97 11/24/23 08:31 FiO2 40 11/21/23 18:52 Intake & Output 11/23/23 11/24/23 11/24/23 18:59 06:59 18:59 Intake Total 610 10 Output Total 1175 900 Balance -565 -900 10 Weight 116.8 kg Intake: IV 10 10 Invasive Line 1 10 Invasive Line 2 10 Oral 600 Output: Urine 1175 900 Other: Voiding Method Urinal Urinal - Labs CBC & Chem 7: 11/25/23 07:50 11/26/23 06:22 Labs: Microbiology - Last 24 Hours (Table) 11/21/23 11:00 Blood Culture - Preliminary Blood
[2023-11-24] MEDS: acetaZOLAMIDE 250 MG TAB PO SCH (11:58)
--- NOTE | 2023-11-24 12:14 | P.PN ---
Subjective Progress Note Date: 11/24/23 HISTORY OF PRESENTING ILLNESS 73-year-old with PMH of CAD status post CABG 99, permanent atrial fibrillation, PPM, YVETTE, hypertension, hyperlipidemia, chronic diastolic heart failure, chronic hypoxic respiratory failure, CKD. He was recently hospitalized for CHF exacerbation and was treated with IV diuretics. He presented again to the hospital with acute worsening of shortness of breath and respiratory distress. Along with this he has been reporting significant loss of appetite. He denies any fever or chills. Troponin is not elevated, NT proBNP 4000, TSH 1.8, creatinine 1.96 which appears to be his baseline, hemoglobin 9.9 REVIEW OF SYSTEMS 14 point review of system is negative except what is mentioned above in HPI. 11/21 Patient states he is still having shortness of breath and not back to his baseline. He is normally on 6 L nasal cannula of oxygen at home. He denies having any chest pain. He still has some mild lower extremity edema. Patient is on IV Lasix 40 mg every 12 hours and he has been started on Farxiga at lower dose due to renal function. 11/22 Patient has been on Lasix 40 mg IV twice daily and noted that renal function has worsened with BUN 62 and creatinine 2.46 and also CO2 is 43. Patient continues to sound congested. He does seem to be more COPD versus CHF. Blood pressure 111/70, heart rate 72, pulse ox 95% on 6 L nasal cannula. Nephrology has started patient on iron infusions. 11/23 Yesterday due to worsening renal function, Lasix was discontinued. He has shown improvement of his kidney function today with BUN 59 and creatinine 2.3. Patient has been slow to respond this morning and feeling tired. He did not use his BiPAP during the night. CO2 was 43. Also on telemetry, there was either inappropriate pacer spikes or artifact. Diamox and iron infusions have been added by nephrology. PHYSICAL EXAMINATION Vital signs reviewed. Head: Normocephalic. Eyes: Sclerae nonicteric. Lungs: Diminished breath sounds with bilateral bilaterally Heart: Irregularly irregular, pulse, mild systolic murmur audible Abdomen: Soft nontender, positive bowel sounds. Extremities: no edema in bilateral extremity Neuro: Alert, oritented, no focal deficits. Detailed neuro exam was not performed. ASSESSMENT Acute HFpEF exacerbation, NYHA class IV symptoms Acute on chronic hypoxic respiratory failure. On 6 L of oxygen at home Mild to moderate COPD exacerbation CKD stage IIIb Anemia, started on iron infusion Permanent atrial fibrillation Echo September 2023, EF 55 to 60%, moderate to severe tricuspid regurgitation with RVSP of 43 mmHg, trace MR Mental status changes possible CO2 narcosis PLAN Hold Lasix Continue Farxiga 5 mg daily, Xarelto 15 mg daily, Metoprolol 75 mg twice daily Continue treatment for COPD Chest x-ray to evaluate CHF and pacemaker wires Interrogate pacemaker Further recommendations as patient progresses. Nurse practitioner note has been reviewed, I agree with documented findings and plan of care. Patient was seen and examined. Objective - Vital Signs Vital signs: Vital Signs Temp 97.4 F L 11/24/23 07:38 Pulse 88 11/24/23 08:40 Resp 18 11/24/23 08:40 BP 115/56 11/24/23 07:38 Pulse Ox 97 11/24/23 08:31 FiO2 40 11/21/23 18:52 Intake & Output 11/23/23 11/24/23 11/24/23 18:59 06:59 18:59 Intake Total 610 10 Output Total 1175 900 Balance -565 -900 10 Weight 116.8 kg Intake: IV 10 10 Invasive Line 1 10 Invasive Line 2 10 Oral 600 Output: Urine 1175 900 Other: Voiding Method Urinal Urinal - Labs CBC & Chem 7: 11/23/23 05:58 11/24/23 09:45 Labs: Abnormal Lab Results - Last 24 Hours (Table) 11/24/23 Range/Units 09:45 Chloride 90 L (98-107) mmol/L Carbon Dioxide 43 H* (22-30) mmol/L BUN 59 H (9-20) mg/dL Creatinine 2.30 H (0.66-1.25) mg/dL Glucose 108 H (74-99) mg/dL Microbiology - Last 24 Hours (Table) 11/21/23 11:00 Blood Culture - Preliminary Blood
--- NOTE | 2023-11-24 13:42 | XR ---
EXAMINATION TYPE: XR chest 2V DATE OF EXAM: 11/24/2023 1:35 PM COMPARISON: Chest radiographs from 11/24/2023 TECHNIQUE: XR chest 2V Frontal and lateral views of the chest. CLINICAL INDICATION:Male, 73 years old with history of CHF, COPD, PPM lead eval; FINDINGS: Lungs/Pleura: No evidence of focal consolidation or pneumothorax. Blunting of the costophrenic angles is present. Hyperinflation with flattening of the hemidiaphragms. Pulmonary vascularity: Pulmonary vascular congestion. Heart/mediastinum: Cardiomediastinal silhouette is enlarged and stable. Postoperative changes are pr esent in the mediastinum. Single-lead cardiac conduction device overlying the left hemithorax with le ad projecting over the right ventricle. Musculoskeletal: No acute osseous pathology. Midline sternotomy wires are noted and stable. IMPRESSION: 1. Cardiomegaly, pulmonary vascular congestion and trace bilateral pleural effusions. Correlate with BNP for congestive heart failure. 2. COPD changes. 3. Post-CABG changes.
--- NOTE | 2023-11-24 15:38 | P.CNPUL ---
History of Present Illness Consult date: 11/24/23 Requesting physician: Arnlodo He Reason for consult: dyspnea, cough, COPD, hypoxemia Chief complaint: Shortness of breath and fatigue History of present illness: This is a 73-year-old white male, known history of multiple medical problems including COPD, chronic hypoxic respiratory failure, maintained on home O2 at 4 L, chronic kidney disease stage IIIb, depression, PTSD, chronic diastolic co ngestive heart failure, coronary artery disease and previous stenting, benign essential hypertension, patient presented to the hospital with few days history of increased shortness of breath, fatigue, EKG on presentation showed chronic atrial fibrillation with controlled ventricular rate, and a right bundle branch block pattern. Chest x-ray showed evidence of mild congestive changes, his basic metabolic profile showed mostly metabolic alkalosis with bicarb in the range of 37 creatinine 1.96, GFR of 34, his BNP level was a bit elevated around 4000. He was admitted, placed on diuretics, bronchodilators, was also placed on Solu-Medrol, and today he was given Diamox. ABG this morning showed a pO2 of 46, pCO2 of 88 pH of 7.33, patient was placed briefly on BiPAP, and this consult was initiated. I evaluated the patient, patient does have hypercapnia but he is compensating well metabolically he seems to be comfortable on 3 L nasal cannula, and did not seem to be in any distress. Hence I recommended that we continue the same course of treatment, keep BiPAP at bedside, titrate oxygen to maintain O2 saturation just above 89%, and continue bronchodilators and diuretics including Diamox. Looking at his last admission, patient was seen by me on 11/07/2023, and he seems to have basically similar presentation today CT angiogram of the chest showed no evidence of pulmonary embolism as last admission. Show however small pleural effusion and atelectasis at the left lung bases Review of Systems REVIEW OF SYSTEMS: CONSTITUTIONAL: Weakness, extreme fatigue EYES: Negative. ENT: Negative. CARDIAC: Chronic shortness of breath PULMONARY: As noted in HPI. Shortness of breath GI: Negative. GENITOURINARY: Negative. MUSCULOSKELETAL: Negative. SKIN: Negative. NEUROPSYCH: Negative. ENDOCRINE: Negative. HEMATOLOGIC: Negative. Past Medical History Past Medical History: Atrial Fibrillation, Chest Pain / Angina, COPD, Eye Disorder, Hypertension, Myocardial Infarction (SD), Respiratory Disorder, Thyroid Disorder Last Myocardial Infarction Date:: 2004 History of Any Multi-Drug Resistant Organisms: None Reported Past Surgical History: Back Surgery, Heart Catheterization With Stent Additional Past Surgical History / Comment(s): eye resection Past Anesthesia/Blood Transfusion Reactions: No Reported Reaction Date of Last Stent Placement:: unknown Type of Cardiac Device: Permanent Pacemaker Device Placement Date:: 2012 Past Psychological History: Anxiety, Depression, PTSD Smoking Status: Former smoker Past Alcohol Use History: None Reported Past Drug Use History: None Reported - Past Family History Mother History Unknown: Yes Father History Unknown: Yes Medications and Allergies Home Medications Medication Instructions Recorded Confirmed Type ALPRAZolam [Xanax] 1 mg PO TID PRN 01/18/21 11/21/23 History Albuterol Inhaler [Ventolin Hfa 1 puff INHALATION RT-Q4H PRN 09/27/23 11/21/23 History Inhaler] Fluticasone/Umeclidin/Vilanter 1 puff INHALATION RT-DAILY 09/27/23 11/21/23 History [Trelegy Ellipta 100-62.5-25] Isosorbide Mononitrate ER [Imdur] 15 mg PO DAILY 09/27/23 11/21/23 History Levothyroxine Sodium [Synthroid] 274 mcg PO DAILY 09/27/23 11/21/23 History Metoprolol Tartrate [Lopressor] 75 mg PO BID 09/27/23 11/21/23 History Rivaroxaban [Xarelto] 15 mg PO DAILY 09/27/23 11/21/23 History Rosuvastatin Calcium [Crestor] 20 mg PO HS 09/27/23 11/21/23 History Sertraline [Zoloft] 200 mg PO DAILY 09/27/23 11/21/23 History hydroCHLOROthiazide [Hydrodiuril] 25 mg PO DAILY 09/27/23 11/21/23 History ALPRAZolam [Xanax] 2 mg PO HS PRN 11/07/23 11/21/23 History Furosemide [Lasix] 20 mg PO DAILY 3 Days #60 tab 11/10/23 11/21/23 Rx Allergies Allergy/AdvReac Type Severity Reaction Status Date / Time iodine AdvReac Hypotension, Verified 11/21/23 12:56 itching, watering eyes lisinopril AdvReac hyperkalemi Verified 11/21/23 12:56 a morphine AdvReac hallucinations, Verified 11/21/23 12:56 behavior change temazepam AdvReac headache Verified 11/21/23 12:56 Physical Exam Vitals: Vital Signs Temp Pulse Pulse Resp BP Pulse Ox FiO2 11/24/23 15:24 79 18 40 11/24/23 12:32 96 11/24/23 12:12 84 18 11/24/23 12:04 88 18 11/24/23 12:00 97.7 F 64 18 117/67 94 L 11/24/23 10:47 50 11/24/23 08:40 88 18 11/24/23 08:31 87 18 97 11/24/23 07:38 97.4 F L 64 18 115/56 97 11/24/23 03:31 95 11/24/23 03:23 98.0 F 86 20 104/61 89 L 11/24/23 01:21 20 11/23/23 23:10 98.1 F 87 20 115/73 97 11/23/23 20:00 87 20 11/23/23 19:58 98.2 F 79 20 106/58 98 11/23/23 16:18 97.8 F 73 20 101/60 98 11/23/23 16:04 84 11/23/23 15:53 88 Intake and Output 11/24/23 11/24/23 11/24/23 06:59 14:59 22:59 Intake Total 550 Output Total 550 225 Balance -550 325 Intake: IV 10 Invasive Line 2 10 Oral 540 Output: Urine 550 225 Other: Voiding Method Urinal Urinal Weight 116.8 kg General: Reveals 73-year-old white male Patient is on 6 L nasal cannula BiPAP is at bedside, patient is not in any distress Skin: Skin is warm and dry and no rashes or lesions are noted. Eye: Pupils are equal, round and reactive to light, extra-ocular movements are intact; there is normal conjunctiva bilaterally. Ears, nose, mouth and throat: There are moist mucous membranes and no oral lesions. Neck: The neck is supple, there is no tenderness or JVD. Cardiovascular: There is a regular rate and rhythm. No murmur, rub or gallop is appreciated. Respiratory: Diminished breath sounds at the bases no crackles rhonchi or wheezes Gastrointestinal: Soft, non-distended, non-tender abdomen without masses or organomegaly noted. There is no rebound or guarding present. Bowel sounds are unremarkable. Back: There is no tenderness to palpation in the midline. There is no obvious deformity. Musculoskeletal: Normal ROM, no tenderness, There is no pedal edema. There is no calf tenderness or swelling. No cords were appreciated. Neurological: CN II-XII intact, Cranial nerves III through XII are intact. There are no obvious motor or sensory deficits. Coordination appears grossly intact. Speech is normal. Psychiatric: Cooperative, appropriate mood & affect, normal judgment. Results - Laboratory Findings CBC and BMP: 11/23/23 05:58 11/24/23 09:45 ABG ABG pH 7.33 (7.35-7.45) L 11/24/23 10:11 ABG pCO2 88 mmHg (35-45) H* 11/24/23 10:11 ABG pO2 45 mmHg (83-108) L* 11/24/23 10:11 ABG O2 Saturation 81.7 % (94-97) L 11/24/23 10:11 PT/INR, D-dimer PT 11.4 sec (10.0-12.5) 11/21/23 10:29 INR 1.0 (<1.2) 11/21/23 10:29 Abnormal lab findings: Abnormal Labs 11/21/23 11/21/23 11/21/23 10:29 10:29 11:54 RBC 3.59 L 3.76 L Hgb 9.8 L D 10.5 L Hct 32.6 L 34.7 L MCHC 30.2 L 30.3 L Lymphocytes # 0.9 L 0.7 L ABG pH ABG pCO2 ABG pO2 ABG HCO3 ABG Total CO2 ABG O2 Saturation Hemoglobin Chloride 95 L Carbon Dioxide 37 H BUN 58 H Creatinine 1.96 H Glucose 109 H Iron % Saturation Total Protein 6.0 L Albumin 3.3 L Urine Protein Urine Glucose (UA) 11/21/23 11/22/23 11/22/23 18:11 06:12 06:12 RBC 3.48 L 3.41 L Hgb 9.9 L 9.7 L Hct 31.8 L 31.0 L MCHC Lymphocytes # 0.3 L ABG pH ABG pCO2 ABG pO2 ABG HCO3 ABG Total CO2 ABG O2 Saturation Hemoglobin Chloride 92 L Carbon Dioxide 37 H BUN 59 H Creatinine 2.22 H Glucose 100 H Iron % Saturation Total Protein 5.9 L Albumin 3.3 L Urine Protein Urine Glucose (UA) 11/22/23 11/22/23 11/23/23 06:12 18:26 05:58 RBC 3.36 L Hgb 9.7 L Hct 30.6 L MCHC Lymphocytes # ABG pH ABG pCO2 ABG pO2 ABG HCO3 ABG Total CO2 ABG O2 Saturation Hemoglobin Chloride Carbon Dioxide BUN Creatinine Glucose Iron 36 L % Saturation 10.98 L Total Protein Albumin Urine Protein Trace H Urine Glucose (UA) 1+ H 11/23/23 11/24/23 11/24/23 05:58 09:45 10:11 RBC Hgb Hct MCHC Lymphocytes # ABG pH 7.33 L ABG pCO2 88 H* ABG pO2 45 L* ABG HCO3 46 H* ABG Total CO2 49 H ABG O2 Saturation 81.7 L Hemoglobin 9.8 L Chloride 91 L 90 L Carbon Dioxide 43 H* 43 H* BUN 62 H 59 H Creatinine 2.46 H 2.30 H Glucose 108 H Iron % Saturation Total Protein Albumin Urine Protein Urine Glucose (UA) - Diagnostic Findings Chest x-ray: image reviewed (Chest x-ray showed cardiomegaly and small bilateral pleural effusions, mild CHF and COPD change) Assessment and Plan Assessment: Impression: Acute on chronic hypoxic and hypercapnic respiratory failure Acute exacerbation of chronic diastolic congestive heart failure Underlying COPD, presently inactive. Chronic atrial fibrillation with controlled ventricular rate Coronary artery disease and previous stent placement Benign essential hypertension Chronic kidney disease stage IIIb Dyslipidemia history of depression/Anxiety Recommendation: Agree with the present treatment Continue nasal cannula and titrate O2-O2 saturation just above 89% Use BiPAP as needed Continue diuretic Continue strict I's and O's Continue bronchodilators Will continue to Time with Patient: Greater than 30
[2023-11-25 08:36] LABS: HCT 37.2 % (39.0-53.0); HGB 10.8 gm/dL (13.0-17.5); Hypochromasia Marked; MCH 27.3 pg (25.0-35.0); MCV 94.1 fL (80.0-100.0); Platelet Count 221 k/uL (150-450); RBC 3.95 m/uL (4.30-5.90); WBC 7.7 k/uL (3.8-10.6)
[2023-11-25 09:10] LABS: African American GFR (CKD) 31 (>60 ml/min/1.73 sqM); Blood Urea Nitrogen 51 mg/dL (9-20); Calcium 9.3 mg/dL (8.4-10.2); Chloride 89 mmol/L (98-107); Glucose 86 mg/dL (74-99); Magnesium 2.1 mg/dL (1.6-2.3); Non-African American GFR(CKD) 27 (>60 ml/min/1.73 sqM); Potassium 4.3 mmol/L (3.5-5.1); Sodium 140 mmol/L (137-145)
[2023-11-25 09:16] LABS: Anion Gap 8 mmol/L
[2023-11-25 09:21] LABS: Carbon Dioxide 43 mmol/L (22-30)
--- NOTE | 2023-11-25 10:51 | P.PN ---
Subjective Patient is seen in follow-up for acute kidney injury on chronic kidney disease. Lasix stopped November 23, 2023 due to worsening renal function. Denies chest pain or shortness of breath. On 6 L nasal cannula. Mentation improved. Vital signs are stable. General: No acute distress. Lethargic. HEENT: Head exam is unremarkable. On nasal cannula. LUNGS: No audible rhonchi or wheezes. HEART: Rate and Rhythm are regular. ABDOMEN: Nontender. EXTREMITITES: No edema. Objective - Vital Signs Vital signs: Vital Signs Temp 97.8 F 11/25/23 08:00 Pulse 80 11/25/23 08:30 Resp 18 11/25/23 08:00 BP 102/58 11/25/23 08:00 Pulse Ox 93 L 11/25/23 08:00 FiO2 40 11/25/23 00:00 Intake & Output 11/24/23 11/25/23 11/25/23 18:59 06:59 18:59 Intake Total 550 480 Output Total 225 Balance 325 480 Weight 116.8 kg Intake: IV 10 Invasive Line 2 10 Oral 540 480 Output: Urine 225 Other: Voiding Method Urinal Urinal Urinal - Labs CBC & Chem 7: 11/25/23 07:50 11/25/23 08:01 Labs: Abnormal Lab Results - Last 24 Hours (Table) 11/24/23 11/25/23 11/25/23 Range/Units 10:11 07:50 08:01 RBC 3.95 L (4.30-5.90) m/uL Hgb 10.8 L (13.0-17.5) gm/dL Hct 37.2 L (39.0-53.0) % MCHC 29.0 L (31.0-37.0) g/dL ABG pH 7.33 L (7.35-7.45) ABG pCO2 88 H* (35-45) mmHg ABG pO2 45 L* (83-108) mmHg ABG HCO3 46 H* (21-25) mmol/L ABG Total CO2 49 H (19-24) mmol/L ABG O2 Saturation 81.7 L (94-97) % Hemoglobin 9.8 L (13.0-17.5) gm/dL Chloride 89 L (98-107) mmol/L Carbon Dioxide 43 H* (22-30) mmol/L BUN 51 H (9-20) mg/dL Creatinine 2.37 H (0.66-1.25) mg/dL Microbiology - Last 24 Hours (Table) 11/21/23 11:00 Blood Culture - Preliminary Blood Assessment and Plan Plan: Assessment: 1. Acute kidney injury secondary to ATN secondary to cardiorenal syndrome. Renal function worsening with diuresis. Creatinine fairly stable at 2.37 today. UA fairly benign. Right kidney atrophic. No hydronephrosis noted on ultrasound. 2. Chronic kidney disease stage IIIb with baseline creatinine near 2. Suspect nephrosclerosis. 3. Volume overload. Improved with diuresis. 4. Acute on chronic diastolic CHF and moderate to severe tricuspid regurgitation. 5. Metabolic alkalosis from volume contraction. Partially compensatory for underlying respiratory acidosis. Lasix discontinued November 23, 2023. 6. Coronary artery disease status post CABG. 7. Anemia of chronic kidney disease. Iron deficiency noted. Plan: Lasix discontinued November 23, 2023. Maintain Farxiga. Maintain Diamox. Maintain IV iron. Avoid nephrotoxins. Repeat labs in the morning. Encouraged to wear BiPAP at night.
--- NOTE | 2023-11-25 11:32 | P.PN ---
Subjective Progress Note Date: 11/25/23 Hospital course: Patient is a very pleasant 73-year-old male with a past medical history of CAD status post stenting, hypertension, hyperlipidemia, chronic diastolic heart failure, persistent atrial fibrillation, COPD chronic hypoxic respiratory failure 4 L O2 dependent, chronic kidney disease stage IIIb, anxiety with depression, and PTSD. He presented to the hospital secondary to increased shortness of breath over the past 4 to 5 days accompanied by extreme fatigue. In addition patient reported significant loss of appetite. On arrival to our facility, patient underwent evaluation in the emergency department. Vital signs upon arrival showing blood pressure 107/72, heart rate 96, respiratory rate 22, temp 98.9 F, and SpO2 of 93% on 5 L. EKG completed showing atrial fibrillation with a controlled ventricular rate of 98 bpm with a right bundle branch block. Chest x-ray completed negative for acute cardiopulmonary process showing CHF but similar in degree to that seen on study of 09/28/2023. Reviewed. CBC showing normocytic anemia with hemoglobin of 9.8 with baseline hemoglobin of 11. BMP showing non-anion gap metabolic alkalosis with chloride of 95, bicarb of 37, and anion gap of 9. Renal function consistent with known CKD stage IIIb with BUN of 58, creatinine of 1.96, GFR of 34 with baseline creatinine of 2.1.. Troponin less than 0.012 and proBNP 3940 which is increased when compared with proBNP just prior to recent discharge from hospital on 11/08/2023 at 2090. Patient was provided with IV Lasix, Solu-Medrol, and nebulizer treatment in the emergency department. He was admitted under our services with consultation to cardiology and nephrology. Physical exam: Patient seen and fully evaluated at bedside This morning. His mentation significantly improved after continuous use of BiPAP and weaning back to nasal cannula and use of BiPAP overnight. Patient now back on nasal cannula at 6 L with SpO2 of 93%. He reports feeling much better this morning states he feels he is on the road to recovery. Patient denies having any new complaints or concerns at this time. Vital signs reviewed and stable. General: Nontoxic, no distress and appears stated age. Chronically ill- appearing. Derm: Skin warm and dry, normal coloration for ethnicity. Head: Atraumatic, normocephalic and symmetric. Eyes: EOM's intact, no lid lag, and anicteric sclera Mouth: no lip lesions, mucus membranes moist Cardiovascular: Irregularly irregular with systolic murmur. Positive posterior tibial pulses bilaterally, and cap refill < 2 seconds. Lungs: Respirations even, regular, and unlabored on BiPAP at this time. Respirations unlabored however patient does have conversational dyspnea after approximately 4-5 words. Lungs diminished with soft expiratory wheezes noted.. Abdominal: soft, nontender to palpation, no guarding, no appreciable organomegaly. Ext: ROM intact. No gross muscle atrophy, no lower extremity edema, no contrac tures Neuro: Speech clear, face symmetrical and CN II-XII grossly intact with no noted focal neuro deficits Psych: Alert and oriented to person, place, time, and situation. Assessment and Plan of Care: Acute on chronic respiratory failure with hypoxia and hypercarbia Exacerbation of chronic diastolic heart failure COPD with exacerbation secondary to above Metabolic encephalopathy secondary to hypercarbia, resolved after use of BiPAP Acute kidney injury on chronic kidney disease stage IIIb Metabolic alkalosis Respiratory acidosis Generalized weakness and fatigue, secondary to above Chronic persistent atrial fibrillation History of CAD status post stenting Hypertension Hyperlipidemia -Cardiology evaluated, reviewed documentation in chart. -Nephrology consulted, discussed plan of care with Dr. Bateman and he is recommending continuing to hold Lasix.. -Pulmonology following this patient was found to be in respiratory acidosis and in need of continuous BiPAP. -Patient was weaned from continuous BiPAP and currently maintaining SpO2 of 93% on 6 L. Patient to continue with Supplemental oxygen to maintain SpO2 equal to or greater than 90% and BiPAP nightly and while napping. -Telemetry monitoring along with close monitoring of pulse-oximetry -Duonebs scheduled 4 times daily and as needed for SOB and/or wheezing along with Symbicort 2 puffs twice daily -Continue monitoring I's and O's with daily weights -Continue cardiac medication regimen with Xarelto 15 mg daily, atorvastatin 40 mg nightly, Farxiga 5 mg daily, hydrochlorothiazide 25 mg daily, isosorbide mononitrate 15 mg daily, and metoprolol 75 mg twice daily. -Consult placed to physical therapy and Occupational Therapy for evaluation secondary to patient's reports of extreme fatigue and weakness. -Continue BIPAP nightly and while napping. Acute on chronic anemia of chronic disease. -Hemoglobin currently stable at 9.7.. -Patient denies having any noted bleeding or black tarry stools. -Will continue with Xarelto at this time and continue to m trend hemoglobin closely. If further drop in hemoglobin may consider holding Xarelto and place additional orders at that time. Hypothyroidism -Continue daily medication regimen with levothyroxine 274 mcg daily. TSH normal findings at 1.830. Anxiety and depression PTSD -Continue daily medication regimen with Zoloft 200 mg daily and Xanax 1 mg 3 times daily as needed for severe anxiety/panic attack and 2 mg nightly as needed for insomnia. Data and imaging reviewed: Morning labs reviewed. BMP showing metabolic alkalosis with chloride of 89, bicarb 43, and anion gap of 8. Renal function remains elevated with BUN of 51, creatinine 2.37, GFR of 27. Blood glucose 86. Magnesium 2.1.CBC showing stable normocytic anemia with hemoglobin of 10.8. Vital signs reviewed. Blood pressure 102/58, heart rate 74, respiratory rate 18, temp 97.8F, SpO2 of 93% on 6 L. CODE STATUS: Full code DVT prophylaxis: Xarelto Anticipated discharge date: Pending clinical course Anticipated discharge place: Pending clinical course Patient was seen independently by Nurse Practitioner. This document was prepared using [employer] dictation software. Please allow for errors in entry level marketing representative while rare they do occur. . I reviewed the documentation as provided by the XAVIER above, who is the original author of this note. I agree with the documented assessment and plan, with the following changes: none Objective - Vital Signs Vital signs: Vital Signs Temp 98.5 F 11/25/23 04:51 Pulse 76 11/25/23 04:51 Resp 18 11/25/23 04:51 BP 108/69 11/25/23 04:51 Pulse Ox 94 L 11/25/23 04:51 FiO2 40 11/25/23 00:00 Intake & Output 11/24/23 11/25/23 11/25/23 18:59 06:59 18:59 Intake Total 550 Output Total 225 Balance 325 Weight 116.8 kg Intake: IV 10 Invasive Line 2 10 Oral 540 Output: Urine 225 Other: Voiding Method Urinal Urinal - Labs CBC & Chem 7: 11/25/23 07:50 11/26/23 06:22 Labs: Abnormal Lab Results - Last 24 Hours (Table) 11/24/23 11/24/23 Range/Units 09:45 10:11 ABG pH 7.33 L (7.35-7.45) ABG pCO2 88 H* (35-45) mmHg ABG pO2 45 L* (83-108) mmHg ABG HCO3 46 H* (21-25) mmol/L ABG Total CO2 49 H (19-24) mmol/L ABG O2 Saturation 81.7 L (94-97) % Hemoglobin 9.8 L (13.0-17.5) gm/dL Chloride 90 L (98-107) mmol/L Carbon Dioxide 43 H* (22-30) mmol/L BUN 59 H (9-20) mg/dL Creatinine 2.30 H (0.66-1.25) mg/dL Glucose 108 H (74-99) mg/dL Microbiology - Last 24 Hours (Table) 11/21/23 11:00 Blood Culture - Preliminary Blood
--- NOTE | 2023-11-25 14:09 | P.PN ---
Subjective Progress Note Date: 11/25/23 Principal diagnosis: Acute exacerbation of COPD, with acute on chronic hypoxic and hypercapnic respiratory failure This is a 73-year-old white male, known history of multiple medical problems including COPD, chronic hypoxic respiratory failure, maintained on home O2 at 4 L, chronic kidney disease stage IIIb, depression, PTSD, chronic diastolic congestive heart failure, coronary artery disease and previous stenting, benign essential hypertension, patient presented to the hospital with few days history of increased shortness of breath, fatigue, EKG on presentation showed chronic atrial fibrillation with controlled ventricular rate, and a right bundle branch block pattern. Chest x-ray showed evidence of mild congestive changes, his basic metabolic profile showed mostly metabolic alkalosis with bicarb in the range of 37 creatinine 1.96, GFR of 34, his BNP level was a bit elevated around 4000. He was admitted, placed on diuretics, bronchodilators, was also placed on Solu-Medrol, and today he was given Diamox. ABG this morning showed a pO2 of 46, pCO2 of 88 pH of 7.33, patient was placed briefly on BiPAP, and this consult was initiated. I evaluated the patient, patient does have hypercapnia but he is compensating well metabolically he seems to be comfortable on 3 L nasal cannula, and did not seem to be in any distress. Hence I recommended that we continue t he same course of treatment, keep BiPAP at bedside, titrate oxygen to maintain O2 saturation just above 89%, and continue bronchodilators and diuretics including Diamox. Looking at his last admission, patient was seen by me on 11/07/2023, and he seems to have basically similar presentation today CT angiogram of the chest showed no evidence of pulmonary embolism as last admission. Show however small pleural effusion and atelectasis at the left lung bases Patient was evaluated today on 11/25/2023, patient is feeling much better today compared to yesterday. Hardly any pulmonary symptoms, no cough no wheezing no shortness of breath, patient used BiPAP last night but is presently on nasal cannula at 6 L/min with O2 sats of 98%. Patient is on bronchodilators for his underlying COPD, BiPAP is at bedside, not have to use it this morning. Basic metabolic profile noted bicarb remains 43, BUN is 51 creatinine 2.37 chest x-ray yesterday was reviewed patient does have pulmonary vascular congestion with trace of bilateral pleural effusions consistent with congestive heart failure. Patient remains on acetazolamide to 50 mg p.o. twice daily Objective - Vital Signs Vital signs: Vital Signs Temp 98.4 F 11/25/23 11:13 Pulse 79 11/25/23 12:10 Resp 18 11/25/23 11:13 BP 90/56 11/25/23 11:13 Pulse Ox 98 11/25/23 11:15 FiO2 40 11/25/23 00:00 Intake & Output 11/24/23 11/25/23 11/25/23 18:59 06:59 18:59 Intake Total 550 480 Output Total 225 Balance 325 480 Weight 116.8 kg Intake: IV 10 Invasive Line 2 10 Oral 540 480 Output: Urine 225 Other: Voiding Method Urinal Urinal Urinal - Exam General: Reveals 73-year-old white male Patient is on 6 L nasal cannula, not in distress Skin: Skin is warm and dry and no rashes or lesions are noted. Eye: Pupils are equal, round and reactive to light, extra-ocular movements are intact; there is normal conjunctiva bilaterally. Ears, nose, mouth and throat: There are moist mucous membranes and no oral lesions. Neck: The neck is supple, there is no tenderness or JVD. Cardiovascular: There is a regular rate and rhythm. No murmur, rub or gallop is appreciated. Respiratory: Diminished breath sounds at the bases no crackles rhonchi or wheezes Gastrointestinal: Soft, non-distended, non-tender abdomen without masses or organomegaly noted. There is no rebound or guarding present. Bowel sounds are unremarkable. Back: There is no tenderness to palpation in the midline. There is no obvious deformity. Musculoskeletal: Normal ROM, no tenderness, There is no pedal edema. There is no calf tenderness or swelling. No cords were appreciated. Neurological: CN II-XII intact, Cranial nerves III through XII are intact. There are no obvious motor or sensory deficits. Coordination appears grossly intact. Speech is normal. Psychiatric: Cooperative, appropriate mood & affect, normal judgment. - Labs CBC & Chem 7: 11/25/23 07:50 11/25/23 08:01 Labs: Abnormal Lab Results - Last 24 Hours (Table) 11/25/23 11/25/23 Range/Units 07:50 08:01 RBC 3.95 L (4.30-5.90) m/uL Hgb 10.8 L (13.0-17.5) gm/dL Hct 37.2 L (39.0-53.0) % MCHC 29.0 L (31.0-37.0) g/dL Chloride 89 L (98-107) mmol/L Carbon Dioxide 43 H* (22-30) mmol/L BUN 51 H (9-20) mg/dL Creatinine 2.37 H (0.66-1.25) mg/dL Microbiology - Last 24 Hours (Table) 11/21/23 11:00 Blood Culture - Preliminary Blood Assessment and Plan Assessment: Impression: Acute on chronic hypoxic and hypercapnic respiratory failure Acute exacerbation of chronic diastolic congestive heart failure Underlying COPD, presently inactive. Chronic atrial fibrillation with controlled ventricular rate Coronary artery disease and previous stent placement Benign essential hypertension Chronic kidney disease stage IIIb Dyslipidemia history of depression/Anxiety Recommendation: Continue diuretics Continue bronchodilators Continue oxygen and titrate accordingly Continue BiPAP at sleep time and as necessary Continue to monitor I's and O's and fluid status Continue bronchodilators Will continue to follow Time with Patient: Less than 30
[2023-11-25 14:18] VITALS: BMI 34.9
--- NOTE | 2023-11-25 17:53 | P.PN ---
Subjective Progress Note Date: 11/25/23 HISTORY OF PRESENTING ILLNESS 73-year-old with PMH of CAD status post CABG 99, permanent atrial fibrillation, PPM, YVETTE, hypertension, hyperlipidemia, chronic diastolic heart failure, chronic hypoxic respiratory failure, CKD. He was recently hospitalized for CHF exacerbation and was treated with IV diuretics. He presented again to the hospital with acute worsening of shortness of breath and respiratory distress. Along with this he has been reporting significant loss of appetite. He denies any fever or chills. Troponin is not elevated, NT proBNP 4000, TSH 1.8, creatinine 1.96 which appears to be his baseline, hemoglobin 9.9 REVIEW OF SYSTEMS 14 point review of system is negative except what is mentioned above in HPI. 11/21 Patient states he is still having shortness of breath and not back to his baseline. He is normally on 6 L nasal cannula of oxygen at home. He denies having any chest pain. He still has some mild lower extremity edema. Patient is on IV Lasix 40 mg every 12 hours and he has been started on Farxiga at lower dose due to renal function. 11/22 Patient has been on Lasix 40 mg IV twice daily and noted that renal function has worsened with BUN 62 and creatinine 2.46 and also CO2 is 43. Patient continues to sound congested. He does seem to be more COPD versus CHF. Blood pressure 111/70, heart rate 72, pulse ox 95% on 6 L nasal cannula. Nephrology has started patient on iron infusions. 11/23 Yesterday due to worsening renal function, Lasix was discontinued. He has shown improvement of his kidney function today with BUN 59 and creatinine 2.3. Patient has been slow to respond this morning and feeling tired. He did not use his BiPAP during the night. CO2 was 43. Also on telemetry, there was either inappropriate pacer spikes or artifact. Diamox and iron infusions have been added by nephrology. 11/24 Patient is seen today in follow-up. The interrogation of the pacemaker was unable to be obtained as the device manufacture is not known. Patient has all of his cardiac workup done at [facility]. His mental status is at baseline and improved from yesterday. Shortness of breath continues but seems to be pulmonary related versus heart failure related. Blood pressure 102/58, heart rate 74, pulse ox 93% on 6 L nasal cannula. Repeat blood work reveals CO2 is 43, BUN 51 creatinine 2.37. PHYSICAL EXAMINATION Vital signs reviewed. Head: Normocephalic. Eyes: Sclerae nonicteric. Lungs: Diminished breath sounds with bilateral bilaterally Heart: Irregularly irregular, pulse, mild systolic murmur audible Abdomen: Soft nontender, positive bowel sounds. Extremities: no edema in bilateral extremity Neuro: Alert, oritented, no focal deficits. Detailed neuro exam was not performed. ASSESSMENT Acute HFpEF exacerbation, NYHA class IV symptoms Acute on chronic hypoxic respiratory failure. On 6 L of oxygen at home Mild to moderate COPD exacerbation CKD stage IIIb Anemia, started on iron infusion Permanent atrial fibrillation Echo September 2023, EF 55 to 60%, moderate to severe tricuspid regurgitation with RVSP of 43 mmHg, trace MR Mental status changes possible CO2 narcosis PLAN Hold Lasix Continue Farxiga 5 mg daily, Xarelto 15 mg daily, Metoprolol 75 mg twice daily Continue treatment for COPD Cardiology will sign off this case and follow on an as-needed basis. Please reconsult for any new concerns. Patient may follow-up in the office in one to 2 weeks. Nurse practitioner note has been reviewed, I agree with documented findings and plan of care. Patient was seen and examined. Objective - Vital Signs Vital signs: Vital Signs Temp 97.8 F 11/25/23 08:00 Pulse 80 11/25/23 08:30 Resp 18 11/25/23 08:00 BP 102/58 11/25/23 08:00 Pulse Ox 93 L 11/25/23 08:00 FiO2 40 11/25/23 00:00 Intake & Output 11/24/23 11/25/23 11/25/23 18:59 06:59 18:59 Intake Total 550 480 Output Total 225 Balance 325 480 Weight 116.8 kg Intake: IV 10 Invasive Line 2 10 Oral 540 480 Output: Urine 225 Other: Voiding Method Urinal Urinal Urinal - Labs CBC & Chem 7: 11/25/23 07:50 11/25/23 08:01 Labs: Abnormal Lab Results - Last 24 Hours (Table) 11/24/23 11/25/23 11/25/23 Range/Units 10:11 07:50 08:01 RBC 3.95 L (4.30-5.90) m/uL Hgb 10.8 L (13.0-17.5) gm/dL Hct 37.2 L (39.0-53.0) % MCHC 29.0 L (31.0-37.0) g/dL ABG pH 7.33 L (7.35-7.45) ABG pCO2 88 H* (35-45) mmHg ABG pO2 45 L* (83-108) mmHg ABG HCO3 46 H* (21-25) mmol/L ABG Total CO2 49 H (19-24) mmol/L ABG O2 Saturation 81.7 L (94-97) % Hemoglobin 9.8 L (13.0-17.5) gm/dL Chloride 89 L (98-107) mmol/L Carbon Dioxide 43 H* (22-30) mmol/L BUN 51 H (9-20) mg/dL Creatinine 2.37 H (0.66-1.25) mg/dL Microbiology - Last 24 Hours (Table) 11/21/23 11:00 Blood Culture - Preliminary Blood
[2023-11-26 07:14] LABS: African American GFR (CKD) 28 (>60 ml/min/1.73 sqM); Blood Urea Nitrogen 54 mg/dL (9-20); Calcium 8.8 mg/dL (8.4-10.2); Chloride 92 mmol/L (98-107); Glucose 90 mg/dL (74-99); Magnesium 2.1 mg/dL (1.6-2.3); Non-African American GFR(CKD) 24 (>60 ml/min/1.73 sqM); Potassium 4.1 mmol/L (3.5-5.1); Sodium 139 mmol/L (137-145)
[2023-11-26 07:29] VITALS: TEMP 97.9
[2023-11-26 07:32] LABS: Anion Gap 6 mmol/L
[2023-11-26 07:44] LABS: Carbon Dioxide 41 mmol/L (22-30)
--- NOTE | 2023-11-26 10:56 | P.PN ---
Subjective Patient is seen in follow-up for acute kidney injury on chronic kidney disease. Lasix stopped November 23, 2023 due to worsening renal function. Denies chest pain or shortness of breath. On 6 L nasal cannula. Admits to good urine output. No active complaints. Vital signs are stable. General: No acute distress. Lethargic. HEENT: Head exam is unremarkable. On nasal cannula. LUNGS: No audible rhonchi or wheezes. HEART: Rate and Rhythm are regular. ABDOMEN: Nontender. EXTREMITITES: No edema. Objective - Vital Signs Vital signs: Vital Signs Temp 97.9 F 11/26/23 07:28 Pulse 74 11/26/23 09:31 Resp 17 11/26/23 07:28 BP 105/66 11/26/23 07:28 Pulse Ox 97 11/26/23 07:28 FiO2 40 11/26/23 04:20 Intake & Output 11/25/23 11/26/23 11/26/23 18:59 06:59 18:59 Intake Total 1440 240 Output Total 750 600 650 Balance 690 -600 -410 Weight 116.8 kg Intake: Oral 1440 240 Output: Urine 750 600 650 Other: Voiding Method Urinal Urinal Urinal # Voids 2 1 - Labs CBC & Chem 7: 11/25/23 07:50 11/26/23 06:22 Labs: Abnormal Lab Results - Last 24 Hours (Table) 11/26/23 Range/Units 06:22 Chloride 92 L (98-107) mmol/L Carbon Dioxide 41 H* (22-30) mmol/L BUN 54 H (9-20) mg/dL Creatinine 2.56 H (0.66-1.25) mg/dL Assessment and Plan Plan: Assessment: 1. Acute kidney injury secondary to ATN secondary to cardiorenal syndrome. Renal function worsened with diuresis. Creatinine 2.56 today. UA fairly benign. Right kidney atrophic. No hydronephrosis noted on ultrasound. 2. Chronic kidney disease stage IIIb with baseline creatinine near 2. Suspect nephrosclerosis. 3. Volume overload. Improved with diuresis. 4. Acute on chronic diastolic CHF and moderate to severe tricuspid regurgitation. 5. Metabolic alkalosis from volume contraction. Partially compensatory for underlying respiratory acidosis. Lasix discontinued November 23, 2023. 6. Coronary artery disease status post CABG. 7. Anemia of chronic kidney disease. Iron deficiency noted. Plan: Lasix discontinued November 23, 2023. Maintain Farxiga. Maintain Diamox. Maintain IV iron. Avoid nephrotoxins. Repeat labs in the morning. Encouraged to wear BiPAP at night. Repeat BMP and magnesium level 2 to 3 days postdischarge. Follow-up outpatient in 1 week. Advised patient to maintain low-salt diet and fluid restriction of less than 50 ounces per day upon discharge. To notify physician if develops edema or gains more than 3 pounds in 1 week duration.
[2023-11-26 11:03] VITALS: BP 103/65; RESP 19
[2023-11-26 12:46] VITALS: PULSE 68
--- NOTE | 2023-11-26 13:09 | P.PN ---
Subjective Progress Note Date: 11/26/23 This is a 73-year-old white male, known history of multiple medical problems including COPD, chronic hypoxic respiratory failure, maintained on home O2 at 4 L, chronic kidney disease stage IIIb, depression, PTSD, chronic diastolic congestive heart failure, coronary artery disease and previous stenting, benign essential hypertension, patient presented to the hospital with few days history of increased shortness of breath, fatigue, EKG on presentation showed chronic atrial fibrillation with controlled ventricular rate, and a right bundle branch block pattern. Chest x-ray showed evidence of mild congestive changes, his basic metabolic profile showed mostly metabolic alkalosis with bicarb in the range of 37 creatinine 1.96, GFR of 34, his BNP level was a bit elevated around 4000. He was admitted, placed on diuretics, bronchodilators, was also placed on Solu-Medrol, and today he was given Diamox. ABG this morning showed a pO2 of 46, pCO2 of 88 pH of 7.33, patient was placed briefly on BiPAP, and this consult was initiated. I evaluated the patient, patient does have hypercapnia but he is compensating well metabolically he seems to be comfortable on 3 L nasal cannula, and did not seem to be in any distress. Hence I recommended that we continue the same course of treatment, keep BiPAP at bedside, titrate oxygen to maintain O2 saturation just above 89%, and continue bronchodilators and diuretics including Diamox. Looking at his last admission, patient was seen by me on 11/07/2023, and he seems to have basically similar presentation today CT angiogram of the chest showed no evidence of pulmonary embolism as last admission. Show however small pleural effusion and atelectasis at the left lung bases Patient was evaluated today on 11/25/2023, patient is feeling much better today compared to yesterday. Hardly any pulmonary symptoms, no cough no wheezing no shortness of breath, patient used BiPAP last night but is presently on nasal cannula at 6 L/min with O2 sats of 98%. Patient is on bronchodilators for his underlying COPD, BiPAP is at bedside, not have to use it this morning. Basic metabolic profile noted bicarb remains 43, BUN is 51 creatinine 2.37 chest x-ray yesterday was reviewed patient does have pulmonary vascular congestion with trace of bilateral pleural effusions consistent with congestive heart failure. Patient remains on acetazolamide to 50 mg p.o. twice daily The patient is seen today November 26, 2023 in follow-up on the selective care unit. He is awake and alert in no acute distress. Denies any worsening shortness of breath, cough or congestion. He is maintaining O2 saturations in the 90s on 5 L/min per nasal cannula. He does have home BiPAP. Sodium 139. Potassium 4.1. Bicarb 41. BUN 54. Creatinine 2.56. Glucose 90. He is continued on DuoNeb and elations, Symbicort. Anticoagulated with Xarelto. Objective - Vital Signs Vital signs: Vital Signs Temp 97.9 F 11/26/23 11:01 Pulse 68 11/26/23 12:46 Resp 19 11/26/23 11:01 BP 103/65 11/26/23 11:01 Pulse Ox 99 11/26/23 11:03 FiO2 40 11/26/23 04:20 Intake & Output 11/25/23 11/26/23 11/26/23 18:59 06:59 18:59 Intake Total 1440 240 Output Total 750 600 850 Balance 690 -600 -610 Weight 116.8 kg Intake: Oral 1440 240 Output: Urine 750 600 850 Other: Voiding Method Urinal Urinal Urinal # Voids 2 1 - Exam General: Reveals a pleasant, alert 73-year-old male, on 5 L nasal cannula, resting in bed, no acute distress. Skin: Skin is warm and dry and no rashes or lesions are noted. Eye: Pupils are equal, round and reactive to light, extra-ocular movements are intact; there is normal conjunctiva bilaterally. Ears, nose, mouth and throat: There are moist mucous membranes and no oral lesions. Neck: The neck is supple, there is no tenderness or JVD. Cardiovascular: There is a regular rate and rhythm. No murmur, rub or gallop is appreciated. Respiratory: Diminished breath sounds at the bases no crackles rhonchi or wheezes Gastrointestinal: Soft, non-distended, non-tender abdomen without masses or organomegaly noted. Bowel sounds are unremarkable. Back: There is no tenderness to palpation in the midline. There is no obvious deformity. Musculoskeletal: Normal ROM, no tenderness, There is no pedal edema. There is no calf tenderness or swelling. No cords were appreciated. Neurological: CN II-XII intact, Cranial nerves III through XII are intact. There are no obvious motor or sensory deficits. Coordination appears grossly intact. Speech is normal. Psychiatric: Cooperative, appropriate mood & affect, normal judgment. - Labs CBC & Chem 7: 11/25/23 07:50 11/26/23 06:22 Labs: Abnormal Lab Results - Last 24 Hours (Table) 11/26/23 Range/Units 06:22 Chloride 92 L (98-107) mmol/L Carbon Dioxide 41 H* (22-30) mmol/L BUN 54 H (9-20) mg/dL Creatinine 2.56 H (0.66-1.25) mg/dL Assessment and Plan Assessment: Acute on chronic hypoxic and hypercapnic respiratory failure Acute exacerbation of chronic diastolic congestive heart failure Underlying COPD, presently inactive. Chronic atrial fibrillation with controlled ventricular rate Coronary artery disease and previous stent placement Benign essential hypertension Chronic kidney disease stage IIIb Dyslipidemia History of depression/Anxiety Plan: The patient was seen and evaluated Labs and medications reviewed Stable and on 5 L nasal cannula He has home oxygen, home CPAP Cleared for discharge from the pulmonary standpoint Resume his home Trelegy, albuterol HFA I have personally seen and examined the patient, performed the documentation and the assessment and plan as written. Number of minutes spent on the visit: 10.
--- NOTE | 2023-11-26 14:19 | P.DS ---
Providers Date of admission: 11/21/23 11:29 Expected date of discharge: 11/26/23 Attending physician: Danie Abbott MD Consults: 11/21/23 11:29 Consult Physician Routine Consulting Provider: [facility] Consult Reason/Comments: Pulmonary edema Do you want consulting provider notified?: Yes 11/21/23 12:23 Consult Physician Routine Consulting Provider: Ofelia Foster Consult Reason/Comments: CKD stage IIIb and current need for IV diureses d/t pulm edema Do you want consulting provider notified?: Yes 11/24/23 11:36 Consult Physician Routine Consulting Provider: Derrick Man Consult Reason/Comments: acute on chronic resp failure with hypoxia and hypercarbia req BIPAP Do you want consulting provider notified?: Yes Primary care physician: [facility] Hospital Course: 73-year-old male with a past medical history of CAD status post stenting, hypertension, hyperlipidemia, chronic diastolic heart failure, persistent atrial fibrillation, COPD chronic hypoxic respiratory failure 4 L O2 dependent, chronic kidney disease stage IIIb, anxiety with depression, and PTSD. He presented to the hospital secondary to increased shortness of breath over the past 4 to 5 days accompanied by extreme fatigue. In addition patient reported significant loss of appetite. On arrival to our facility, Patient underwent evaluation in the emergency department. Vital signs upon arrival showing blood pressure 107/72, heart rate 96, respiratory rate 22, temp 98.9 F, and SpO2 of 93% on 5 L. EKG completed showing atrial fibrillation with a controlled ventricular rate of 98 bpm with a right bundle branch block. Chest x-ray completed negative for acute cardiopulmonary process showing CHF but similar in degree to that seen on study of 09/28/2023. Reviewed. CBC showing normocytic anemia with hemoglobin of 9.8 with baseline hemoglobin of 11. BMP showing non-anion gap metabolic alkalosis with chloride of 95, bicarb of 37, and anion gap of 9. Renal function consistent with known CKD stage IIIb with BUN of 58, creatinine of 1.96, GFR of 34 with baseline creatinine of 2.1.. Troponin less than 0.012 and proBNP 3940 which is increased when compared with proBNP just prior to recent discharge from hospital on 11/08/2023 at 2090. Patient was provided with IV Lasix, Solu-Medrol, and nebulizer treatment in the emergency department. He was admitted under our services with consultation to cardiology and nephrology. He was found to have acute on chronic respiratory failure with hypoxia and hypercarbia due to combination of exacerbation of chronic diastolic heart failure as well as COPD exacerbation. Had some metabolic encephalopathy secondary to hypercarbia, placed on BiPAP briefly. He was diuresed with lasix IV. Had metabolic alkalosis, so diuresis switched to diamox. Seen by nephro and cardio. Initiated on farxiga. He was educated about restricting salt intake and fluid intake. Seen by nephro as well due to chronic kidney disease stage IIIb. Nephro advised to use diamox and farxiga for now and to hold the lasix. Seen by pulm continue bronchdilators. Today doing well. Will be discharged in a stable c ondition. Follow up bmp and mg in 2 days, follow up with Dr. Rg in 1 week. With PCP diony. Seen and examined on the day of discharge 11/25 Time for discharge 36 min Plan - Discharge Summary Discharge Rx Participant: Yes New Discharge Prescriptions: New acetaZOLAMIDE [Diamox] 250 mg PO BID 30 Days #60 tab Dapagliflozin Propanediol [Farxiga] 5 mg PO DAILY 30 Days #30 tab Ipratropium-Albuterol Nebulize [Duoneb 0.5 mg-3 mg/3 ml Soln] 3 ml INHALATION RT-QID 30 Days #100 each Continue ALPRAZolam [Xanax] 1 mg PO TID PRN PRN Reason: Anxiety Rivaroxaban [Xarelto] 15 mg PO DAILY Metoprolol Tartrate [Lopressor] 75 mg PO BID Albuterol Inhaler [Ventolin Hfa Inhaler] 1 puff INHALATION RT-Q4H PRN PRN Reason: Shortness Of Breath/COPD Isosorbide Mononitrate ER [Imdur] 15 mg PO DAILY Fluticasone/Umeclidin/Vilanter [Trelegy Ellipta 100-62.5-25] 1 puff INHALATION RT-DAILY Levothyroxine Sodium [Synthroid] 274 mcg PO DAILY Rosuvastatin Calcium [Crestor] 20 mg PO HS ALPRAZolam [Xanax] 2 mg PO HS PRN PRN Reason: Insomnia Sertraline [Zoloft] 200 mg PO DAILY Discontinued hydroCHLOROthiazide [Hydrodiuril] 25 mg PO DAILY Furosemide [Lasix] 20 mg PO DAILY 3 Days #60 tab Discharge Medication List ALPRAZolam [Xanax] 1 mg PO TID PRN 01/18/21 [History] Albuterol Inhaler [Ventolin Hfa Inhaler] 1 puff INHALATION RT-Q4H PRN 09/27/23 [History] Fluticasone/Umeclidin/Vilanter [Trelegy Ellipta 100-62.5-25] 1 puff INHALATION RT-DAILY 09/27/23 [History] Isosorbide Mononitrate ER [Imdur] 15 mg PO DAILY 09/27/23 [History] Levothyroxine Sodium [Synthroid] 274 mcg PO DAILY 09/27/23 [History] Metoprolol Tartrate [Lopressor] 75 mg PO BID 09/27/23 [History] Rivaroxaban [Xarelto] 15 mg PO DAILY 09/27/23 [History] Rosuvastatin Calcium [Crestor] 20 mg PO HS 09/27/23 [History] Sertraline [Zoloft] 200 mg PO DAILY 09/27/23 [History] ALPRAZolam [Xanax] 2 mg PO HS PRN 11/07/23 [History] Dapagliflozin Propanediol [Farxiga] 5 mg PO DAILY 30 Days #30 tab 11/26/23 [Rx] Ipratropium-Albuterol Nebulize [Duoneb 0.5 mg-3 mg/3 ml Soln] 3 ml INHALATION RT-QID 30 Days #100 each 11/26/23 [Rx] acetaZOLAMIDE [Diamox] 250 mg PO BID 30 Days #60 tab 11/26/23 [Rx] Follow up Appointment(s)/Referral(s): John Bateman DO [STAFF PHYSICIAN] - 1 Week [facility] [Primary Care Provider] - 1-2 days Patient Instructions/Handouts: Pulmonary Edema (DC), Heart Healthy Diet (DC), Hypoxia (ED) Activity/Diet/Wound Care/Special Instructions: Repeat BMP/Magnesium level 2-3 days post discharge. Maintain heart healthy diet including low sodium foods and maintain a fluid restriction. Please notify kidney doctor if weight gain is >3lbs in a week.
== END 2023-11-26 15:07 | disposition home or self-care (01) | DRG 291 ==
LOC: EC 10:05 → 3SCARD 11:29
PROVIDERS: ADMIT Student in an Organized Health Care Education/Training Program; ATTEND Student in an Organized Health Care Education/Training Program
PROC: 5A09557 Assistance with Respiratory Ventilation, Greater than 96 Consecutive Hours, Continuous Positive Airway Pressure (ICD-10-PCS; principal; 2023-11-21)
DX: I13.0 Hypertensive heart and chronic kidney disease with heart failure and stage 1 through stage 4 chronic kidney disease, or unspecified chronic kidney disease (principal); G93.41 Metabolic encephalopathy; I50.33 Acute on chronic diastolic (congestive) heart failure; J96.21 Acute and chronic respiratory failure with hypoxia; N17.0 Acute kidney failure with tubular necrosis; J96.22 Acute and chronic respiratory failure with hypercapnia; J44.1 Chronic obstructive pulmonary disease with (acute) exacerbation; I48.21 Permanent atrial fibrillation; E87.4 Mixed disorder of acid-base balance; N18.32 Chronic kidney disease, stage 3b; D63.1 Anemia in chronic kidney disease; I25.10 Atherosclerotic heart disease of native coronary artery without angina pectoris; Z95.1 Presence of aortocoronary bypass graft; I07.1 Rheumatic tricuspid insufficiency; D50.9 Iron deficiency anemia, unspecified; G47.33 Obstructive sleep apnea (adult) (pediatric); F43.10 Post-traumatic stress disorder, unspecified; F41.9 Anxiety disorder, unspecified; F32.A Depression, unspecified; E78.5 Hyperlipidemia, unspecified; I45.10 Unspecified right bundle-branch block; I25.2 Old myocardial infarction; Z79.01 Long term (current) use of anticoagulants; Z79.890 Hormone replacement therapy; Z79.899 Other long term (current) drug therapy; Z87.891 Personal history of nicotine dependence; Z95.5 Presence of coronary angioplasty implant and graft; Z99.81 Dependence on supplemental oxygen; Z88.5 Allergy status to narcotic agent; Z88.1 Allergy status to other antibiotic agents
CPT/HCPCS: 36415; 71045; 71046; 76770; 80048; 80053; 81003; 82728; 82805; 83540; 83550; 83605; 83735; 83880; 84443; 84484; 85025; 85027; 85610; 85730; 87040; 93005; 94640; 94660; 94760; 96374; 96375; 96376; 99291

== ENCOUNTER 2023-12-06 09:25 | Inpatient (IN) | payer OTHER, MEDICARE ==
--- NOTE | 2023-12-06 09:42 | ED ---
Altered Mental Status HPI - General Chief Complaint: Fall Stated Complaint: AMS-Hypoxic Time Seen by Provider: 12/06/23 09:27 Source: EMS, RN notes reviewed, old records reviewed Mode of arrival: EMS Limitations: altered mental status - History of Present Illness Initial Comments: This is a 73 male to the ED with a fall, weakness, AMS, unable to provide history spoke w patient who states she wants to lean toward making the patient hospice - though unsure why MD Complaint: altered mental status - Related Data Home Medications Medication Instructions Recorded Confirmed ALPRAZolam [Xanax] 1 mg PO TID PRN 01/18/21 12/06/23 Albuterol Inhaler [Ventolin Hfa 1 puff INHALATION RT-Q4H PRN 09/27/23 12/06/23 Inhaler] Fluticasone/Umeclidin/Vilanter 1 puff INHALATION RT-DAILY 09/27/23 12/06/23 [Trelegy Ellipta 100-62.5-25] Isosorbide Mononitrate ER [Imdur] 15 mg PO DAILY 09/27/23 12/06/23 Levothyroxine Sodium [Synthroid] 137 mcg PO DAILY 09/27/23 12/06/23 Metoprolol Tartrate [Lopressor] 75 mg PO BID 09/27/23 12/06/23 Rivaroxaban [Xarelto] 15 mg PO DAILY 09/27/23 12/06/23 Rosuvastatin Calcium [Crestor] 20 mg PO HS 09/27/23 12/06/23 Sertraline [Zoloft] 200 mg PO DAILY 09/27/23 12/06/23 Previous Rx's Medication Instructions Recorded Dapagliflozin Propanediol [Farxiga] 5 mg PO DAILY 30 Days #30 tab 11/26/23 Ipratropium-Albuterol Nebulize 3 ml INHALATION RT-QID 30 Days 11/26/23 [Duoneb 0.5 mg-3 mg/3 ml Soln] #100 each predniSONE [Deltasone] 40 mg PO DAILY 5 Days #10 tab 12/14/23 Furosemide [Lasix] 40 mg PO BID 30 Days #60 tablet 12/15/23 Potassium Chloride ER [K-Dur 20] 20 meq PO DAILY 30 Days #30 tab 12/15/23 Allergies Allergy/AdvReac Type Severity Reaction Status Date / Time iodine AdvReac Hypotension, Verified 12/06/23 12:25 itching, watering eyes lisinopril AdvReac hyperkalemi Verified 12/06/23 12:25 a morphine AdvReac hallucinations, Verified 12/06/23 12:25 behavior change temazepam AdvReac headache Verified 12/06/23 12:25 Review of Systems ROS Statement: Those systems with pertinent positive or pertinent negative responses have been documented in the HPI. ROS Other: All systems not noted in ROS Statement are negative. Past Medical History Past Medical History: Atrial Fibrillation, Chest Pain / Angina, COPD, Eye Disorder, Hypertension, Myocardial Infarction ([place]), Respiratory Disorder, Thyroid Disorder Last Myocardial Infarction Date:: 2004 History of Any Multi-Drug Resistant Organisms: None Reported Past Surgical History: Back Surgery, Heart Catheterization With Stent Additional Past Surgical History / Comment(s): eye resection Past Anesthesia/Blood Transfusion Reactions: No Reported Reaction Date of Last Stent Placement:: unknown Type of Cardiac Device: Permanent Pacemaker Device Placement Date:: 2012 Past Psychological History: Anxiety, Depression, PTSD Smoking Status: Former smoker Past Alcohol Use History: None Reported Past Drug Use History: None Reported - Past Family History Mother History Unknown: Yes Father History Unknown: Yes General Exam Limitations: altered mental status General appearance: alert, in no apparent distress, anxious, in distress Head exam: Present: atraumatic, normocephalic, normal inspection Eye exam: Present: normal appearance, PERRL, EOMI. Absent: scleral icterus, conjunctival injection, periorbital swelling ENT exam: Present: normal exam, mucous membranes moist Neck exam: Present: normal inspection. Absent: tenderness, meningismus, lymphadenopathy Respiratory exam: Present: normal lung sounds bilaterally. Absent: respiratory distress, wheezes, rales, rhonchi, stridor Cardiovascular Exam: Present: regular rate, normal rhythm, normal heart sounds. Absent: systolic murmur, diastolic murmur, rubs, gallop, clicks GI/Abdominal exam: Present: soft, normal bowel sounds. Absent: distended, tenderness, guarding, rebound, rigid Extremities exam: Present: normal inspection, full ROM, normal capillary refill. Absent: tenderness, pedal edema, joint swelling, calf tenderness Back exam: Present: normal inspection Neurological exam: Present: alert, oriented X3, CN II-XII intact Psychiatric exam: Present: normal affect, normal mood Skin exam: Present: warm, dry, intact, normal color. Absent: rash Course Vital Signs 12/06/23 12/06/23 12/06/23 09:27 11:26 11:36 Temperature 97.8 F Pulse Rate 84 73 76 Pulse Rate [ Pulse Oximetery ] Respiratory 20 18 Rate Blood Pressure 119/66 108/77 O2 Sat by Pulse 96 93 L Oximetry Fraction of Inspired Oxygen (FIO2) 12/06/23 12/06/23 12/06/23 11:51 12:33 13:50 Temperature Pulse Rate 77 76 80 Pulse Rate [ Pulse Oximetery ] Respiratory 18 18 Rate Blood Pressure 120/78 117/69 O2 Sat by Pulse 96 97 Oximetry Fraction of Inspired Oxygen (FIO2) 12/06/23 12/06/23 12/06/23 14:21 15:17 15:56 Temperature Pulse Rate 80 74 Pulse Rate [ 70 Pulse Oximetery ] Respiratory 18 18 16 Rate Blood Pressure 109/80 110/67 O2 Sat by Pulse 98 96 Oximetry Fraction of 35 Inspired Oxygen (FIO2) 12/06/23 12/06/23 12/06/23 15:58 16:15 16:23 Temperature Pulse Rate 96 92 89 Pulse Rate [ Pulse Oximetery ] Respiratory 18 Rate Blood Pressure 128/89 O2 Sat by Pulse 96 Oximetry Fraction of Inspired Oxygen (FIO2) 12/06/23 12/06/23 12/06/23 17:29 19:02 20:40 Temperature Pulse Rate 81 85 81 Pulse Rate [ Pulse Oximetery ] Respiratory 18 18 Rate Blood Pressure 116/73 O2 Sat by Pulse 96 98 Oximetry Fraction of Inspired Oxygen (FIO2) 12/06/23 12/06/23 12/06/23 20:52 22:40 23:40 Temperature Pulse Rate 87 83 86 Pulse Rate [ Pulse Oximetery ] Respiratory 14 16 Rate Blood Pressure 118/70 119/43 O2 Sat by Pulse 93 L 94 L Oximetry Fraction of Inspired Oxygen (FIO2) 12/06/23 12/07/23 12/07/23 23:43 01:58 03:21 Temperature Pulse Rate 72 Pulse Rate [ Pulse Oximetery ] Respiratory 18 Rate Blood Pressure 127/63 O2 Sat by Pulse 98 Oximetry Fraction of 35 35 Inspired Oxygen (FIO2) 12/07/23 12/07/23 12/07/23 03:55 07:17 08:16 Temperature Pulse Rate 71 70 Pulse Rate [ Pulse Oximetery ] Respiratory 18 16 Rate Blood Pressure 106/84 111/72 O2 Sat by Pulse 94 L 92 L Oximetry Fraction of 35 Inspired Oxygen (FIO2) 12/07/23 12/07/23 12/07/23 08:21 08:24 08:34 Temperature Pulse Rate 80 73 Pulse Rate [ Pulse Oximetery ] Respiratory Rate Blood Pressure O2 Sat by Pulse 94 L Oximetry Fraction of 35 Inspired Oxygen (FIO2) 12/07/23 12/07/23 12/07/23 10:17 11:47 11:50 Temperature 98.0 F Pulse Rate 75 67 Pulse Rate [ Pulse Oximetery ] Respiratory 22 Rate Blood Pressure 114/78 O2 Sat by Pulse 95 Oximetry Fraction of 35 Inspired Oxygen (FIO2) 12/07/23 12/07/23 12/07/23 11:59 12:34 13:38 Temperature 97.8 F Pulse Rate 67 71 72 Pulse Rate [ Pulse Oximetery ] Respiratory 24 20 Rate Blood Pressure 111/72 111/67 O2 Sat by Pulse 96 97 Oximetry Fraction of Inspired Oxygen (FIO2) - Reevaluation(s) Reevaluation #1: 12/06/23 15:30 Medical records reviewed Reevaluation #2: 12/06/23 15:30 Symptoms unchanged mildly improving mental status Reevaluation #3: 12/06/23 15:30 Informed of results and questions answered Reevaluation #4: Was pt. sent in by a medical professional or institution (, PA, SEWING PATTERN LAYOUT TECHNICIAN, urgent care, hospital, or correction...) When possible be specific @ -no Did you speak to anyone other than the patient for history (EMS, parent, family, police, friend...)? What history was obtained from this source @ -no Did you review nursing and triage notes (agree or disagree)? Why? @ -agree Are old charts reviewed (outside hosp., previous admission, EMS record, old EKG, old radiological studies, urgent care reports/EKG's, correction records)? Report findings @ -yes Differential Diagnosis (chest pain, altered mental status, abdominal pain women, abdominal pain men, vaginal bleeding, weakness, fever, dyspnea, syncope, headache, dizziness, GI bleed, back pain, seizure, CVA, palpatations, mental health, musculoskeletal)? @ -prior EKG interpreted by me (3pts min.). @ -yes X-rays interpreted by me (1pt min.). @ -yes negative for acute disease CT interpreted by me (1pt min.). @ -Yes negative for acute disease U/S interpreted by me (1pt. min.). @ -no What testing was considered but not performed or refused? (CT, X-rays, U/S, labs)? Why? @ -none What meds were considered but not given or refused? Why? @ -none Did you discuss the management of the patient with other professionals (professionals i.e. , PA, SEWING PATTERN LAYOUT TECHNICIAN, lab, RT, psych nurse, social service worker, sales agent pest control service, teacher, sales and service officer, disease case manager rn)? Give summary @ -no Was smoking cessation discussed for >3mins.? @ -no Was critical care preformed (if so, how long)? @ -yes31 Were there social determinants of health that impacted care today? How? (Homelessness, low income, unemployed, alcoholism, drug addiction, transportation, low edu. Level, literacy, decrease access to med. care, snf, rehab)? @ -none Was there de-escalation of care discussed even if they declined (Discuss DNR or withdrawal of care, Hospice)? DNR status @ -no What co-morbidities impacted this encounter? (DM, HTN, Smoking, COPD, CAD, Cancer, CVA, ARF, Chemo, Hep., AIDS, mental health diagnosis, sleep apnea, mor bid obesity)? @ -none Was patient admitted / discharged? Hospital course, mention meds given and ro chinik, prescriptions, significant lab abnormalities, going to OR and other pertinent info. @ - 73 male to ER for evaluation of altered mental status and weakness severe acute kidney injury with renal failure, patient will be admitted for further supportive care Admitted Undiagnosed new problem with uncertain prognosis? @ -no Drug Therapy requiring intensive monitoring for toxicity (Heparin, Nitro, Insulin, Cardizem)? @ -no Were any procedures done? @ -no Diagnosis/symptom? @ -Weakness and altered mental status, respiratory failure hypoxia and renal failure Acute, or Chronic, or Acute on Chronic? @ -Acute Uncomplicated (without systemic symptoms) or Complicated (systemic symptoms)? @ -Complicated Side effects of treatment? @ -no Exacerbation, Progression, or Severe Exacerbation? @ -exacerbation Poses a threat to life or bodily function? How? (Chest pain, [place], [place], pneumonia, PE, COPD, DKA, ARF, appy, cholecystitis, CVA, Diverticulitis, Homicidal, Suicidal, threat to staff... and all critical care pts) @ -yes with significant acute disease Reevaluation #5: Differential Altered Mental Status: Hypoglycemia, DKA, hypercapnia, ETOH, overdose, CO poisoning, trauma, myxedema coma, HTN encephalopathy, infection, encephalitis, psychosis, intercranial hemo rrhage, hepatic encephalopathy, meningitis, CVA, this is not meant to be an all- inclusive list - Consultations Consultation #1: Spoke with sound who agreed to admit this patient Medical Decision Making - Medical Decision Making 73 male to ER for evaluation of altered mental status and weakness severe acute kidney injury with renal failure, patient will be admitted for further supportive care - Lab Data Result diagrams: 12/14/23 09:27 12/14/23 09:27 Lab Results 12/06/23 12/06/23 12/06/23 Range/Units 09:39 09:39 09:39 WBC 11.1 H (3.8-10.6) k/uL RBC 3.73 L (4.30-5.90) m/uL Hgb 10.4 L (13.0-17.5) gm/dL Hct 36.6 L (39.0-53.0) % MCV 98.2 (80.0-100.0) fL MCH 28.0 (25.0-35.0) pg MCHC 28.5 L (31.0-37.0) g/dL RDW 15.4 (11.5-15.5) % Plt Count 187 (150-450) k/uL MPV 8.5 Neutrophils % 89 % Lymphocytes % 4 % Monocytes % 4 % Eosinophils % 2 % Basophils % 1 % Neutrophils # 9.9 H (1.3-7.7) k/uL Lymphocytes # 0.5 L (1.0-4.8) k/uL Monocytes # 0.5 (0-1.0) k/uL Eosinophils # 0.2 (0-0.7) k/uL Basophils # 0.1 (0-0.2) k/uL Hypochromasia Marked PT 12.1 (10.0-12.5) sec INR 1.1 (<1.2) APTT 24.3 (22.0-30.0) sec Sodium 140 (137-145) mmol/L Potassium 4.1 (3.5-5.1) mmol/L Chloride 110 H (98-107) mmol/L Carbon Dioxide 27 (22-30) mmol/L Anion Gap 3 mmol/L BUN 55 H (9-20) mg/dL Creatinine 3.07 H (0.66-1.25) mg/dL Est GFR (CKD-EPI)AfAm 22 (>60 ml/min/1.73 sqM) Est GFR (CKD-EPI)NonAf 19 (>60 ml/min/1.73 sqM) Glucose 183 H (74-99) mg/dL Plasma Lactic Acid Jaydon (0.7-2.0) mmol/L Calcium 9.0 (8.4-10.2) mg/dL Magnesium 2.5 H (1.6-2.3) mg/dL Total Bilirubin 0.5 (0.2-1.3) mg/dL AST 20 (17-59) U/L ALT 13 (4-49) U/L Alkaline Phosphatase 97 (38-126) U/L Ammonia (<30) umol/L Creatine Kinase 36 L (55-170) U/L Troponin I (0.000-0.034) ng/mL NT-Pro-B Natriuret Pep 4670 pg/mL Total Protein 6.4 (6.3-8.2) g/dL Albumin 3.8 (3.5-5.0) g/dL Serum Alcohol <10 mg/dL 12/06/23 12/06/23 Range/Units 09:39 09:39 WBC (3.8-10.6) k/uL RBC (4.30-5.90) m/uL Hgb (13.0-17.5) gm/dL Hct (39.0-53.0) % MCV (80.0-100.0) fL MCH (25.0-35.0) pg MCHC (31.0-37.0) g/dL RDW (11.5-15.5) % Plt Count (150-450) k/uL MPV Neutrophils % % Lymphocytes % % Monocytes % % Eosinophils % % Basophils % % Neutrophils # (1.3-7.7) k/uL Lymphocytes # (1.0-4.8) k/uL Monocytes # (0-1.0) k/uL Eosinophils # (0-0.7) k/uL Basophils # (0-0.2) k/uL Hypochromasia PT (10.0-12.5) sec INR (<1.2) APTT (22.0-30.0) sec Sodium (137-145) mmol/L Potassium (3.5-5.1) mmol/L Chloride (98-107) mmol/L Carbon Dioxide (22-30) mmol/L Anion Gap mmol/L BUN (9-20) mg/dL Creatinine (0.66-1.25) mg/dL Est GFR (CKD-EPI)AfAm (>60 ml/min/1.73 sqM) Est GFR (CKD-EPI)NonAf (>60 ml/min/1.73 sqM) Glucose (74-99) mg/dL Plasma Lactic Acid Jaydon 1.4 (0.7-2.0) mmol/L Calcium (8.4-10.2) mg/dL Magnesium (1.6-2.3) mg/dL Total Bilirubin (0.2-1.3) mg/dL AST (17-59) U/L ALT (4-49) U/L Alkaline Phosphatase (38-126) U/L Ammonia 50 H (<30) umol/L Creatine Kinase (55-170) U/L Troponin I 0.016 (0.000-0.034) ng/mL NT-Pro-B Natriuret Pep pg/mL Total Protein (6.3-8.2) g/dL Albumin (3.5-5.0) g/dL Serum Alcohol mg/dL - EKG Data -: EKG Interpreted by Me (EKG is A-fib 73 QRS 122 QTc 466) - Radiology Data Radiology results: report reviewed (CT brain C-spine chest and pelvis x-ray negative for acute disease), image reviewed Critical Care Time Critical Care Time: Yes Total Critical Care Time: 31 Disposition Clinical Impression: Fall, Altered mental status, Weakness, MIRTHA (acute kidney injury), Acute respiratory failure with hypoxia and hypercarbia, Acute respiratory failure, Hypoxia Disposition: ADMITTED IP TO THIS HOSP Condition: Poor Is patient prescribed a controlled substance at d/c from ED?: No Time of Disposition: 15:30
[2023-12-06] MEDS: methylPREDNISolone SOD SUCCI 125 MG/2 ML VIAL IV STA (09:59)
[2023-12-06 10:12] LABS: Basophils # (A) 0.1 k/uL (0-0.2); Basophils % (A) 1 %; Eosinophils # (A) 0.2 k/uL (0-0.7); Eosinophils % (A) 2 %; HCT 36.6 % (39.0-53.0); HGB 10.4 gm/dL (13.0-17.5); Hypochromasia Marked; Lymphocytes # (A) 0.5 k/uL (1.0-4.8); Lymphocytes % (A) 4 %; MCHC 28.5 g/dL (31.0-37.0); MCV 98.2 fL (80.0-100.0); Mean Platelet Volume 8.5; Monocytes # (A) 0.5 k/uL (0-1.0); Monocytes % (A) 4 %; Neutrophils # (A) 9.9 k/uL (1.3-7.7); Neutrophils % (A) 89 %; Platelet Count 187 k/uL (150-450); RBC 3.73 m/uL (4.30-5.90); RDW 15.4 % (11.5-15.5); WBC 11.1 k/uL (3.8-10.6)
[2023-12-06 10:18] LABS: INR 1.1 (<1.2); Partial Thromboplastin Time 24.3 sec (22.0-30.0); Prothrombin Time 12.1 sec (10.0-12.5)
[2023-12-06 10:23] LABS: Lactic Acid, Venous 1.4 mmol/L (0.7-2.0)
[2023-12-06 10:32] LABS: ALT 13 U/L (4-49); AST 20 U/L (17-59); African American GFR (CKD) 22 (>60 ml/min/1.73 sqM); Albumin 3.8 g/dL (3.5-5.0); Alcohol <10 mg/dL; Alkaline Phosphatase 97 U/L (38-126); Anion Gap 3 mmol/L; Blood Urea Nitrogen 55 mg/dL (9-20); Carbon Dioxide 27 mmol/L (22-30); Chloride 110 mmol/L (98-107); Creatine Kinase 36 U/L (55-170); Glucose 183 mg/dL (74-99); Magnesium 2.5 mg/dL (1.6-2.3); Non-African American GFR(CKD) 19 (>60 ml/min/1.73 sqM); Potassium 4.1 mmol/L (3.5-5.1); Sodium 140 mmol/L (137-145); Total Bilirubin 0.5 mg/dL (0.2-1.3); Total Protein 6.4 g/dL (6.3-8.2)
[2023-12-06 10:40] LABS: NT-Pro-B-Type Natriuretic Pept 4670 pg/mL
--- NOTE | 2023-12-06 11:25 | CT ---
EXAMINATION TYPE: CT brain neda wo con DATE OF EXAM: 12/06/2023 COMPARISON: None HISTORY: fall and AMS CT DLP: 1641.[address] of the brain was performed. The ventricles, basal cisterns and sulci overlying the cerebral convexities demonstrate mild enlargem ent. There is no evidence for intracranial hemorrhage or sulcal effacement. There is decreased attenuatio n about the periventricular white matter and deep white matter of both cerebral hemispheres, compatib le with chronic small vessel ischemia. No mass effects are seen. If symptoms persist consider MRI. Osseous calvarium is intact. IMPRESSION: 1. Age related atrophic and chronic small vessel ischemic change without acute intracranial process seen at this time. CT Cervical Spine: Unenhanced CT of the cervical spine was performed with bone and soft tissue window settings submitted . Coronal and sagittal reconstruction is obtained. There is normal alignment and prevertebral soft tissues. No evidence for acute cervical fracture . Scattered degenerative disc disease and spondylosis. Biapical scarring. IMPRESSION: 1. No evidence for acute fracture or subluxation of the cervical spine. [facility], , 12/06/2023 11:22 AM
[2023-12-06] MEDS: IPRATROPIUM-ALBUTEROL 3 ML NEB INHALATION STA ×2 (11:34→15:58)
--- NOTE | 2023-12-06 11:53 | XR ---
EXAMINATION TYPE: XR pelvis AP view DATE OF EXAM: 12/06/2023 CLINICAL HISTORY: pain TECHNIQUE: Single view the pelvis is submitted. FINDINGS: There is foreshortening of the right femoral neck likely related to patient rotation. If th ere is concern for right hip fracture dedicated views are recommended. Total left hip arthroplasty is in place. Postoperative fusion changes of the lumbar spine. IMPRESSION: 1. As above [facility], , 12/06/2023 11:51 AM
--- NOTE | 2023-12-06 11:54 | XR ---
EXAMINATION TYPE: XR chest 1V portable DATE OF EXAM: 12/06/2023 HISTORY: Shortness of breath. COMPARISON: None. TECHNIQUE: Single view of the chest is submitted. FINDINGS: Demonstrated are scattered senescent parenchymal change. There is no evidence for focal infiltrate. The heart is moderately enlarged. Small right-sided pleural effusion noted. Sternotomy wires in place . Single lead pacer noted. No obvious pneumothorax. Hilar and mediastinal structures are within normal limits. Degenerative changes are seen of the dorsal spine. IMPRESSION: 1. Chronic changes without evidence for acute pulmonary disease. [facility], , 12/06/2023 11:52 AM
[2023-12-06] MEDS ORDERED: NALOXONE 0.4 MG/ML 1 ML VIAL IV PRN (13:16)
[2023-12-06] MEDS ORDERED: ONDANSETRON 4 MG/2 ML VIAL IVP PRN (13:16)
[2023-12-06] MEDS ORDERED: MORPHINE SULFATE 4 MG/ML SYRINGE IV PRN (13:16)
[2023-12-06] MEDS: SODIUM CHLORIDE 0.9% 1,000 ML IV SCH (13:57)
[2023-12-06] MEDS: SODIUM CHLORIDE 0.9% 2,000 ML IV STA (13:57)
[2023-12-06] MEDS: SODIUM CHLORIDE 0.9% 500 ML 500 ML IV ONE (14:10)
[2023-12-06] MEDS ORDERED: ALBUTEROL NEBULIZED 2.5 MG/3 ML INHALATION PRN (15:32)
[2023-12-06 15:40] LABS: Amphetamine Screen,Urine Not Detected (NotDetected); Barbiturate Screen,Urine Not Detected (NotDetected); Benzodiazepines Screen,Urine Detected (NotDetected); Cocaine Screen,Urine Not Detected (NotDetected); Methadone Screen, Urine Not Detected (NotDetected); Opiate Screen,Urine Not Detected (NotDetected); Oxycodone Screen, Urine Not Detected (NotDetected); Phencyclidine Screen,Urine Not Detected (NotDetected); Tricyclic Antidepressant,Urine Not Detected (NotDetected); Urn Cannabinoid Scrn Detected (NotDetected)
[2023-12-06] MEDS: methylPREDNISolone SOD SUCCI 125 MG/2 ML VIAL IV SCH (17:44)
[2023-12-06] MEDS ORDERED: ALBUTEROL HFA INHALER INHALATION PRN (18:07)
--- NOTE | 2023-12-06 18:15 | P.HPIM ---
History of Present Illness H&P Date: 12/06/23 Chief Complaint: change in ms 73-year-old male with a past medical history of CAD status post stenting, hypertension, hyperlipidemia, chronic diastolic heart failure, persistent atrial fibrillation, COPD chronic hypoxic respiratory failure 5 L O2 dependent, chronic kidney disease stage IIIb, anxiety with depression, and PTSD. Has history of recurrent hospitalizations over the past several months. He presented to the hospital again today because he was found in his room on the floor with feces around him, history was taken from emergency physician as patient is not able to give any history right now. According to ER his oxygen saturation was in the 70s when he was found. He currently states that he needs to urinate despite having a Fraga catheter in. He keeps repeating that phrase without answering questions. I took care of this patient last admission, had a conference to try to prevent his readmission with the hospital staff but unfortunately he is presenting back to the ER today. Workup in the emergency department with CT head and neck was negative. Creatinine was up to 3 from baseline of around 2.5. Trop negative. BNP up to 4600, baseline was 3900 last admission. Urine toxicology screen was positive for benzodiazepines and marijuana. O2 saturation currently 96% on his baseline oxygen. EKG completed showing atrial fibrillation with a controlled ventricular rate with a right bundle branch block. Chest x-ray completed negative for acute cardiopulmonary process. Review of Systems Review of system unobtainable secondary to current mental status Past Medical History Past Medical History: Atrial Fibrillation, Chest Pain / Angina, COPD, Eye Disorder, Hypertension, Myocardial Infarction ([place]), Respiratory Disorder, Thyroid Disorder Last Myocardial Infarction Date:: 2004 History of Any Multi-Drug Resistant Organisms: None Reported Past Surgical History: Back Surgery, Heart Catheterization With Stent Additional Past Surgical History / Comment(s): eye resection Past Anesthesia/Blood Transfusion Reactions: No Reported Reaction Date of Last Stent Placement:: unknown Type of Cardiac Device: Permanent Pacemaker Device Placement Date:: 2012 Past Psychological History: Anxiety, Depression, PTSD Smoking Status: Former smoker Past Alcohol Use History: None Reported Past Drug Use History: None Reported - Past Family History Mother History Unknown: Yes Father History Unknown: Yes Medications and Allergies Home Medications Medication Instructions Recorded Confirmed Type ALPRAZolam [Xanax] 1 mg PO TID PRN 01/18/21 12/06/23 History Albuterol Inhaler [Ventolin Hfa 1 puff INHALATION RT-Q4H PRN 09/27/23 12/06/23 History Inhaler] Fluticasone/Umeclidin/Vilanter 1 puff INHALATION RT-DAILY 09/27/23 12/06/23 History [Jim Ellipta 100-62.5-25] Isosorbide Mononitrate ER [Imdur] 15 mg PO DAILY 09/27/23 12/06/23 History Levothyroxine Sodium [Synthroid] 137 mcg PO DAILY 09/27/23 12/06/23 History Metoprolol Tartrate [Lopressor] 75 mg PO BID 09/27/23 12/06/23 History Rivaroxaban [Xarelto] 15 mg PO DAILY 09/27/23 12/06/23 History Rosuvastatin Calcium [Crestor] 20 mg PO HS 09/27/23 12/06/23 History Sertraline [Zoloft] 200 mg PO DAILY 09/27/23 12/06/23 History ALPRAZolam [Xanax] 2 mg PO HS PRN 11/07/23 12/06/23 History Dapagliflozin Propanediol [Farxiga] 5 mg PO DAILY 30 Days #30 tab 11/26/23 12/06/23 Rx Ipratropium-Albuterol Nebulize 3 ml INHALATION RT-QID 30 Days 11/26/23 12/06/23 Rx [Duoneb 0.5 mg-3 mg/3 ml Soln] #100 each acetaZOLAMIDE [Diamox] 250 mg PO BID 30 Days #60 tab 11/26/23 12/06/23 Rx Allergies Allergy/AdvReac Type Severity Reaction Status Date / Time iodine AdvReac Hypotension, Verified 12/06/23 12:25 itching, watering eyes lisinopril AdvReac hyperkalemi Verified 12/06/23 12:25 a morphine AdvReac hallucinations, Verified 12/06/23 12:25 behavior change temazepam AdvReac headache Verified 12/06/23 12:25 Physical Exam Vitals: Vital Signs Temp Pulse Resp BP Pulse Ox 12/06/23 17:29 81 18 96 12/06/23 16:23 89 18 128/89 96 12/06/23 16:15 92 12/06/23 15:58 96 12/06/23 15:17 74 18 110/67 96 09/23/24 14:21 80 18 109/80 98 12/06/23 13:50 80 18 117/69 97 12/06/23 12:33 76 18 120/78 96 12/06/23 11:51 77 12/06/23 11:36 76 12/06/23 11:26 73 18 108/77 93 L 12/06/23 09:27 97.8 F 84 20 119/66 96 Intake and Output 12/06/23 12/06/23 12/06/23 06:59 14:59 22:59 Output Total 300 Balance -300 Output: Urine 300 Uretheral (Fraga) 300 Other: Weight 99.79 kg Vital signs reviewed and stable. General: Nontoxic, no distress and appears stated age. Chronically ill- appearing. Derm: Skin warm and dry, normal coloration for ethnicity. Head: Atraumatic, normocephalic and symmetric. Eyes: EOM's intact, no lid lag, and anicteric sclera Mouth: no lip lesions, mucus membranes moist Cardiovascular: Irregularly irregular with systolic murmur. Positive posterior tibial pulses bilaterally, and cap refill < 2 seconds. Lungs: Respirations even, regular, and unlabored on 5 L O2 via nasal cannula. Respirations unlabored however patient does have conversational dyspnea after approximately 4 words. Lungs diminished with soft expiratory wheezes noted.. Abdominal: soft, nontender to palpation, no guarding, no appreciable organomegaly. Ext: ROM intact. No gross muscle atrophy, no lower extremity edema, no contractures Neuro: Mumbling words, generalized weakness, nonfocal. Oriented to place but disoriented to date.. Results CBC & Chem 7: 12/06/23 09:39 12/06/23 09:39 Labs: Abnormal Lab Results - Last 24 Hours (Table) 12/06/23 12/06/23 12/06/23 Range/Units 09:39 09:39 09:39 WBC 11.1 H (3.8-10.6) k/uL RBC 3.73 L (4.30-5.90) m/uL Hgb 10.4 L (13.0-17.5) gm/dL Hct 36.6 L (39.0-53.0) % MCHC 28.5 L (31.0-37.0) g/dL Neutrophils # 9.9 H (1.3-7.7) k/uL Lymphocytes # 0.5 L (1.0-4.8) k/uL Chloride 110 H (98-107) mmol/L BUN 55 H (9-20) mg/dL Creatinine 3.07 H (0.66-1.25) mg/dL Glucose 183 H (74-99) mg/dL Magnesium 2.5 H (1.6-2.3) mg/dL Ammonia 50 H (<30) umol/L Creatine Kinase 36 L (55-170) U/L U Benzodiazepines Scrn (NotDetected) U Marijuana (THC) Screen (NotDetected) 12/06/23 Range/Units 15:10 WBC (3.8-10.6) k/uL RBC (4.30-5.90) m/uL Hgb (13.0-17.5) gm/dL Hct (39.0-53.0) % MCHC (31.0-37.0) g/dL Neutrophils # (1.3-7.7) k/uL Lymphocytes # (1.0-4.8) k/uL Chloride (98-107) mmol/L BUN (9-20) mg/dL Creatinine (0.66-1.25) mg/dL Glucose (74-99) mg/dL Magnesium (1.6-2.3) mg/dL Ammonia (<30) umol/L Creatine Kinase (55-170) U/L U Benzodiazepines Scrn Detected H (NotDetected) U Marijuana (THC) Screen Detected H (NotDetected) Assessment and Plan Plan: Acute on chronic respiratory failure with hypoxia and hypercarbia Mild exacerbation of chronic diastolic heart failure COPD with mild exacerbation secondary to above Generalized weakness and fatigue, secondary to above Chronic persistent atrial fibrillation History of CAD status post stenting Hypertension Hyperlipidemia -Consults placed to nephrology. -Continue to provide supplemental oxygen and titrate as patient tolerates. Currently on 5 L O2 via nasal cannula. -Telemetry monitoring. -Monitor pulse-oximetry -Duonebs scheduled 4 times daily and as needed for SOB and/or wheezing along with Symbicort 2 puffs twice daily -Solumedrol. -No diuresis indicated as he seems euvolemic. -Strict I's and O's with daily weights -Continue cardiac medication regimen with Xarelto 15 mg daily, atorvastatin 40 mg nightly, hydrochlorothiazide 25 mg daily, isosorbide mononitrate 15 mg daily, metoprolol 75 mg twice daily. Drug abuse Toxic metabolic encephalopathy Tested positive for marijuana Hold Xanax Monitor mental status MIRTHA on chronic kidney disease stage IIIb Hold diuretics Monitor cr Avoid nephrotoxic meds Hypothyroidism Continue daily medication regimen with levothyroxine 274 mcg daily.. Anxiety and depression PTSD -Continue daily medication regimen with Zoloft 200 mg daily -Hold xanax Admit to inpatient, expected length of stay more than 2 midnights Since patient is presenting to the hospital over and over again over the past several months due to noncompliance with care plan and possibly medications, suggested referring him to hospice care. Once his mental status improves I think it is sotelo to investigate why he keeps coming back to the hospital and possibly suggest to him hospice care at home.
[2023-12-06] MEDS: IPRATROPIUM-ALBUTEROL 3 ML NEB INHALATION SCH (20:39)
[2023-12-06] MEDS: ATORVASTATIN 40 MG TAB PO SCH (22:09)
[2023-12-06] MEDS: METOPROLOL TARTRATE 50 MG TAB PO SCH (22:10)
[2023-12-06 23:13] LABS: ABG Base Excess -5.4 mmol/L; ABG HCO3 25 mmol/L (21-25); ABG Oxygen Saturation 97.1 % (94-97); ABG PO2 93 mmHg (83-108); ABG TCO2 27 mmol/L (19-24); Allen Test Performed? Yes
[2023-12-06 23:21] LABS: ABG PH 7.11 (7.35-7.45)
[2023-12-06 23:22] LABS: ABG PCO2 77 mmHg (35-45)
[2023-12-07] MEDS: LORazepam 2 MG/ML INJ IV STA (03:49)
[2023-12-07] MEDS: LEVOTHYROXINE 137 MCG TAB PO SCH (06:56)
[2023-12-07] MEDS: SYMBICORT 80-4.5 MCG INHALER INHALATION SCH (08:21)
[2023-12-07 08:48] LABS: Basophils # (A) 0.01 X 10*3/uL (0.00-0.10); Basophils % (A) 0.1 %; Eosinophils # (A) 0 X 10*3/uL (0.04-0.35); Eosinophils % (A) 0 %; HCT 35.2 % (39.6-50.0); HGB 9.9 g/dL (13.0-17.0); Lymphocytes # (A) 0.55 X 10*3/uL (0.90-5.00); Lymphocytes % (A) 6.3 %; MCH 28.1 pg (27.0-32.0); MCHC 28.1 g/dL (32.0-37.0); Mean Platelet Volume 11.3 FL (9.5-12.2); Monocytes # (A) 0.42 X 10*3/uL (0.20-1.00); Monocytes % (A) 4.8 %; NRBC Per 100 WBC 0 X 10*3/uL (0.00-0.01); Neutrophils # (A) 7.65 X 10*3/uL (1.80-7.70); Neutrophils % (A) 88.1 %; Platelet Count 186 X 10*3/uL (140-440); RBC 3.52 X 10*6/uL (4.40-5.60); RDW 15.7 % (11.5-14.5); WBC 8.69 X 10*3/uL (4.50-10.00)
[2023-12-07 09:08] LABS: ALT 14 U/L (10-49); AST 15 U/L (14-35); Albumin 3.8 g/dL (3.8-4.9); Albumin/Globulin Ratio 1.58 Ratio (1.60-3.17); Alkaline Phosphatase 97 U/L (41-126); BUN/Creat Ratio 23.07 Ratio (12.00-20.00); Blood Urea Nitrogen 66.9 mg/dL (9.0-27.0); Calcium 9.1 mg/dL (8.7-10.3); Carbon Dioxide 24.8 mmol/L (21.6-31.8); Chloride 107 mmol/L (96-109); Globulin 2.4 g/dL (1.6-3.3); Glucose 146 mg/dL (70-110); Lipase 23 U/L (14-60); Magnesium 2.5 mg/dL (1.5-2.4); Phosphorus 5.5 mg/dL (2.4-5.1); Potassium 4.8 mmol/L (3.5-5.5); Sodium 144 mmol/L (135-145); Total Bilirubin <0.2 mg/dL (0.3-1.2); Total Protein 6.2 g/dL (6.2-8.2)
[2023-12-07] MEDS: acetaZOLAMIDE 250 MG TAB PO SCH (10:07)
[2023-12-07] MEDS: ISOSORBIDE MONONITRATE ER 15 MG TAB PO SCH (10:25)
[2023-12-07] MEDS: RIVAROXABAN 15 MG TAB PO SCH (10:26)
[2023-12-07] MEDS: SERTRALINE 100 MG TAB PO SCH (10:27)
--- NOTE | 2023-12-07 10:44 | P.NPCON ---
History of Present Illness - Reason for Consult acute renal failure, chronic renal failure - History of Present Illness Reason for consultation: Acute kidney injury on chronic kidney disease History of present illness: Patient is a 73-year-old male seen in renal consultation for acute kidney injury on chronic kidney disease. Patient has chronic kidney disease stage IIIb with baseline creatinine near 2. Creatinine was 3.07 on admission and is 2.9 today. Patient came to the hospital due to altered mental status. He is currently on a BiPAP. Patient is a poor historian. He denies history of diabetes. Denies use of nonsteroidals. He denies history of coronary artery disease. Patient was recently admitted here for CHF exacerbation. Echocardiogram showed diastolic CHF and moderate to severe tricuspid regurgitation. He currently has a Fraga catheter. Recent ultrasound showed no hydronephrosis. Chest x-ray shows no evidence of acute pulmonary disease this admission. Hemodynamically stable. Nonoliguric. Received IV fluid bolus in the ER and maintenance fluid for a few hours. Currently off IV fluids. Vital signs are stable. General: No acute distress. HEENT: Head exam is unremarkable. On BiPAP. LUNGS: Scattered rhonchi. HEART: Rate and Rhythm are regular. ABDOMEN: Nontender. EXTREMITITES: No edema. Past Medical History Past Medical History: Atrial Fibrillation, Chest Pain / Angina, COPD, Eye Disorder, Hypertension, Myocardial Infarction ([place]), Respiratory Disorder, Thyroid Disorder Last Myocardial Infarction Date:: 2004 History of Any Multi-Drug Resistant Organisms: None Reported Past Surgical History: Back Surgery, Heart Catheterization With Stent Additional Past Surgical History / Comment(s): eye resection Past Anesthesia/Blood Transfusion Reactions: No Reported Reaction Date of Last Stent Placement:: unknown Type of Cardiac Device: Permanent Pacemaker Device Placement Date:: 2012 Past Psychological History: Anxiety, Depression, PTSD Smoking Status: Former smoker Past Alcohol Use History: None Reported Past Drug Use History: None Reported - Past Family History Mother History Unknown: Yes Father History Unknown: Yes Medications and Allergies Home Medications Medication Instructions Recorded Confirmed Type ALPRAZolam [Xanax] 1 mg PO TID PRN 01/18/21 12/06/23 History Albuterol Inhaler [Ventolin Hfa 1 puff INHALATION RT-Q4H PRN 09/27/23 12/06/23 History Inhaler] Fluticasone/Umeclidin/Vilanter 1 puff INHALATION RT-DAILY 09/27/23 12/06/23 History [Jim Ellipta 100-62.5-25] Isosorbide Mononitrate ER [Imdur] 15 mg PO DAILY 09/27/23 12/06/23 History Levothyroxine Sodium [Synthroid] 137 mcg PO DAILY 09/27/23 12/06/23 History Metoprolol Tartrate [Lopressor] 75 mg PO BID 09/27/23 12/06/23 History Rivaroxaban [Xarelto] 15 mg PO DAILY 09/27/23 12/06/23 History Rosuvastatin Calcium [Crestor] 20 mg PO HS 09/27/23 12/06/23 History Sertraline [Zoloft] 200 mg PO DAILY 09/27/23 12/06/23 History ALPRAZolam [Xanax] 2 mg PO HS PRN 11/07/23 12/06/23 History Dapagliflozin Propanediol [Farxiga] 5 mg PO DAILY 30 Days #30 tab 11/26/23 12/06/23 Rx Ipratropium-Albuterol Nebulize 3 ml INHALATION RT-QID 30 Days 11/26/23 12/06/23 Rx [Duoneb 0.5 mg-3 mg/3 ml Soln] #100 each acetaZOLAMIDE [Diamox] 250 mg PO BID 30 Days #60 tab 11/26/23 12/06/23 Rx Allergies Allergy/AdvReac Type Severity Reaction Status Date / Time iodine AdvReac Hypotension, Verified 12/06/23 12:25 itching, watering eyes lisinopril AdvReac hyperkalemi Verified 12/06/23 12:25 a morphine AdvReac hallucinations, Verified 12/06/23 12:25 behavior change temazepam AdvReac headache Verified 12/06/23 12:25 Physical Exam Vitals: Vital Signs Temp Pulse Resp BP Pulse Ox FiO2 12/07/23 10:17 98.0 F 75 22 114/78 95 12/07/23 08:34 73 12/07/23 08:24 94 L 35 12/07/23 08:21 80 12/07/23 08:16 35 12/07/23 07:17 70 16 111/72 92 L 12/07/23 03:55 71 18 106/84 94 L 12/07/23 03:21 35 12/07/23 01:58 72 18 127/63 98 12/06/23 23:43 35 12/06/23 23:40 86 16 119/43 94 L 12/06/23 22:40 83 14 118/70 93 L 12/06/23 20:52 87 12/06/23 20:40 81 12/06/23 19:02 85 18 116/73 98 12/06/23 17:29 81 18 96 12/06/23 16:23 89 18 128/89 96 12/06/23 16:15 92 12/06/23 15:58 96 12/06/23 15:17 74 18 110/67 96 12/06/23 14:21 80 18 109/80 98 12/06/23 13:50 80 18 117/69 97 12/06/23 12:33 76 18 120/78 96 12/06/23 11:51 77 12/06/23 11:36 76 12/06/23 11:26 73 18 108/77 93 L Intake and Output 12/06/23 12/07/23 12/07/23 22:59 06:59 14:59 Output Total 300 600 Balance -300 -600 Output: Urine 300 600 Uretheral (Fraga) 300 600 Results - Lab Results Most recent lab results ABG pH 7.11 (7.35-7.45) L* 12/06/23 23:05 ABG pCO2 77 mmHg (35-45) H* 12/06/23 23:05 ABG pO2 93 mmHg (83-108) 12/06/23 23:05 ABG HCO3 25 mmol/L (21-25) 12/06/23 23:05 ABG O2 Saturation 97.1 % (94-97) H 12/06/23 23:05 Calcium 9.1 mg/dL (8.7-10.3) 12/07/23 06:46 Phosphorus 5.5 mg/dL (2.4-5.1) H 12/07/23 06:46 Magnesium 2.5 mg/dL (1.5-2.4) H 12/07/23 06:46 12/07/23 06:46 12/07/23 06:46 Assessment and Plan Plan: Assessment: 1. Acute kidney injury secondary to ATN secondary to hypovolemia. Creatinine 3.07 on admission and is 2.9 today. Recent ultrasound showed no evidence of hydronephrosis and atrophic right kidney. UA from earlier this month also fairly benign. 2. Chronic kidney disease stage IIIb with baseline creatinine near 2 secondary to nephrosclerosis. 3. Acute on chronic hypercapnic respiratory failure with underlying metabolic acidosis from diamox. 4. History of COPD. 5. Anemia of chronic kidney disease. Rule out iron deficiency. Plan: Stop Diamox. Start normal saline at 75 cc an hour. Avoid nephrotoxins. Continue to monitor renal function and urine output. Check iron studies. Hospice is consulted per family's request. Thank you for the consultation. I will continue to follow the patient with you during his hospital stay.
[2023-12-07] MEDS: SODIUM CHLORIDE 0.9% 1,000 ML IV SCH (11:23)
--- NOTE | 2023-12-07 12:05 | P.PN ---
Subjective Progress Note Date: 12/07/23 73 year old M with PMH of CAD with stenting, HTN, HLD, Diastolic CHF, AFib, COPD on 5L home O2, CKD IIIb, anxiety and depression, PTSD presented to the ED after being found down with feces around him. In the ED he underwent extensive evaluation.BP 119/66, HR 84, T 97.8F, RR 20, 96% on 4L. CBC, Coag panel, CMP significant for WBC 11.1, RBC 3.73, Hg 10.4, Hct 36.6, Cl 110, BUN 55, Cr 3.07, glu 183. Mag 2.5. Lactic acid 1.4. Ammonia 50. Troponin 0.016. BNP 4670. UDS + benzo and MJ. EtOH negative. ABG pH 7.11, pCO2 77, pO2 [address] FiO2 36%. CT head and C-spine negative for acute process. EKG A-Fib with RBBB. Pelvic XR right femoral neck shortening may be related to patient rotation. CXR chronic findings . Patient was admitted for further workup and management. 12/06 Patient was seen and examined. Mentation much better. Daughter is at bedside. History is obtained from her. Apparently patient was found on the floor beside the bed with his BiPAP and O2 off. He had soiled himself. Maybe down for 1 hour. Has a tendency to roll off the bed. Step mother unable to take care of the patient as she works 3 12H shifts weekly. Open to hospice and palliative care. CBC, CMP significant for RBC 3.52, Hg 9.9, Hct 35.2, MCV 100, AG 12.2, BUN 66.9, Cr 2.9, glu 146, T. Bili < 0.2. Phos 5.5. Mag 2.5. Lipase 23. Ammonia < 9. Nephrology recommends stopping Diamox and start NS at 75 cc/hr, iron studies. General: non toxic, no distress, appears at stated age, on BiPAP Derm: warm, dry Head: atraumatic, normocephalic, symmetric Eyes: EOMI, no lid lag, anicteric sclera Mouth: no lip lesion, mucus membranes moist Cardiovascular: S1S2 reg, no murmur Lungs: Coarse BS bilateral, no rhonchi, no rales , no accessory muscle use Ext: no gross muscle atrophy, no edema, no contractures Neuro: no focal neuro deficits Psych: Alert, oriented, appropriate affect Based on my assessment of this patient, this patient meets a high complexity level of care. Acute on chronic respiratory failure with hypoxia and hypercarbia: Baseline 5L NC. Continue BiPAP. Hospice consulted. Toxic metabolic encephalopathy likely due to hypercarbia and benzodiazepine/THC: Patient has been taking Xanax for over 20 years, will restart 1 mg PO TID PRN. COPD with exacerbation: Albuterol neb QID PRN. DuoNeb QID schduled. Symbicort 2 INH BID. SoluMedrol 60 mg IV Q6H. MIRTHA on CKD: Avoid nephrotoxins. Started on NS at 75 cc/hr. Nephrology consulted. Normocytic anemia likely AOCD from CKD IIIb Leukocytosis: Mildly elevated. Does not meet sepsis criteria. Monitor fever profile. Chronic persistent atrial fibrillation: Metoprolol as below. Xarelto 15 mg PO QD. History of CAD status post stenting: Metoprolol and Lipitor as below. Patient would benefit from ASA. Diastolic CHF exacerbation Hypertension: Imdur 15 mg PO QD. Metoprolol 75 mg PO BID. Hyperlipidemia: Lipitor 40 mg PO QHS. Hypothyroidism: Synthroid 137 mcg PO QD. Anxiety and Depression: Zoloft 200 mg PO QD. PTSD Resolved: Hyperammonemia CODE STATUS: FULL CODE. DVT Prophylaxis: Xarelto. GI Prophylaxis: Designated medical POA if patient is not able to make medical decisions for themselves: I have reviewed the following medical cost consultant notes: Nephrology. I have reviewed the results of the following tests: BMP, Mag, Phos I have ordered the following tests: I have discussed the care of this patient with the following independent historian: DaughterHarriett from hospice I have independently interpreted the following test below: I have discussed the management of this patient with the following physician: Objective - Vital Signs Vital signs: Vital Signs Temp 97.8 F 12/06/23 09:27 Pulse 73 12/07/23 08:34 Resp 16 12/07/23 07:17 BP 111/72 12/07/23 07:17 Pulse Ox 94 L 12/07/23 08:24 FiO2 35 12/07/23 08:24 Intake & Output 12/06/23 12/07/23 12/07/23 18:59 06:59 18:59 Output Total 300 Balance -300 Weight 99.79 kg Output: Urine 300 Uretheral (Fraga) 300 - Labs CBC & Chem 7: 12/07/23 06:46 12/07/23 06:46 Labs: Abnormal Lab Results - Last 24 Hours (Table) 12/06/23 12/06/23 12/06/23 Range/Units 09:39 09:39 09:39 WBC 11.1 H (3.8-10.6) k/uL RBC 3.73 L (4.30-5.90) m/uL Hgb 10.4 L (13.0-17.5) gm/dL Hct 36.6 L (39.0-53.0) % MCV (80.0-97.0) FL MCHC 28.5 L (31.0-37.0) g/dL RDW (11.5-14.5) % Immature Gran # (0.00-0.04) X 10*3/uL Neutrophils # 9.9 H (1.3-7.7) k/uL Lymphocytes # 0.5 L (1.0-4.8) k/uL Eosinophils # (0.04-0.35) X 10*3/uL ABG pH (7.35-7.45) ABG pCO2 (35-45) mmHg ABG Total CO2 (19-24) mmol/L ABG O2 Saturation (94-97) % Hemoglobin (13.0-17.5) gm/dL Chloride 110 H (98-107) mmol/L BUN 55 H (9-20) mg/dL Creatinine 3.07 H (0.66-1.25) mg/dL Glucose 183 H (74-99) mg/dL Magnesium 2.5 H (1.6-2.3) mg/dL Ammonia 50 H (<30) umol/L Creatine Kinase 36 L (55-170) U/L U Benzodiazepines Scrn (NotDetected) U Marijuana (THC) Screen (NotDetected) 12/06/23 12/06/23 12/06/23 Range/Units 15:10 19:31 23:05 WBC (3.8-10.6) k/uL RBC (4.30-5.90) m/uL Hgb (13.0-17.5) gm/dL Hct (39.0-53.0) % MCV (80.0-97.0) FL MCHC (31.0-37.0) g/dL RDW (11.5-14.5) % Immature Gran # (0.00-0.04) X 10*3/uL Neutrophils # (1.3-7.7) k/uL Lymphocytes # (1.0-4.8) k/uL Eosinophils # (0.04-0.35) X 10*3/uL ABG pH 7.11 L* (7.35-7.45) ABG pCO2 77 H* (35-45) mmHg ABG Total CO2 27 H (19-24) mmol/L ABG O2 Saturation 97.1 H (94-97) % Hemoglobin 9.8 L (13.0-17.5) gm/dL Chloride (98-107) mmol/L BUN (9-20) mg/dL Creatinine (0.66-1.25) mg/dL Glucose (74-99) mg/dL Magnesium (1.6-2.3) mg/dL Ammonia (<30) umol/L Creatine Kinase 40 L (55-170) U/L U Benzodiazepines Scrn Detected H (NotDetected) U Marijuana (THC) Screen Detected H (NotDetected) 12/07/23 Range/Units 06:46 WBC (3.8-10.6) k/uL RBC 3.52 L (4.30-5.90) m/uL Hgb 9.9 L (13.0-17.5) gm/dL Hct 35.2 L (39.0-53.0) % MCV 100.0 H (80.0-97.0) FL MCHC 28.1 L (31.0-37.0) g/dL RDW 15.7 H (11.5-14.5) % Immature Gran # 0.06 H (0.00-0.04) X 10*3/uL Neutrophils # (1.3-7.7) k/uL Lymphocytes # 0.55 L (1.0-4.8) k/uL Eosinophils # 0 L (0.04-0.35) X 10*3/uL ABG pH (7.35-7.45) ABG pCO2 (35-45) mmHg ABG Total CO2 (19-24) mmol/L ABG O2 Saturation (94-97) % Hemoglobin (13.0-17.5) gm/dL Chloride (98-107) mmol/L BUN (9-20) mg/dL Creatinine (0.66-1.25) mg/dL Glucose (74-99) mg/dL Magnesium (1.6-2.3) mg/dL Ammonia (<30) umol/L Creatine Kinase (55-170) U/L U Benzodiazepines Scrn (NotDetected) U Marijuana (THC) Screen (NotDetected)
[2023-12-07] MEDS: ALPRAZolam 1 MG TAB PO PRN (14:00)
[2023-12-07 20:44] LABS: % Iron Saturation 6.27 (15.00-50.00)
[2023-12-08 06:01] LABS: Glucose,Whole Blood 156 mg/dL (70-110)
[2023-12-08 07:53] LABS: African American GFR (CKD) 26 (>60 ml/min/1.73 sqM); Anion Gap 9 mmol/L; Blood Urea Nitrogen 74 mg/dL (9-20); Calcium 9.3 mg/dL (8.4-10.2); Carbon Dioxide 23 mmol/L (22-30); Chloride 108 mmol/L (98-107); Glucose 142 mg/dL (74-99); Magnesium 2.5 mg/dL (1.6-2.3); Non-African American GFR(CKD) 23 (>60 ml/min/1.73 sqM); Potassium 4.8 mmol/L (3.5-5.1); Sodium 140 mmol/L (137-145)
[2023-12-08] MEDS: DAPAGLIFLOZIN PROPANEDIOL 5 MG TABLET PO SCH (08:38)
[2023-12-08 11:21] LABS: Glucose,Whole Blood 141 mg/dL (70-110)
--- NOTE | 2023-12-08 11:35 | P.PN ---
Subjective Patient is seen in follow-up for acute kidney injury on chronic kidney disease. Renal function slightly better. Receiving IV fluids. On BiPAP. Somewhat confused. present at bedside. Vital signs are stable. General: No acute distress. HEENT: Head exam is unremarkable. On BiPAP. LUNGS: No audible rhonchi or wheezes. HEART: Rate and Rhythm are regular. ABDOMEN: Nontender. EXTREMITITES: No edema. Objective - Vital Signs Vital signs: Vital Signs Temp 97.6 F 12/08/23 08:00 Pulse 76 12/08/23 08:26 Resp 24 12/08/23 08:00 BP 121/65 12/08/23 08:00 Pulse Ox 94 L 12/08/23 08:00 FiO2 35 12/08/23 08:12 Intake & Output 12/07/23 12/08/23 12/08/23 18:59 06:59 18:59 Intake Total 0 Output Total 600 400 Balance -600 -400 0 Weight 99.79 kg Intake: Oral 0 Output: Urine 600 400 Uretheral (Fraga) 600 Other: Voiding Method Indwelling Catheter Indwelling Catheter - Labs CBC & Chem 7: 12/07/23 06:46 12/08/23 06:46 Labs: Abnormal Lab Results - Last 24 Hours (Table) 12/07/23 12/08/23 12/08/23 Range/Units 06:46 06:00 06:46 Chloride 108 H (98-107) mmol/L BUN 74 H (9-20) mg/dL Creatinine 2.72 H (0.66-1.25) mg/dL Glucose 142 H (74-99) mg/dL POC Glucose (mg/dL) 156 H (70-110) mg/dL Magnesium 2.5 H (1.6-2.3) mg/dL Iron 23 L (65-175) UG/DL % Saturation 6.27 L (15.00-50.00) 12/08/23 Range/Units 11:20 Chloride (98-107) mmol/L BUN (9-20) mg/dL Creatinine (0.66-1.25) mg/dL Glucose (74-99) mg/dL POC Glucose (mg/dL) 141 H (70-110) mg/dL Magnesium (1.6-2.3) mg/dL Iron (65-175) UG/DL % Saturation (15.00-50.00) Assessment and Plan Plan: Assessment: 1. Acute kidney injury secondary to ATN secondary to hypovolemia. Creatinine 3.07 on admission and is 2.72 today. Recent ultrasound showed no evidence of hydronephrosis and atrophic right kidney. UA from earlier this month also fairly benign. 2. Chronic kidney disease stage IIIb with baseline creatinine near 2 secondary to nephrosclerosis. 3. Acute on chronic hypercapnic respiratory failure with underlying metabolic acidosis from diamox. 4. History of COPD. 5. Anemia of chronic kidney disease. Iron deficiency noted. Plan: Maintain IV fluids. Add IV iron. Avoid nephrotoxins. Continue to monitor renal function and urine output. Add sodium bicarb.
--- NOTE | 2023-12-08 11:59 | XR ---
EXAMINATION TYPE: XR Hip RT and AP Pelvis DATE OF EXAM: 12/08/2023 11:38 AM INDICATION: Patient age:Male; 73 years old; Reason for study: abnormal pelvic xr; PHH. COMPARISON: Pelvic radiograph 12/06/2023 TECHNIQUE: The right hip was examined in the frontal and lateral projections and a AP pelvis. FINDINGS: Limited examination due to underpenetration from patient's body habitus. Postsurgical marie es from total left hip arthroplasty. Additional postsurgical changes of the lumbar spine from fusion with bilateral pedicular screws and rods and disc spacers. Hardware appears intact. Medial joint spa ce with marginal osteophytosis of the right hip. No gross evidence of any acute osseous pathology, danii int dislocation, or soft tissue swelling. Pelvic phleboliths. IMPRESSION: 1. No acute osseous pathology within limitations. If there is continued clinical concern, consider f urther evaluation with CT. 2. Postsurgical changes. 3. Mild osteoarthritic changes of the right hip. [facility], , 12/08/2023 11:56 AM
[2023-12-08] MEDS: SODIUM BICARBONATE TAB 650 MG TAB PO SCH (13:13)
[2023-12-08] MEDS: SODIUM FERRIC GLUCONAT-SUCROSE 125 MG in SODIUM CHLORIDE 0.9% 100 ML IVPB SCH (13:38)
--- NOTE | 2023-12-08 14:38 | P.PN ---
Subjective Progress Note Date: 12/08/23 73 year old M with PMH of CAD with stenting, HTN, HLD, Diastolic CHF, AFib, COPD on 5L home O2, CKD IIIb, anxiety and depression, PTSD presented to the ED after being found down with feces around him. In the ED he underwent extensive evaluation.BP 119/66, HR 84, T 97.8F, RR 20, 96% on 4L. CBC, Coag panel, CMP significant for WBC 11.1, RBC 3.73, Hg 10.4, Hct 36.6, Cl 110, BUN 55, Cr 3.07, glu 183. Mag 2.5. Lactic acid 1.4. Ammonia 50. Troponin 0.016. BNP 4670. UDS + benzo and MJ. EtOH negative. ABG pH 7.11, pCO2 77, pO2 93 on FiO2 36%. CT head and C-spine negative for acute process. EKG A-Fib with RBBB. Pelvic XR right femoral neck shortening may be related to patient rotation. CXR chronic findings . Patient was admitted for further workup and management. 12/06 Patient was seen and examined. Mentation much better. Daughter is at bedside. History is obtained from her. Apparently patient was found on the floor beside the bed with his BiPAP and O2 off. He had soiled himself. Maybe down for 1 hour. Has a tendency to roll off the bed. Step mother unable to take care of the patient as she works 3 12H shifts weekly. Open to hospice and palliative care. CBC, CMP significant for RBC 3.52, Hg 9.9, Hct 35.2, MCV 100, AG 12.2, BUN 66.9, Cr 2.9, glu 146, T. Bili < 0.2. Phos 5.5. Mag 2.5. Lipase 23. Ammonia < 9. Nephrology recommends stopping Diamox and start NS at 75 cc/hr, iron studies. 12/07 Patient was seen and examined. Maintained on BiPAP. Discussed with at bedside. Last seen normal was 10PM and was found altered around 8AM. Patient is clearly unsafe to go home as he required 24H supervision. also reports he is somewhat confused today but overall much better than on admission. BMP shows Cl 108, BUN 74, Cr 2.72, glu 142. Mag 2.5. Hospice and case management to discuss options with family today. Nephrology recommends continuing IV hydration and adding IV iron. General: non toxic, no distress, appears at stated age, on BiPAP Derm: warm, dry Head: atraumatic, normocephalic, symmetric Eyes: EOMI, no lid lag, anicteric sclera Mouth: no lip lesion, mucus membranes moist Cardiovascular: S1S2 reg, no murmur Lungs: Coarse BS bilateral, no rhonchi, no rales , no accessory muscle use Ext: no gross muscle atrophy, no edema, no contractures Neuro: no focal neuro deficits Psych: Alert, oriented x 2 Based on my assessment of this patient, this patient meets a high complexity level of care. Acute on chronic respiratory failure with hypoxia and hypercarbia: Baseline 5L NC. Continue BiPAP. Hospice consulted. Pulmonary consulted. Repeat ABG ordered to evaluate hypercarbia. Toxic metabolic encephalopathy likely due to hypercarbia and benzodiazepine/THC and hypoxic encephalopathy: Patient has been taking Xanax for over 20 years, will restart 1 mg PO TID PRN. COPD with exacerbation: Albuterol neb QID PRN. DuoNeb QID schduled. Symbicort 2 INH BID. SoluMedrol 60 mg IV Q6H. MIRTHA on CKD: Avoid nephrotoxins. NS at 75 cc/hr. Nephrology consulted. Normocytic anemia likely AOCD from CKD IIIb: Fe 23. Started on Ferric gluconate 125 mg IV QD by Nephrology. Chronic persistent atrial fibrillation: Metoprolol as below. Xarelto 15 mg PO QD. History of CAD status post stenting: Metoprolol and Lipitor as below. Patient would benefit from ASA. Diastolic CHF not in acute exacerbation Hypertension: Imdur 15 mg PO QD. Metoprolol 75 mg PO BID. Hyperlipidemia: Lipitor 40 mg PO QHS. Hypothyroidism: Synthroid 137 mcg PO QD. Anxiety and Depression: Zoloft 200 mg PO QD. PTSD Resolved: Hyperammonemia, Leukocytosis CODE STATUS: FULL CODE. DVT Prophylaxis: Xarelto. GI Prophylaxis: Designated medical POA if patient is not able to make medical decisions for themselves: I have reviewed the following surgical consultant notes: Nephrology. I have reviewed the results of the following tests: BMP, Mag I have ordered the following tests: Pelvic XR R, ABG I have discussed the care of this patient with the following independent historian: , Hospice, Case management I have independently interpreted the following test below: I have discussed the management of this patient with the following physician: Objective - Vital Signs Vital signs: Vital Signs Temp 97.5 F L 12/08/23 12:00 Pulse 72 12/08/23 12:12 Resp 24 12/08/23 12:00 BP 123/81 12/08/23 12:00 Pulse Ox 98 12/08/23 12:00 FiO2 35 12/08/23 12:00 Intake & Output 12/07/23 12/08/23 12/08/23 18:59 06:59 18:59 Intake Total 0 Output Total 600 400 Balance -600 -400 0 Weight 99.79 kg Intake: Oral 0 Output: Urine 600 400 Uretheral (Fraga) 600 Other: Voiding Method Indwelling Catheter Indwelling Catheter - Labs CBC & Chem 7: 12/07/23 06:46 12/08/23 06:46 Labs: Abnormal Lab Results - Last 24 Hours (Table) 12/07/23 12/08/23 12/08/23 Range/Units 06:46 06:00 06:46 Chloride 108 H (98-107) mmol/L BUN 74 H (9-20) mg/dL Creatinine 2.72 H (0.66-1.25) mg/dL Glucose 142 H (74-99) mg/dL POC Glucose (mg/dL) 156 H (70-110) mg/dL Magnesium 2.5 H (1.6-2.3) mg/dL Iron 23 L (65-175) UG/DL % Saturation 6.27 L (15.00-50.00) 12/08/23 Range/Units 11:20 Chloride (98-107) mmol/L BUN (9-20) mg/dL Creatinine (0.66-1.25) mg/dL Glucose (74-99) mg/dL POC Glucose (mg/dL) 141 H (70-110) mg/dL Magnesium (1.6-2.3) mg/dL Iron (65-175) UG/DL % Saturation (15.00-50.00)
[2023-12-08 15:26] LABS: ABG Base Excess -4.1 mmol/L; ABG HCO3 24 mmol/L (21-25); ABG Oxygen Saturation 95.4 % (94-97); ABG PCO2 55 mmHg (35-45); ABG PH 7.24 (7.35-7.45); ABG PO2 79 mmHg (83-108); ABG TCO2 25 mmol/L (19-24); Allen Test Performed? Yes
[2023-12-08 16:55] LABS: Glucose,Whole Blood 161 mg/dL (70-110)
[2023-12-08 20:32] LABS: Glucose,Whole Blood 180 mg/dL (70-110)
[2023-12-09 05:45] LABS: Glucose,Whole Blood 142 mg/dL (70-110)
--- NOTE | 2023-12-09 10:32 | P.PN ---
Subjective Patient is seen in follow-up for acute kidney injury on chronic kidney disease. Morning labs pending. Receiving IV fluids. On BiPAP. Nonoliguric. Has Fraga catheter. Vital signs are stable. General: No acute distress. HEENT: Head exam is unremarkable. On BiPAP. LUNGS: No audible rhonchi or wheezes. HEART: Rate and Rhythm are regular. ABDOMEN: Nontender. EXTREMITITES: No edema. Objective - Vital Signs Vital signs: Vital Signs Temp 98.2 F 12/09/23 03:42 Pulse 78 12/09/23 09:24 Resp 20 12/09/23 03:42 BP 127/88 12/09/23 03:42 Pulse Ox 95 12/09/23 03:42 FiO2 35 12/09/23 09:11 Intake & Output 12/08/23 12/09/23 12/09/23 18:59 06:59 18:59 Intake Total 540 Output Total 1200 800 Balance -660 -800 Weight 133 kg Intake: Oral 540 Output: Urine 1200 800 Uretheral (Fraga) 600 Other: Voiding Method Indwelling Catheter Indwelling Catheter - Labs CBC & Chem 7: 12/07/23 06:46 12/08/23 06:46 Labs: Abnormal Lab Results - Last 24 Hours (Table) 12/08/23 12/08/23 12/08/23 Range/Units 11:20 15:23 16:49 ABG pH 7.24 L (7.35-7.45) ABG pCO2 55 H (35-45) mmHg ABG pO2 79 L (83-108) mmHg ABG Total CO2 25 H (19-24) mmol/L Hemoglobin 9.5 L (13.0-17.5) gm/dL POC Glucose (mg/dL) 141 H 161 H (70-110) mg/dL 12/08/23 12/09/23 Range/Units 20:31 05:44 ABG pH (7.35-7.45) ABG pCO2 (35-45) mmHg ABG pO2 (83-108) mmHg ABG Total CO2 (19-24) mmol/L Hemoglobin (13.0-17.5) gm/dL POC Glucose (mg/dL) 180 H 142 H (70-110) mg/dL Assessment and Plan Plan: Assessment: 1. Acute kidney injury secondary to ATN secondary to hypovolemia. Creatinine 3.07 on admission - 2.72 yesterday. Recent ultrasound showed no evidence of hydronephrosis and atrophic right kidney. UA from earlier this month also fairly benign. 2. Chronic kidney disease stage IIIb with baseline creatinine near 2 secondary to nephrosclerosis. 3. Acute on chronic hypercapnic respiratory failure with underlying metabolic acidosis from diamox. On oral bicarb. 4. History of COPD. 5. Anemia of chronic kidney disease. Iron deficiency noted. Plan: Maintain IV fluids. Maintain IV iron. Avoid nephrotoxins. Continue to monitor renal function and urine output.
[2023-12-09 11:55] LABS: Glucose,Whole Blood 169 mg/dL (70-110)
--- NOTE | 2023-12-09 12:40 | P.PN ---
Subjective Progress Note Date: 12/09/23 73 year old M with PMH of CAD with stenting, HTN, HLD, Diastolic CHF, AFib, COPD on 5L home O2, CKD IIIb, anxiety and depression, PTSD presented to the ED after being found down with feces around him. In the ED he underwent extensive evaluation.BP 119/66, HR 84, T 97.8F, RR 20, 96% on 4L. CBC, Coag panel, CMP significant for WBC 11.1, RBC 3.73, Hg 10.4, Hct 36.6, Cl 110, BUN 55, Cr 3.07, glu 183. Mag 2.5. Lactic acid 1.4. Ammonia 50. Troponin 0.016. BNP 4670. UDS + benzo and MJ. EtOH negative. ABG pH 7.11, pCO2 77, pO2 93 on FiO2 36%. CT head and C-spine negative for acute process. EKG A-Fib with RBBB. Pelvic XR right femoral neck shortening may be related to patient rotation. CXR chronic findings . Patient was admitted for further workup and management. 12/06 Patient was seen and examined. Mentation much better. Daughter is at bedside. History is obtained from her. Apparently patient was found on the floor beside the bed with his BiPAP and O2 off. He had soiled himself. Maybe down for 1 hour. Has a tendency to roll off the bed. Step mother unable to take care of the patient as she works 3 12H shifts weekly. Open to hospice and palliative care. CBC, CMP significant for RBC 3.52, Hg 9.9, Hct 35.2, MCV 100, AG 12.2, BUN 66.9, Cr 2.9, glu 146, T. Bili < 0.2. Phos 5.5. Mag 2.5. Lipase 23. Ammonia < 9. Nephrology recommends stopping Diamox and start NS at 75 cc/hr, iron studies. 12/07 Patient was seen and examined. Maintained on BiPAP. Discussed with at bedside. Last seen normal was 10PM and was found altered around 8AM. Patient is clearly unsafe to go home as he required 24H supervision. also reports he is somewhat confused today but overall much better than on admission. BMP shows Cl 108, BUN 74, Cr 2.72, glu 142. Mag 2.5. Hospice and case management to discuss options with family today. Nephrology recommends continuing IV hydration and adding IV iron. 12/08 Patient was seen and examined. Maintained on BiPAP. Patient gets very anxious when BiPAP is removed. ABG done yesterday pH 7.24, pCO2 55, pO2 79 FiO2 35. Pelvic XR shows no obvious fracture. CXR and BMP ordered this morning and pending. Family still undecided about hospice and [facility]. Clearly he is unsafe to be by himself at home. Nephrology recommends continuing IV hydration, IV iron and added sodium bicarb. General: non toxic, no distress, appears at stated age, on BiPAP Derm: warm, dry Head: atraumatic, normocephalic, symmetric Eyes: EOMI, no lid lag, anicteric sclera Mouth: no lip lesion, mucus membranes moist Cardiovascular: S1S2 reg, no murmur Lungs: Coarse BS bilateral, no rhonchi, no rales , no accessory muscle use Ext: no gross muscle atrophy, no edema, no contractures Neuro: no focal neuro deficits Psych: Alert, oriented x 2 Based on my assessment of this patient, this patient meets a high complexity level of care. Acute on chronic respiratory failure with hypoxia and hypercarbia: Baseline 5L NC. Continue BiPAP. Hospice consulted. Pulmonary consulted. Repeat ABG improved. Toxic metabolic encephalopathy likely due to hypercarbia and benzodiazepine/THC and hypoxic encephalopathy: Patient has been taking Xanax for over 20 years, continue 1 mg PO TID PRN. COPD with exacerbation: Albuterol neb QID PRN. DuoNeb QID schduled. Symbicort 2 INH BID. SoluMedrol 60 mg IV Q6H. MIRTHA on CKD: Avoid nephrotoxins. NS at 75 cc/hr. Nephrology consulted. Normocytic anemia likely AOCD from CKD IIIb: Fe 23. Ferric gluconate 125 mg IV QD by Nephrology. Chronic persistent atrial fibrillation: Metoprolol as below. Xarelto 15 mg PO QD. History of CAD status post stenting: Metoprolol and Lipitor as below. Patient would benefit from ASA. Diastolic CHF not in acute exacerbation Hypertension: Imdur 15 mg PO QD. Metoprolol 75 mg PO BID. Hyperlipidemia: Lipitor 40 mg PO QHS. Hypothyroidism: Synthroid 137 mcg PO QD. Anxiety and Depression: Zoloft 200 mg PO QD. Xanax 1 mg PO TID PRN. PTSD Resolved: Hyperammonemia, Leukocytosis CODE STATUS: FULL CODE. DVT Prophylaxis: Xarelto. GI Prophylaxis: Designated medical POA if patient is not able to make medical decisions for themselves: I have reviewed the following school plant consultant notes: Nephrology. I have reviewed the results of the following tests: ABG. Pelvic XR. I have ordered the following tests: CXR, BMP pending. I have discussed the care of this patient with the following independent historian: RN. Case management. I have independently interpreted the following test below: I have discussed the management of this patient with the following physician: Objective - Vital Signs Vital signs: Vital Signs Temp 98.2 F 12/09/23 03:42 Pulse 88 12/09/23 03:42 Resp 20 12/09/23 03:42 BP 127/88 12/09/23 03:42 Pulse Ox 95 12/09/23 03:42 FiO2 35 12/09/23 03:42 Intake & Output 12/08/23 12/09/23 12/09/23 18:59 06:59 18:59 Intake Total 540 Output Total 1200 800 Balance -660 -800 Weight 133 kg Intake: Oral 540 Output: Urine 1200 800 Uretheral (Fraga) 600 Other: Voiding Method Indwelling Catheter Indwelling Catheter - Labs CBC & Chem 7: 12/07/23 06:46 12/08/23 06:46 Labs: Abnormal Lab Results - Last 24 Hours (Table) 12/08/23 12/08/23 12/08/23 Range/Units 11:20 15:23 16:49 ABG pH 7.24 L (7.35-7.45) ABG pCO2 55 H (35-45) mmHg ABG pO2 79 L (83-108) mmHg ABG Total CO2 25 H (19-24) mmol/L Hemoglobin 9.5 L (13.0-17.5) gm/dL POC Glucose (mg/dL) 141 H 161 H (70-110) mg/dL 12/08/23 12/09/23 Range/Units 20:31 05:44 ABG pH (7.35-7.45) ABG pCO2 (35-45) mmHg ABG pO2 (83-108) mmHg ABG Total CO2 (19-24) mmol/L Hemoglobin (13.0-17.5) gm/dL POC Glucose (mg/dL) 180 H 142 H (70-110) mg/dL
[2023-12-09 13:44] LABS: African American GFR (CKD) 29 (>60 ml/min/1.73 sqM); Anion Gap 10 mmol/L; Blood Urea Nitrogen 83 mg/dL (9-20); Calcium 9.4 mg/dL (8.4-10.2); Carbon Dioxide 14 mmol/L (22-30); Chloride 111 mmol/L (98-107); Glucose 158 mg/dL (74-99); Non-African American GFR(CKD) 25 (>60 ml/min/1.73 sqM); Sodium 135 mmol/L (137-145)
[2023-12-09 14:06] LABS: Potassium 4.8 mmol/L (3.5-5.1)
[2023-12-09 16:35] LABS: Glucose,Whole Blood 207 mg/dL (70-110)
--- NOTE | 2023-12-09 16:36 | P.CNPUL ---
History of Present Illness Consult date: 12/08/23 Reason for consult: dyspnea History of present illness: This is a 73-year-old male patient who came into the emergency department on 12/06/2023 with altered mental status, generalized weakness and falls and he was unable to provide much history. The at the time was leaning towards making the patient hospice. She was not absolutely certain. The patient accordingly was admitted to the hospital and I was asked to evaluate this patient because of his ongoing difficulties in breathing. The patient is known to have chronic stage IIIb kidney disease with a baseline creatinine near 2. He is also known to have COPD, chronic hypoxic respiratory failure, hypertension, coronary disease with previous history of coronary stenting, chronic diastolic heart failure, history of chronic A-fib and history of thyroid disease. The patient is O2 dependent and the patient is typically on 4 L of oxygen by nasal cannula. Patient also has a permanent pacemaker in place. The patient was in the hospital of last and earlier this month on 11/23/2023 where he was seen in consultation for an acute on top of chronic hypercapnic and hypoxic respiratory failure and exacerbation of chronic diastolic heart failure. He was supported with BiPAP therapy, treated with diuretics and ultimately he was discharged on 11/26/2023 where he was maintained on Trelegy Ellipta 1 puff a day albuterol nebulized treatments in combination with Atrovent nebulized treatments as needed. He has been also maintained on Xarelto regarding his chronic atrial fibrillation is a long-term anticoagulants. During this current admission, the patient was noted to have a white cell count of 11.1 with a hemoglobin 10.4 and a platelet count of 187. The sodium was at 140, potassium is at 4.1, BUN is 55 with a creatinine of 3.07 and the urine drug screen was positive for benzodiazepines and marijuana. Alcohol level was negative. Troponin level was 0.016 and a proBNP level was 4670. Blood gases done today showed a pH of 7.24 with a pCO2 of 55 and pO2 of 79 and this was done while the patient was on a BiPAP the chest x-ray that was done showed no evidence of any acute focal infiltrate. The patient has chronic changes without any acute cardiopulmonary abnormalities. The patient has a pacemaker over the left anterior chest along with sternotomy wires. No hilar mediastinal abnormalities. The CT scan of the cervical spine with showed no acute abnormalities. EKG showed atrial fibrillation with RBBB pattern. Patient is being hydrated with IV fluids currently normal saline at rate of 75 cc an hour. Review of Systems ROS unobtainable: due to mental status Past Medical History Past Medical History: Atrial Fibrillation, Coronary Artery Disease (CAD), Chest Pain / Angina, COPD, Eye Disorder, Hypertension, Myocardial Infarction ([place]), Renal Disease (Chronic stage III kidney disease), Respiratory Disorder, Thyroid Disorder Last Myocardial Infarction Date:: 2004 History of Any Multi-Drug Resistant Organisms: None Reported Past Surgical History: Back Surgery, Heart Catheterization With Stent Additional Past Surgical History / Comment(s): eye resection Past Anesthesia/Blood Transfusion Reactions: No Reported Reaction Date of Last Stent Placement:: unknown Type of Cardiac Device: Permanent Pacemaker Device Placement Date:: 2012 Past Psychological History: Anxiety, Depression, PTSD Smoking Status: Former smoker Past Alcohol Use History: None Reported Past Drug Use History: None Reported - Past Family History Mother History Unknown: Yes Father History Unknown: Yes Medications and Allergies Home Medications Medication Instructions Recorded Confirmed Type ALPRAZolam [Xanax] 1 mg PO TID PRN 01/18/21 12/06/23 History Albuterol Inhaler [Ventolin Hfa 1 puff INHALATION RT-Q4H PRN 09/27/23 12/06/23 History Inhaler] Fluticasone/Umeclidin/Vilanter 1 puff INHALATION RT-DAILY 09/27/23 12/06/23 History [Jim Ellipta 100-62.5-25] Isosorbide Mononitrate ER [Imdur] 15 mg PO DAILY 09/27/23 12/06/23 History Levothyroxine Sodium [Synthroid] 137 mcg PO DAILY 09/27/23 12/06/23 History Metoprolol Tartrate [Lopressor] 75 mg PO BID 09/27/23 12/06/23 History Rivaroxaban [Xarelto] 15 mg PO DAILY 09/27/23 12/06/23 History Rosuvastatin Calcium [Crestor] 20 mg PO HS 09/27/23 12/06/23 History Sertraline [Zoloft] 200 mg PO DAILY 09/27/23 12/06/23 History ALPRAZolam [Xanax] 2 mg PO HS PRN 11/07/23 12/06/23 History Dapagliflozin Propanediol [Farxiga] 5 mg PO DAILY 30 Days #30 tab 11/26/23 12/06/23 Rx Ipratropium-Albuterol Nebulize 3 ml INHALATION RT-QID 30 Days 11/26/23 12/06/23 Rx [Duoneb 0.5 mg-3 mg/3 ml Soln] #100 each acetaZOLAMIDE [Diamox] 250 mg PO BID 30 Days #60 tab 11/26/23 12/06/23 Rx Allergies Allergy/AdvReac Type Severity Reaction Status Date / Time iodine AdvReac Hypotension, Verified 12/06/23 12:25 itching, watering eyes lisinopril AdvReac hyperkalemi Verified 12/06/23 12:25 a morphine AdvReac hallucinations, Verified 12/06/23 12:25 behavior change temazepam AdvReac headache Verified 12/06/23 12:25 Physical Exam Vitals: Vital Signs Temp Pulse Pulse Resp BP Pulse Ox FiO2 12/08/23 20:06 84 12/08/23 19:53 81 12/08/23 16:28 68 12/08/23 16:15 70 35 12/08/23 16:00 98 F 77 28 H 122/76 94 L 35 12/08/23 12:12 72 12/08/23 12:00 97.5 F L 75 24 123/81 98 35 12/08/23 11:57 74 12/08/23 11:56 35 12/08/23 08:26 76 12/08/23 08:13 78 12/08/23 08:12 35 12/08/23 08:00 97.6 F 76 24 121/65 94 L 35 12/08/23 03:36 35 12/08/23 03:20 97.5 F L 88 23 121/74 95 35 12/08/23 00:20 35 12/07/23 23:45 98.2 F 75 27 H 134/86 97 35 Intake and Output 12/08/23 12/08/23 12/08/23 06:59 14:59 22:59 Intake Total 0 540 Output Total 400 1200 Balance -400 0 -660 Intake: Oral 0 540 Output: Urine 400 1200 Uretheral (Fraga) 600 Other: Voiding Method Indwelling Catheter Indwelling Catheter General: 73-year-old male, on BiPAP, somnolent and sleepy Skin: Skin is warm and dry and no rashes or lesions are noted. Eye: Pupils are equal, round and reactive to light, extra-ocular movements are intact; there is normal conjunctiva bilaterally. Ears, nose, mouth and throat: There are moist mucous membranes and no oral lesions. Neck: The neck is supple, there is no tenderness or JVD. Cardiovascular: There is a irregular rate and rhythm. No murmur, rub or gallop is appreciated. Respiratory: Diminished breath sounds at the bases no crackles rhonchi or wheezes Gastrointestinal: Soft, non-distended, non-tender abdomen without masses or organomegaly noted. Bowel sounds are unremarkable. Back: There is no tenderness to palpation in the midline. There is no obvious deformity. Musculoskeletal: Normal ROM, no tenderness, There is no pedal edema. There is no calf tenderness or swelling. No cords were appreciated. Neurological: CN II-XII intact, Cranial nerves III through XII are intact. There are no obvious motor or sensory deficits. Generalized global weakness, poor coordination, diminished level of consciousness. . Results - Laboratory Findings CBC and BMP: 12/07/23 06:46 12/08/23 06:46 ABG WBC 8.69 X 10*3/uL (4.50-10.00) 12/07/23 06:46 RBC 3.52 X 10*6/uL (4.40-5.60) L 12/07/23 06:46 Hgb 9.9 g/dL (13.0-17.0) L 12/07/23 06:46 Hct 35.2 % (39.6-50.0) L 12/07/23 06:46 MCV 100.0 FL (80.0-97.0) H 12/07/23 06:46 MCH 28.1 pg (27.0-32.0) 12/07/23 06:46 MCHC 28.1 g/dL (32.0-37.0) L 12/07/23 06:46 RDW 15.7 % (11.5-14.5) H 12/07/23 06:46 Plt Count 186 X 10*3/uL (140-440) 12/07/23 06:46 MPV 11.3 FL (9.5-12.2) 12/07/23 06:46 Immature Gran % (Auto) 0.70 % 12/07/23 06:46 Absolute Nucleated RBC 0 % 12/07/23 06:46 Neutrophils % 88.1 % 12/07/23 06:46 Lymphocytes % 6.3 % 12/07/23 06:46 Monocytes % 4.8 % 12/07/23 06:46 Eosinophils % 0 % 12/07/23 06:46 Basophils % 0.1 % 12/07/23 06:46 Immature Gran # 0.06 X 10*3/uL (0.00-0.04) H 12/07/23 06:46 Neutrophils # 7.65 X 10*3/uL (1.80-7.70) 12/07/23 06:46 Lymphocytes # 0.55 X 10*3/uL (0.90-5.00) L 12/07/23 06:46 Monocytes # 0.42 X 10*3/uL (0.20-1.00) 12/07/23 06:46 Eosinophils # 0 X 10*3/uL (0.04-0.35) L 12/07/23 06:46 Basophils # 0.01 X 10*3/uL (0.00-0.10) 12/07/23 06:46 NRBC/100 WBC Diff 0 X 10*3/uL (0.00-0.01) 12/07/23 06:46 Hypochromasia Marked 12/06/23 09:39 PT 12.1 sec (10.0-12.5) 12/06/23 09:39 INR 1.1 (<1.2) 12/06/23 09:39 APTT 24.3 sec (22.0-30.0) 12/06/23 09:39 Sample Site RBRACH 12/08/23 15:23 ABG pH 7.24 (7.35-7.45) L 12/08/23 15:23 ABG pCO2 55 mmHg (35-45) H 12/08/23 15:23 ABG pO2 79 mmHg (83-108) L 12/08/23 15:23 ABG HCO3 24 mmol/L (21-25) 12/08/23 15:23 ABG Total CO2 25 mmol/L (19-24) H 12/08/23 15:23 ABG O2 Saturation 95.4 % (94-97) 12/08/23 15:23 ABG Base Excess -4.1 mmol/L 12/08/23 15:23 Emmanuel Test Yes 12/08/23 15:23 Hemoglobin 9.5 gm/dL (13.0-17.5) L 12/08/23 15:23 FiO2 35 % 12/08/23 15:23 Sodium 140 mmol/L (137-145) 12/08/23 06:46 Potassium 4.8 mmol/L (3.5-5.1) 12/08/23 06:46 Chloride 108 mmol/L (98-107) H 12/08/23 06:46 Carbon Dioxide 23 mmol/L (22-30) 12/08/23 06:46 Anion Gap 9 mmol/L 12/08/23 06:46 BUN 74 mg/dL (9-20) H 12/08/23 06:46 Creatinine 2.72 mg/dL (0.66-1.25) H 12/08/23 06:46 Est GFR (CKD-EPI) 22 (>=60) L 12/07/23 06:46 Est GFR (CKD-EPI)AfAm 26 (>60 ml/min/1.73 sqM) 12/08/23 06:46 Est GFR (CKD-EPI)NonAf 23 (>60 ml/min/1.73 sqM) 12/08/23 06:46 BUN/Creatinine Ratio 23.07 Ratio (12.00-20.00) H 12/07/23 06:46 Glucose 142 mg/dL (74-99) H 12/08/23 06:46 POC Glucose (mg/dL) 180 mg/dL (70-110) H 12/08/23 20:31 POC Glu [employer] Counter Manager ID Katey Glez 12/08/23 20:31 Plasma Lactic Acid Jaydon 1.4 mmol/L (0.7-2.0) 12/06/23 09:39 Calcium 9.3 mg/dL (8.4-10.2) 12/08/23 06:46 Phosphorus 5.5 mg/dL (2.4-5.1) H 12/07/23 06:46 Magnesium 2.5 mg/dL (1.6-2.3) H 12/08/23 06:46 Iron 23 UG/DL (65-175) L 12/07/23 06:46 TIBC 367 UG/DL (228-460) 12/07/23 06:46 % Saturation 6.27 (15.00-50.00) L 12/07/23 06:46 Transferrin 262.0 mg/dL (204.0-354.0) 12/07/23 06:46 Ferritin 208.0 ng/mL (22.0-322.0) 12/07/23 06:46 Total Bilirubin <0.2 mg/dL (0.3-1.2) L 12/07/23 06:46 AST 15 U/L (14-35) 12/07/23 06:46 ALT 14 U/L (10-49) 12/07/23 06:46 Alkaline Phosphatase 97 U/L (41-126) 12/07/23 06:46 Ammonia <9 umol/L (<30) 12/06/23 19:31 Creatine Kinase 40 U/L (55-170) L 12/06/23 19:31 Troponin I 0.016 ng/mL (0.000-0.034) 12/06/23 09:39 NT-Pro-B Natriuret Pep 4670 pg/mL 12/06/23 09:39 Total Protein 6.2 g/dL (6.2-8.2) 12/07/23 06:46 Albumin 3.8 g/dL (3.8-4.9) 12/07/23 06:46 Globulin 2.4 g/dL (1.6-3.3) 12/07/23 06:46 Albumin/Globulin Ratio 1.58 Ratio (1.60-3.17) L 12/07/23 06:46 Lipase 23 U/L (14-60) 12/07/23 06:46 Urine Opiates Screen Not Detected (NotDetected) 12/06/23 15:10 Ur Oxycodone Screen Not Detected (NotDetected) 12/06/23 15:10 Urine Methadone Screen Not Detected (NotDetected) 12/06/23 15:10 Ur Barbiturates Screen Not Detected (NotDetected) 12/06/23 15:10 U Tricyclic Antidepress Not Detected (NotDetected) 12/06/23 15:10 Ur Phencyclidine Scrn Not Detected (NotDetected) 12/06/23 15:10 Ur Amphetamines Screen Not Detected (NotDetected) 12/06/23 15:10 U Methamphetamines Scrn Not Detected (NotDetected) 12/06/23 15:10 U Benzodiazepines Scrn Detected (NotDetected) H 12/06/23 15:10 Urine Cocaine Screen Not Detected (NotDetected) 12/06/23 15:10 U Marijuana (THC) Screen Detected (NotDetected) H 12/06/23 15:10 Serum Alcohol <10 mg/dL 12/06/23 09:39 PT/INR, D-dimer PT 12.1 sec (10.0-12.5) 12/06/23 09:39 INR 1.1 (<1.2) 12/06/23 09:39 Abnormal lab findings: Abnormal Labs 12/06/23 12/06/23 12/06/23 09:39 09:39 09:39 WBC 11.1 H RBC 3.73 L Hgb 10.4 L Hct 36.6 L MCV MCHC 28.5 L RDW Immature Gran # Neutrophils # 9.9 H Lymphocytes # 0.5 L Eosinophils # ABG pH ABG pCO2 ABG pO2 ABG Total CO2 ABG O2 Saturation Hemoglobin Chloride 110 H Anion Gap BUN 55 H Creatinine 3.07 H Est GFR (CKD-EPI) BUN/Creatinine Ratio Glucose 183 H POC Glucose (mg/dL) Phosphorus Magnesium 2.5 H Iron % Saturation Total Bilirubin Ammonia 50 H Creatine Kinase 36 L Albumin/Globulin Ratio U Benzodiazepines Scrn U Marijuana (THC) Screen 12/06/23 12/06/23 12/06/23 15:10 19:31 23:05 WBC RBC Hgb Hct MCV MCHC RDW Immature Gran # Neutrophils # Lymphocytes # Eosinophils # ABG pH 7.11 L* ABG pCO2 77 H* ABG pO2 ABG Total CO2 27 H ABG O2 Saturation 97.1 H Hemoglobin 9.8 L Chloride Anion Gap BUN Creatinine Est GFR (CKD-EPI) BUN/Creatinine Ratio Glucose POC Glucose (mg/dL) Phosphorus Magnesium Iron % Saturation Total Bilirubin Ammonia Creatine Kinase 40 L Albumin/Globulin Ratio U Benzodiazepines Scrn Detected H U Marijuana (THC) Screen Detected H 12/07/23 12/07/23 12/07/23 06:46 06:46 06:46 WBC RBC 3.52 L Hgb 9.9 L Hct 35.2 L MCV 100.0 H MCHC 28.1 L RDW 15.7 H Immature Gran # 0.06 H Neutrophils # Lymphocytes # 0.55 L Eosinophils # 0 L ABG pH ABG pCO2 ABG pO2 ABG Total CO2 ABG O2 Saturation Hemoglobin Chloride Anion Gap 12.20 H BUN 66.9 H Creatinine 2.9 H Est GFR (CKD-EPI) 22 L BUN/Creatinine Ratio 23.07 H Glucose 146 H POC Glucose (mg/dL) Phosphorus 5.5 H Magnesium 2.5 H Iron 23 L % Saturation 6.27 L Total Bilirubin <0.2 L Ammonia Creatine Kinase Albumin/Globulin Ratio 1.58 L U Benzodiazepines Scrn U Marijuana (THC) Screen 12/08/23 12/08/23 12/08/23 06:00 06:46 11:20 WBC RBC Hgb Hct MCV MCHC RDW Immature Gran # Neutrophils # Lymphocytes # Eosinophils # ABG pH ABG pCO2 ABG pO2 ABG Total CO2 ABG O2 Saturation Hemoglobin Chloride 108 H Anion Gap BUN 74 H Creatinine 2.72 H Est GFR (CKD-EPI) BUN/Creatinine Ratio Glucose 142 H POC Glucose (mg/dL) 156 H 141 H Phosphorus Magnesium 2.5 H Iron % Saturation Total Bilirubin Ammonia Creatine Kinase Albumin/Globulin Ratio U Benzodiazepines Scrn U Marijuana (THC) Screen 12/08/23 12/08/23 12/08/23 15:23 16:49 20:31 WBC RBC Hgb Hct MCV MCHC RDW Immature Gran # Neutrophils # Lymphocytes # Eosinophils # ABG pH 7.24 L ABG pCO2 55 H ABG pO2 79 L ABG Total CO2 25 H ABG O2 Saturation Hemoglobin 9.5 L Chloride Anion Gap BUN Creatinine Est GFR (CKD-EPI) BUN/Creatinine Ratio Glucose POC Glucose (mg/dL) 161 H 180 H Phosphorus Magnesium Iron % Saturation Total Bilirubin Ammonia Creatine Kinase Albumin/Globulin Ratio U Benzodiazepines Scrn U Marijuana (THC) Screen Assessment and Plan Plan: Acute on chronic hypoxic and hypercapnic respiratory failure, currently on BiPAP for respiratory support Acute exacerbation of COPD with secondary acute on top of chronic hypoxic and hypercapnic respiratory failure, currently on BiPAP Advanced COPD with chronic hypoxic respiratory failure maintained on O2 at 4 L/min nasal cannula Chronic diastolic heart failure Chronic atrial fibrillation Coronary artery disease and previous stent placement History of permanent pacemaker insertion Anemia of chronic disease Benign essential hypertension Acute kidney injury on top of chronic kidney disease stage IIIb Dyslipidemia History of depression/Anxiety Plan: Continue BiPAP Obtain a follow-up ABG in a.m. Continue bronchodilators Continue steroids Continue anticoagulation with Eliquis Monitor renal function Nephrology consultation Prognosis poor and the family is considering hospice care.
--- NOTE | 2023-12-09 16:38 | P.PN ---
Subjective Progress Note Date: 12/09/23 This is a 73-year-old male patient who came into the emergency department on 12/06/2023 with altered mental status, generalized weakness and falls and he was unable to provide much history. The at the time was leaning towards making the patient hospice. She was not absolutely certain. The patient accordingly was admitted to the hospital and I was asked to evaluate this patient because of his ongoing difficulties in breathing. The patient is known to have chronic stage IIIb kidney disease with a baseline creatinine near 2. He is also known to have COPD, chronic hypoxic respiratory failure, hypertension, coronary disease with previous history of coronary stenting, chronic diastolic heart f ailure, history of chronic A-fib and history of thyroid disease. The patient is O2 dependent and the patient is typically on 4 L of oxygen by nasal cannula. Patient also has a permanent pacemaker in place. The patient was in the hospital of last and earlier this month on 11/23/2023 where he was seen in consultation for an acute on top of chronic hypercapnic and hypoxic respiratory failure and exacerbation of chronic diastolic heart failure. He was supported with BiPAP therapy, treated with diuretics and ultimately he was discharged on 11/26/2023 where he was maintained on Trelegy Ellipta 1 puff a day albuterol nebulized treatments in combination with Atrovent nebulized treatments as needed . He has been also maintained on Xarelto regarding his chronic atrial fibrillation is a long-term anticoagulants. During this current admission, the patient was noted to have a white cell count of 11.1 with a hemoglobin 10.4 and a platelet count of 187. The sodium was at 140, potassium is at 4.1, BUN is 55 with a creatinine of 3.07 and the urine drug screen was positive for benzodiazepines and marijuana. Alcohol level was negative. Troponin level was 0.016 and a proBNP level was 4670. Blood gases done today showed a pH of 7.24 with a pCO2 of 55 and pO2 of 79 and this was done while the patient was on a BiPAP the chest x-ray that was done showed no evidence of any acute focal infiltrate. The patient has chronic changes without any acute cardiopulmonary abnormalities. The patient has a pacemaker over the left anterior chest along with sternotomy wires. No hilar mediastinal abnorma lities. The CT scan of the cervical spine with showed no acute abnormalities. EKG showed atrial fibrillation with RBBB pattern. Patient is being hydrated with IV fluids currently normal saline at rate of 75 cc an hour. On 12/09/2023, patient is being seen for a follow-up. The patient remains on a BiPAP pressure of 12 over 6 cm of water and FiO2 of 35%. The patient has been alert and awake any reports improvement in his respiratory status and that he is seems to be less short of breath compared to yesterday. At the same time, the patient is being given IV fluids and the patient on normal saline at rate of 75 cc an hour. No significant hypotension. His urine output has improved and the patient is producing better urine output and the creatinine is down to 2.5 with a BUN of 83. The serum bicarb is 14 and sodium is at 135 with a potassium level of 4.8. Anion gap is at 10. Most recent white cell count of 8.6 with a hemoglobin 9.9 and platelet count of 186. Meanwhile, the patient remains on DuoNeb nebulized treatments [id number] Symbicort maintenance, IV Solu- Medrol, and the rest of the medication remain unchanged. The patient remains on anticoagulation with Xarelto. Objective - Vital Signs Vital signs: Vital Signs Temp 97.7 F 12/09/23 08:00 Pulse 74 12/09/23 16:00 Resp 20 12/09/23 08:00 BP 118/60 12/09/23 12:00 Pulse Ox 90 L 12/09/23 12:00 FiO2 35 12/09/23 15:48 Intake & Output 12/08/23 12/09/23 12/09/23 18:59 06:59 18:59 Intake Total 540 Output Total 1200 800 Balance -660 -800 Weight 133 kg Intake: Oral 540 Output: Urine 1200 800 Uretheral (Fraga) 600 Other: Voiding Method Indwelling Catheter Indwelling Catheter Indwelling Catheter - Exam General: 73-year-old male, on BiPAP,, BiPAP pressure of 12/6 with an FiO2 of 35% Skin: Skin is warm and dry and no rashes or lesions are noted. Eye: Pupils are equal, round and reactive to light, extra-ocular movements are intact; there is normal conjunctiva bilaterally. Ears, nose, mouth and throat: There are moist mucous membranes and no oral lesions. Neck: The neck is supple, there is no tenderness or JVD. Cardiovascular: There is a irregular rate and rhythm. No murmur, rub or gallop is appreciated. Respiratory: Diminished breath sounds at the bases no crackles rhonchi or wheezes Gastrointestinal: Soft, non-distended, non-tender abdomen without masses or organomegaly noted. Bowel sounds are unremarkable. Back: There is no tenderness to palpation in the midline. There is no obvious deformity. Musculoskeletal: Normal ROM, no tenderness, There is no pedal edema. There is n o calf tenderness or swelling. No cords were appreciated. Neurological: CN II-XII intact, Cranial nerves III through XII are intact. There are no obvious motor or sensory deficits. Generalized global weakness, poor coordination, diminished level of consciousness. - Labs CBC & Chem 7: 12/07/23 06:46 12/09/23 13:06 Labs: Abnormal Lab Results - Last 24 Hours (Table) 12/08/23 12/08/23 12/09/23 Range/Units 16:49 20:31 05:44 Sodium (137-145) mmol/L Chloride (98-107) mmol/L Carbon Dioxide (22-30) mmol/L BUN (9-20) mg/dL Creatinine (0.66-1.25) mg/dL Glucose (74-99) mg/dL POC Glucose (mg/dL) 161 H 180 H 142 H (70-110) mg/dL 12/09/23 12/09/23 12/09/23 Range/Units 11:52 13:06 16:31 Sodium 135 L (137-145) mmol/L Chloride 111 H (98-107) mmol/L Carbon Dioxide 14 L (22-30) mmol/L BUN 83 H (9-20) mg/dL Creatinine 2.50 H (0.66-1.25) mg/dL Glucose 158 H (74-99) mg/dL POC Glucose (mg/dL) 169 H 207 H (70-110) mg/dL Assessment and Plan Plan: Acute on chronic hypoxic and hypercapnic respiratory failure, currently on BiPAP for respiratory support Acute exacerbation of COPD with secondary acute on top of chronic hypoxic and hypercapnic respiratory failure, currently on BiPAP Advanced COPD with chronic hypoxic respiratory failure maintained on O2 at 4 L/min nasal cannula Chronic diastolic heart failure Chronic atrial fibrillation Coronary artery disease and previous stent placement History of permanent pacemaker insertion Anemia of chronic disease Benign essential hypertension Acute kidney injury on top of chronic kidney disease stage IIIb Dyslipidemia History of depression/Anxiety Plan: Continue BiPAP Continue IV fluids. Continue bronchodilators Continue steroids Continue anticoagulation with Xarelto Monitor renal function Nephrology consultation Renal functions improving. Clinically much more alert and awake compared to yesterday. Will continue ongoing treatment. Will continue to follow.
[2023-12-09] MEDS ORDERED: DEXTROSE 50% SYRINGE 50 ML IVP PRN ×2 (16:51)
[2023-12-09] MEDS: INSULIN ASPART (NovoLOG) 100 UNIT/ML VIAL SQ SCH (17:38)
[2023-12-09 20:24] LABS: Glucose,Whole Blood 159 mg/dL (70-110)
[2023-12-09] MEDS: HYDROcodone/APAP 7.5-325MG 1 EACH TAB PO PRN (21:21)
[2023-12-09] MEDS: DEXTROSE 5% IN WATER 1,000 ML with SODIUM BICARB (1 MEQ/ML) 150 ML IV SCH (21:50)
[2023-12-09] MEDS: SODIUM BICARB 8.4% 50 ML SYR (1 MEQ/ML) IV STA (21:50)
[2023-12-10 06:08] LABS: Glucose,Whole Blood 157 mg/dL (70-110)
[2023-12-10 09:19] LABS: African American GFR (CKD) 26 (>60 ml/min/1.73 sqM); Anion Gap 6 mmol/L; Blood Urea Nitrogen 87 mg/dL (9-20); Carbon Dioxide 27 mmol/L (22-30); Chloride 103 mmol/L (98-107); Glucose 135 mg/dL (74-99); Magnesium 2.4 mg/dL (1.6-2.3); Non-African American GFR(CKD) 22 (>60 ml/min/1.73 sqM); Potassium 4.2 mmol/L (3.5-5.1); Sodium 136 mmol/L (137-145)
--- NOTE | 2023-12-10 10:45 | P.PN ---
Subjective Patient is seen in follow-up for acute kidney injury on chronic kidney disease. Creatinine 2.74 today. Acidosis improved with bicarb drip. On BiPAP. Nonoliguric. Has Fraga catheter. Vital signs are stable. General: No acute distress. HEENT: Head exam is unremarkable. On BiPAP. LUNGS: No audible rhonchi or wheezes. HEART: Rate and Rhythm are regular. ABDOMEN: Nontender. EXTREMITITES: No edema. Objective - Vital Signs Vital signs: Vital Signs Temp 98 F 12/09/23 23:14 Pulse 74 12/10/23 08:02 Resp 22 12/09/23 23:14 BP 134/74 12/09/23 23:14 Pulse Ox 92 L 12/09/23 23:14 FiO2 35 12/10/23 07:51 Intake & Output 12/09/23 12/10/23 12/10/23 18:59 06:59 18:59 Intake Total 100 Output Total 550 Balance 100 -550 Weight 134.5 kg Intake: Intake, IV Titration 100 Amount Sodium Ferric Gluconat- 100 Sucrose 125 mg In Sodium Chloride 0.9% 100 ml @ 100 mls/hr IVPB DAILY [facility] Rx#:[id number] Output: Urine 550 Other: Voiding Method Indwelling Catheter Indwelling Catheter # Bowel Movements 1 - Labs CBC & Chem 7: 12/07/23 06:46 12/10/23 08:12 Labs: Abnormal Lab Results - Last 24 Hours (Table) 12/09/23 12/09/23 12/09/23 Range/Units 11:52 13:06 16:31 Sodium 135 L (137-145) mmol/L Chloride 111 H (98-107) mmol/L Carbon Dioxide 14 L (22-30) mmol/L BUN 83 H (9-20) mg/dL Creatinine 2.50 H (0.66-1.25) mg/dL Glucose 158 H (74-99) mg/dL POC Glucose (mg/dL) 169 H 207 H (70-110) mg/dL Magnesium (1.6-2.3) mg/dL 12/09/23 12/10/23 12/10/23 Range/Units 20:22 06:05 08:12 Sodium 136 L (137-145) mmol/L Chloride (98-107) mmol/L Carbon Dioxide (22-30) mmol/L BUN 87 H (9-20) mg/dL Creatinine 2.74 H (0.66-1.25) mg/dL Glucose 135 H (74-99) mg/dL POC Glucose (mg/dL) 159 H 157 H (70-110) mg/dL Magnesium 2.4 H (1.6-2.3) mg/dL Assessment and Plan Plan: Assessment: 1. Acute kidney injury secondary to ATN secondary to hypovolemia. Creatinine 3.07 on admission - 2.74 today. Recent ultrasound showed no evidence of hydronephrosis and atrophic right kidney. UA from earlier this month also fairly benign. 2. Chronic kidney disease stage IIIb with baseline creatinine near 2 secondary to nephrosclerosis. 3. Acute on chronic hypercapnic respiratory failure with underlying metabolic acidosis from diamox. Currently on bicarb drip. Improved. 4. History of COPD. 5. Anemia of chronic kidney disease. Iron deficiency noted. Plan: Change fluids back to normal saline at 50 cc an hour. Hold Farxiga for now. Maintain IV iron. Avoid nephrotoxins. Continue to monitor renal function and urine output.
[2023-12-10 11:46] LABS: Glucose,Whole Blood 137 mg/dL (70-110)
[2023-12-10 12:12] LABS: ABG Base Excess -1.6 mmol/L; ABG HCO3 26 mmol/L (21-25); ABG Oxygen Saturation 95.7 % (94-97); ABG PCO2 61 mmHg (35-45); ABG PH 7.25 (7.35-7.45); ABG PO2 79 mmHg (83-108); ABG TCO2 28 mmol/L (19-24); Allen Test Performed? Yes
[2023-12-10] MEDS: SODIUM CHLORIDE 0.9% 1,000 ML IV SCH (12:45)
--- NOTE | 2023-12-10 14:02 | P.PN ---
Subjective Progress Note Date: 12/10/23 This is a 73-year-old male patient who came into the emergency department on 12/06/2023 with altered mental status, generalized weakness and falls and he was unable to provide much history. The at the time was leaning towards making the patient hospice. She was not absolutely certain. The patient accordingly was admitted to the hospital and I was asked to evaluate this patient because of his ongoing difficulties in breathing. The patient is known to have chronic stage IIIb kidney disease with a baseline creatinine near 2. He is also known to have COPD, chronic hypoxic respiratory failure, hypertension, coronary disease with previous history of coronary stenting, chronic diastolic heart f ailure, history of chronic A-fib and history of thyroid disease. The patient is O2 dependent and the patient is typically on 4 L of oxygen by nasal cannula. Patient also has a permanent pacemaker in place. The patient was in the hospital of last and earlier this month on 11/23/2023 where he was seen in consultation for an acute on top of chronic hypercapnic and hypoxic respiratory failure and exacerbation of chronic diastolic heart failure. He was supported with BiPAP therapy, treated with diuretics and ultimately he was discharged on 11/26/2023 where he was maintained on Trelegy Ellipta 1 puff a day albuterol nebulized treatments in combination with Atrovent nebulized treatments as needed . He has been also maintained on Xarelto regarding his chronic atrial fibrillation is a long-term anticoagulants. During this current admission, the patient was noted to have a white cell count of 11.1 with a hemoglobin 10.4 and a platelet count of 187. The sodium was at 140, potassium is at 4.1, BUN is 55 with a creatinine of 3.07 and the urine drug screen was positive for benzodiazepines and marijuana. Alcohol level was negative. Troponin level was 0.016 and a proBNP level was 4670. Blood gases done today showed a pH of 7.24 with a pCO2 of 55 and pO2 of 79 and this was done while the patient was on a BiPAP the chest x-ray that was done showed no evidence of any acute focal infiltrate. The patient has chronic changes without any acute cardiopulmonary abnormalities. The patient has a pacemaker over the left anterior chest along with sternotomy wires. No hilar mediastinal abnorma lities. The CT scan of the cervical spine with showed no acute abnormalities. EKG showed atrial fibrillation with RBBB pattern. Patient is being hydrated with IV fluids currently normal saline at rate of 75 cc an hour. On 12/09/2023, patient is being seen for a follow-up. The patient remains on a BiPAP pressure of 12 over 6 cm of water and FiO2 of 35%. The patient has been alert and awake any reports improvement in his respiratory status and that he is seems to be less short of breath compared to yesterday. At the same time, the patient is being given IV fluids and the patient on normal saline at rate of 75 cc an hour. No significant hypotension. His urine output has improved and the patient is producing better urine output and the creatinine is down to 2.5 with a BUN of 83. The serum bicarb is 14 and sodium is at 135 with a potassium level of 4.8. Anion gap is at 10. Most recent white cell count of 8.6 with a hemoglobin 9.9 and platelet count of 186. Meanwhile, the patient remains on DuoNeb nebulized treatments [id number] Symbicort maintenance, IV Solu- Medrol, and the rest of the medication remain unchanged. The patient remains on anticoagulation with Xarelto. On 12/10/23, follow-up. Patient is still on a BiPAP pressure of 12/6 and a means of water and FiO2 35%. Blood gas was done and the patient continues to have a component of hypercapnic respiratory failure with a pH of 7.25 and a pCO2 of 61 and pO2 of 79. He is still lethargic. Arousable. Meanwhile, his BUN is at 87 with a creatinine of 2.7. Sodium is at 136. Potassium is at 4.2. Rest of the blood work showed a sugar of 135, and the patient's lactic acid level was down to 1.4. Remains on bronchodilators. Remains on IV Solu-Medrol 60 mg every 6 hours. Remains on anticoagulation with Xarelto. Continues to receive IV fluids and the patient is on normal citrate of 50 cc an hour. Nephrology on the case. No other significant events overnight. He is a DNR/DNI CODE STATUS. Objective - Vital Signs Vital signs: Vital Signs Temp 98 F 12/09/23 23:14 Pulse 74 12/10/23 08:02 Resp 22 12/09/23 23:14 BP 134/74 12/09/23 23:14 Pulse Ox 92 L 12/09/23 23:14 FiO2 35 12/10/23 07:51 Intake & Output 12/09/23 12/10/23 12/10/23 18:59 06:59 18:59 Intake Total 100 Output Total 550 Balance 100 -550 Weight 134.5 kg Intake: Intake, IV Titration 100 Amount Sodium Ferric Gluconat- 100 Sucrose 125 mg In Sodium Chloride 0.9% 100 ml @ 100 mls/hr IVPB DAILY [facility] Rx#:[id number] Output: Urine 550 Other: Voiding Method Indwelling Catheter Indwelling Catheter # Bowel Movements 1 - Exam General: 73-year-old male, on BiPAP,, BiPAP pressure of 12/6 with an FiO2 of 35% Skin: Skin is warm and dry and no rashes or lesions are noted. Eye: Pupils are equal, round and reactive to light, extra-ocular movements are intact; there is normal conjunctiva bilaterally. Ears, nose, mouth and throat: There are moist mucous membranes and no oral lesions. Neck: The neck is supple, there is no tenderness or JVD. Cardiovascular: There is a irregular rate and rhythm. No murmur, rub or gallop is appreciated. Respiratory: Diminished breath sounds at the bases no crackles rhonchi or wheezes Gastrointestinal: Soft, non-distended, non-tender abdomen without masses or organomegaly noted. Bowel sounds are unremarkable. Back: There is no tenderness to palpation in the midline. There is no obvious deformity. Musculoskeletal: Normal ROM, no tenderness, There is no pedal edema. There is no calf tenderness or swelling. No cords were appreciated. Neurological: CN II-XII intact, Cranial nerves III through XII are intact. There are no obvious motor or sensory deficits. Generalized global weakness, poor coordination, diminished level of consciousness. - Labs CBC & Chem 7: 12/07/23 06:46 12/10/23 08:12 Labs: Abnormal Lab Results - Last 24 Hours (Table) 12/09/23 12/09/23 12/09/23 Range/Units 11:52 13:06 16:31 Sodium 135 L (137-145) mmol/L Chloride 111 H (98-107) mmol/L Carbon Dioxide 14 L (22-30) mmol/L BUN 83 H (9-20) mg/dL Creatinine 2.50 H (0.66-1.25) mg/dL Glucose 158 H (74-99) mg/dL POC Glucose (mg/dL) 169 H 207 H (70-110) mg/dL Magnesium (1.6-2.3) mg/dL 12/09/23 12/10/23 12/10/23 Range/Units 20:22 06:05 08:12 Sodium 136 L (137-145) mmol/L Chloride (98-107) mmol/L Carbon Dioxide (22-30) mmol/L BUN 87 H (9-20) mg/dL Creatinine 2.74 H (0.66-1.25) mg/dL Glucose 135 H (74-99) mg/dL POC Glucose (mg/dL) 159 H 157 H (70-110) mg/dL Magnesium 2.4 H (1.6-2.3) mg/dL Assessment and Plan Plan: Acute on chronic hypoxic and hypercapnic respiratory failure, currently on BiPAP for respiratory support, the blood gases are still showing a component of hypercapnic respiratory failure and acute on top of chronic respiratory acidosis along with a component of chronic hypoxic respiratory failure. The patient continues to have diminished level of consciousness, still arousable without any focal neurological deficits. Acute exacerbation of COPD with secondary acute on top of chronic hypoxic and hypercapnic respiratory failure, currently on BiPAP Advanced COPD with chronic hypoxic respiratory failure maintained on O2 at 4 L/min nasal cannula Chronic diastolic heart failure Chronic atrial fibrillation Coronary artery disease and previous stent placement History of permanent pacemaker insertion Anemia of chronic disease Benign essential hypertension Acute kidney injury on top of chronic kidney disease stage IIIb Dyslipidemia History of depression/Anxiety Plan: Continue BiPAP, ABGs from today was noted. Continue IV fluids. The patient is on normal citrate of 50 cc an hour. Will continue gentle hydration. Monitor renal function. Continue bronchodilators Continue steroids Continue anticoagulation with Xarelto Monitor renal function Nephrology consultation Clinically unchanged compared to yesterday. DNR/DNI CODE STATUS. Will continue to follow. prognosis poor
--- NOTE | 2023-12-10 14:09 | P.PN ---
Subjective Progress Note Date: 12/10/23 73 year old M with PMH of CAD with stenting, HTN, HLD, Diastolic CHF, AFib, COPD on 5L home O2, CKD IIIb, anxiety and depression, PTSD presented to the ED after being found down with feces around him. In the ED he underwent extensive evaluation.BP 119/66, HR 84, T 97.8F, RR 20, 96% on 4L. CBC, Coag panel, CMP significant for WBC 11.1, RBC 3.73, Hg 10.4, Hct 36.6, Cl 110, BUN 55, Cr 3.07, glu 183. Mag 2.5. Lactic acid 1.4. Ammonia 50. Troponin 0.016. BNP 4670. UDS + benzo and MJ. EtOH negative. ABG pH 7.11, pCO2 77, pO2 93 on FiO2 36%. CT head and C-spine negative for acute process. EKG A-Fib with RBBB. Pelvic XR right femoral neck shortening may be related to patient rotation. CXR chronic findings . Patient was admitted for further workup and management. 12/06 Patient was seen and examined. Mentation much better. Daughter is at bedside. History is obtained from her. Apparently patient was found on the floor beside the bed with his BiPAP and O2 off. He had soiled himself. Maybe down for 1 hour. Has a tendency to roll off the bed. Step mother unable to take care of the patient as she works 3 12H shifts weekly. Open to hospice and palliative care. CBC, CMP significant for RBC 3.52, Hg 9.9, Hct 35.2, MCV 100, AG 12.2, BUN 66.9, Cr 2.9, glu 146, T. Bili < 0.2. Phos 5.5. Mag 2.5. Lipase 23. Ammonia < 9. Nephrology recommends stopping Diamox and start NS at 75 cc/hr, iron studies. 12/07 Patient was seen and examined. Maintained on BiPAP. Discussed with at bedside. Last seen normal was 10PM and was found altered around 8AM. Patient is clearly unsafe to go home as he required 24H supervision. also reports he is somewhat confused today but overall much better than on admission. BMP shows Cl 108, BUN 74, Cr 2.72, glu 142. Mag 2.5. Hospice and case management to discuss options with family today. Nephrology recommends continuing IV hydration and adding IV iron. 12/08 Patient was seen and examined. Maintained on BiPAP. Patient gets very anxious when BiPAP is removed. ABG done yesterday pH 7.24, pCO2 55, pO2 79 FiO2 35. Pelvic XR shows no obvious fracture. BMP done yesterday shows Na 135, Cl 111, bicarb 14, BUN 83, Cr 2.5, glu 158. Family still undecided about hospice and [facility] at [facility]. Clearly he is unsafe to be by himself at home. Nephrology recommends continuing IV hydration, IV iron and added sodium bicarb. 12/09 Patient was seen and examined. Family still undecided about hospice plans on having a family meeting. Leaning towards SNF. Currently on BiPAP mostly for comfort. BMP done today shows Na 136, BUN 87, Cr 2.74, glu 135. ABG shows pCO2 61. Started on D5 with sodium bicarb yesterday at 80 cc/hr by Nephrology now switched to NS. General: non toxic, no distress, appears at stated age, on BiPAP Derm: warm, dry Head: atraumatic, normocephalic, symmetric Eyes: EOMI, no lid lag, anicteric sclera Mouth: no lip lesion, mucus membranes moist Cardiovascular: S1S2 reg, no murmur Lungs: Coarse BS bilateral, no rhonchi, no rales , no accessory muscle use Ext: no gross muscle atrophy, no edema, no contractures Neuro: no focal neuro deficits Psych: Alert, oriented x 2 Based on my assessment of this patient, this patient meets a high complexity level of care. Acute on chronic respiratory failure with hypoxia and hypercarbia: Baseline 5L NC. Continue BiPAP PRN. Hospice consulted. Pulmonary on board. Toxic metabolic encephalopathy likely due to hypercarbia and benzodiazepine/THC and hypoxic encephalopathy: Patient has been taking Xanax for over 20 years, continue 1 mg PO TID PRN. COPD with exacerbation: Albuterol neb QID PRN. DuoNeb QID schduled. Symbicort 2 INH BID. SoluMedrol 60 mg IV Q6H. Pulmonary on board. MIRTHA on CKD: Improved. Avoid nephrotoxins. NS at 50 cc/hr. Nephrology on board. Normocytic anemia likely AOCD from CKD IIIb: Fe 23. Ferric gluconate 125 mg IV QD by Nephrology. Chronic persistent atrial fibrillation: Metoprolol as below. Xarelto 15 mg PO QD. History of CAD status post stenting: Metoprolol and Lipitor as below. Patient would benefit from ASA. Diastolic CHF not in acute exacerbation Hypertension: Imdur 15 mg PO QD. Metoprolol 75 mg PO BID. Hyperlipidemia: Lipitor 40 mg PO QHS. Hypothyroidism: Synthroid 137 mcg PO QD. Anxiety and Depression: Zoloft 200 mg PO QD. Xanax 1 mg PO TID PRN. PTSD Resolved: Hyperammonemia, Leukocytosis, Metabolic acidosis CODE STATUS: NO CODE. DVT Prophylaxis: Xarelto. GI Prophylaxis: Designated medical POA if patient is not able to make medical decisions for themselves: Dispo: Patient leaning towards SNF at this time. Referrals have been sent. He has mostly been on BiPAP since coming here, partially for comfort as he feels anxious without it. Will attempt trial periods without the BiPAP. I have reviewed the following application support consultant notes: Nephrology, Pulmonary. I have reviewed the results of the following tests: BMP. I have ordered the following tests: I have discussed the care of this patient with the following independent historian: Case management. RN. Family I have independently interpreted the following test below: I have discussed the management of this patient with the following physician: Objective - Vital Signs Vital signs: Vital Signs Temp 98 F 12/09/23 23:14 Pulse 74 12/10/23 08:02 Resp 22 12/09/23 23:14 BP 134/74 12/09/23 23:14 Pulse Ox 92 L 12/09/23 23:14 FiO2 35 12/10/23 07:51 Intake & Output 12/09/23 12/10/23 12/10/23 18:59 06:59 18:59 Intake Total 100 Output Total 550 Balance 100 -550 Weight 134.5 kg Intake: Intake, IV Titration 100 Amount Sodium Ferric Gluconat- 100 Sucrose 125 mg In Sodium Chloride 0.9% 100 ml @ 100 mls/hr IVPB DAILY [facility] Rx#:[id number] Output: Urine 550 Other: Voiding Method Indwelling Catheter Indwelling Catheter # Bowel Movements 1 - Labs CBC & Chem 7: 12/07/23 06:46 12/10/23 08:12 Labs: Abnormal Lab Results - Last 24 Hours (Table) 12/09/23 12/09/23 12/09/23 Range/Units 11:52 13:06 16:31 Sodium 135 L (137-145) mmol/L Chloride 111 H (98-107) mmol/L Carbon Dioxide 14 L (22-30) mmol/L BUN 83 H (9-20) mg/dL Creatinine 2.50 H (0.66-1.25) mg/dL Glucose 158 H (74-99) mg/dL POC Glucose (mg/dL) 169 H 207 H (70-110) mg/dL 12/09/23 12/10/23 Range/Units 20:22 06:05 Sodium (137-145) mmol/L Chloride (98-107) mmol/L Carbon Dioxide (22-30) mmol/L BUN (9-20) mg/dL Creatinine (0.66-1.25) mg/dL Glucose (74-99) mg/dL POC Glucose (mg/dL) 159 H 157 H (70-110) mg/dL
[2023-12-10 16:37] LABS: Glucose,Whole Blood 150 mg/dL (70-110)
[2023-12-10 20:10] LABS: Glucose,Whole Blood 167 mg/dL (70-110)
[2023-12-11 05:58] LABS: Glucose,Whole Blood 140 mg/dL (70-110)
[2023-12-11 08:55] LABS: African American GFR (CKD) 28 (>60 ml/min/1.73 sqM); Anion Gap 9 mmol/L; Blood Urea Nitrogen 86 mg/dL (9-20); Calcium 9.1 mg/dL (8.4-10.2); Carbon Dioxide 25 mmol/L (22-30); Chloride 105 mmol/L (98-107); Glucose 158 mg/dL (74-99); Magnesium 2.5 mg/dL (1.6-2.3); Non-African American GFR(CKD) 24 (>60 ml/min/1.73 sqM); Potassium 4.4 mmol/L (3.5-5.1); Sodium 139 mmol/L (137-145)
[2023-12-11 09:12] LABS: Basophils % (A) 0 %; Eosinophils % (A) 0 %; HGB 10.9 gm/dL (13.0-17.5); Hypochromasia Marked; Lymphocytes # (A) 0.2 k/uL (1.0-4.8); Lymphocytes % (A) 1 %; MCH 28.3 pg (25.0-35.0); MCHC 30.2 g/dL (31.0-37.0); MCV 93.6 fL (80.0-100.0); Mean Platelet Volume 8.3; Monocytes # (A) 0.7 k/uL (0-1.0); Monocytes % (A) 5 %; Neutrophils # (A) 14.4 k/uL (1.3-7.7); Neutrophils % (A) 93 %; Platelet Count 163 k/uL (150-450); RBC 3.85 m/uL (4.30-5.90); RDW 15.7 % (11.5-15.5); WBC 15.4 k/uL (3.8-10.6)
[2023-12-11 09:20] LABS: ALT 11 U/L (4-49); AST 17 U/L (17-59); Albumin 3.5 g/dL (3.5-5.0); Alkaline Phosphatase 73 U/L (38-126); Total Bilirubin 0.6 mg/dL (0.2-1.3); Total Protein 6.1 g/dL (6.3-8.2)
--- NOTE | 2023-12-11 09:20 | XR ---
EXAMINATION TYPE: XR chest 1V DATE OF EXAM: 12/11/2023 COMPARISON: 12/09/2023 HISTORY: Respiratory failure TECHNIQUE: Single frontal view of the chest is obtained. FINDINGS: There has been a median sternotomy. There is a single-lead cardiac pacemaker. There is prior CABG [facility]. There is a marked increase in opacification of the right hemithorax. There is marked pulmonary vascul ar congestion in the left lung. There is no pneumothorax. The osseous structures are intact. IMPRESSION: 1. Interval marked opacification of the right hemithorax likely a combination of pleural effusion and airspace consolidation. Findings may indicate severe pulmonary edema or pneumonia within the right l un. 2. Marked pulmonary vascular congestion within the left lung IMPRESSION: No acute process. [facility], , 12/11/2023 9:18 AM
[2023-12-11] MEDS: predniSONE 20 MG TAB PO SCH (09:32)
--- NOTE | 2023-12-11 10:36 | P.PN ---
Subjective Patient is seen in follow-up for acute kidney injury on chronic kidney disease. Renal function little better. On BiPAP. Nonoliguric. Has Fraga catheter. Vital signs are stable. General: No acute distress. HEENT: Head exam is unremarkable. On BiPAP. LUNGS: No audible rhonchi or wheezes. HEART: Rate and Rhythm are regular. ABDOMEN: Nontender. EXTREMITITES: Trace edema. Objective - Vital Signs Vital signs: Vital Signs Temp 97.9 F 12/11/23 08:00 Pulse 85 12/11/23 08:08 Resp 24 12/11/23 08:00 BP 115/73 12/11/23 08:00 Pulse Ox 91 L 12/11/23 09:19 FiO2 35 12/11/23 09:19 Intake & Output 12/10/23 12/11/23 12/11/23 18:59 06:59 18:59 Intake Total 886 Output Total 650 400 Balance 236 -400 Intake: Intake, IV Titration 650 Amount Dextrose 5% in Water 1, 400 000 ml @ 80 mls/hr IV . [id number] FERNANDO with Sodium Bicarb (1 Meq/ml) 150 ml Rx#:[id number] Sodium Chloride 0.9% 1, 250 000 ml @ 50 mls/hr IV . Q20H [facility] Rx#:[id number] Oral 236 Output: Urine 650 400 Other: Voiding Method Indwelling Catheter Indwelling Catheter - Labs CBC & Chem 7: 12/11/23 08:15 12/11/23 08:15 Labs: Abnormal Lab Results - Last 24 Hours (Table) 12/10/23 12/10/23 12/10/23 Range/Units 11:43 12:08 16:35 WBC (3.8-10.6) k/uL RBC (4.30-5.90) m/uL Hgb (13.0-17.5) gm/dL Hct (39.0-53.0) % MCHC (31.0-37.0) g/dL RDW (11.5-15.5) % Neutrophils # (1.3-7.7) k/uL Lymphocytes # (1.0-4.8) k/uL ABG pH 7.25 L (7.35-7.45) ABG pCO2 61 H (35-45) mmHg ABG pO2 79 L (83-108) mmHg ABG HCO3 26 H (21-25) mmol/L ABG Total CO2 28 H (19-24) mmol/L Hemoglobin 10.1 L (13.0-17.5) gm/dL BUN (9-20) mg/dL Creatinine (0.66-1.25) mg/dL Glucose (74-99) mg/dL POC Glucose (mg/dL) 137 H 150 H (70-110) mg/dL Magnesium (1.6-2.3) mg/dL Total Protein (6.3-8.2) g/dL 12/10/23 12/11/23 12/11/23 Range/Units 20:08 05:57 08:15 WBC (3.8-10.6) k/uL RBC (4.30-5.90) m/uL Hgb (13.0-17.5) gm/dL Hct (39.0-53.0) % MCHC (31.0-37.0) g/dL RDW (11.5-15.5) % Neutrophils # (1.3-7.7) k/uL Lymphocytes # (1.0-4.8) k/uL ABG pH (7.35-7.45) ABG pCO2 (35-45) mmHg ABG pO2 (83-108) mmHg ABG HCO3 (21-25) mmol/L ABG Total CO2 (19-24) mmol/L Hemoglobin (13.0-17.5) gm/dL BUN 86 H (9-20) mg/dL Creatinine 2.55 H (0.66-1.25) mg/dL Glucose 158 H (74-99) mg/dL POC Glucose (mg/dL) 167 H 140 H (70-110) mg/dL Magnesium 2.5 H (1.6-2.3) mg/dL Total Protein 6.1 L (6.3-8.2) g/dL 12/11/23 Range/Units 08:15 WBC 15.4 H (3.8-10.6) k/uL RBC 3.85 L (4.30-5.90) m/uL Hgb 10.9 L (13.0-17.5) gm/dL Hct 36.0 L (39.0-53.0) % MCHC 30.2 L (31.0-37.0) g/dL RDW 15.7 H (11.5-15.5) % Neutrophils # 14.4 H (1.3-7.7) k/uL Lymphocytes # 0.2 L (1.0-4.8) k/uL ABG pH (7.35-7.45) ABG pCO2 (35-45) mmHg ABG pO2 (83-108) mmHg ABG HCO3 (21-25) mmol/L ABG Total CO2 (19-24) mmol/L Hemoglobin (13.0-17.5) gm/dL BUN (9-20) mg/dL Creatinine (0.66-1.25) mg/dL Glucose (74-99) mg/dL POC Glucose (mg/dL) (70-110) mg/dL Magnesium (1.6-2.3) mg/dL Total Protein (6.3-8.2) g/dL Assessment and Plan Plan: Assessment: 1. Acute kidney injury secondary to ATN secondary to hypovolemia. Creatinine 3.07 on admission - 2.55 today. Recent ultrasound showed no evidence of hydronephrosis and atrophic right kidney. UA from earlier this month also fairly benign. 2. Chronic kidney disease stage IIIb with baseline creatinine near 2 secondary to nephrosclerosis. 3. Acute on chronic hypercapnic respiratory failure with underlying metabolic acidosis from diamox. Status post bicarb drip. Improved. 4. History of COPD. 5. Anemia of chronic kidney disease. Iron deficiency noted. Status post IV iron completed December 10, 2023. Plan: Maintain gentle IV hydration. Encouraged oral intake. Continue to hold Farxiga for now. Avoid nephrotoxins. Continue to monitor renal function and urine output.
--- NOTE | 2023-12-11 11:36 | P.PN ---
Subjective Progress Note Date: 12/11/23 73 year old M with PMH of CAD with stenting, HTN, HLD, Diastolic CHF, AFib, COPD on 5L home O2, CKD IIIb, anxiety and depression, PTSD presented to the ED after being found down with feces around him. In the ED he underwent extensive evaluation.BP 119/66, HR 84, T 97.8F, RR 20, 96% on 4L. CBC, Coag panel, CMP significant for WBC 11.1, RBC 3.73, Hg 10.4, Hct 36.6, Cl 110, BUN 55, Cr 3.07, glu 183. Mag 2.5. Lactic acid 1.4. Ammonia 50. Troponin 0.016. BNP 4670. UDS + benzo and MJ. EtOH negative. ABG pH 7.11, pCO2 77, pO2 93 on FiO2 36%. CT head and C-spine negative for acute process. EKG A-Fib with RBBB. Pelvic XR right femoral neck shortening may be related to patient rotation. CXR chronic findings . Patient was admitted for further workup and management. 12/06 Patient was seen and examined. Mentation much better. Daughter is at bedside. History is obtained from her. Apparently patient was found on the floor beside the bed with his BiPAP and O2 off. He had soiled himself. Maybe down for 1 hour. Has a tendency to roll off the bed. Step mother unable to take care of the patient as she works 3 12H shifts weekly. Open to hospice and palliative care. CBC, CMP significant for RBC 3.52, Hg 9.9, Hct 35.2, MCV 100, AG 12.2, BUN 66.9, Cr 2.9, glu 146, T. Bili < 0.2. Phos 5.5. Mag 2.5. Lipase 23. Ammonia < 9. Nephrology recommends stopping Diamox and start NS at 75 cc/hr, iron studies. 12/07 Patient was seen and examined. Maintained on BiPAP. Discussed with at bedside. Last seen normal was 10PM and was found altered around 8AM. Patient is clearly unsafe to go home as he required 24H supervision. also reports he is somewhat confused today but overall much better than on admission. BMP shows Cl 108, BUN 74, Cr 2.72, glu 142. Mag 2.5. Hospice and case management to discuss options with family today. Nephrology recommends continuing IV hydration and adding IV iron. 12/08 Patient was seen and examined. Maintained on BiPAP. Patient gets very anxious when BiPAP is removed. ABG done yesterday pH 7.24, pCO2 55, pO2 79 FiO2 35. Pelvic XR shows no obvious fracture. BMP done yesterday shows Na 135, Cl 111, bicarb 14, BUN 83, Cr 2.5, glu 158. Family still undecided about hospice and [facility]. Clearly he is unsafe to be by himself at home. Nephrology recommends continuing IV hydration, IV iron and added sodium bicarb. 12/09 Patient was seen and examined. Family still undecided about hospice plans on having a family meeting. Leaning towards SNF. Currently on BiPAP mostly for comfort. BMP done today shows Na 136, BUN 87, Cr 2.74, glu 135. ABG shows pCO2 61. Started on D5 with sodium bicarb yesterday at 80 cc/hr by Nephrology for metabolic acidosis now switched to NS. 12/10 Patient was seen and examined. He desaturated down to the 70s on 5L NC this morning and was placed back on BiPAP. He is currently low 90s on BiPAP. CXR shows significant opacification of the right hemithorax and pulmonary vascular congestion of the left lung. Family agreeable to SNF and referrals have been placed yesterday when discussed with case management. CBC and BMP significant for WBC 15.4, RBC 3.85, Hg 10.9, Hct 36, BUN 86, Cr 2.55, glu 158. Mag 2.5. Dis cussed with Dr. Bateman and we will start Lasix 60 mg IV BID. General: non toxic, no distress, appears at stated age, on BiPAP Derm: warm, dry Head: atraumatic, normocephalic, symmetric Eyes: EOMI, no lid lag, anicteric sclera Mouth: no lip lesion, mucus membranes moist Cardiovascular: S1S2 reg, no murmur Lungs: Decreased BS R > L, no rhonchi, no rales , no accessory muscle use Ext: no gross muscle atrophy, 1+ bilateral LE edema, no contractures Neuro: no focal neuro deficits Psych: Alert, oriented x 2 Based on my assessment of this patient, this patient meets a high complexity level of care. Acute on chronic respiratory failure with hypoxia and hypercarbia: Baseline 5L NC. Continue BiPAP. Hospice on board. Pulmonary and Nephrology on board. Pulmonary edema likely due to Diastolic CHF exacerbation: Start Lasix 60 mg IV BID. Monitor daily electrolytes and renal function. DC IVF. Strict intake and outtake. Daily weights. Toxic metabolic encephalopathy likely due to hypercarbia and benzodiazepine/THC and hypoxic encephalopathy: Patient has been taking Xanax for over 20 years, continue 1 mg PO TID PRN. COPD with exacerbation: Albuterol neb QID PRN. DuoNeb QID schduled. Symbicort 2 INH BID. SoluMedrol switched to Prednisone 40 mg PO QD. Pulmonary on board. MIRTHA on CKD: Improved. Avoid nephrotoxins. Nephrology on board. Normocytic anemia likely AOCD from CKD IIIb: Fe 23. Ferric gluconate 125 mg IV QD x 3. Chronic persistent atrial fibrillation: Metoprolol as below. Xarelto 15 mg PO QD. History of CAD status post stenting: Metoprolol and Lipitor as below. Patient would benefit from ASA. Hypertension: Imdur 15 mg PO QD. Metoprolol 75 mg PO BID. Hyperlipidemia: Lipitor 40 mg PO QHS. Hypothyroidism: Synthroid 137 mcg PO QD. Anxiety and Depression: Zoloft 200 mg PO QD. Xanax 1 mg PO TID PRN. PTSD Resolved: Hyperammonemia, Leukocytosis, Metabolic acidosis CODE STATUS: NO CODE. DVT Prophylaxis: Xarelto. GI Prophylaxis: Designated medical POA if patient is not able to make medical decisions for themselves: Dispo: Plans for SNF at this time. Referrals have been sent. He has mostly been on BiPAP since coming here, partially for comfort as he feels anxious without i t. Will attempt trial periods without the BiPAP in preparation for SNF. I have reviewed the following dairy consultant notes: Nephrology, Pulmonary. I have reviewed the results of the following tests: CBC, BMP, Mag. I have ordered the following tests: BMP, Mag for tomorrow AM. I have discussed the care of this patient with the following independent historian: GERALD. I have independently interpreted the following test below: CXR I have discussed the management of this patient with the following physician: Dr. Bateman and Dr. Bird Objective - Vital Signs Vital signs: Vital Signs Temp 98.1 F 12/10/23 21:09 Pulse 74 12/11/23 04:00 Resp 22 12/11/23 04:00 BP 127/70 12/11/23 04:00 Pulse Ox 94 L 12/11/23 04:00 FiO2 35 12/11/23 04:00 Intake & Output 12/10/23 12/11/23 12/11/23 18:59 06:59 18:59 Intake Total 886 Output Total 650 400 Balance 236 -400 Intake: Intake, IV Titration 650 Amount Dextrose 5% in Water 1, 400 000 ml @ 80 mls/hr IV . [id number] FERNANDO with Sodium Bicarb (1 Meq/ml) 150 ml Rx#:[id number] Sodium Chloride 0.9% 1, 250 000 ml @ 50 mls/hr IV . Q20H FERNANDO Rx#:[id number] Oral 236 Output: Urine 650 400 Other: Voiding Method Indwelling Catheter Indwelling Catheter - Labs CBC & Chem 7: 12/11/23 08:15 12/11/23 08:15 Labs: Abnormal Lab Results - Last 24 Hours (Table) 12/10/23 12/10/23 12/10/23 Range/Units 08:12 11:43 12:08 ABG pH 7.25 L (7.35-7.45) ABG pCO2 61 H (35-45) mmHg ABG pO2 79 L (83-108) mmHg ABG HCO3 26 H (21-25) mmol/L ABG Total CO2 28 H (19-24) mmol/L Hemoglobin 10.1 L (13.0-17.5) gm/dL Sodium 136 L (137-145) mmol/L BUN 87 H (9-20) mg/dL Creatinine 2.74 H (0.66-1.25) mg/dL Glucose 135 H (74-99) mg/dL POC Glucose (mg/dL) 137 H (70-110) mg/dL Magnesium 2.4 H (1.6-2.3) mg/dL 12/10/23 12/10/23 12/11/23 Range/Units 16:35 20:08 05:57 ABG pH (7.35-7.45) ABG pCO2 (35-45) mmHg ABG pO2 (83-108) mmHg ABG HCO3 (21-25) mmol/L ABG Total CO2 (19-24) mmol/L Hemoglobin (13.0-17.5) gm/dL Sodium (137-145) mmol/L BUN (9-20) mg/dL Creatinine (0.66-1.25) mg/dL Glucose (74-99) mg/dL POC Glucose (mg/dL) 150 H 167 H 140 H (70-110) mg/dL Magnesium (1.6-2.3) mg/dL
[2023-12-11 11:54] LABS: Glucose,Whole Blood 148 mg/dL (70-110)
--- NOTE | 2023-12-11 12:11 | XR ---
EXAMINATION TYPE: XR chest 1V portable DATE OF EXAM: 12/09/2023 COMPARISON: 12/06/2023 HISTORY: Shortness of breath TECHNIQUE: Single frontal view of the chest is obtained. FINDINGS: There is a single-lead cardiac pacemaker. Exam is somewhat limited by rotation and the portable technique. There is cardiomegaly. There is mild pulmonary vascular congestion decreased compared to the prior study. There is a persist ent small right pleural effusion. There is no definite airspace consolidation. There is no pneumothorax. The osseous structures are intact IMPRESSION: 1. Cardiopulmonary disease with mild improvement compared to the prior study. There is decreased pulm onary vascular congestion and persistent small right effusion. IMPRESSION: No acute process. [facility], , 12/11/2023 12:09 PM
[2023-12-11] MEDS: FUROSEMIDE 10 MG/ML 10 ML VIAL IV SCH (12:37)
--- NOTE | 2023-12-11 14:18 | P.PN ---
Subjective Progress Note Date: 12/11/23 This is a 73-year-old male patient who came into the emergency department on 12/06/2023 with altered mental status, generalized weakness and falls and he was unable to provide much history. The at the time was leaning towards making the patient hospice. She was not absolutely certain. The patient accordingly was admitted to the hospital and I was asked to evaluate this patient because of his ongoing difficulties in breathing. The patient is known to have chronic stage IIIb kidney disease with a baseline creatinine near 2. He is also known to have COPD, chronic hypoxic respiratory failure, hypertension, coronary disease with previous history of coronary stenting, chronic diastolic heart f ailure, history of chronic A-fib and history of thyroid disease. The patient is O2 dependent and the patient is typically on 4 L of oxygen by nasal cannula. Patient also has a permanent pacemaker in place. The patient was in the hospital of last and earlier this month on 11/23/2023 where he was seen in consultation for an acute on top of chronic hypercapnic and hypoxic respiratory failure and exacerbation of chronic diastolic heart failure. He was supported with BiPAP therapy, treated with diuretics and ultimately he was discharged on 11/26/2023 where he was maintained on Trelegy Ellipta 1 puff a day albuterol nebulized treatments in combination with Atrovent nebulized treatments as needed . He has been also maintained on Xarelto regarding his chronic atrial fibrillation is a long-term anticoagulants. During this current admission, the patient was noted to have a white cell count of 11.1 with a hemoglobin 10.4 and a platelet count of 187. The sodium was at 140, potassium is at 4.1, BUN is 55 with a creatinine of 3.07 and the urine drug screen was positive for benzodiazepines and marijuana. Alcohol level was negative. Troponin level was 0.016 and a proBNP level was 4670. Blood gases done today showed a pH of 7.24 with a pCO2 of 55 and pO2 of 79 and this was done while the patient was on a BiPAP the chest x-ray that was done showed no evidence of any acute focal infiltrate. The patient has chronic changes without any acute cardiopulmonary abnormalities. The patient has a pacemaker over the left anterior chest along with sternotomy wires. No hilar mediastinal abnorma lities. The CT scan of the cervical spine with showed no acute abnormalities. EKG showed atrial fibrillation with RBBB pattern. Patient is being hydrated with IV fluids currently normal saline at rate of 75 cc an hour. On 12/09/2023, patient is being seen for a follow-up. The patient remains on a BiPAP pressure of 12 over 6 cm of water and FiO2 of 35%. The patient has been alert and awake any reports improvement in his respiratory status and that he is seems to be less short of breath compared to yesterday. At the same time, the patient is being given IV fluids and the patient on normal saline at rate of 75 cc an hour. No significant hypotension. His urine output has improved and the patient is producing better urine output and the creatinine is down to 2.5 with a BUN of 83. The serum bicarb is 14 and sodium is at 135 with a potassium level of 4.8. Anion gap is at 10. Most recent white cell count of 8.6 with a hemoglobin 9.9 and platelet count of 186. Meanwhile, the patient remains on DuoNeb nebulized treatments [id number] Symbicort maintenance, IV Solu- Medrol, and the rest of the medication remain unchanged. The patient remains on anticoagulation with Xarelto. On 12/10/23, follow-up. Patient is still on a BiPAP pressure of 12/6 and a means of water and FiO2 35%. Blood gas was done and the patient continues to have a component of hypercapnic respiratory failure with a pH of 7.25 and a pCO2 of 61 and pO2 of 79. He is still lethargic. Arousable. Meanwhile, his BUN is at 87 with a creatinine of 2.7. Sodium is at 136. Potassium is at 4.2. Rest of the blood work showed a sugar of 135, and the patient's lactic acid level was down to 1.4. Remains on bronchodilators. Remains on IV Solu-Medrol 60 mg every 6 hours. Remains on anticoagulation with Xarelto. Continues to receive IV fluids and the patient is on normal citrate of 50 cc an hour. Nephrology on the case. No other significant events overnight. He is a DNR/DNI CODE STATUS. On 12/11/2023, the patient remains on a BiPAP. A brief attempt was done to get this patient off the BiPAP this morning and this failed as the patient became hypoxic and this was done at time of breakfast. Based on that, the patient was placed again on a BiPAP. BiPAP settings are currently at 12 over 6 cm of water with an FiO2 of 35%. A repeat chest x-ray was ordered and this was done this morning and it showed no acute cardiopulmonary process. There is decreased pulm vessel congestion. The patient remains on bronchodilators. The patient is on DuoNeb nebulized treatments [id number]. The patient on Symbicort. The patient is on prednisone 40 mg p.o. daily and the patient is on long-term ant icoagulation. The patient continues to diurese with IV Lasix 60 mg every 12 hours. The patient remains in negative fluid balance. The patient's BUN is at 86 with a creatinine of 2.5. Sodium is at 139. Potassium is at 4.4. The white cell count 15.4 with a hemoglobin 10.9 and a platelet count of 163. The patient is being seen by nephrology. Objective - Vital Signs Vital signs: Vital Signs Temp 98 F 12/11/23 12:00 Pulse 77 12/11/23 12:00 Resp 22 12/11/23 12:00 BP 122/78 12/11/23 12:00 Pulse Ox 94 L 12/11/23 12:00 FiO2 35 12/11/23 12:00 Intake & Output 12/10/23 12/11/23 12/11/23 18:59 06:59 18:59 Intake Total 886 Output Total 650 400 600 Balance 236 -400 -600 Intake: Intake, IV Titration 650 Amount Dextrose 5% in Water 1, 400 000 ml @ 80 mls/hr IV . [id number] FERNANDO with Sodium Bicarb (1 Meq/ml) 150 ml Rx#:[id number] Sodium Chloride 0.9% 1, 250 000 ml @ 50 mls/hr IV . Q20H FERNANDO Rx#:[id number] Oral 236 Output: Urine 650 400 600 Other: Voiding Method Indwelling Catheter Indwelling Catheter Indwelling Catheter - Exam General: 73-year-old male, on BiPAP,, BiPAP pressure of 12/6 with an FiO2 of 35% Skin: Skin is warm and dry and no rashes or lesions are noted. Eye: Pupils are equal, round and reactive to light, extra-ocular movements are intact; there is normal conjunctiva bilaterally. Ears, nose, mouth and throat: There are moist mucous membranes and no oral lesions. Neck: The neck is supple, there is no tenderness or JVD. Cardiovascular: There is a irregular rate and rhythm. No murmur, rub or gallop is appreciated. Respiratory: Diminished breath sounds at the bases no crackles rhonchi or whee zes Gastrointestinal: Soft, non-distended, non-tender abdomen without masses or organomegaly noted. Bowel sounds are unremarkable. Back: There is no tenderness to palpation in the midline. There is no obvious deformity. Musculoskeletal: Normal ROM, no tenderness, There is no pedal edema. There is no calf tenderness or swelling. No cords were appreciated. Neurological: CN II-XII intact, Cranial nerves III through XII are intact. There are no obvious motor or sensory deficits. Generalized global weakness, poor coordination, diminished level of consciousness. - Labs CBC & Chem 7: 12/11/23 08:15 12/11/23 08:15 Labs: Abnormal Lab Results - Last 24 Hours (Table) 12/10/23 12/10/23 12/11/23 Range/Units 16:35 20:08 05:57 WBC (3.8-10.6) k/uL RBC (4.30-5.90) m/uL Hgb (13.0-17.5) gm/dL Hct (39.0-53.0) % MCHC (31.0-37.0) g/dL RDW (11.5-15.5) % Neutrophils # (1.3-7.7) k/uL Lymphocytes # (1.0-4.8) k/uL BUN (9-20) mg/dL Creatinine (0.66-1.25) mg/dL Glucose (74-99) mg/dL POC Glucose (mg/dL) 150 H 167 H 140 H (70-110) mg/dL Magnesium (1.6-2.3) mg/dL Total Protein (6.3-8.2) g/dL 12/11/23 12/11/23 12/11/23 Range/Units 08:15 08:15 11:53 WBC 15.4 H (3.8-10.6) k/uL RBC 3.85 L (4.30-5.90) m/uL Hgb 10.9 L (13.0-17.5) gm/dL Hct 36.0 L (39.0-53.0) % MCHC 30.2 L (31.0-37.0) g/dL RDW 15.7 H (11.5-15.5) % Neutrophils # 14.4 H (1.3-7.7) k/uL Lymphocytes # 0.2 L (1.0-4.8) k/uL BUN 86 H (9-20) mg/dL Creatinine 2.55 H (0.66-1.25) mg/dL Glucose 158 H (74-99) mg/dL POC Glucose (mg/dL) 148 H (70-110) mg/dL Magnesium 2.5 H (1.6-2.3) mg/dL Total Protein 6.1 L (6.3-8.2) g/dL Assessment and Plan Plan: Acute on chronic hypoxic and hypercapnic respiratory failure, currently on BiPAP for respiratory support, the blood gases are still showing a component of hypercapnic respiratory failure and acute on top of chronic respiratory acidosis along with a component of chronic hypoxic respiratory failure. The patient is much more awake and alert on today's evaluation. Nevertheless, he failed to come off the BiPAP due to worsening hypoxemia. The patient is back on a BiPAP. Repeat chest x-ray from today shows no acute abnormalities. No signs of any fluid overload consolidation or airspace disease. Remains on DuoNeb nebulized treatments [id number], Symbicort and oral prednisone. Acute exacerbation of COPD with secondary acute on top of chronic hypoxic and hypercapnic respiratory failure, currently on BiPAP Advanced COPD with chronic hypoxic respiratory failure maintained on O2 at 4 L/min nasal cannula Chronic diastolic heart failure Chronic atrial fibrillation Coronary artery disease and previous stent placement History of permanent pacemaker insertion Anemia of chronic disease Benign essential hypertension Acute kidney injury on top of chronic kidney disease stage IIIb Dyslipidemia History of depression/Anxiety Plan: Continue BiPAP Chest x-ray from today was noted IV fluids to KVO and the patient will be started on IV Lasix per nephrology Continue bronchodilators Continue steroids with oral prednisone Continue anticoagulation with Xarelto Monitor renal function Nephrology consultation DNR/DNI CODE STATUS. Will continue to follow. prognosis poor Attempt to take this patient off the BiPAP again tomorrow.
[2023-12-11 16:30] LABS: Glucose,Whole Blood 118 mg/dL (70-110)
[2023-12-11 21:05] LABS: Glucose,Whole Blood 116 mg/dL (70-110)
[2023-12-12 06:13] LABS: Glucose,Whole Blood 124 mg/dL (70-110)
[2023-12-12 07:51] LABS: African American GFR (CKD) 33 (>60 ml/min/1.73 sqM); Anion Gap 7 mmol/L; Blood Urea Nitrogen 83 mg/dL (9-20); Calcium 9.1 mg/dL (8.4-10.2); Carbon Dioxide 31 mmol/L (22-30); Chloride 101 mmol/L (98-107); Glucose 91 mg/dL (74-99); Magnesium 2.2 mg/dL (1.6-2.3); Non-African American GFR(CKD) 28 (>60 ml/min/1.73 sqM); Potassium 3.5 mmol/L (3.5-5.1); Sodium 139 mmol/L (137-145)
--- NOTE | 2023-12-12 10:42 | P.PN ---
Subjective Patient is seen in follow-up for acute kidney injury on chronic kidney disease. Renal function improved. On IV Lasix. Nonoliguric. Vital signs are stable. General: No acute distress. HEENT: Head exam is unremarkable. On BiPAP. LUNGS: No audible rhonchi or wheezes. HEART: Rate and Rhythm are regular. ABDOMEN: Nontender. EXTREMITITES: Trace edema. Objective - Vital Signs Vital signs: Vital Signs Temp 97.7 F 12/12/23 09:36 Pulse 87 12/12/23 09:36 Resp 21 12/12/23 09:36 BP 133/69 12/12/23 09:36 Pulse Ox 97 12/12/23 09:36 FiO2 35 12/12/23 08:29 Intake & Output 12/11/23 12/12/23 12/12/23 18:59 06:59 18:59 Output Total 1700 4200 Balance -1700 -4200 Weight 137.5 kg Output: Urine 1700 4200 Other: Voiding Method Indwelling Catheter Indwelling Catheter Indwelling Catheter - Labs CBC & Chem 7: 12/11/23 08:15 12/12/23 06:57 Labs: Abnormal Lab Results - Last 24 Hours (Table) 12/11/23 12/11/23 12/11/23 Range/Units 11:53 16:28 21:04 Carbon Dioxide (22-30) mmol/L BUN (9-20) mg/dL Creatinine (0.66-1.25) mg/dL POC Glucose (mg/dL) 148 H 118 H 116 H (70-110) mg/dL 12/12/23 12/12/23 Range/Units 06:12 06:57 Carbon Dioxide 31 H (22-30) mmol/L BUN 83 H (9-20) mg/dL Creatinine 2.25 H (0.66-1.25) mg/dL POC Glucose (mg/dL) 124 H (70-110) mg/dL Assessment and Plan Plan: Assessment: 1. Acute kidney injury secondary to ATN secondary to hypovolemia. Creatinine 3.07 on admission -2.25 today. Recent ultrasound showed no evidence of hydronephrosis and atrophic right kidney. UA from earlier this month also fairly benign. 2. Chronic kidney disease stage IIIb with baseline creatinine near 2 secondary to nephrosclerosis. 3. Acute on chronic hypercapnic respiratory failure with underlying metabolic acidosis from diamox. Status post bicarb drip. Improved. 4. History of COPD. 5. Anemia of chronic kidney disease. Iron deficiency noted. Status post IV iron completed December 10, 2023. 6. Volume overload. Better with diuresis. 7. Hypokalemia from diuresis. Plan: Maintain IV Lasix. Replace potassium. Stop po bicarb. Encouraged oral intake. Avoid nephrotoxins. Continue to monitor renal function and urine output.
[2023-12-12 11:03] LABS: ABG Base Excess 3.8 mmol/L; ABG HCO3 30 mmol/L (21-25); ABG Oxygen Saturation 92.3 % (94-97); ABG PCO2 55 mmHg (35-45); ABG PH 7.35 (7.35-7.45); ABG PO2 62 mmHg (83-108); ABG TCO2 32 mmol/L (19-24); Allen Test Performed? Yes
--- NOTE | 2023-12-12 11:11 | P.PN ---
Subjective Progress Note Date: 12/12/23 73 year old M with PMH of CAD with stenting, HTN, HLD, Diastolic CHF, AFib, COPD on 5L home O2, CKD IIIb, anxiety and depression, PTSD presented to the ED after being found down with feces around him. In the ED he underwent extensive evaluation.BP 119/66, HR 84, T 97.8F, RR 20, 96% on 4L. CBC, Coag panel, CMP significant for WBC 11.1, RBC 3.73, Hg 10.4, Hct 36.6, Cl 110, BUN 55, Cr 3.07, glu 183. Mag 2.5. Lactic acid 1.4. Ammonia 50. Troponin 0.016. BNP 4670. UDS + benzo and MJ. EtOH negative. ABG pH 7.11, pCO2 77, pO2 93 on FiO2 36%. CT head and C-spine negative for acute process. EKG A-Fib with RBBB. Pelvic XR right femoral neck shortening may be related to patient rotation. CXR chronic findings . Patient was admitted for further workup and management. 12/06 Mentation much better. Daughter is at bedside. History is obtained from her. Apparently patient was found on the floor beside the bed with his BiPAP and O2 off. He had soiled himself. Maybe down for 1 hour. Has a tendency to roll off the bed. Step mother unable to take care of the patient as she works 3 12H shifts weekly. Open to hospice and palliative care. 12/07 Maintained on BiPAP. Discussed with at bedside. Last seen normal was 10PM and was found altered around 8AM. Patient is clearly unsafe to go home as he required 24H supervision. also reports he is somewhat confused today but overall much better than on admission. Hospice and case management to discuss options with family today. Nephrology recommends continuing IV hydration and adding IV iron. 12/08 Maintained on BiPAP. Patient gets very anxious when BiPAP is removed. ABG done yesterday pH 7.24, pCO2 55, pO2 79 FiO2 35. Pelvic XR shows no obvious fracture. Family still undecided about hospice and [facility]. Clearly he is unsafe to be by himself at home. Nephrology recommends continuing IV hydration, IV iron and added sodium bicarb. 12/09 Family still undecided about hospice plans on having a family meeting. Leaning towards SNF. Currently on BiPAP mostly for comfort. ABG shows pCO2 61. Started on D5 with sodium bicarb yesterday at 80 cc/hr by Nephrology for metabolic acidosis now switched to NS. 12/10 He desaturated down to the 70s on 5L NC this morning and was placed back on BiPAP. He is currently low 90s on BiPAP. CXR shows significant opacification of the right hemithorax and pulmonary vascular congestion of the left lung. Family agreeable to SNF and referrals have been placed yesterday when discussed with case management. Discussed with Dr. Bateman and we will start Lasix 60 mg IV BID and hold IV fluids. 12/11 Patient was seen and examined. Maintained on BiPAP 94% FiO2 35. Repeat CXR done yesterday afternoon showed improved opacification of the right hemithorax and improved pulmonary vascular congestion. Maintained on Lasix 60 mg IV BID. Negative 5900 fluid balance over the past 24H. BMP shows bicarb 31, BUN 83, Cr 2.25. Mag 2.2. ABG today shows pCO2 55. General: non toxic, no distress, appears at stated age, on BiPAP Derm: warm, dry Head: atraumatic, normocephalic, symmetric Eyes: EOMI, no lid lag, anicteric sclera Mouth: no lip lesion, mucus membranes moist Cardiovascular: S1S2 reg, no murmur Lungs: Decreased BS R > L, no rhonchi, no rales , no accessory muscle use Ext: no gross muscle atrophy, 1+ bilateral LE edema, no contractures Neuro: no focal neuro deficits Psych: Alert, oriented x 2 Based on my assessment of this patient, this patient meets a high complexity level of care. Acute on chronic respiratory failure with hypoxia and hypercarbia: Baseline 5L NC. Continue BiPAP. Hospice on board. Pulmonary and Nephrology on board. Acute on chronic diastolic CHF exacerbation: Lasix 60 mg IV BID. Monitor daily electrolytes and renal function. Strict intake and outtake. Daily weights. Toxic metabolic encephalopathy likely due to hypercarbia and benzodiazepine/THC and hypoxic encephalopathy: Patient has been taking Xanax for over 20 years, continue 1 mg PO TID PRN. COPD with exacerbation: Albuterol neb QID PRN. DuoNeb QID schduled. Symbicort 2 INH BID. Prednisone 40 mg PO QD. Pulmonary on board. MIRTHA on CKD: Improved. Avoid nephrotoxins. Nephrology on board. Normocytic anemia likely AOCD from CKD IIIb: Fe 23. Ferric gluconate 125 mg IV QD x 3. Chronic persistent atrial fibrillation: Metoprolol as below. Xarelto 15 mg PO QD. History of CAD status post stenting: Metoprolol and Lipitor as below. Hypertension: Imdur 15 mg PO QD. Metoprolol 75 mg PO BID. Hyperlipidemia: Lipitor 40 mg PO QHS. Hypothyroidism: Synthroid 137 mcg PO QD. Anxiety and Depression: Zoloft 200 mg PO QD. Xanax 1 mg PO TID PRN. PTSD Resolved: Hyperammonemia, Leukocytosis, Metabolic acidosis CODE STATUS: NO CODE. DVT Prophylaxis: Xarelto. GI Prophylaxis: Designated medical POA if patient is not able to make medical decisions for themselves: Dispo: Plans for SNF at this time. Referrals have been sent. He has mostly been on BiPAP since coming here, partially for comfort as he feels anxious without it. Will attempt trial periods without the BiPAP in preparation for SNF. I have reviewed the following j2ee consultant notes: Nephrology. I have reviewed the results of the following tests: BMP, Mag. I have ordered the following tests: BMP, Mag for tomorrow AM. I have discussed the care of this patient with the following independent historian: I have independently interpreted the following test below: CXR 12/10 I have discussed the management of this patient with the following physician: Objective - Vital Signs Vital signs: Vital Signs Temp 97.7 F 12/11/23 19:50 Pulse 89 12/12/23 03:45 Resp 29 H 12/12/23 03:45 BP 148/87 12/12/23 03:45 Pulse Ox 95 12/12/23 03:45 FiO2 35 12/12/23 04:10 Intake & Output 12/11/23 12/12/23 12/12/23 18:59 06:59 18:59 Output Total 1700 4200 Balance -1700 -4200 Weight 137.5 kg Output: Urine 1700 4200 Other: Voiding Method Indwelling Catheter Indwelling Catheter Indwelling Catheter - Labs CBC & Chem 7: 12/11/23 08:15 12/12/23 06:57 Labs: Abnormal Lab Results - Last 24 Hours (Table) 12/11/23 12/11/2312/10/24 Range/Units 08:15 08:15 11:53 WBC 15.4 H (3.8-10.6) k/uL RBC 3.85 L (4.30-5.90) m/uL Hgb 10.9 L (13.0-17.5) gm/dL Hct 36.0 L (39.0-53.0) % MCHC 30.2 L (31.0-37.0) g/dL RDW 15.7 H (11.5-15.5) % Neutrophils # 14.4 H (1.3-7.7) k/uL Lymphocytes # 0.2 L (1.0-4.8) k/uL Carbon Dioxide (22-30) mmol/L BUN 86 H (9-20) mg/dL Creatinine 2.55 H (0.66-1.25) mg/dL Glucose 158 H (74-99) mg/dL POC Glucose (mg/dL) 148 H (70-110) mg/dL Magnesium 2.5 H (1.6-2.3) mg/dL Total Protein 6.1 L (6.3-8.2) g/dL 12/11/23 12/11/23 12/12/23 Range/Units 16:28 21:04 06:12 WBC (3.8-10.6) k/uL RBC (4.30-5.90) m/uL Hgb (13.0-17.5) gm/dL Hct (39.0-53.0) % MCHC (31.0-37.0) g/dL RDW (11.5-15.5) % Neutrophils # (1.3-7.7) k/uL Lymphocytes # (1.0-4.8) k/uL Carbon Dioxide (22-30) mmol/L BUN (9-20) mg/dL Creatinine (0.66-1.25) mg/dL Glucose (74-99) mg/dL POC Glucose (mg/dL) 118 H 116 H 124 H (70-110) mg/dL Magnesium (1.6-2.3) mg/dL Total Protein (6.3-8.2) g/dL 12/12/23 Range/Units 06:57 WBC (3.8-10.6) k/uL RBC (4.30-5.90) m/uL Hgb (13.0-17.5) gm/dL Hct (39.0-53.0) % MCHC (31.0-37.0) g/dL RDW (11.5-15.5) % Neutrophils # (1.3-7.7) k/uL Lymphocytes # (1.0-4.8) k/uL Carbon Dioxide 31 H (22-30) mmol/L BUN 83 H (9-20) mg/dL Creatinine 2.25 H (0.66-1.25) mg/dL Glucose (74-99) mg/dL POC Glucose (mg/dL) (70-110) mg/dL Magnesium (1.6-2.3) mg/dL Total Protein (6.3-8.2) g/dL
[2023-12-12 11:34] LABS: Glucose,Whole Blood 99 mg/dL (70-110)
[2023-12-12] MEDS: POTASSIUM CHLORIDE ER 20 MEQ TAB.ER PO STA (12:20)
--- NOTE | 2023-12-12 13:37 | P.PN ---
Subjective Progress Note Date: 12/12/23 This is a 73-year-old male patient who came into the emergency department on 12/06/2023 with altered mental status, generalized weakness and falls and he was unable to provide much history. The at the time was leaning towards making the patient hospice. She was not absolutely certain. The patient accordingly was admitted to the hospital and I was asked to evaluate this patient because of his ongoing difficulties in breathing. The patient is known to have chronic stage IIIb kidney disease with a baseline creatinine near 2. He is also known to have COPD, chronic hypoxic respiratory failure, hypertension, coronary disease with previous history of coronary stenting, chronic diastolic heart f ailure, history of chronic A-fib and history of thyroid disease. The patient is O2 dependent and the patient is typically on 4 L of oxygen by nasal cannula. Patient also has a permanent pacemaker in place. The patient was in the hospital of last and earlier this month on 11/23/2023 where he was seen in consultation for an acute on top of chronic hypercapnic and hypoxic respiratory failure and exacerbation of chronic diastolic heart failure. He was supported with BiPAP therapy, treated with diuretics and ultimately he was discharged on 11/26/2023 where he was maintained on Trelegy Ellipta 1 puff a day albuterol nebulized treatments in combination with Atrovent nebulized treatments as needed . He has been also maintained on Xarelto regarding his chronic atrial fibrillation is a long-term anticoagulants. During this current admission, the patient was noted to have a white cell count of 11.1 with a hemoglobin 10.4 and a platelet count of 187. The sodium was at 140, potassium is at 4.1, BUN is 55 with a creatinine of 3.07 and the urine drug screen was positive for benzodiazepines and marijuana. Alcohol level was negative. Troponin level was 0.016 and a proBNP level was 4670. Blood gases done today showed a pH of 7.24 with a pCO2 of 55 and pO2 of 79 and this was done while the patient was on a BiPAP the chest x-ray that was done showed no evidence of any acute focal infiltrate. The patient has chronic changes without any acute cardiopulmonary abnormalities. The patient has a pacemaker over the left anterior chest along with sternotomy wires. No hilar mediastinal abnorma lities. The CT scan of the cervical spine with showed no acute abnormalities. EKG showed atrial fibrillation with RBBB pattern. Patient is being hydrated with IV fluids currently normal saline at rate of 75 cc an hour. On 12/09/2023, patient is being seen for a follow-up. The patient remains on a BiPAP pressure of 12 over 6 cm of water and FiO2 of 35%. The patient has been alert and awake any reports improvement in his respiratory status and that he is seems to be less short of breath compared to yesterday. At the same time, the patient is being given IV fluids and the patient on normal saline at rate of 75 cc an hour. No significant hypotension. His urine output has improved and the patient is producing better urine output and the creatinine is down to 2.5 with a BUN of 83. The serum bicarb is 14 and sodium is at 135 with a potassium level of 4.8. Anion gap is at 10. Most recent white cell count of 8.6 with a hemoglobin 9.9 and platelet count of 186. Meanwhile, the patient remains on DuoNeb nebulized treatments [id number] Symbicort maintenance, IV Solu- Medrol, and the rest of the medication remain unchanged. The patient remains on anticoagulation with Xarelto. On 12/10/23, follow-up. Patient is still on a BiPAP pressure of 12/6 and a means of water and FiO2 35%. Blood gas was done and the patient continues to have a component of hypercapnic respiratory failure with a pH of 7.25 and a pCO2 of 61 and pO2 of 79. He is still lethargic. Arousable. Meanwhile, his BUN is at 87 with a creatinine of 2.7. Sodium is at 136. Potassium is at 4.2. Rest of the blood work showed a sugar of 135, and the patient's lactic acid level was down to 1.4. Remains on bronchodilators. Remains on IV Solu-Medrol 60 mg every 6 hours. Remains on anticoagulation with Xarelto. Continues to receive IV fluids and the patient is on normal citrate of 50 cc an hour. Nephrology on the case. No other significant events overnight. He is a DNR/DNI CODE STATUS. On 12/11/2023, the patient remains on a BiPAP. A brief attempt was done to get this patient off the BiPAP this morning and this failed as the patient became hypoxic and this was done at time of breakfast. Based on that, the patient was placed again on a BiPAP. BiPAP settings are currently at 12 over 6 cm of water with an FiO2 of 35%. A repeat chest x-ray was ordered and this was done this morning and it showed no acute cardiopulmonary process. There is decreased pulm vessel congestion. The patient remains on bronchodilators. The patient is on DuoNeb nebulized treatments [id number]. The patient on Symbicort. The patient is on prednisone 40 mg p.o. daily and the patient is on long-term ant icoagulation. The patient continues to diurese with IV Lasix 60 mg every 12 hours. The patient remains in negative fluid balance. The patient's BUN is at 86 with a creatinine of 2.5. Sodium is at 139. Potassium is at 4.4. The white cell count 15.4 with a hemoglobin 10.9 and a platelet count of 163. The patient is being seen by nephrology. On 12/07/2023, the patient remains on a BiPAP and currently is on a pressure of 12 with sick centimeters of water. Able to generate tidal volumes of 400. A follow-up blood gas from today shows improvement in SB status. pH is at 7.35 with a pCO2 of 55 and a pO2 of 62. I am considering giving the patient brief breaks off the BiPAP. He is still diuresing with IV Lasix. Fluid balance is negative at least few liters over the past 24 hours. The patient is currently on IV Lasix 60 mg IV push every 12 hours. BUN is 83 with a creatinine of 2.2 and there has been some interval improvement in renal function. Sodium is at 139, bicarb is at 31 and glucose at 91. WBC count is at 15.4 with hemoglobin 10.9 and platelet count of 163. No other significant events overnight. The patient is arousable and communicating. Chest x-ray from yesterday shows cardiomegaly and pulm vascular congestion. Nephrology was on the case. Objective - Vital Signs Vital signs: Vital Signs Temp 97.6 F 12/12/23 12:00 Pulse 82 12/12/23 12:01 Resp 20 12/12/23 12:00 BP 123/74 12/12/23 12:00 Pulse Ox 100 12/12/23 12:00 FiO2 35 12/12/23 08:29 Intake & Output 12/11/23 12/12/23 12/12/23 18:59 06:59 18:59 Output Total 1700 4200 Balance -1700 -4200 Weight 137.5 kg Output: Urine 1700 4200 Other: Voiding Method Indwelling Catheter Indwelling Catheter Indwelling Catheter - Exam General: 73-year-old male, on BiPAP,, BiPAP pressure of 12/6 with an FiO2 of 35% Skin: Skin is warm and dry and no rashes or lesions are noted. Eye: Pupils are equal, round and reactive to light, extra-ocular movements are intact; there is normal conjunctiva bilaterally. Ears, nose, mouth and throat: There are moist mucous membranes and no oral lesions. Neck: The neck is supple, there is no tenderness or JVD. Cardiovascular: There is a irregular rate and rhythm. No murmur, rub or gallop is appreciated. Respiratory: Diminished breath sounds at the bases no crackles rhonchi or whee zes Gastrointestinal: Soft, non-distended, non-tender abdomen without masses or organomegaly noted. Bowel sounds are unremarkable. Back: There is no tenderness to palpation in the midline. There is no obvious deformity. Musculoskeletal: Normal ROM, no tenderness, There is no pedal edema. There is no calf tenderness or swelling. No cords were appreciated. Neurological: CN II-XII intact, Cranial nerves III through XII are intact. There are no obvious motor or sensory deficits. Generalized global weakness, poor coordination, diminished level of consciousness. - Labs CBC & Chem 7: 12/11/23 08:15 12/12/23 06:57 Labs: Abnormal Lab Results - Last 24 Hours (Table) 12/11/23 12/11/23 12/12/23 Range/Units 16:28 21:04 06:12 ABG pCO2 (35-45) mmHg ABG pO2 (83-108) mmHg ABG HCO3 (21-25) mmol/L ABG Total CO2 (19-24) mmol/L ABG O2 Saturation (94-97) % Hemoglobin (13.0-17.5) gm/dL Carbon Dioxide (22-30) mmol/L BUN (9-20) mg/dL Creatinine (0.66-1.25) mg/dL POC Glucose (mg/dL) 118 H 116 H 124 H (70-110) mg/dL 12/12/23 12/12/23 Range/Units 06:57 10:57 ABG pCO2 55 H (35-45) mmHg ABG pO2 62 L (83-108) mmHg ABG HCO3 30 H (21-25) mmol/L ABG Total CO2 32 H (19-24) mmol/L ABG O2 Saturation 92.3 L (94-97) % Hemoglobin 9.6 L (13.0-17.5) gm/dL Carbon Dioxide 31 H (22-30) mmol/L BUN 83 H (9-20) mg/dL Creatinine 2.25 H (0.66-1.25) mg/dL POC Glucose (mg/dL) (70-110) mg/dL Assessment and Plan Plan: Acute on chronic hypoxic and hypercapnic respiratory failure, currently on BiPAP for respiratory support, the blood gases are still showing a component of hypercapnic respiratory failure and acute on top of chronic respiratory acidosis along with a component of chronic hypoxic respiratory failure. Remains on DuoNeb nebulized treatments [id number], Symbicort and oral prednisone. Noted the follow-up blood gas from today is showing some improvement respiratory status. The patient should be able to come off the BiPAP briefly for feeding purposes. Otherwise, would suggest keeping the BiPAP for another 24 hours. Acute exacerbation of COPD with secondary acute on top of chronic hypoxic and hypercapnic respiratory failure, currently on BiPAP. Rule out a component of CHF in addition contributing to his respiratory failure. Advanced COPD with chronic hypoxic respiratory failure maintained on O2 at 4 L/min nasal cannula Chronic diastolic heart failure Chronic atrial fibrillation Coronary artery disease and previous stent placement History of permanent pacemaker insertion Anemia of chronic disease Benign essential hypertension Acute kidney injury on top of chronic kidney disease stage IIIb Dyslipidemia History of depression/Anxiety Plan: Continue BiPAP at the same setting. May be able to give the patient brief episodes of the BiPAP for feeding purposes only. Recommend keeping the BiPAP on and 24 hours nearly continuous. Chest x-ray from today was noted Blood gas from today was noted IV fluids to KVO and patient is being diuresed with IV Lasix with excellent urine output Continue bronchodilators Continue steroids with oral prednisone Continue anticoagulation with Xarelto Monitor renal function Nephrology consultation DNR/DNI CODE STATUS. Will continue to follow. prognosis poor
[2023-12-12 16:51] LABS: Glucose,Whole Blood 117 mg/dL (70-110)
[2023-12-12 20:02] LABS: Glucose,Whole Blood 104 mg/dL (70-110)
[2023-12-13 06:11] LABS: Glucose,Whole Blood 99 mg/dL (70-110)
[2023-12-13 07:35] LABS: African American GFR (CKD) 35 (>60 ml/min/1.73 sqM); Anion Gap 5 mmol/L; Blood Urea Nitrogen 78 mg/dL (9-20); Calcium 9.1 mg/dL (8.4-10.2); Carbon Dioxide 38 mmol/L (22-30); Chloride 96 mmol/L (98-107); Glucose 82 mg/dL (74-99); Magnesium 2.1 mg/dL (1.6-2.3); Non-African American GFR(CKD) 31 (>60 ml/min/1.73 sqM); Potassium 3.6 mmol/L (3.5-5.1); Sodium 139 mmol/L (137-145)
--- NOTE | 2023-12-13 09:21 | XR ---
EXAMINATION TYPE: XR chest 1V portable DATE OF EXAM: 12/13/2023 8:57 AM CLINICAL INDICATION: Male, 73 years old with history of CHF; COMPARISON: Chest radiographs from 12/11/2023 TECHNIQUE: XR chest 1V portable Frontal view of the chest. FINDINGS: Lungs/Pleura: No evidence of focal consolidation or pneumothorax. Blunting of the costophrenic angles is present. Pulmonary vascularity: Unremarkable. Heart/mediastinum: Cardiomediastinal silhouette is unremarkable. Atherosclerotic calcifications are seen in the aorta. Single-lead cardiac conduction device overlying the left hemithorax with lead proj ecting over the right ventricle. Musculoskeletal: No acute osseous pathology. Midline sternotomy wires are noted. IMPRESSION: Cardiomegaly, pulmonary vascular congestion and bilateral pleural effusions. Correlate with BNP for c ongestive heart failure. [facility] Kristin Valdovinos, , 12/13/2023 9:18 AM
--- NOTE | 2023-12-13 10:24 | P.PN ---
Subjective Progress Note Date: 12/13/23 73 year old M with PMH of CAD with stenting, HTN, HLD, Diastolic CHF, AFib, COPD on 5L home O2, CKD IIIb, anxiety and depression, PTSD presented to the ED after being found down with feces around him. Last seen normal was 10PM and was found altered around 8AM with his BiPAP and O2 off. He had some urine in his urinal and it seems he may have unsucessfully triend to get up to use the urinal and commode at bedside. In the ED he underwent extensive evaluation. BP 119/66, HR 84, T 97.8F, RR 20, 96% on 4L. CBC, Coag panel, CMP significant for WBC 11.1, RBC 3.73, Hg 10.4, Hct 36.6, Cl 110, BUN 55, Cr 3.07, glu 183. Mag 2.5. Lactic acid 1.4. Ammonia 50. Troponin 0.016. BNP 4670. UDS + benzo and MJ. EtOH negative. ABG pH 7.11, pCO2 77, pO2 [address] on FiO2 36%. CT head and C-spine negative for acute process. EKG A-Fib with RBBB. Pelvic XR right femoral neck shortening may be related to patient rotation. CXR chronic findings. Patient was admitted for further workup and management. Patient was placed on continuous BiPAP and serial ABGs were obtained with improvement in his pCO2 from 77-55-61-55. Pelvic XR was repeated due to the findings on the previous XR which was negative for fracture. Nephrology c onsulted for acute kidney injury and he was started on IV hydration. He was noted to be severely hypoxic on 12/10, CXR showed significant opacification of the right hemithorax and pulmonary vascular congestion of the left lung. The case was discussed with Dr. Bateman, IV hydration was discontinued and he was started on Lasix 60 mg IV BID. Since then he has been diuresing well and oxygen requirements are improving. Family met with hospice and it seems that they are not yet ready for hospice. The plan is for the patient to discharge to SNF when he is able to get off the BiPAP for much of the day only to be used at night. 12/12 Patient was seen and examined. Mentation considerably improved. He is sitting up in the chair. Currently 94% on 5L NC. Maintained on Lasix 60 mg IV BID. Urine output 6300cc over the past 24H. BMP shows Cl 96, bicarb 38, BUN 78, Cr 2.11. Mag 2.1. ABG yesterday shows pH 7.35 and pCO2 55. CXR shows improved pulmonary vascular congestion. General: non toxic, no distress, appears at stated age, on 5L NC Derm: warm, dry Head: atraumatic, normocephalic, symmetric Eyes: EOMI, no lid lag, anicteric sclera Mouth: no lip lesion, mucus membranes moist Cardiovascular: S1S2 reg, no murmur Lungs: Decreased BS R > L, no rhonchi, no rales , no accessory muscle use Ext: no gross muscle atrophy, 1+ bilateral LE edema, no contractures Neuro: no focal neuro deficits Psych: Alert, oriented x 3 Based on my assessment of this patient, this patient meets a high complexity level of care. Acute on chronic respiratory failure with hypoxia and hypercarbia: Baseline 5L NC. Continue BiPAP PRN. Hospice has met with family and they are not yet ready to make a decision. Pulmonary and Nephrology on board. Acute on chronic diastolic CHF exacerbation: Lasix 60 mg IV BID. Monitor daily electrolytes and renal function. Strict intake and outtake. Daily weights. Toxic metabolic encephalopathy likely due to hypercarbia and benzodiazepine/THC and hypoxic encephalopathy: Improving. Patient has been taking Xanax for over 20 years, continue 1 mg PO TID PRN. COPD with exacerbation: Albuterol neb QID PRN. DuoNeb QID schduled. Symbicort 2 INH BID. Prednisone 40 mg PO QD. Pulmonary on board. MIRTHA on CKD: Improved. Avoid nephrotoxins. Nephrology on board. Hypochloremic metabolic alkalosis likely due to forced diuresis. Normocytic anemia likely AOCD from CKD IIIb: Fe 23. Ferric gluconate 125 mg IV QD x 3. Chronic persistent atrial fibrillation: Metoprolol as below. Xarelto 15 mg PO Q D. History of CAD status post stenting: Metoprolol and Lipitor as below. Hypertension: Imdur 15 mg PO QD. Metoprolol 75 mg PO BID. Hyperlipidemia: Lipitor 40 mg PO QHS. Hypothyroidism: Synthroid 137 mcg PO QD. Anxiety and Depression: Zoloft 200 mg PO QD. Xanax 1 mg PO TID PRN. PTSD Resolved: Hyperammonemia, Leukocytosis, Metabolic acidosis CODE STATUS: NO CODE. DVT Prophylaxis: Xarelto. GI Prophylaxis: Designated medical POA if patient is not able to make medical decisions for themselves: Dispo: Plans for SNF at this time. Referrals have been sent. He has mostly been on BiPAP since coming here, will attempt trial periods without the BiPAP in preparation for SNF. I have reviewed the following digital marketing consultant notes: Nephrology, Pulmonary. I have reviewed the results of the following tests: BMP, Mag. ABG 12/11. I have ordered the following tests: BMP, Mag for tomorrow AM. I have discussed the care of this patient with the following independent historian: Case management. I have independently interpreted the following test below: CXR. I have discussed the management of this patient with the following physician: Objective - Vital Signs Vital signs: Vital Signs Temp 97.8 F 12/13/23 00:00 Pulse 73 12/13/23 08:02 Resp 20 12/13/23 08:01 BP 113/76 12/13/23 08:01 Pulse Ox 94 L 12/13/23 08:01 FiO2 35 12/13/23 04:54 Intake & Output 12/12/23 12/13/23 12/13/23 18:59 06:59 18:59 Output Total 2400 3900 Balance -2400 -3900 Weight 135.6 kg Output: Urine 2400 3900 Other: Voiding Method Indwelling Catheter Indwelling Catheter Indwelling Catheter # Bowel Movements 1 - Labs CBC & Chem 7: 12/11/23 08:15 12/13/23 06:56 Labs: Abnormal Lab Results - Last 24 Hours (Table) 12/12/23 12/12/23 12/13/23 Range/Units 10:57 16:50 06:56 ABG pCO2 55 H (35-45) mmHg ABG pO2 62 L (83-108) mmHg ABG HCO3 30 H (21-25) mmol/L ABG Total CO2 32 H (19-24) mmol/L ABG O2 Saturation 92.3 L (94-97) % Hemoglobin 9.6 L (13.0-17.5) gm/dL Chloride 96 L (98-107) mmol/L Carbon Dioxide 38 H (22-30) mmol/L BUN 78 H (9-20) mg/dL Creatinine 2.11 H (0.66-1.25) mg/dL POC Glucose (mg/dL) 117 H (70-110) mg/dL
[2023-12-13 11:16] LABS: Glucose,Whole Blood 146 mg/dL (70-110)
--- NOTE | 2023-12-13 12:14 | P.PN ---
Subjective patient is seen for follow-up for acute kidney injury and chronic kidney disease. Today. Maintained on IV Lasix. Serum creatinine at 2.1 today. Objective - Vital Signs Vital signs: Vital Signs Temp 97.6 F 12/13/23 11:24 Pulse 76 12/13/23 11:26 Resp 20 12/13/23 11:24 BP 108/67 12/13/23 11:24 Pulse Ox 99 12/13/23 11:24 FiO2 35 12/13/23 04:54 Intake & Output 12/12/23 12/13/23 12/13/23 18:59 06:59 18:59 Intake Total 118 Output Total 2400 3900 Balance -2400 -3900 118 Weight 135.6 kg Intake: Oral 118 Output: Urine 2400 3900 Other: Voiding Method Indwelling Catheter Indwelling Catheter Indwelling Catheter # Bowel Movements 1 1 - Exam patient is awake, comfortable, no acute distress. Examination of the heart S1 and S2 Examination of the lungs bilateral breath sounds are heard bilaterally examination of lower extremities shows edema 1+ bilaterally TERMINAL PRESS OPERATOR exam grossly intact - Labs CBC & Chem 7: 12/11/23 08:15 12/13/23 06:56 Labs: Abnormal Lab Results - Last 24 Hours (Table) 12/12/23 12/13/23 12/13/23 Range/Units 16:50 06:56 11:15 Chloride 96 L (98-107) mmol/L Carbon Dioxide 38 H (22-30) mmol/L BUN 78 H (9-20) mg/dL Creatinine 2.11 H (0.66-1.25) mg/dL POC Glucose (mg/dL) 117 H 146 H (70-110) mg/dL Assessment and Plan Assessment: 1. Acute kidney injury secondary to ATN . Creatinine 3.07 on admission -2.25 today. Recent ultrasound showed no evidence of hydronephrosis and atrophic right kidney. UA from earlier this month also fairly benign. 2. Chronic kidney disease stage IIIb with baseline creatinine near 2 secondary to nephrosclerosis. 3. Acute on chronic hypercapnic respiratory failure with underlying metabolic acidosis from diamox. Status post bicarb drip. Improved. 4. History of COPD. 5. Anemia of chronic kidney disease. Iron deficiency noted. Status post IV iron completed December 10, 2023. 6. Volume overload. Better with diuresis. 7. Hypokalemia from diuresis. Plan: continue with IV Lasix Repeat labs in a.m.
[2023-12-13 13:16] VITALS: BMI 41.7
[2023-12-13 16:21] LABS: Glucose,Whole Blood 171 mg/dL (70-110)
--- NOTE | 2023-12-13 18:06 | P.PN ---
Subjective Progress Note Date: 12/13/23 Principal diagnosis: Acute on chronic hypoxic and hypercapnic respiratory failure secondary to acute exacerbation of COPD and chronic diastolic congestive heart failure This is a 73-year-old male patient who came into the emergency department on 12/06/2023 with altered mental status, generalized weakness and falls and he was unable to provide much history. The at the time was leaning towards making the patient hospice. She was not absolutely certain. The patient accordingly was admitted to the hospital and I was asked to evaluate this patient because of his ongoing difficulties in breathing. The patient is known to have chronic stage IIIb kidney disease with a baseline creatinine near 2. He is also known to have COPD, chronic hypoxic respiratory failure, hypertension, coronary disease with previous history of coronary stenting, chronic diastolic heart failure, history of chronic A-fib and history of thyroid disease. The patient is O2 dependent and the patient is typically on 4 L of oxygen by nasal cannula. Patient also has a permanent pacemaker in place. The patient was in the hospital of last and earlier this month on 11/23/2023 where he was seen in consultation for an acute on top of chronic hypercapnic and hypoxic respiratory failure and exacerbation of chronic diastolic heart failure. He was supported with BiPAP therapy, treated with diuretics and ultimately he was discharged on 11/26/2023 where he was maintained on Trelegy Ellipta 1 puff a day albuterol nebulized treatments in combination with Atrovent nebulized treatments as needed. He has been also maintained on Xarelto regarding his chronic atrial fibrillation is a long-term anticoagulants. During this current admission, the patient was noted to have a white cell count of 11.1 with a hemoglobin 10.4 and a platelet count of 187. The sodium was at 140, potassium is at 4.1, BUN is 55 with a creatinine of 3.07 and the urine drug screen was positive for benzodiazepines and marijuana. Alcohol level was negative. Troponin level was 0.016 and a proBNP level was 4670. Blood gases done today showed a pH of 7.24 with a pCO2 of 55 and pO2 of 79 and this was done while the patient was on a BiPAP the chest x-ray that was done showed no evidence of any acute focal infiltrate. The patient has chronic changes without any acute cardiopulmonary abnormalities. The patient has a pacemaker over the left anterior chest along with sternotomy wires. No hilar mediastinal abnormalities. The CT scan of the cervical spine with showed no acute abnormalities. EKG showed atrial fibrillation with RBBB pattern. Patient is being hydrated with IV fluids currently normal saline at rate of 75 cc an hour. On 12/09/2023, patient is being seen for a follow-up. The patient remains on a B iPAP pressure of 12 over 6 cm of water and FiO2 of 35%. The patient has been alert and awake any reports improvement in his respiratory status and that he is seems to be less short of breath compared to yesterday. At the same time, the patient is being given IV fluids and the patient on normal saline at rate of 75 cc an hour. No significant hypotension. His urine output has improved and the patient is producing better urine output and the creatinine is down to 2.5 with a BUN of 83. The serum bicarb is 14 and sodium is at 135 with a potassium level of 4.8. Anion gap is at 10. Most recent white cell count of 8.6 with a hemoglobin 9.9 and platelet count of 186. Meanwhile, the patient remains on DuoNeb nebulized treatments [id number] Symbicort maintenance, IV Solu- Medrol, and the rest of the medication remain unchanged. The patient remains on anticoagulation with Xarelto. On 12/10/23, follow-up. Patient is still on a BiPAP pressure of 12/6 and a means of water and FiO2 35%. Blood gas was done and the patient continues to have a component of hypercapnic respiratory failure with a pH of 7.25 and a pCO2 of 61 and pO2 of 79. He is still lethargic. Arousable. Meanwhile, his BUN is at 87 with a creatinine of 2.7. Sodium is at 136. Potassium is at 4.2. Rest of the blood work showed a sugar of 135, and the patient's lactic acid level was down to 1.4. Remains on bronchodilators. Remains on IV Solu-Medrol 60 mg every 6 hours. Remains on anticoagulation with Xarelto. Continues to receive IV fluids and the patient is on normal citrate of 50 cc an hour. Nephrology on the case. No other significant events overnight. He is a DNR/DNI CODE STATUS. On 12/11/2023, the patient remains on a BiPAP. A brief attempt was done to get this patient off the BiPAP this morning and this failed as the patient became hypoxic and this was done at time of breakfast. Based on that, the patient was placed again on a BiPAP. BiPAP settings are currently at 12 over 6 cm of water with an FiO2 of 35%. A repeat chest x-ray was ordered and this was done this morning and it showed no acute cardiopulmonary process. There is decreased pulm vessel congestion. The patient remains on bronchodilators. The patient is on DuoNeb nebulized treatments [id number]. The patient on Symbicort. The patient is on prednisone 40 mg p.o. daily and the patient is on long-term anticoagulation. The patient continues to diurese with IV Lasix 60 mg every 12 hours. The patient remains in negative fluid balance. The patient's BUN is at 86 with a creatinine of 2.5. Sodium is at 139. Potassium is at 4.4. The white cell count 15.4 with a hemoglobin 10.9 and a platelet count of 163. The patient is being seen by nephrology. On 12/07/2023, the patient remains on a BiPAP and currently is on a pressure of 12 with sick centimeters of water. Able to generate tidal volumes of 400. A follow-up blood gas from today shows improvement in SB status. pH is at 7.35 with a pCO2 of 55 and a pO2 of 62. I am considering giving the patient brief breaks off the BiPAP. He is still diuresing with IV Lasix. Fluid balance is negative at least few liters over the past 24 hours. The patient is currently on IV Lasix 60 mg IV push every 12 hours. BUN is 83 with a creatinine of 2.2 and there has been some interval improvement in renal function. Sodium is at 139, bicarb is at 31 and glucose at 91. WBC count is at 15.4 with hemoglobin 10.9 and platelet count of 163. No other significant events overnight. The patient is arousable and communicating. Chest x-ray from yesterday shows cardiomegaly and pulm vascular congestion. Nephrology was on the case. Patient was evaluated today on 12/13/23, seems to be very comfortable, he is off BiPAP, not in any distress. Family is at bedsidePatient is on 5 L nasal cannula, O2 sats is 98%. Basic metabolic profile is normal BUN however is 78 creatinine 2.11 and bicarb is 38. Chest x-ray continues to show cardiomegaly and pulmonary vascular congestion with bilateral pleural effusions. This is most likely consistent with congestive heart failure Objective - Vital Signs Vital signs: Vital Signs Temp 97.6 F 12/13/23 11:24 Pulse 80 12/13/23 15:30 Resp 20 12/13/23 15:18 BP 116/75 12/13/23 15:18 Pulse Ox 98 12/13/23 15:18 FiO2 35 12/13/23 04:54 Intake & Output 12/12/23 12/13/23 12/13/23 18:59 06:59 18:59 Intake Total 236 Output Total 2400 3900 1500 Balance -2400 -3900 -1264 Weight 135.6 kg 135.6 kg Intake: Oral 236 Output: Urine 2400 3900 1500 Other: Voiding Method Indwelling Catheter Indwelling Catheter Indwelling Catheter # Bowel Movements 1 1 - Exam General: 73-year-old male, on 5 L nasal cannula, off BiPAP. Skin: Skin is warm and dry and no rashes or lesions are noted. Eye: Pupils are equal, round and reactive to light, extra-ocular movements are intact; there is normal conjunctiva bilaterally. Ears, nose, mouth and throat: There are moist mucous membranes and no oral lesions. Neck: The neck is supple, there is no tenderness or JVD. Cardiovascular: Distant S1-S2, no S3 gallop. Respiratory: Diminished breath sounds at the bases no crackles rhonchi or wheezes Gastrointestinal: Soft, non-distended, non-tender abdomen without masses or organomegaly noted. Bowel sounds are unremarkable. Back: There is no tenderness to palpation in the midline. There is no obvious deformity. Musculoskeletal: No deformities and no limitation range of motion Neurological: Alert oriented x 3 no gross focal deficit - Labs CBC & Chem 7: 12/11/23 08:15 12/13/23 06:56 Labs: Abnormal Lab Results - Last 24 Hours (Table) 12/13/23 12/13/23 12/13/23 Range/Units 06:56 11:15 16:19 Chloride 96 L (98-107) mmol/L Carbon Dioxide 38 H (22-30) mmol/L BUN 78 H (9-20) mg/dL Creatinine 2.11 H (0.66-1.25) mg/dL POC Glucose (mg/dL) 146 H 171 H (70-110) mg/dL Assessment and Plan Assessment: Impression: Acute on chronic hypoxic and hypercapnic respiratory failure, secondary to acute exacerbation of COPD Acute on chronic diastolic heart failure Chronic atrial fibrillation Coronary artery disease and previous stent placement History of permanent pacemaker insertion Anemia of chronic disease Benign essential hypertension Acute kidney injury on top of chronic kidney disease stage IIIb Dyslipidemia History of depression/Anxiety Recommendation: Continue bronchodilators continue steroids presently on oral prednisone Continue present supportive care measures Continue diuretics Nephrology is addressing his kidney disease Continue anticoagulation therapy/Xarelto Will continue to Time with Patient: Less than 30
[2023-12-13 19:59] LABS: Glucose,Whole Blood 184 mg/dL (70-110)
[2023-12-14 06:21] LABS: Glucose,Whole Blood 99 mg/dL (70-110)
[2023-12-14 10:04] LABS: African American GFR (CKD) 40 (>60 ml/min/1.73 sqM); Anion Gap 5 mmol/L; Blood Urea Nitrogen 78 mg/dL (9-20); Calcium 8.8 mg/dL (8.4-10.2); Carbon Dioxide 37 mmol/L (22-30); Chloride 95 mmol/L (98-107); Glucose 183 mg/dL (74-99); HCT 30.1 % (39.0-53.0); HGB 9.5 gm/dL (13.0-17.5); Hypochromasia Moderate; MCH 28.6 pg (25.0-35.0); MCHC 31.5 g/dL (31.0-37.0); MCV 90.7 fL (80.0-100.0); Mean Platelet Volume 8.4; Non-African American GFR(CKD) 34 (>60 ml/min/1.73 sqM); Platelet Count 140 k/uL (150-450); Potassium 3.4 mmol/L (3.5-5.1); RBC 3.32 m/uL (4.30-5.90); RDW 15.4 % (11.5-15.5); Sodium 137 mmol/L (137-145); WBC 11.1 k/uL (3.8-10.6)
[2023-12-14 10:57] LABS: Glucose,Whole Blood 139 mg/dL (70-110)
--- NOTE | 2023-12-14 12:54 | P.PN ---
Subjective patient is seen for follow-up for acute kidney injury and chronic kidney disease. Maintained on IV Lasix. shortness of breath has improved. Serum creatinine at 1.9 today. Objective - Vital Signs Vital signs: Vital Signs Temp 98.2 F 12/14/23 07:44 Pulse 76 12/14/23 11:32 Resp 20 12/14/23 08:00 BP 113/66 12/14/23 07:44 Pulse Ox 95 12/14/23 07:44 FiO2 35 12/14/23 06:04 Intake & Output 12/13/23 12/14/23 12/14/23 18:59 06:59 18:59 Intake Total 756 118 Output Total 1500 2100 1000 Balance -094 -2100 -932 Weight 135.6 kg 133 kg Intake: Oral 756 118 Output: Urine 1500 2100 1000 Other: Voiding Method Indwelling Catheter Indwelling Catheter Indwelling Catheter # Bowel Movements 1 - Exam patient is awake, comfortable, no acute distress. 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 - Labs CBC & Chem 7: 12/14/23 09:27 12/14/23 09:27 Labs: Abnormal Lab Results - Last 24 Hours (Table) 12/13/23 12/13/23 12/14/23 Range/Units 16:19 19:57 09:27 WBC 11.1 H (3.8-10.6) k/uL RBC 3.32 L (4.30-5.90) m/uL Hgb 9.5 L (13.0-17.5) gm/dL Hct 30.1 L (39.0-53.0) % Plt Count 140 L (150-450) k/uL Potassium (3.5-5.1) mmol/L Chloride (98-107) mmol/L Carbon Dioxide (22-30) mmol/L BUN (9-20) mg/dL Creatinine (0.66-1.25) mg/dL Glucose (74-99) mg/dL POC Glucose (mg/dL) 171 H 184 H (70-110) mg/dL 12/14/23 12/14/23 Range/Units 09:27 10:55 WBC (3.8-10.6) k/uL RBC (4.30-5.90) m/uL Hgb (13.0-17.5) gm/dL Hct (39.0-53.0) % Plt Count (150-450) k/uL Potassium 3.4 L (3.5-5.1) mmol/L Chloride 95 L (98-107) mmol/L Carbon Dioxide 37 H (22-30) mmol/L BUN 78 H (9-20) mg/dL Creatinine 1.92 H (0.66-1.25) mg/dL Glucose 183 H (74-99) mg/dL POC Glucose (mg/dL) 139 H (70-110) mg/dL Assessment and Plan Assessment: 1. Acute kidney injury secondary to ATN . Creatinine 3.07 on admission -1.9 today. Maintained on IV Lasix. Recent ultrasound showed no evidence of hydronephrosis and atrophic right kidney. UA from earlier this month also fairly benign. 2. Chronic kidney disease stage IIIb with baseline creatinine near 2 secondary to nephrosclerosis. 3. Acute on chronic hypercapnic respiratory failure with underlying metabolic acidosis from diamox. Status post bicarb drip. Improved. 4. History of COPD. 5. Anemia of chronic kidney disease. Iron deficiency noted. Status post IV iron completed December 10, 2023. 6. Volume overload. Better with diuresis. 7. Hypokalemia from diuresis. Plan: continue with IV Lasix Replace potassium Repeat labs in a.m.
--- NOTE | 2023-12-14 13:20 | P.PN ---
Subjective Progress Note Date: 12/14/23 73 year old M with PMH of CAD with stenting, HTN, HLD, Diastolic CHF, AFib, COPD on 5L home O2, CKD IIIb, anxiety and depression, PTSD presented to the ED after being found down with feces around him. Last seen normal was 10PM and was found altered around 8AM with his BiPAP and O2 off. He had some urine in his urinal and it seems he may have unsucessfully triend to get up to use the urinal and commode at bedside. In the ED he underwent extensive evaluation. BP 119/66, HR 84, T 97.8F, RR 20, 96% on 4L. CBC, Coag panel, CMP significant for WBC 11.1, RBC 3.73, Hg 10.4, Hct 36.6, Cl 110, BUN 55, Cr 3.07, glu 183. Mag 2.5. Lactic acid 1.4. Ammonia 50. Troponin 0.016. BNP 4670. UDS + benzo and MJ. EtOH negative. ABG pH 7.11, pCO2 77, pO2 [address] on FiO2 36%. CT head and C-spine negative for acute process. EKG A-Fib with RBBB. Pelvic XR right femoral neck shortening may be related to patient rotation. CXR chronic findings. Patient was admitted for further workup and management. Patient was placed on continuous BiPAP and serial ABGs were obtained with improvement in his pCO2 from 77-55-61-55. Pelvic XR was repeated due to the findings on the previous XR which was negative for fracture. Nephrology c onsulted for acute kidney injury and he was started on IV hydration. He was noted to be severely hypoxic on 12/10, CXR showed significant opacification of the right hemithorax and pulmonary vascular congestion of the left lung. The case was discussed with Dr. Bateman, IV hydration was discontinued and he was started on Lasix 60 mg IV BID. Since then he has been diuresing well and oxygen requirements are improving. Family met with hospice and it seems that they are not yet ready for hospice. The plan is for the patient to discharge to SNF when he is able to get off the BiPAP for much of the day only to be used at night. Patient seen this morning. He states that he feels tired. He was sitting in the chair. Patient to me adamantly denies suicidal ideation or homicidal idealization. Patient states that he was upset with his as well he made comments about suicide. Per case picker patient was upset about going to a correction facility. Patient is not amenable to going to correction facility. Physical exam General examination - Alert and Oriented 3, appears chronically debilitated Heart - + S1S2 no murmurs Lungs -mild bilateral wheezing Abdomen soft NT ND +ve BS Extremities -+2 pitting edema bilateral lower extremities CLINICAL MICROBIOLOGIST - Moving all 4 extremities spontaneously Psych - Calm and cooperative Assessment and plan Acute on chronic respiratory failure with hypoxia and hypercarbia: Baseline 5L NC. Continue BiPAP PRN. Patient denied hospice. Patient started on prednisone 40 mg daily. Pulmonary and Nephrology on board. Acute on chronic diastolic CHF exacerbation: Lasix 60 mg IV BID. Monitor daily electrolytes and renal function. Strict intake and outtake. Daily weights. Nephrology on board Toxic metabolic encephalopathy likely due to hypercarbia and benzodiazepine/THC and hypoxic encephalopathy: Improving. Patient has been taking Xanax for over 20 years, continue 1 mg PO TID PRN. Mental status has improved COPD with exacerbation: Albuterol neb QID PRN. DuoNeb QID schduled. Symbicort 2 INH BID. Prednisone 40 mg PO QD. Pulmonary on board. MIRTHA on CKD stage III: Improved. Avoid nephrotoxins. Nephrology on board. Hypochloremic metabolic alkalosis likely due to forced diuresis. Normocytic anemia likely AOCD from CKD IIIb: Fe 23. Ferric gluconate 125 mg IV QD x 3. Chronic persistent atrial fibrillation: Metoprolol as below. Xarelto 15 mg PO QD. History of CAD status post stenting: Metoprolol and Lipitor as below. Hypertension: Imdur 15 mg PO QD. Metoprolol 75 mg PO BID. Hyperlipidemia: Lipitor 40 mg PO QHS. Hypothyroidism: Synthroid 137 mcg PO QD. Anxiety and Depression: Zoloft 200 mg PO QD. Xanax 1 mg PO TID PRN. PTSD Suicidal idealization? Awaiting for psychiatry evaluation Resolved: Hyperammonemia, Leukocytosis, Metabolic acidosis CODE STATUS: NO CODE. DVT Prophylaxis: Xarelto. Patient cleared by psychiatry who will be stable to discharge to correction facility Objective - Vital Signs Vital signs: Vital Signs Temp 98.2 F 12/14/23 07:44 Pulse 76 12/14/23 11:32 Resp 20 12/14/23 08:00 BP 113/66 12/14/23 07:44 Pulse Ox 95 12/14/23 07:44 FiO2 35 12/14/23 06:04 Intake & Output 12/13/23 12/14/23 12/14/23 18:59 06:59 18:59 Intake Total 756 118 Output Total 1500 2100 1000 Balance -744 -2100 -882 Weight 135.6 kg 133 kg Intake: Oral 756 118 Output: Urine 1500 2100 1000 Other: Voiding Method Indwelling Catheter Indwelling Catheter Indwelling Catheter # Bowel Movements 1 - Labs CBC & Chem 7: 12/14/23 09:27 12/14/23 09:27 Labs: Abnormal Lab Results - Last 24 Hours (Table) 12/13/23 12/13/23 12/14/23 Range/Units 16:19 19:57 09:27 WBC 11.1 H (3.8-10.6) k/uL RBC 3.32 L (4.30-5.90) m/uL Hgb 9.5 L (13.0-17.5) gm/dL Hct 30.1 L (39.0-53.0) % Plt Count 140 L (150-450) k/uL Potassium (3.5-5.1) mmol/L Chloride (98-107) mmol/L Carbon Dioxide (22-30) mmol/L BUN (9-20) mg/dL Creatinine (0.66-1.25) mg/dL Glucose (74-99) mg/dL POC Glucose (mg/dL) 171 H 184 H (70-110) mg/dL 12/14/23 12/14/23 Range/Units 09:27 10:55 WBC (3.8-10.6) k/uL RBC (4.30-5.90) m/uL Hgb (13.0-17.5) gm/dL Hct (39.0-53.0) % Plt Count (150-450) k/uL Potassium 3.4 L (3.5-5.1) mmol/L Chloride 95 L (98-107) mmol/L Carbon Dioxide 37 H (22-30) mmol/L BUN 78 H (9-20) mg/dL Creatinine 1.92 H (0.66-1.25) mg/dL Glucose 183 H (74-99) mg/dL POC Glucose (mg/dL) 139 H (70-110) mg/dL
--- NOTE | 2023-12-14 13:22 | P.CN ---
Psychiatric Consult - . Consult date: 12/14/23 Consult:: 12/14/23 13:13 IDENTIFYING DATA: This patient is a 73-year-old male with history of depression and anxiety REASON FOR REFERRAL: Psychiatry was consulted for suicide threat HISTORY OF PRESENT ILLNESS: The patient presented to the hospital on 12/05 after being found in his room with feces around him. Sitter was present at bedside as patient made thoughts of wanting to harm himself. Attempted to interview the patient however he had just received Xanax and was pretty somnolent. Unable to assess for safety concerns at this time but will try again at a later time when patient is more awake. Communicated with the nurse. PAST PSYCHIATRIC HISTORY: Unable to assess PAST MEDICAL HISTORY: Hypothyroidism, chronic kidney disease, CAD, COPD, hypertension, dyslipidemia ALLERGIES: as per EMR. CHEMICAL DEPENDENCY HISTORY: as per HPI. FAMILY PSYCHIATRIC/SUBSTANCE USE HISTORY: Unable to assess SOCIAL HISTORY: Unable to assess MENTAL STATUS EXAM: General Appearance: Patient appears to be stated age is somnolent, difficult to awake. Patient appears to have fair hygiene and grooming wearing hospital gown with poor eye contact. Behavior: Patient is calmly lying in bed without any agitated behavior. He appeared asleep Speech: Nonverbal Mood/Affect: unable to assess Suicidality/Homicidality: Unable to assess Perceptions: Unable to assess Though content/process: Unable to assess Judgment and insight: Poor IMPRESSIONS: History of depression History of anxiety History of PTSD PLAN: -Given patient's somnolence, unable to assess for safety concerns. Will reassess when patient is more awake [-Continue 1:1 sitter for safety for now until able to determine suicide risk when patient is more alert -Communicated plan to patient's nurse -Will continue to follow along -Please contact with any questions
[2023-12-14] MEDS: POTASSIUM CHLORIDE ER 20 MEQ TAB.ER PO STA (15:30)
[2023-12-14] MEDS ORDERED: NALOXONE 0.4 MG/ML 1 ML VIAL IV PRN (15:43)
[2023-12-14] MEDS ORDERED: ONDANSETRON 4 MG/2 ML VIAL IVP PRN (15:43)
--- NOTE | 2023-12-14 15:50 | P.PN ---
Subjective Progress Note Date: 12/14/23 Principal diagnosis: Acute on chronic hypoxic and hypercapnic respiratory failure secondary to acute exacerbation of COPD and chronic diastolic congestive heart failure This is a 73-year-old male patient who came into the emergency department on 12/06/2023 with altered mental status, generalized weakness and falls and he was unable to provide much history. The at the time was leaning towards making the patient hospice. She was not absolutely certain. The patient accordingly was admitted to the hospital and I was asked to evaluate this patient because of his ongoing difficulties in breathing. The patient is known to have chronic stage IIIb kidney disease with a baseline creatinine near 2. He is also known to have COPD, chronic hypoxic respiratory failure, hypertension, coronary disease with previous history of coronary stenting, chronic diastolic heart failure, history of chronic A-fib and history of thyroid disease. The patient is O2 dependent and the patient is typically on 4 L of oxygen by nasal cannula. Patient also has a permanent pacemaker in place. The patient was in the hospital of last and earlier this month on 11/23/2023 where he was seen in consultation for an acute on top of chronic hypercapnic and hypoxic respiratory failure and exacerbation of chronic diastolic heart failure. He was supported with BiPAP therapy, treated with diuretics and ultimately he was discharged on 11/26/2023 where he was maintained on Trelegy Ellipta 1 puff a day albuterol nebulized treatments in combination with Atrovent nebulized treatments as needed. He has been also maintained on Xarelto regarding his chronic atrial fibrillation is a long-term anticoagulants. During this current admission, the patient was noted to have a white cell count of 11.1 with a hemoglobin 10.4 and a platelet count of 187. The sodium was at 140, potassium is at 4.1, BUN is 55 with a creatinine of 3.07 and the urine drug screen was positive for benzodiazepines and marijuana. Alcohol level was negative. Troponin level was 0.016 and a proBNP level was 4670. Blood gases done today showed a pH of 7.24 with a pCO2 of 55 and pO2 of 79 and this was done while the patient was on a BiPAP the chest x-ray that was done showed no evidence of any acute focal infiltrate. The patient has chronic changes without any acute cardiopulmonary abnormalities. The patient has a pacemaker over the left anterior chest along with sternotomy wires. No hilar mediastinal abnormalities. The CT scan of the cervical spine with showed no acute abnormalities. EKG showed atrial fibrillation with RBBB pattern. Patient is being hydrated with IV fluids currently normal saline at rate of 75 cc an hour. On 12/09/2023, patient is being seen for a follow-up. The patient remains on a B iPAP pressure of 12 over 6 cm of water and FiO2 of 35%. The patient has been alert and awake any reports improvement in his respiratory status and that he is seems to be less short of breath compared to yesterday. At the same time, the patient is being given IV fluids and the patient on normal saline at rate of 75 cc an hour. No significant hypotension. His urine output has improved and the patient is producing better urine output and the creatinine is down to 2.5 with a BUN of 83. The serum bicarb is 14 and sodium is at 135 with a potassium level of 4.8. Anion gap is at 10. Most recent white cell count of 8.6 with a hemoglobin 9.9 and platelet count of 186. Meanwhile, the patient remains on DuoNeb nebulized treatments [id number] Symbicort maintenance, IV Solu- Medrol, and the rest of the medication remain unchanged. The patient remains on anticoagulation with Xarelto. On 12/10/23, follow-up. Patient is still on a BiPAP pressure of 12/6 and a means of water and FiO2 35%. Blood gas was done and the patient continues to have a component of hypercapnic respiratory failure with a pH of 7.25 and a pCO2 of 61 and pO2 of 79. He is still lethargic. Arousable. Meanwhile, his BUN is at 87 with a creatinine of 2.7. Sodium is at 136. Potassium is at 4.2. Rest of the blood work showed a sugar of 135, and the patient's lactic acid level was down to 1.4. Remains on bronchodilators. Remains on IV Solu-Medrol 60 mg every 6 hours. Remains on anticoagulation with Xarelto. Continues to receive IV fluids and the patient is on normal citrate of 50 cc an hour. Nephrology on the case. No other significant events overnight. He is a DNR/DNI CODE STATUS. On 12/11/2023, the patient remains on a BiPAP. A brief attempt was done to get this patient off the BiPAP this morning and this failed as the patient became hypoxic and this was done at time of breakfast. Based on that, the patient was placed again on a BiPAP. BiPAP settings are currently at 12 over 6 cm of water with an FiO2 of 35%. A repeat chest x-ray was ordered and this was done this morning and it showed no acute cardiopulmonary process. There is decreased pulm vessel congestion. The patient remains on bronchodilators. The patient is on DuoNeb nebulized treatments [id number]. The patient on Symbicort. The patient is on prednisone 40 mg p.o. daily and the patient is on long-term anticoagulation. The patient continues to diurese with IV Lasix 60 mg every 12 hours. The patient remains in negative fluid balance. The patient's BUN is at 86 with a creatinine of 2.5. Sodium is at 139. Potassium is at 4.4. The white cell count 15.4 with a hemoglobin 10.9 and a platelet count of 163. The patient is being seen by nephrology. On 12/07/2023, the patient remains on a BiPAP and currently is on a pressure of 12 with sick centimeters of water. Able to generate tidal volumes of 400. A follow-up blood gas from today shows improvement in SB status. pH is at 7.35 with a pCO2 of 55 and a pO2 of 62. I am considering giving the patient brief breaks off the BiPAP. He is still diuresing with IV Lasix. Fluid balance is negative at least few liters over the past 24 hours. The patient is currently on IV Lasix 60 mg IV push every 12 hours. BUN is 83 with a creatinine of 2.2 and there has been some interval improvement in renal function. Sodium is at 139, bicarb is at 31 and glucose at 91. WBC count is at 15.4 with hemoglobin 10.9 and platelet count of 163. No other significant events overnight. The patient is arousable and communicating. Chest x-ray from yesterday shows cardiomegaly and pulm vascular congestion. Nephrology was on the case. Patient was evaluated today on 12/13/23, seems to be very comfortable, he is off BiPAP, not in any distress. Family is at bedsidePatient is on 5 L nasal cannula, O2 sats is 98%. Basic metabolic profile is normal BUN however is 78 creatinine 2.11 and bicarb is 38. Chest x-ray continues to show cardiomegaly and pulmonary vascular congestion with bilateral pleural effusions. This is most likely consistent with congestive heart failure Patient was evaluated today on 12/14/2023 remains on oxygen via nasal cannula, BiPAP is at bedside but he is not using it. Apparently the patient has been declining to go to nursing home facility. Labs today WBC count is 11.1 hemoglobin 9.5 basic metabolic profile is normal bicarb is 37 BUN 78 creatinine 1.92, improving steadily since admission Objective - Vital Signs Vital signs: Vital Signs Temp 98.1 F 12/14/23 15:27 Pulse 72 12/14/23 15:43 Resp 16 12/14/23 15:27 BP 102/61 12/14/23 15:27 Pulse Ox 99 12/14/23 15:27 FiO2 35 12/14/23 06:04 Intake & Output 12/13/23 12/14/23 12/14/23 18:59 06:59 18:59 Intake Total 756 118 Output Total 1500 2100 1000 Balance -054 -2100 -452 Weight 135.6 kg 133 kg Intake: Oral 756 118 Output: Urine 1500 2100 1000 Other: Voiding Method Indwelling Catheter Indwelling Catheter Indwelling Catheter # Bowel Movements 1 - Exam General: 73-year-old male, on 5 L nasal cannula, O2 saturation is 99% Skin: Skin is warm and dry and no rashes or lesions are noted. Eye: Pupils are equal, round and reactive to light, extra-ocular movements are intact; there is normal conjunctiva bilaterally. Ears, nose, mouth and throat: There are moist mucous membranes and no oral lesions. Neck: The neck is supple, there is no tenderness or JVD. Cardiovascular: Distant S1-S2, no S3 gallop. Respiratory: Diminished breath sounds at the bases no crackles rhonchi or wheeze s Gastrointestinal: Soft, non-distended, non-tender abdomen without masses or organomegaly noted. Bowel sounds are unremarkable. Back: There is no tenderness to palpation in the midline. There is no obvious deformity. Musculoskeletal: No deformities and no limitation range of motion Neurological: Alert oriented x 3 no gross focal deficit - Labs CBC & Chem 7: 12/14/23 09:27 12/14/23 09:27 Labs: Abnormal Lab Results - Last 24 Hours (Table) 12/13/23 12/13/23 12/14/23 Range/Units 16:19 19:57 09:27 WBC 11.1 H (3.8-10.6) k/uL RBC 3.32 L (4.30-5.90) m/uL Hgb 9.5 L (13.0-17.5) gm/dL Hct 30.1 L (39.0-53.0) % Plt Count 140 L (150-450) k/uL Potassium (3.5-5.1) mmol/L Chloride (98-107) mmol/L Carbon Dioxide (22-30) mmol/L BUN (9-20) mg/dL Creatinine (0.66-1.25) mg/dL Glucose (74-99) mg/dL POC Glucose (mg/dL) 171 H 184 H (70-110) mg/dL 12/14/23 12/14/23 Range/Units 09:27 10:55 WBC (3.8-10.6) k/uL RBC (4.30-5.90) m/uL Hgb (13.0-17.5) gm/dL Hct (39.0-53.0) % Plt Count (150-450) k/uL Potassium 3.4 L (3.5-5.1) mmol/L Chloride 95 L (98-107) mmol/L Carbon Dioxide 37 H (22-30) mmol/L BUN 78 H (9-20) mg/dL Creatinine 1.92 H (0.66-1.25) mg/dL Glucose 183 H (74-99) mg/dL POC Glucose (mg/dL) 139 H (70-110) mg/dL Assessment and Plan Assessment: Impression: Acute on chronic hypoxic and hypercapnic respiratory failure, secondary to acute exacerbation of COPD Acute on chronic diastolic heart failure Chronic atrial fibrillation Coronary artery disease and previous stent placement History of permanent pacemaker insertion Anemia of chronic disease Benign essential hypertension Acute kidney injury on top of chronic kidney disease stage IIIb Dyslipidemia History of depression/Anxiety Recommendation: Continue bronchodilators continue steroids presently on oral prednisone, consider tapering the dose down on outpatient basis presently on 40 mg daily Continue present supportive care measures Continue diuretics, patient is on Lasix 60 mg IV push every 12 hours Nephrology is addressing his kidney disease Continue anticoagulation therapy/Xarelto Will continue to follow Patient will eventually need placement. Time with Patient: Less than 30
[2023-12-14 16:38] LABS: Glucose,Whole Blood 195 mg/dL (70-110)
[2023-12-14 20:06] LABS: Glucose,Whole Blood 165 mg/dL (70-110)
[2023-12-15 06:26] LABS: Glucose,Whole Blood 98 mg/dL (70-110)
[2023-12-15 11:19] LABS: Glucose,Whole Blood 172 mg/dL (70-110)
--- NOTE | 2023-12-15 13:35 | P.PN ---
Progress Note - Text Progress Note Date: 12/15/23 IDENTIFYING DATA: Patient is a 73-year-old male, with history of depression and anxiety REASON FOR CONSULT: Suicide threats INTERVAL HISTORY: Patient seen sitting in chair next to bed and was more awake and alert. Sitter is at bedside. He states feeling better today. He denied all safety concerns including suicidal ideations and homicidal ideations. He states he had made suicidal comments previously out of frustration but did not realize staff would take it seriously. He denied any past suicide attempts. He states being on sertraline for anxiety but reports it stable. He expressed no other concerns patient seen MENTAL STATUS EXAM: General Appearance: Patient appears to be stated age. Patient appears to have fair hygiene and grooming wearing hospital gown with good eye contact. Behavior: Patient is calmly lying in bed without any agitated behavior. Speech: Normal rate and tone Mood/Affect: Mood described as better and affect is reactive, mood congruent Suicidality/Homicidality: Patient but vehemently denies any suicidal homicidal ideations Perceptions: Patient denies any auditory or visual hallucinations Though content/process: Linear and logical. There are no delusions or paranoia Judgment and insight: Improving IMPRESSIONS: History of depression History of anxiety History of PTSD PLAN: -Can discontinue 1:1 sitter at this time as patient is not currently an imminent threat to themselves -At this time patient is not meeting criteria for inpatient psychiatric hospitalization -Will sign off. Please contact with any further questions.
--- NOTE | 2023-12-15 13:55 | P.PN ---
Subjective patient is seen for follow-up for acute kidney injury and chronic kidney disease. Maintained on IV Lasix. 24-hour urine output documented as 1 L Shortness of breath has improved. Serum creatinine at 1.9 yesterday Objective - Vital Signs Vital signs: Vital Signs Temp 97.6 F 12/15/23 08:20 Pulse 72 12/15/23 12:09 Resp 20 12/15/23 11:29 BP 105/66 12/15/23 11:29 Pulse Ox 99 12/15/23 11:29 FiO2 35 12/15/23 04:04 Intake & Output 12/14/23 12/15/23 12/15/23 18:59 06:59 18:59 Intake Total 118 10 Output Total 1000 300 Balance -882 -290 Weight 130 kg Intake: IV 10 Invasive Line 3 10 Oral 118 0 Output: Urine 1000 300 Other: Voiding Method Indwelling Catheter Urinal Urinal - Exam patient is awake, comfortable, no acute distress. Examination of the heart S1 and S2 Examination of the lungs bilateral breath sounds are heard bilaterally examination of lower extremities shows edema 1+ bilaterally MARINE ENGINE DRIVER exam grossly intact - Labs CBC & Chem 7: 12/14/23 09:27 12/14/23 09:27 Labs: Abnormal Lab Results - Last 24 Hours (Table) 12/14/23 12/14/23 12/15/23 Range/Units 16:37 20:05 11:18 POC Glucose (mg/dL) 195 H 165 H 172 H (70-110) mg/dL Assessment and Plan Assessment: 1. Acute kidney injury secondary to ATN . Creatinine 3.07 on admission -1.9 yesterday. Maintained on IV Lasix. Recent ultrasound showed no evidence of hydronephrosis and atrophic right kidney. UA from earlier this month also fairly benign. 2. Chronic kidney disease stage IIIb with baseline creatinine near 2 secondary to nephrosclerosis. 3. Acute on chronic hypercapnic respiratory failure with underlying metabolic acidosis from diamox. Status post bicarb drip. Improved. 4. History of COPD. 5. Anemia of chronic kidney disease. Iron deficiency noted. Status post IV iron completed December 10, 2023. 6. Volume overload. Better with diuresis. 7. Hypokalemia from diuresis. Plan: continue with IV Lasix Repeat labs in a.m.
--- NOTE | 2023-12-15 14:23 | P.DS ---
Providers Date of admission: 12/06/23 13:18 Attending physician: Alanis Ellis MD Consults: 12/06/23 13:16 Consult Physician Routine Consulting Provider: John Bateman Consult Reason/Comments: MIRTHA Do you want consulting provider notified?: Yes 12/08/23 13:01 Consult Physician Routine Consulting Provider: Yolanda Bird Consult Reason/Comments: COPD Do you want consulting provider notified?: Yes 12/13/23 13:44 Consult Physician Routine Consulting Provider: Austyn Alex Consult Reason/Comments: Suicide threat Do you want consulting provider notified?: Yes Primary care physician: [facility] Hospital Course: Discharge Diagnosis: Acute on chronic hypoxic and hypercapnic respiratory failure Acute on chronic diastolic heart failure Toxic metabolic encephalopathy likely due to hypercapnia and benzodiazepine and THC and hypoxic encephalopathy Acute kidney injury on CKD stage III Hyperchloremic metabolic acidosis likely due to acetazolamide Normocytic anemia likely due to chronic kidney disease Chronic persistent atrial fibrillation History of coronary artery disease status post stenting Hypertension Hyperlipidemia Hypothyroidism Anxiety and depression PTSD Suicidal idealization ruled out Hospital Course: 73 year old M with PMH of CAD with stenting, HTN, HLD, Diastolic CHF, AFib, COPD on 5L home O2, CKD IIIb, anxiety and depression, PTSD presented to the ED after being found down with feces around him. Last seen normal was 10PM and was found altered around 8AM with his BiPAP and O2 off. He had some urine in his urinal and it seems he may have unsucessfully triend to get up to use the urinal and commode at bedside. In the ED he underwent extensive evaluation. BP 119/66, HR 84, T 97.8F, RR 20, 96% on 4L. CBC, Coag panel, CMP significant for WBC 11.1, RBC 3.73, Hg 10.4, Hct 36.6, Cl 110, BUN 55, Cr 3.07, glu 183. Mag 2.5. Lactic acid 1.4. Ammonia 50. Troponin 0.016. BNP 4670. UDS + benzo and MJ. EtOH negative. ABG pH 7.11, pCO2 77, pO2 [address] on FiO2 36%. CT head and C-spine negative for acute process. EKG A-Fib with RBBB. Pelvic XR right femoral neck shortening may be related to patient rotation. CXR chronic findings. Patient was admitted for further workup and management. Patient was placed on continuous BiPAP and serial ABGs were obtained with improvement in his pCO2 from 77->61->55. Patient's mental status also improved. Nephrology consulted for acute kidney injury and he was started on IV hydration. He was noted to be severely hypoxic on 12/10, CXR showed significant opacification of the right hemithorax and pulmonary vascular congestion of the left lung. The case was discussed with Dr. Bateman, IV hydration was discontinued and he was started on Lasix 60 mg IV BID. Since then he has been diuresing well and oxygen requirements are improving. Family met with hospice and it seems that they are not yet ready for hospice. At the time of discharge patient was satting well on his home O2 of 5 L. Patient at 1 point did make comments of suicidal idealization. Patient had to be placed with a one-to-one sitter. Patient was seen by psychiatry who cleared him for discharge to intermediate facility. Patient states that he made a suicidal idealization because he was frustrated with his . At the time of discharge patient's creatinine was 1.92 which is at his baseline. WBC 11.9 which trended down. Hemoglobin 9.5 which is stable. I will switch patient to Lasix 40 twice daily and also start KCl 20 mill equivalents daily. I will have the patient follow-up with nephrology and cardiology and pulmonology. Patient will be discharged to a intermediate facility. Please continue to monitor his BMP and magnesium closely at the intermediate facility because we did make adjustments to his diuretics. Patient seen and examined at bedside.[] Vital signs reviewed and stable. General examination - Alert and Oriented 3, appears chronically debilitated Heart - + S1S2 no murmurs Lungs -mild bilateral wheezing Abdomen soft NT ND +ve BS Extremities -+2 pitting edema bilateral lower extremities [employer] - Moving all 4 extremities spontaneously Psych - Calm and cooperative A total of [33] minutes of time were spent preparing this complex discharge summary . Patient Condition at Discharge: Poor Plan - Discharge Summary Discharge Rx Participant: No New Discharge Prescriptions: New Furosemide [Lasix] 40 mg PO BID 30 Days #60 tablet predniSONE [Deltasone] 40 mg PO DAILY 5 Days #10 tab Potassium Chloride ER [K-Dur 20] 20 meq PO DAILY 30 Days #30 tab Continue ALPRAZolam [Xanax] 1 mg PO TID PRN PRN Reason: Anxiety Rivaroxaban [Xarelto] 15 mg PO DAILY Metoprolol Tartrate [Lopressor] 75 mg PO BID Albuterol Inhaler [Ventolin Hfa Inhaler] 1 puff INHALATION RT-Q4H PRN PRN Reason: Shortness Of Breath/COPD Isosorbide Mononitrate ER [Imdur] 15 mg PO DAILY Fluticasone/Umeclidin/Vilanter [Trelegy Ellipta 100-62.5-25] 1 puff INHALATION RT-DAILY Levothyroxine Sodium [Synthroid] 137 mcg PO DAILY Rosuvastatin Calcium [Crestor] 20 mg PO HS Dapagliflozin Propanediol [Farxiga] 5 mg PO DAILY 30 Days #30 tab Sertraline [Zoloft] 200 mg PO DAILY Ipratropium-Albuterol Nebulize [Duoneb 0.5 mg-3 mg/3 ml Soln] 3 ml INHALATION RT-QID 30 Days #100 each Discontinued ALPRAZolam [Xanax] 2 mg PO HS PRN PRN Reason: Insomnia acetaZOLAMIDE [Diamox] 250 mg PO BID 30 Days #60 tab Discharge Medication List ALPRAZolam [Xanax] 1 mg PO TID PRN 01/18/21 [History] Albuterol Inhaler [Ventolin Hfa Inhaler] 1 puff INHALATION RT-Q4H PRN 09/27/23 [History] Fluticasone/Umeclidin/Vilanter [Trelegy Ellipta 100-62.5-25] 1 puff INHALATION RT-DAILY 09/27/23 [History] Isosorbide Mononitrate ER [Imdur] 15 mg PO DAILY 09/27/23 [History] Levothyroxine Sodium [Synthroid] 137 mcg PO DAILY 09/27/23 [History] Metoprolol Tartrate [Lopressor] 75 mg PO BID 09/27/23 [History] Rivaroxaban [Xarelto] 15 mg PO DAILY 09/27/23 [History] Rosuvastatin Calcium [Crestor] 20 mg PO HS 09/27/23 [History] Sertraline [Zoloft] 200 mg PO DAILY 09/27/23 [History] Dapagliflozin Propanediol [Farxiga] 5 mg PO DAILY 30 Days #30 tab 11/26/23 [Rx] Ipratropium-Albuterol Nebulize [Duoneb 0.5 mg-3 mg/3 ml Soln] 3 ml INHALATION RT-QID 30 Days #100 each 11/26/23 [Rx] predniSONE [Deltasone] 40 mg PO DAILY 5 Days #10 tab 12/14/23 [Rx] Furosemide [Lasix] 40 mg PO BID 30 Days #60 tablet 12/15/23 [Rx] Potassium Chloride ER [K-Dur 20] 20 meq PO DAILY 30 Days #30 tab 12/15/23 [Rx] Follow up Appointment(s)/Referral(s): [facility] [Primary Care Provider] - 1-2 days Ofelia Foster MD [STAFF PHYSICIAN] - 1 Week Yolanda Bird MD [STAFF PHYSICIAN] - 1 Week Donell Flores DO [STAFF PHYSICIAN] - 1 Week Discharge Disposition: TRANSFER TO SNF/ECF
[2023-12-15 15:45] VITALS: BP 106/65; RESP 20; TEMP 97.9
[2023-12-15 15:59] VITALS: PULSE 72
[2023-12-15 16:19] LABS: Glucose,Whole Blood 176 mg/dL (70-110)
--- NOTE | 2023-12-15 16:20 | P.PN ---
Subjective Progress Note Date: 12/15/23 This is a 73-year-old male patient who came into the emergency department on 12/06/2023 with altered mental status, generalized weakness and falls and he was unable to provide much history. The at the time was leaning towards making the patient hospice. She was not absolutely certain. The patient accordingly was admitted to the hospital and I was asked to evaluate this patient because of his ongoing difficulties in breathing. The patient is known to have chronic stage IIIb kidney disease with a baseline creatinine near 2. He is also known to have COPD, chronic hypoxic respiratory failure, hypertension, coronary disease with previous history of coronary stenting, chronic diastolic heart fa ilure, history of chronic A-fib and history of thyroid disease. The patient is O2 dependent and the patient is typically on 4 L of oxygen by nasal cannula. Patient also has a permanent pacemaker in place. The patient was in the hospital of last and earlier this month on 11/23/2023 where he was seen in consultation for an acute on top of chronic hypercapnic and hypoxic respiratory failure and exacerbation of chronic diastolic heart failure. He was supported with BiPAP therapy, treated with diuretics and ultimately he was discharged on 11/26/2023 where he was maintained on Trelegy Ellipta 1 puff a day albuterol nebulized treatments in combination with Atrovent nebulized treatments as needed. He has been also maintained on Xarelto regarding his chronic atrial fibrillation is a long-term anticoagulants. During this current admission, the patient was noted to have a white cell count of 11.1 with a hemoglobin 10.4 and a platelet count of 187. The sodium was at 140, potassium is at 4.1, BUN is 55 with a creatinine of 3.07 and the urine drug screen was positive for benzodiazepines and marijuana. Alcohol level was negative. Troponin level was 0.016 and a proBNP level was 4670. Blood gases done today showed a pH of 7.24 with a pCO2 of 55 and pO2 of 79 and this was done while the patient was on a BiPAP the chest x-ray that was done showed no evidence of any acute focal infiltrate. The patient has chronic changes without any acute cardiopulmonary abnormalities. The patient has a pacemaker over the left anterior chest along with sternotomy wires. No hilar mediastinal abnormal ities. The CT scan of the cervical spine with showed no acute abnormalities. EKG showed atrial fibrillation with RBBB pattern. Patient is being hydrated with IV fluids currently normal saline at rate of 75 cc an hour. On 12/09/2023, patient is being seen for a follow-up. The patient remains on a BiPAP pressure of 12 over 6 cm of water and FiO2 of 35%. The patient has been alert and awake any reports improvement in his respiratory status and that he is seems to be less short of breath compared to yesterday. At the same time, the patient is being given IV fluids and the patient on normal saline at rate of 75 cc an hour. No significant hypotension. His urine output has improved and the patient is producing better urine output and the creatinine is down to 2.5 with a BUN of 83. The serum bicarb is 14 and sodium is at 135 with a potassium level of 4.8. Anion gap is at 10. Most recent white cell count of 8.6 with a hemoglobin 9.9 and platelet count of 186. Meanwhile, the patient remains on DuoNeb nebulized treatments [id number] Symbicort maintenance, IV Solu- Medrol, and the rest of the medication remain unchanged. The patient remains on anticoagulation with Xarelto. On 12/10/23, follow-up. Patient is still on a BiPAP pressure of 12/6 and a means of water and FiO2 35%. Blood gas was done and the patient continues to have a component of hypercapnic respiratory failure with a pH of 7.25 and a pCO2 of 61 and pO2 of 79. He is still lethargic. Arousable. Meanwhile, his BUN is at 87 with a creatinine of 2.7. Sodium is at 136. Potassium is at 4.2. Rest of the blood work showed a sugar of 135, and the patient's lactic acid level was down to 1.4. Remains on bronchodilators. Remains on IV Solu-Medrol 60 mg every 6 hours. Remains on anticoagulation with Xarelto. Continues to receive IV fluids and the patient is on normal citrate of 50 cc an hour. Nephrology on the case. No other significant events overnight. He is a DNR/DNI CODE STATUS. On 12/11/2023, the patient remains on a BiPAP. A brief attempt was done to get this patient off the BiPAP this morning and this failed as the patient became hypoxic and this was done at time of breakfast. Based on that, the patient was placed again on a BiPAP. BiPAP settings are currently at 12 over 6 cm of water with an FiO2 of 35%. A repeat chest x-ray was ordered and this was done this morning and it showed no acute cardiopulmonary process. There is decreased pulm vessel congestion. The patient remains on bronchodilators. The patient is on DuoNeb nebulized treatments [id number]. The patient on Symbicort. The patient is on prednisone 40 mg p.o. daily and the patient is on long-term anti coagulation. The patient continues to diurese with IV Lasix 60 mg every 12 hours. The patient remains in negative fluid balance. The patient's BUN is at 86 with a creatinine of 2.5. Sodium is at 139. Potassium is at 4.4. The white cell count 15.4 with a hemoglobin 10.9 and a platelet count of 163. The patient is being seen by nephrology. On 12/07/2023, the patient remains on a BiPAP and currently is on a pressure of 12 with sick centimeters of water. Able to generate tidal volumes of 400. A follow-up blood gas from today shows improvement in SB status. pH is at 7.35 with a pCO2 of 55 and a pO2 of 62. I am considering giving the patient brief breaks off the BiPAP. He is still diuresing with IV Lasix. Fluid balance is negative at least few liters over the past 24 hours. The patient is currently on IV Lasix 60 mg IV push every 12 hours. BUN is 83 with a creatinine of 2.2 and there has been some interval improvement in renal function. Sodium is at 139, bicarb is at 31 and glucose at 91. WBC count is at 15.4 with hemoglobin 10.9 and platelet count of 163. No other significant events overnight. The patient is arousable and communicating. Chest x-ray from yesterday shows cardiomegaly and pulm vascular congestion. Nephrology was on the case. Patient was evaluated today on 12/13/23, seems to be very comfortable, he is off BiPAP, not in any distress. Family is at bedsidePatient is on 5 L nasal cannula, O2 sats is 98%. Basic metabolic profile is normal BUN however is 78 creatinine 2.11 and bicarb is 38. Chest x-ray continues to show cardiomegaly and pulmonary vascular congestion with bilateral pleural effusions. This is most likely consistent with congestive heart failure Patient was evaluated today on 12/14/2023 remains on oxygen via nasal cannula, BiPAP is at bedside but he is not using it. Apparently the patient has been declining to go to half-way facility. Labs today WBC count is 11.1 hemoglobin 9.5 basic metabolic profile is normal bicarb is 37 BUN 78 creatinine 1.92, improving steadily since admission The patient is seen today December 15, 2023 in follow-up on the selective care unit. He is currently resting in bed. Awake and alert in no acute distress. Continue O2 saturations up to 100% on 5 L/min per nasal cannula. He is afeb rile. Hemodynamically stable. Glucose 172. He remains on Symbicort, albuterol, prednisone taper. Anticoagulated with Xarelto. Objective - Vital Signs Vital signs: Vital Signs Temp 97.9 F 12/15/23 15:44 Pulse 72 12/15/23 16:09 Resp 20 12/15/23 15:44 BP 106/65 12/15/23 15:44 Pulse Ox 100 12/15/23 15:44 FiO2 35 12/15/23 04:04 Intake & Output 12/14/23 12/15/23 12/15/23 18:59 06:59 18:59 Intake Total 118 20 Output Total 1000 300 Balance -882 -280 Weight 130 kg Intake: IV 20 Invasive Line 3 20 Oral 118 0 Output: Urine 1000 300 Other: Voiding Method Indwelling Catheter Urinal Urinal - Exam GENERAL EXAM: Alert, obese 73-year-old male, on 5 L nasal cannula, comfortable in no apparent distress. HEAD: Normocephalic. EYES: Normal reaction of pupils, equal size. NOSE: Clear with pink turbinates. THROAT: No erythema or exudates. NECK: No masses, no JVD. CHEST: No chest wall deformity. LUNGS: Equal air entry with few scattered rhonchi. CVS: S1 and S2 normal with no audible murmur, regular rhythm. ABDOMEN: No hepatosplenomegaly, normal bowel sounds, no guarding or rigidity. SPINE: No scoliosis or deformity SKIN: No rashes CENTRAL NERVOUS SYSTEM: No focal deficits, tone is normal in all 4 extremities. EXTREMITIES: Changes of chronic venous stasis. There is 1+ peripheral edema. No clubbing, no cyanosis. Peripheral pulses are intact. - Labs CBC & Chem 7: 12/14/23 09:27 12/14/23 09:27 Labs: Abnormal Lab Results - Last 24 Hours (Table) 12/14/23 12/14/23 12/15/23 Range/Units 16:37 20:05 11:18 POC Glucose (mg/dL) 195 H 165 H 172 H (70-110) mg/dL Assessment and Plan Assessment: Acute on chronic hypoxic and hypercapnic respiratory failure, secondary to acute exacerbation of COPD Acute on chronic diastolic heart failure Chronic atrial fibrillation Coronary artery disease and previous stent placement History of permanent pacemaker insertion Anemia of chronic disease Benign essential hypertension Acute kidney injury on top of chronic kidney disease stage IIIb Dyslipidemia History of depression/Anxiety Plan: The patient was seen and evaluated Labs and medications reviewed Stable for discharge from the pulmonary standpoint Continue DuoNeb inhalations and Trelegy Completed prednisone taper Anticoagulated with Xarelto [facility] I have personally seen and examined the patient, performed the documentation and the assessment and plan as written. Number of minutes spent on the visit: 10.
== END 2023-12-15 19:09 | DRG 682 ==
LOC: SUPCPDRO 09:25 → EC 09:25 → 5NMEDONC 13:18 → 3SCARD 12-07 01:06
PROVIDERS: ADMIT Internal Medicine; ATTEND Internal Medicine
PROC: 5A09357 Assistance with Respiratory Ventilation, Less than 24 Consecutive Hours, Continuous Positive Airway Pressure (ICD-10-PCS; principal; 2023-12-06)
DX: N17.0 Acute kidney failure with tubular necrosis (principal); G92.8 Other toxic encephalopathy; I50.33 Acute on chronic diastolic (congestive) heart failure; J96.21 Acute and chronic respiratory failure with hypoxia; J96.22 Acute and chronic respiratory failure with hypercapnia; J44.1 Chronic obstructive pulmonary disease with (acute) exacerbation; I48.19 Other persistent atrial fibrillation; E87.4 Mixed disorder of acid-base balance; G93.1 Anoxic brain damage, not elsewhere classified; I13.0 Hypertensive heart and chronic kidney disease with heart failure and stage 1 through stage 4 chronic kidney disease, or unspecified chronic kidney disease; Z66 Do not resuscitate; N18.32 Chronic kidney disease, stage 3b; D63.1 Anemia in chronic kidney disease; D72.829 Elevated white blood cell count, unspecified; E03.9 Hypothyroidism, unspecified; E61.1 Iron deficiency; E78.5 Hyperlipidemia, unspecified; E86.1 Hypovolemia; E87.6 Hypokalemia; F32.A Depression, unspecified; E87.8 Other disorders of electrolyte and fluid balance, not elsewhere classified; I07.1 Rheumatic tricuspid insufficiency; I87.8 Other specified disorders of veins; Z99.81 Dependence on supplemental oxygen; T50.2X5A Adverse effect of carbonic-anhydrase inhibitors, benzothiadiazides and other diuretics, initial encounter; F41.9 Anxiety disorder, unspecified; F43.10 Post-traumatic stress disorder, unspecified; I25.10 Atherosclerotic heart disease of native coronary artery without angina pectoris; I25.2 Old myocardial infarction; I45.10 Unspecified right bundle-branch block; Z79.01 Long term (current) use of anticoagulants; Z79.84 Long term (current) use of oral hypoglycemic drugs; Z79.890 Hormone replacement therapy; Z79.899 Other long term (current) drug therapy; Z87.891 Personal history of nicotine dependence; Z91.199 Patient's noncompliance with other medical treatment and regimen due to unspecified reason; Z95.0 Presence of cardiac pacemaker; Z95.5 Presence of coronary angioplasty implant and graft; Z88.5 Allergy status to narcotic agent; Z88.8 Allergy status to other drugs, medicaments and biological substances; Z90.01 Acquired absence of eye
CPT/HCPCS: 36415; 36600; 70450; 71045; 72125; 72170; 73502; 80048; 80053; 80306; 80320; 82140; 82550; 82728; 82805; 83036; 83540; 83550; 83605; 83690; 83735; 83880; 84100; 84484; 85025; 85027; 85610; 85730; 93005; 94640; 94660; 94760; 96361; 96374; 96375; 96376; 99285

== ENCOUNTER 2023-12-20 19:37 | Inpatient (IN) | payer OTHER, MEDICARE ==
[2023-12-20] MEDS: ALBUTEROL NEBULIZED 2.5 MG/3 ML INHALATION STA (20:13)
--- NOTE | 2023-12-20 20:13 | ED ---
General Adult HPI - General Chief complaint: Shortness of Breath Stated complaint: SOB Time Seen by Provider: 12/20/23 20:01 Source: EMS Mode of arrival: EMS - History of Present Illness Initial comments: Patient is a 73-year-old man with a past med history of atrial fibrillation, COPD, CHF presenting for shortness of breath. Per patient he has been admitted to the hospital times as of late for similar problems. He was recently discharged after being admitted for shortness of breath issues. Sent to the [facility]. Today patient called EMS due to worsening shortness of breath at [facility]. Patient states he feels like staff at [facility] were not giving him the appropriate medications and all they were doing was checking his pulse ox. Patient endorses a productive cough. Denies hemoptysis, denies chest pain, lower extremity swelling. Dors is chills denies fevers. Denies nausea vomiting or diarrhea. - Related Data Home Medications Medication Instructions Recorded Confirmed ALPRAZolam [Xanax] 1 mg PO TID PRN 01/18/21 12/20/23 Albuterol Inhaler [Ventolin Hfa 1 puff INHALATION RT-Q4H PRN 09/27/23 12/20/23 Inhaler] Isosorbide Mononitrate ER [Imdur] 15 mg PO DAILY 09/27/23 12/20/23 Levothyroxine Sodium [Synthroid] 137 mcg PO DAILY 09/27/23 12/20/23 Metoprolol Tartrate [Lopressor] 75 mg PO BID 09/27/23 12/20/23 Rivaroxaban [Xarelto] 15 mg PO DAILY 09/27/23 12/20/23 Sertraline [Zoloft] 200 mg PO DAILY 09/27/23 12/20/23 Acetaminophen Tab [Tylenol] 650 mg PO Q6H PRN MDD 3 GM 12/20/23 12/20/23 Atorvastatin [Lipitor] 40 mg PO HS 12/20/23 12/20/23 Fluticasone Propionate (Flovent) 2 puff INHALATION RT-DAILY 12/20/23 12/20/23 Diskus 100mcg/Act Inhalation Ipratropium-Albuterol Nebulize 3 ml INHALATION RT-Q6H PRN 12/20/23 12/20/23 [Duoneb 0.5 mg-3 mg/3 ml Soln] Magnesium Hydroxide [Milk of 2,400 mg PO Q72H PRN 12/20/23 12/20/23 Magnesia] Previous Rx's Medication Instructions Recorded Dapagliflozin Propanediol [Farxiga] 5 mg PO DAILY 30 Days #30 tab 11/26/23 predniSONE [Deltasone] 40 mg PO DAILY 5 Days #10 tab 12/14/23 Furosemide [Lasix] 40 mg PO BID 30 Days #60 tablet 12/15/23 Potassium Chloride ER [K-Dur 20] 20 meq PO DAILY 30 Days #30 tab 12/15/23 Allergies Allergy/AdvReac Type Severity Reaction Status Date / Time iodine AdvReac Hypotension, Verified 12/20/23 20:35 itching, watering eyes lisinopril AdvReac hyperkalemi Verified 12/20/23 20:35 a morphine AdvReac hallucinations, Verified 12/20/23 20:35 behavior change temazepam AdvReac headache Verified 12/20/23 20:35 Review of Systems ROS Statement: Those systems with pertinent positive or pertinent negative responses have been documented in the HPI. ROS Other: All systems not noted in ROS Statement are negative. Past Medical History Past Medical History: Atrial Fibrillation, Chest Pain / Angina, Heart Failure, COPD, Eye Disorder, Hypertension, Myocardial Infarction (LA), Renal Disease, Respiratory Disorder, Thyroid Disorder Last Myocardial Infarction Date:: 2004 History of Any Multi-Drug Resistant Organisms: None Reported Past Surgical History: Back Surgery, Heart Catheterization With Stent Additional Past Surgical History / Comment(s): eye resection Past Anesthesia/Blood Transfusion Reactions: No Reported Reaction Date of Last Stent Placement:: unknown Type of Cardiac Device: Permanent Pacemaker Device Placement Date:: 2012 Past Psychological History: Anxiety, Depression, PTSD Smoking Status: Former smoker Past Alcohol Use History: None Reported Past Drug Use History: None Reported - Past Family History Mother History Unknown: Yes Father History Unknown: Yes General Exam - General Exam Comments Initial Comments: PE: CONSTITUTIONAL: Mild distress, chronically ill-appearing, nontoxic, tachypneic SKIN: Warm, dry, no jaundice, hives or petechiae EYES: Pupils are equally round, extraocular movements intact without nystagmus, clear conjunctiva, non-icteric sclera HENT: Normocephalic, atraumatic, dry mucus membranes, oropharynx clear without exudates NECK: , Full range of motion, normal appearance PULMONARY: Decreased air movement in the periphery, wheezing left greater than right lung ortiz, no accessory muscle use, no stridor no rales or rhonchi CARDIOVASCULAR: Irregularly irregular rhythm, tachycardia, normal S1 and S2. No appreciated murmurs, rubs or gallops. Strong radial pulses with intact distal p erfusion. No lower extremity edema GASTROINTESTINAL: Soft, active bowel sounds throughout, non-tender, non- distended, no palpable masses, no rebound or guarding. No hepatosplenomegaly MUSCULOSKELETAL: Extremities have no gross deformity, no edema, redness, or swelling. No calf swelling NEUROLOGIC:_a/o x 3, GCS 15, normal mentation and speech. Moves all extremities x 4 without motor or sensory deficit PSYCHIATRIC:_normal mood and affect, thought process is clear and linear Course Vital Signs 12/20/23 12/20/23 12/20/23 19:38 19:47 20:15 Temperature 98.4 F Pulse Rate 94 92 Respiratory 20 20 Rate Blood Pressure 129/92 O2 Sat by Pulse 99 Oximetry Fraction of Inspired Oxygen (FIO2) 12/20/23 12/20/23 12/20/23 20:40 20:41 21:03 Temperature Pulse Rate 95 95 107 H Respiratory Rate Blood Pressure O2 Sat by Pulse Oximetry Fraction of Inspired Oxygen (FIO2) 12/20/23 12/20/23 12/20/23 21:35 22:33 22:38 Temperature Pulse Rate 112 H Respiratory 20 Rate Blood Pressure 119/72 O2 Sat by Pulse 95 Oximetry Fraction of 40 40 Inspired Oxygen (FIO2) 12/21/23 00:02 Temperature Pulse Rate 104 H Respiratory 20 Rate Blood Pressure 141/84 O2 Sat by Pulse 96 Oximetry Fraction of Inspired Oxygen (FIO2) EKG Findings - EKG Comments: EKG Findings:: A-fib with RVR, rate 107 bpm, QRS duration 151 ms, QT/QTc 386/448 ms, right axis deviation, interpretation is limited by artifact and rate, no clear ST depression or elevation, Compared to EKG performed on 12/06/2023, with exception of rate, no significant changes from prior, no new ST elevations or depressions when compared to prior Medical Decision Making - Medical Decision Making Was pt. sent in by a medical professional or institution (, PA, BEAUTY ARTIST, urgent care, hospital, or longterm...) When possible be specific @ -Patient was sent by the [facility] Did you speak to anyone other than the patient for history (EMS, parent, family, police, friend...)? What history was obtained from this source @ -No Did you review nursing and triage notes (agree or disagree)? Why? @ -I reviewed and agree with nursing and triage notes Were old charts reviewed (outside hosp., previous admission, EMS record, old EKG, old radiological studies, urgent care reports/EKG's, longterm records)? Report findings @ -Old charts reviewed -reviewed discharge summary from admission on 12/06/2023dmitted on 12/06/2023 during that admission patient had presented to the ER with feces around him, he is noted to be altered around 8 AM and his BiPAP was off patient was maintained on continuous BiPAP during that admission with initial pCO2 77 which down trended to 55 mental status improved as CO2 decreased during that admission he also had a CHF exacerbation requiring diuresis Differential Diagnosis (chest pain, altered mental status, abdominal pain women, abdominal pain men, vaginal bleeding, weakness, fever, dyspnea, syncope, headache, dizziness, GI bleed, back pain, seizure, CVA, palpatations, mental health, musculoskeletal)? @Differential Dyspnea: Coronary syndrome, arrhythmia, tamponade, asthma, COPD, pneumonia, pneumothorax, pulmonary effusion, CHF exacerbation anemia, neuromuscular, this is not meant to be an all-inclusive list. EKG interpreted by me (3pts min.). @ -As above X-rays interpreted by me (1pt min.). @ -Cardiac enlargement/cardiomegaly, bilateral small pleural effusions CT interpreted by me (1pt min.). @ -None done U/S interpreted by me (1pt. min.). @ -None done What testing was considered but not performed or refused? (CT, X-rays, U/S, labs)? Why? @ -None What meds were considered but not given or refused? Why? @ -None Did you discuss the management of the patient with other professionals (professionals i.e. , PA, BEAUTY ARTIST, lab, RT, psych nurse, social service coordinator, oyster culturist, teacher, contract officer, transplant case manager)? Give summary @ -No Was smoking cessation discussed for >3mins.? @ -No Was critical care preformed (if so, how long)? @ -Yes, spent assessing patient, reviewing old charts, reassessing patient, ordering and interpreting labs, imaging and interventions Were there social determinants of health that impacted care today? How? (Homelessness, low income, unemployed, alcoholism, drug addiction, transportation, low edu. Level, literacy, decrease access to med. care, [facility], rehab)? @ -No Was there de-escalation of care discussed even if they declined (Discuss DNR or withdrawal of care, Hospice)? @ -No What co-morbidities impacted this encounter? (DM, HTN, Smoking, COPD, CAD, Cancer, CVA, ARF, Chemo, Hep., AIDS, mental health diagnosis, sleep apnea, morbid obesity)? @ -CAD, COPD, hypertension, CHF Was patient admitted / discharged? Hospital course, mention meds given and route, prescriptions, significant lab abnormalities, going to OR and other pertinent info. @ -Hospital course admission- Patient is a 73-year-old male history CAD, atrial relation on Xarelto, COPD, on 6 L oxygen nasal cannula chronically, CHF, recent admission for COPD exacerbation, CHF exacerbation presenting today for shortness of breath. 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 Decreased aeration in the peripheral lung ortiz, wheezes bilaterally worse on the left than on the right. Patient is tachycardic in A-fib with RVR I suspect this is secondary to increased work of breathing. Patient on home 6 L oxygen nasal cannula with pulse ox in the 90s. Discussed with patient plan of care, breathing treatment steroids cardiac workup. Patient agreeable plan of care Workup significant for CO2 41. ABG was obtained which showed pCO2 of 61. Patient placed on BiPAP. Troponin 0.038. I suspect this is demand ischemia secondary to hypoxia and increased work of breathing. Patient denies any chest pain at this time. EKG similar to prior. Plan for admission for COPD exacer bation. Updated patient to plan of care. He is agreeable plan for admission. Appears much more comfortable on BiPAP. X-ray read as consistent with acute heart failure. Suspect findings more likely 2/2 COPD exacerbation, though BNP is elevated from prior at ~7000, so suspect there is a component of CHF as well. Will hold off on IV diuresis as patient appears clinically dry. Discussed with Dr. Mccarthy, [facility], kindly except for admission. Patient admitted in stable condition. Undiagnosed new problem with uncertain prognosis? @ -No Drug Therapy requiring intensive monitoring for toxicity (Heparin, Nitro, Insulin, Cardizem)? @ -No Were any procedures done? @ -No Diagnosis/symptom? @ -Acute hypercapnic respiratory failure COPD exacerbation Acute, or Chronic, or Acute on Chronic? @ -Acute Uncomplicated (without systemic symptoms) or Complicated (systemic symptoms)? @ -Complicated Side effects of treatment? @ -No Exacerbation, Progression, or Severe Exacerbation? @Exacerbation and progression Poses a threat to life or bodily function? How? (Chest pain, USA, LA, pneumonia, PE, COPD, DKA, ARF, appy, cholecystitis, CVA, Diverticulitis, Homicidal, Suicidal, threat to staff... and all critical care pts) @ -Yes, if allowed to continue untreated could lead to hypercapnic encepha lopathy, florid respiratory failure and - Lab Data Result diagrams: 12/20/23 20:15 12/20/23 20:15 Lab Results 12/20/23 12/20/23 12/20/23 Range/Units 20:15 20:15 20:15 WBC 9.2 (3.8-10.6) k/uL RBC 3.60 L (4.30-5.90) m/uL Hgb 10.1 L (13.0-17.5) gm/dL Hct 32.9 L (39.0-53.0) % MCV 91.3 (80.0-100.0) fL MCH 28.0 (25.0-35.0) pg MCHC 30.7 L (31.0-37.0) g/dL RDW 15.1 (11.5-15.5) % Plt Count 155 (150-450) k/uL MPV 7.8 Neutrophils % 88 % Lymphocytes % 7 % Monocytes % 3 % Eosinophils % 1 % Basophils % 0 % Neutrophils # 8.1 H (1.3-7.7) k/uL Lymphocytes # 0.7 L (1.0-4.8) k/uL Monocytes # 0.3 (0-1.0) k/uL Eosinophils # 0.1 (0-0.7) k/uL Basophils # 0.0 (0-0.2) k/uL Hypochromasia Marked PT 10.7 (10.0-12.5) sec INR 1.0 (<1.2) APTT 23.6 (22.0-30.0) sec Sample Site ABG pH (7.35-7.45) ABG pCO2 (35-45) mmHg ABG pO2 (83-108) mmHg ABG HCO3 (21-25) mmol/L ABG Total CO2 (19-24) mmol/L ABG O2 Saturation (94-97) % ABG Base Excess mmol/L Emmanuel Test Hemoglobin (13.0-17.5) gm/dL FiO2 % Sodium 137 (137-145) mmol/L Potassium 4.4 (3.5-5.1) mmol/L Chloride 93 L (98-107) mmol/L Carbon Dioxide 41 H* (22-30) mmol/L Anion Gap 3 mmol/L BUN 52 H (9-20) mg/dL Creatinine 1.70 H (0.66-1.25) mg/dL Est GFR (CKD-EPI)AfAm 46 (>60 ml/min/1.73 sqM) Est GFR (CKD-EPI)NonAf 40 (>60 ml/min/1.73 sqM) Glucose 72 L (74-99) mg/dL Calcium 9.3 (8.4-10.2) mg/dL Magnesium 2.0 (1.6-2.3) mg/dL Total Bilirubin 1.0 (0.2-1.3) mg/dL AST 25 (17-59) U/L ALT 14 (4-49) U/L Alkaline Phosphatase 88 (38-126) U/L Troponin I (0.000-0.034) ng/mL NT-Pro-B Natriuret Pep 7220 pg/mL Total Protein 6.1 L (6.3-8.2) g/dL Albumin 3.8 (3.5-5.0) g/dL Influenza Type A (PCR) (Not Detectd) Influenza Type B (PCR) (Not Detectd) RSV (PCR) (Not Detectd) SARS-CoV-2 (PCR) (Not Detectd) 12/20/23 12/20/23 12/20/23 Range/Units 20:15 22:03 22:22 WBC (3.8-10.6) k/uL RBC (4.30-5.90) m/uL Hgb (13.0-17.5) gm/dL Hct (39.0-53.0) % MCV (80.0-100.0) fL MCH (25.0-35.0) pg MCHC (31.0-37.0) g/dL RDW (11.5-15.5) % Plt Count (150-450) k/uL MPV Neutrophils % % Lymphocytes % % Monocytes % % Eosinophils % % Basophils % % Neutrophils # (1.3-7.7) k/uL Lymphocytes # (1.0-4.8) k/uL Monocytes # (0-1.0) k/uL Eosinophils # (0-0.7) k/uL Basophils # (0-0.2) k/uL Hypochromasia PT (10.0-12.5) sec INR (<1.2) APTT (22.0-30.0) sec Sample Site rbrach ABG pH 7.39 (7.35-7.45) ABG pCO2 61 H (35-45) mmHg ABG pO2 58 L* (83-108) mmHg ABG HCO3 37 H (21-25) mmol/L ABG Total CO2 39 H (19-24) mmol/L ABG O2 Saturation 92.3 L (94-97) % ABG Base Excess 10.4 mmol/L Emmanuel Test Yes Hemoglobin 8.9 L (13.0-17.5) gm/dL FiO2 32 % Sodium (137-145) mmol/L Potassium (3.5-5.1) mmol/L Chloride (98-107) mmol/L Carbon Dioxide (22-30) mmol/L Anion Gap mmol/L BUN (9-20) mg/dL Creatinine (0.66-1.25) mg/dL Est GFR (CKD-EPI)AfAm (>60 ml/min/1.73 sqM) Est GFR (CKD-EPI)NonAf (>60 ml/min/1.73 sqM) Glucose (74-99) mg/dL Calcium (8.4-10.2) mg/dL Magnesium (1.6-2.3) mg/dL Total Bilirubin (0.2-1.3) mg/dL AST (17-59) U/L ALT (4-49) U/L Alkaline Phosphatase (38-126) U/L Troponin I 0.038 H* (0.000-0.034) ng/mL NT-Pro-B Natriuret Pep pg/mL Total Protein (6.3-8.2) g/dL Albumin (3.5-5.0) g/dL Influenza Type A (PCR) Not Detected (Not Detectd) Influenza Type B (PCR) Not Detected (Not Detectd) RSV (PCR) Not Detected (Not Detectd) SARS-CoV-2 (PCR) Not Detected (Not Detectd) Disposition Clinical Impression: COPD exacerbation, Hypercapnic respiratory failure Disposition: ADMITTED IP TO THIS HOSP Condition: Stable
[2023-12-20] MEDS: methylPREDNISolone SOD SUCCI 125 MG/2 ML VIAL IV STA (20:23)
[2023-12-20] MEDS: SODIUM CHLORIDE 0.9% 500 ML 500 ML IV STA (20:24)
[2023-12-20] MEDS: IPRATROPIUM-ALBUTEROL 3 ML NEB INHALATION STA (20:26)
[2023-12-20] MEDS: IPRATROPIUM-ALBUTEROL 3 ML NEB INHALATION ONE (20:26)
[2023-12-20 20:30] LABS: Basophils % (A) 0 %; Eosinophils # (A) 0.1 k/uL (0-0.7); Eosinophils % (A) 1 %; HCT 32.9 % (39.0-53.0); HGB 10.1 gm/dL (13.0-17.5); Hypochromasia Marked; Lymphocytes # (A) 0.7 k/uL (1.0-4.8); Lymphocytes % (A) 7 %; MCHC 30.7 g/dL (31.0-37.0); MCV 91.3 fL (80.0-100.0); Mean Platelet Volume 7.8; Monocytes # (A) 0.3 k/uL (0-1.0); Monocytes % (A) 3 %; Neutrophils # (A) 8.1 k/uL (1.3-7.7); Neutrophils % (A) 88 %; Platelet Count 155 k/uL (150-450); RDW 15.1 % (11.5-15.5); WBC 9.2 k/uL (3.8-10.6)
[2023-12-20 20:45] LABS: Partial Thromboplastin Time 23.6 sec (22.0-30.0); Prothrombin Time 10.7 sec (10.0-12.5)
[2023-12-20 20:51] LABS: ALT 14 U/L (4-49); AST 25 U/L (17-59); African American GFR (CKD) 46 (>60 ml/min/1.73 sqM); Albumin 3.8 g/dL (3.5-5.0); Alkaline Phosphatase 88 U/L (38-126); Blood Urea Nitrogen 52 mg/dL (9-20); Calcium 9.3 mg/dL (8.4-10.2); Chloride 93 mmol/L (98-107); Glucose 72 mg/dL (74-99); Non-African American GFR(CKD) 40 (>60 ml/min/1.73 sqM); Potassium 4.4 mmol/L (3.5-5.1); Sodium 137 mmol/L (137-145); Total Protein 6.1 g/dL (6.3-8.2)
--- NOTE | 2023-12-20 20:54 | XR ---
EXAMINATION TYPE: XR chest 1V portable DATE OF EXAM: 12/20/2023 8:45 PM CLINICAL INDICATION:Male, 73 years old with history of SOB; [facility] COMPARISON: Chest radiographs from 12/13/2023 TECHNIQUE: XR chest 1V portable Frontal view of the chest. FINDINGS: Lungs/Pleura: Bilateral pulmonary vascular congestion and trace pleural effusions. Heart/mediastinum: Cardiomediastinal silhouette is enlarged. Musculoskeletal: No acute osseous pathology. Other findings: None IMPRESSION: Findings concerning for acute heart failure. [facility], , 12/20/2023 8:52 PM
[2023-12-20 20:57] LABS: Anion Gap 3 mmol/L
[2023-12-20 20:58] LABS: NT-Pro-B-Type Natriuretic Pept 7220 pg/mL
[2023-12-20 21:30] LABS: Carbon Dioxide 41 mmol/L (22-30)
[2023-12-20 22:26] LABS: ABG Base Excess 10.4 mmol/L; ABG HCO3 37 mmol/L (21-25); ABG Oxygen Saturation 92.3 % (94-97); ABG PCO2 61 mmHg (35-45); ABG PH 7.39 (7.35-7.45); ABG TCO2 39 mmol/L (19-24); Allen Test Performed? Yes
[2023-12-20 22:32] LABS: ABG PO2 58 mmHg (83-108)
[2023-12-20] MEDS ORDERED: ACETAMINOPHEN TAB 325 MG TAB PO PRN (22:44)
[2023-12-20] MEDS ORDERED: CALCIUM CARBONATE 500 MG CHEWABLE PO PRN (22:44)
[2023-12-20] MEDS ORDERED: NALOXONE 0.4 MG/ML 1 ML VIAL IV PRN (22:44)
[2023-12-20] MEDS ORDERED: ALBUTEROL NEBULIZED 2.5 MG/3 ML INHALATION PRN (22:48)
[2023-12-20] MEDS ORDERED: MAGNESIUM HYDROXIDE 2,400 MG/30 ML CUP PO PRN (22:48)
[2023-12-20] MEDS ORDERED: IPRATROPIUM-ALBUTEROL 3 ML NEB INHALATION PRN (22:48)
[2023-12-20] MEDS: PIPERACILLIN-TAZOBACTAM 3.375 GM in SODIUM CHLORIDE 0.9% 100 ML IVPB STA (22:55)
[2023-12-20] MEDS: ALPRAZolam 1 MG TAB PO PRN (23:58)
--- NOTE | 2023-12-21 00:43 | P.HPIM ---
History of Present Illness H&P Date: 12/20/23 Patient is a 73-year-old male with a history of CAD with cath placement, COPD (w/ chronic hypoxic resp failure on 5L NC oxygen continuously at home), A-fib (on xarelto), CHF with preserved ejection fraction (EF 55 to 60% on echo September 2023) who came in from [facility] for shortness of breath that began on 12/16 in the evening. He was last admitted on December 06, 2023 for acute on chronic respiratory failure with hypoxia and hypercarbia and COPD exacerbation and has had recurrent hospitalizations in the last few months. He also reports associated substernal chest discomfort that is intermittent, 9 out of 10 that is nonradiating not relieved with rest. He also reports nausea, nonproductive c ough, and new onset tremors. He denies loss of consciousness, seizures, changes in vision, facial asymmetry, or leg pain. Patient also reported that he does not feel safe and in the care of [facility] since discharge from recent hospitalization and attempted to seek care in the ED the past few days. In the emergency room, Chest x-ray shows findings for acute heart failure. EKG shows A-fib with RVR with a rate of 107 QRS prolonged at 151 ms QTc 448m and no ST-T changes Labs showed WBC 9.2 hemoglobin 10.1 platelet 155 PT 10.7 INR 1 PTT 23.6 creatinine 1.7 BUN 52 glucose 72 troponin 0.038 BUN 7220 total protein 6.1. ABG shows pH 7.39 CO2 61 O2 58 bicarb 37 with an FiO2 of 32. Negative for influenza, RSV, and COVID Vitals on admission show patient is afebrile at 98.4 pulse rate 94 respiratory rate of 20 BP 129/92 with a saturation of 99% on nasal cannula 4 L ED documentation reviewed Review of systems: Pertinent positives and negatives as discussed in HPI, a complete review of systems was performed and all other systems are negative. Family history: Mother had renal failure. Father had MS at age of 50 Social history: Tobacco: History of smoking. Quit 25 years ago Alcohol: History of EtOH use quit 30 years ago Recreational drugs: Denies illicit drug use Travel: No recent travel Occupation: Retired Physical examination: Vital signs reviewed General: non toxic, mild distress, appears at stated age, obese Derm: no unusual rashes/lesions, warm Head: atraumatic, normocephalic, symmetric Eyes: EOMI, no lid lag, anicteric sclera, pupils equal round reactive to light ENT: Nose and ears atraumatic Neck: No cervical lymphadenopathy, trachea midline, supple Mouth: no lip lesion, mucus membranes moist Cardiovascular: S1S2 irregularly irregular no murmur Lungs: diffuse wheezing in all lung ortiz, no accessory muscle use Abdominal: soft, nondistended, abdominal tenderness in all quadrants unlike palpation, no guarding Ext: muscle strength 4 out of 5 in all 4 extremities grossly, no gross muscle atrophy, no contractures, positive dorsalis pedis pulse bilateral, bilateral +2 pitting edema Neuro: CN II-XI grossly intact, no gross focal neuro deficits Psych: Alert, oriented, appropriate affect and mood Assessment/Plan: #. Acute COPD exacerbation withn chronic hypoxemic and hypercapnic respiratory failure Patient had multiple hospitalizations for respiratory failure. ABG pH of 7.39 CO2 61 O2 58. -Continue with BiPAP -Continue with Ventolin 2.5 every 4 for shortness of breath -Continue with Flovent twice daily -Continue with DuoNebs every 6 as needed and scheduled -Consult pulmonology -C/w Solumedrol 60 mg q6h IV #. Acute CHF exacerbation Prior echo showed EF 55 to 60%. Troponin at 0.038. BNP 7220 -Continue with furosemide 40 mg p.o. twice daily -Continue with K. Dur 20 mEq p.o. OD -Trend troponins -Cardiology consulted #. A-fib, controlled Patient currently at a heart rate of 90s to 100s. -Continue with Xarelto 15 mg p.o. OD -Continue with metoprolol tartrate 75 mg p.o. twice daily -Will monitor for now #. Hypoglycemia Glucose 72. Patient is asymptomatic at this time. -Encourage oral feeding -POC Glucose checks ACHS -BMP at a.m. Will monitor for now #. CKD stage 3b, at baseline -BMP at a.m. -Will monitor for now Chronic conditions: Obesity, COPD, hypertension, CAD, Afib, anxiety, PTSD, Depression, hypothroidism -Resume home meds once reconciled DVT prophylaxis: Rivaroxaban 15 mg p.o. The patient is admitted with an anticipated greater than than 2 midnight stay for evaluation of respiratory failure CODE STATUS: DNR Discussed with: patient Anticipated discharge place: SNF Past Medical History Past Medical History: Atrial Fibrillation, Chest Pain / Angina, Heart Failure, COPD, Eye Disorder, Hypertension, Myocardial Infarction ([place]), Renal Disease, Respiratory Disorder, Thyroid Disorder Last Myocardial Infarction Date:: 2004 History of Any Multi-Drug Resistant Organisms: None Reported Past Surgical History: Back Surgery, Heart Catheterization With Stent Additional Past Surgical History / Comment(s): eye resection Past Anesthesia/Blood Transfusion Reactions: No Reported Reaction Date of Last Stent Placement:: unknown Type of Cardiac Device: Permanent Pacemaker Device Placement Date:: 2012 Past Psychological History: Anxiety, Depression, PTSD Smoking Status: Former smoker Past Alcohol Use History: None Reported Past Drug Use History: None Reported - Past Family History Mother History Unknown: Yes Father History Unknown: Yes Medications and Allergies Home Medications Medication Instructions Recorded Confirmed Type ALPRAZolam [Xanax] 1 mg PO TID PRN 01/18/21 12/20/23 History Albuterol Inhaler [Ventolin Hfa 1 puff INHALATION RT-Q4H PRN 09/27/23 12/20/23 History Inhaler] Isosorbide Mononitrate ER [Imdur] 15 mg PO DAILY 09/27/23 12/20/23 History Levothyroxine Sodium [Synthroid] 137 mcg PO DAILY 09/27/23 12/20/23 History Metoprolol Tartrate [Lopressor] 75 mg PO BID 09/27/23 12/20/23 History Rivaroxaban [Xarelto] 15 mg PO DAILY 09/27/23 12/20/23 History Sertraline [Zoloft] 200 mg PO DAILY 09/27/23 12/20/23 History Dapagliflozin Propanediol [Farxiga] 5 mg PO DAILY 30 Days #30 tab 11/26/23 12/20/23 Rx predniSONE [Deltasone] 40 mg PO DAILY 5 Days #10 tab 12/14/23 12/20/23 Rx Furosemide [Lasix] 40 mg PO BID 30 Days #60 tablet 12/15/23 12/20/23 Rx Potassium Chloride ER [K-Dur 20] 20 meq PO DAILY 30 Days #30 tab 12/15/23 12/20/23 Rx Acetaminophen Tab [Tylenol] 650 mg PO Q6H PRN MDD 3 GM 12/20/23 12/20/23 History Atorvastatin [Lipitor] 40 mg PO HS 12/20/23 12/20/23 History Fluticasone Propionate (Flovent) 2 puff INHALATION RT-DAILY 12/20/23 12/20/23 History Diskus 100mcg/Act Inhalation Ipratropium-Albuterol Nebulize 3 ml INHALATION RT-Q6H PRN 12/20/23 12/20/23 History [Duoneb 0.5 mg-3 mg/3 ml Soln] Magnesium Hydroxide [Milk of 2,400 mg PO Q72H PRN 12/20/23 12/20/23 History Magnesia] Allergies Allergy/AdvReac Type Severity Reaction Status Date / Time iodine AdvReac Hypotension, Verified 12/20/23 20:35 itching, watering eyes lisinopril AdvReac hyperkalemi Verified 12/20/23 20:35 a morphine AdvReac hallucinations, Verified 12/20/23 20:35 behavior change temazepam AdvReac headache Verified 12/20/23 20:35 Physical Exam Vitals: Vital Signs Temp Pulse Resp BP Pulse Ox FiO2 12/20/23 22:38 40 12/20/23 22:33 40 12/20/23 21:35 112 H 20 119/72 95 12/20/23 21:03 107 H 12/20/23 20:41 95 12/20/23 20:40 95 12/20/23 20:15 92 12/20/23 19:47 20 12/20/23 19:38 98.4 F 94 20 129/92 99 Intake and Output 12/20/23 12/20/23 12/20/23 06:59 14:59 22:59 Other: Weight 116.573 kg Results CBC & Chem 7: 12/20/23 20:15 12/20/23 20:15 Labs: Abnormal Lab Results - Last 24 Hours (Table) 12/20/23 12/20/23 12/20/23 Range/Units 20:15 20:15 20:15 RBC 3.60 L (4.30-5.90) m/uL Hgb 10.1 L (13.0-17.5) gm/dL Hct 32.9 L (39.0-53.0) % MCHC 30.7 L (31.0-37.0) g/dL Neutrophils # 8.1 H (1.3-7.7) k/uL Lymphocytes # 0.7 L (1.0-4.8) k/uL ABG pCO2 (35-45) mmHg ABG pO2 (83-108) mmHg ABG HCO3 (21-25) mmol/L ABG Total CO2 (19-24) mmol/L ABG O2 Saturation (94-97) % Hemoglobin (13.0-17.5) gm/dL Chloride 93 L (98-107) mmol/L Carbon Dioxide 41 H* (22-30) mmol/L BUN 52 H (9-20) mg/dL Creatinine 1.70 H (0.66-1.25) mg/dL Glucose 72 L (74-99) mg/dL Troponin I 0.038 H* (0.000-0.034) ng/mL Total Protein 6.1 L (6.3-8.2) g/dL 12/20/23 Range/Units 22:22 RBC (4.30-5.90) m/uL Hgb (13.0-17.5) gm/dL Hct (39.0-53.0) % MCHC (31.0-37.0) g/dL Neutrophils # (1.3-7.7) k/uL Lymphocytes # (1.0-4.8) k/uL ABG pCO2 61 H (35-45) mmHg ABG pO2 58 L* (83-108) mmHg ABG HCO3 37 H (21-25) mmol/L ABG Total CO2 39 H (19-24) mmol/L ABG O2 Saturation 92.3 L (94-97) % Hemoglobin 8.9 L (13.0-17.5) gm/dL Chloride (98-107) mmol/L Carbon Dioxide (22-30) mmol/L BUN (9-20) mg/dL Creatinine (0.66-1.25) mg/dL Glucose (74-99) mg/dL Troponin I (0.000-0.034) ng/mL Total Protein (6.3-8.2) g/dL
--- NOTE | 2023-12-21 02:57 | P.CNPUL ---
History of Present Illness Consult date: 12/21/23 Requesting physician: Marielena Catherine Reason for consult: COPD Chief complaint: Shortness of breath History of present illness: Patient is a 73-year-old male with past medical history significant for COPD, chronic hypoxemic respiratory failure, hypertension, hyperlipidemia, coronary artery disease with previous PCI/stenting, chronic diastolic heart failure, atrial fibrillation, chronic kidney disease stage III, hypothyroidism. Patient is normally oxygen dependent on 4 L/min nasal cannula. Of note, patient had a recent hospitalization 12/06/2023 through 12/15/2023. He was seen for acute on top of chronic hypoxemic and hypercapnic respiratory failure. This was secondary to COPD and chronic diastolic heart failure. He was ultimately discharged to [facility]. Patient's main concern is actually that he is not happy at [facility] and the care he has been receiving. He is agitated and voicing that he does not want to go back to the [facility]. He is also sick of answering repeat questions. Apparently, patient called EMS himself at [facility]. Reportedly noted to be short of breath by EMS. ABG, on 3 L/min nasal cannula, was drawn in the emergency department indicating a PaO2 of 58, pCO2 of 61, pH of 7.39. Patient was then placed on BiPAP. Current BiPAP settings are 10/5 and FiO2 of 40%. Chest x-ray showing cardiomegaly, pulmonary vascular congestion, and trace bilateral pleural effusion. Patient refuses to answer most of my questions. Does admit some epigastric discomfort that radiates to his back, but will not elaborate further. States that he did take himself off Lasix while at the [facility]. He will not clarify why. Will not answer any my further questioning at this time. Currently afebrile. CBC: WBC count 9.2, hemoglobin 10.1, hematocrit 32.9, platelets 155. CMP: Sodium 137, potassium 4.4, chloride 93, serum bicarb 41, BUN 52, creatinine 1.7, glucose 72. LFTs unremarkable. Troponin 0.038. NT proBNP 7220. EKG: Atrial fibrillation with rapid ventricular response, 107 bpm, RBBB pattern. Negative for influenza, RSV, COVID. No evidence CO2 narcosis. Continues on BIPAP. Vital signs are stable. Review of Systems Patient refuses to participate in ROS questioning, except what is provided in HPI Past Medical History Past Medical History: Atrial Fibrillation, Chest Pain / Angina, Heart Failure, COPD, Eye Disorder, Hypertension, Myocardial Infarction ([place]), Renal Disease, Re spiratory Disorder, Thyroid Disorder Last Myocardial Infarction Date:: 2004 History of Any Multi-Drug Resistant Organisms: None Reported Past Surgical History: Back Surgery, Heart Catheterization With Stent Additional Past Surgical History / Comment(s): eye resection Past Anesthesia/Blood Transfusion Reactions: No Reported Reaction Date of Last Stent Placement:: unknown Type of Cardiac Device: Permanent Pacemaker Device Placement Date:: 2012 Past Psychological History: Anxiety, Depression, PTSD Smoking Status: Former smoker Past Alcohol Use History: None Reported Past Drug Use History: None Reported - Past Family History Mother History Unknown: Yes Father History Unknown: Yes Medications and Allergies Home Medications Medication Instructions Recorded Confirmed Type ALPRAZolam [Xanax] 1 mg PO TID PRN 01/18/21 12/20/23 History Albuterol Inhaler [Ventolin Hfa 1 puff INHALATION RT-Q4H PRN 09/27/23 12/20/23 History Inhaler] Isosorbide Mononitrate ER [Imdur] 15 mg PO DAILY 09/27/23 12/20/23 History Levothyroxine Sodium [Synthroid] 137 mcg PO DAILY 09/27/23 12/20/23 History Metoprolol Tartrate [Lopressor] 75 mg PO BID 09/27/23 12/20/23 History Rivaroxaban [Xarelto] 15 mg PO DAILY 09/27/23 12/20/23 History Sertraline [Zoloft] 200 mg PO DAILY 09/27/23 12/20/23 History Dapagliflozin Propanediol [Farxiga] 5 mg PO DAILY 30 Days #30 tab 11/26/23 12/20/23 Rx predniSONE [Deltasone] 40 mg PO DAILY 5 Days #10 tab 12/14/23 12/20/23 Rx Furosemide [Lasix] 40 mg PO BID 30 Days #60 tablet 12/15/23 12/20/23 Rx Potassium Chloride ER [K-Dur 20] 20 meq PO DAILY 30 Days #30 tab 12/15/23 12/20/23 Rx Acetaminophen Tab [Tylenol] 650 mg PO Q6H PRN MDD 3 GM 12/20/23 12/20/23 History Atorvastatin [Lipitor] 40 mg PO HS 12/20/23 12/20/23 History Fluticasone Propionate (Flovent) 2 puff INHALATION RT-DAILY 12/20/23 12/20/23 History Diskus 100mcg/Act Inhalation Ipratropium-Albuterol Nebulize 3 ml INHALATION RT-Q6H PRN 12/20/23 12/20/23 History [Duoneb 0.5 mg-3 mg/3 ml Soln] Magnesium Hydroxide [Milk of 2,400 mg PO Q72H PRN 12/20/23 12/20/23 History Magnesia] Allergies Allergy/AdvReac Type Severity Reaction Status Date / Time iodine AdvReac Hypotension, Verified 12/20/23 20:35 itching, watering eyes lisinopril AdvReac hyperkalemi Verified 12/20/23 20:35 a morphine AdvReac hallucinations, Verified 12/20/23 20:35 behavior change temazepam AdvReac headache Verified 12/20/23 20:35 Physical Exam Vitals: Vital Signs Temp Pulse Resp BP Pulse Ox FiO2 12/21/23 02:00 95 18 136/74 95 12/21/23 00:02 104 H 20 141/84 96 12/20/23 22:38 40 12/20/23 22:33 40 12/20/23 21:35 112 H 20 119/72 95 12/20/23 21:03 107 H 12/20/23 20:41 95 12/20/23 20:40 95 12/20/23 20:15 92 12/20/23 19:47 20 12/20/23 19:38 98.4 F 94 20 129/92 99 Intake and Output 12/20/23 12/20/23 12/21/23 14:59 22:59 06:59 Other: Weight 116.573 kg GENERAL EXAM: Alert, 73-year-old obese male, on BiPAP, no signs of CO2 narcosis, fairly comfortable in no apparent distress. HEAD: Normocephalic and atraumatic EYES: Normal reaction of pupils, equal size. NOSE: Clear with pink turbinates. THROAT: No erythema or exudates. NECK: No masses, no JVD. CHEST: No chest wall deformity. Left chest implanted device. LUNGS: Equal air entry with diminished bibasilar lung sounds and inspiratory crackles. No wheezes or rhonchi.on BiPAP with settings 10/5 and FiO2 40%. Generating tidal volumes of 400 to 500 mL, respiratory rate is controlled approximately 20 breaths/min. No conversational dyspnea or accessory muscle use. CVS: S1 and S2 normal with no audible murmur, regular rhythm. No extra heart sounds ABDOMEN: No hepatosplenomegaly, active bowel sounds, no guarding or rigidity. SPINE: No scoliosis or deformity SKIN: No rashes CENTRAL NERVOUS SYSTEM: No focal deficits, tone is normal in all 4 extremities. EXTREMITIES: There is mild nonpitting bilateral lower extremity edema. No clubbing, or cyanosis. Peripheral pulses are intact. Results - Laboratory Findings CBC and BMP: 12/20/23 20:15 12/20/23 20:15 ABG ABG pH 7.39 (7.35-7.45) 12/20/23 22:22 ABG pCO2 61 mmHg (35-45) H 12/20/23 22:22 ABG pO2 58 mmHg (83-108) L* 12/20/23 22:22 ABG O2 Saturation 92.3 % (94-97) L 12/20/23 22:22 PT/INR, D-dimer PT 10.7 sec (10.0-12.5) 12/20/23 20:15 INR 1.0 (<1.2) 12/20/23 20:15 Abnormal lab findings: Abnormal Labs 12/20/23 12/20/23 12/20/23 20:15 20:15 20:15 RBC 3.60 L Hgb 10.1 L Hct 32.9 L MCHC 30.7 L Neutrophils # 8.1 H Lymphocytes # 0.7 L ABG pCO2 ABG pO2 ABG HCO3 ABG Total CO2 ABG O2 Saturation Hemoglobin Chloride 93 L Carbon Dioxide 41 H* BUN 52 H Creatinine 1.70 H Glucose 72 L Troponin I 0.038 H* Total Protein 6.1 L 12/20/23 22:22 RBC Hgb Hct MCHC Neutrophils # Lymphocytes # ABG pCO2 61 H ABG pO2 58 L* ABG HCO3 37 H ABG Total CO2 39 H ABG O2 Saturation 92.3 L Hemoglobin 8.9 L Chloride Carbon Dioxide BUN Creatinine Glucose Troponin I Total Protein - Diagnostic Findings Chest x-ray: image reviewed Assessment and Plan Assessment: Acute COPD exacerbation Acute exacerbation of chronic diastolic heart failure Acute on chronic hypoxemic respiratory failure, secondary to a combination of above, currently on BiPAP support Chronic hypercapnic respiratory failure, likely near baseline Chronic obstructive pulmonary disease Chronic hypoxemic respiratory failure, normally maintained on 4 L/min nasal ca nnula Chronic diastolic heart failure, most recent available echocardiogram from 09/27/2023 estimating a preserved left ventricular ejection fraction of 55 to 60%, along with trace mitral regurgitation, and moderate to severe tricuspid regurgitation. Coronary artery disease, with previous history of PCI/stenting Elevated troponins, likely secondary to supply/demand mismatch, serial troponins are trending History of permanent pacemaker Chronic atrial fibrillation, currently with controlled ventricular response, and chronically anticoagulated on Xarelto History of hypertension History of hyperlipidemia Chronic kidney disease stage IIIb Anemia of chronic disease History of hypothyroidism History of anxiety/depression Plan: Patient's medications, labs, chest x-ray were reviewed Chest x-ray consistent with CHF exacerbation; there is cardiomegaly, pulmonary vascular congestion and trace bilateral pleural effusions. Continue on BiPAP with current settings overnight No signs of CO2 narcosis Continue with Lasix 40 mg twice daily Start patient on combination of DuoNebs [id number], formoterol inhalation, budesonide inhalation, and IV Solu-Medrol Negative for influenza, RSV, COVID Xarelto has been resumed GI prophylaxis: Pepcid Patient carries a DO NOT RESUSCITATE/DO NOT INTUBATE status Overall prognosis is guarded We will continue to follow I have personally seen and examined the patient, performed the documentation and the assessment and plan as written. Number of minutes spent on the visit:20 Time with Patient: Greater than 30
[2023-12-21 03:25] LABS: Glucose,Whole Blood 110 mg/dL (70-110)
[2023-12-21] MEDS: methylPREDNISolone SOD SUCCI 125 MG/2 ML VIAL IV SCH (06:11)
[2023-12-21] MEDS: BUDESONIDE 1 MG/2 ML NEBU INHALATION SCH (07:58)
[2023-12-21] MEDS: IPRATROPIUM-ALBUTEROL 3 ML NEB INHALATION SCH (07:58)
[2023-12-21] MEDS: FORMOTEROL FUMARATE 20 MCG/2 ML NEBU INHALATION SCH (07:58)
[2023-12-21] MEDS ORDERED: FLUTICASONE 44 MCG INHALER INHALATION SCH (08:00)
[2023-12-21] MEDS: METOPROLOL TARTRATE 50 MG TAB PO SCH ×2 (08:27→23:02)
[2023-12-21] MEDS: FAMOTIDINE 20 MG TAB PO SCH (08:31)
[2023-12-21] MEDS: FUROSEMIDE 40 MG TAB PO SCH (08:31)
[2023-12-21] MEDS: SERTRALINE 100 MG TAB PO SCH (08:32)
[2023-12-21] MEDS: POTASSIUM CHLORIDE ER 20 MEQ TAB.ER PO SCH (08:32)
[2023-12-21] MEDS: RIVAROXABAN 15 MG TAB PO SCH (08:32)
[2023-12-21] MEDS: ISOSORBIDE MONONITRATE ER 30 MG TAB.ER.24H PO SCH (08:32)
[2023-12-21] MEDS ORDERED: predniSONE 20 MG TAB PO SCH (09:00)
[2023-12-21] MEDS ORDERED: HEPARIN SODIUM 1,000 UN/ML (10ML VL) IV PRN (11:10)
[2023-12-21] MEDS: DAPAGLIFLOZIN PROPANEDIOL 10 MG TABLET PO SCH (11:29)
[2023-12-21] MEDS: FUROSEMIDE 10 MG/ML 4 ML VIAL IV SCH (11:31)
[2023-12-21] MEDS: HEPARIN SOD,PORK IN 0.45% NACL 25,000 UNIT in 0.45% NACL 1 250ML.BAG IV SCH (11:41)
[2023-12-21 11:51] LABS: Basophils % (A) 0 %; Eosinophils % (A) 0 %; HCT 29.8 % (39.0-53.0); HGB 8.9 gm/dL (13.0-17.5); Hypochromasia Marked; Lymphocytes # (A) 0.7 k/uL (1.0-4.8); Lymphocytes % (A) 8 %; MCH 27.7 pg (25.0-35.0); MCV 92.4 fL (80.0-100.0); Mean Platelet Volume 7.6; Monocytes # (A) 0.3 k/uL (0-1.0); Monocytes % (A) 3 %; Neutrophils # (A) 7.5 k/uL (1.3-7.7); Neutrophils % (A) 88 %; Platelet Count 131 k/uL (150-450); RBC 3.23 m/uL (4.30-5.90); WBC 8.6 k/uL (3.8-10.6)
[2023-12-21 12:10] LABS: Prothrombin Time 11.2 sec (10.0-12.5)
--- NOTE | 2023-12-21 14:32 | P.CRDCN ---
History of Present Illness Consult date: 12/21/23 Reason for Consult (text): CHF Consult reason: congestive heart failure History of present illness: Dr. Arce's addendum Acute HFpEF exacerbation CKD Type II NSTEMI Acute hypoxic and hypercapnic respiratory failure COPD exacerbation A-fib RVR Right bundle branch block. Plan Start Lasix 40 mg IV twice daily, Farxiga 10 mg daily, increase metoprolol to 100 mg twice daily, start IV heparin drip Continue IV heparin drip for 48 hours and then transition to p.o. anticoagulation. Would recommend outpatient ischemic evaluation with a stress test. Patient is a 73 year old male with past medical history of CAD with cath placement, COPD (on 5L nasal cannula Oxygen at home), atrial fibrillation, CHF with preserved EF 55-60% per echo done on 10/05 came to the ED with shortness of breath that began 4 days ago. He also has had recurrent hospitalizations last few months for COPD exacerbations. He also reported chest discomfort that has been happening intermittently, nonradiating in nature. He denies any fever, chills, vomiting, diarrhea. He reports nausea, cough, and tremor. In the ED, Chest X ray showed findings consistent with acute heart failure along with pacemaker in place. EKG showed Atrial fibrillation with RVR, no ST changes. Labs showed WBC count of 9.2, hemoglobin 10.1, hematocrit 32.9, platelet 155, sodium 137, potassium 4.4, chloride 93, carbon dioxide 41, BUN 52, creatinine 1.70. BNP 7220, troponins were 0.038, 0.041, 0.048. He is currently on BIPAP at 40 FiO2 saturating at 98%. Review of Systems Per HPI Past Medical History Past Medical History: Atrial Fibrillation, Chest Pain / Angina, Heart Failure, COPD, Eye Disorder, Hypertension, Myocardial Infarction (CO), Renal Disease, Respiratory Disorder, Thyroid Disorder Last Myocardial Infarction Date:: 2004 History of Any Multi-Drug Resistant Organisms: None Reported Past Surgical History: Back Surgery, Heart Catheterization With Stent Additional Past Surgical History / Comment(s): eye resection Past Anesthesia/Blood Transfusion Reactions: No Reported Reaction Date of Last Stent Placement:: unknown Type of Cardiac Device: Permanent Pacemaker Device Placement Date:: 2012 Past Psychological History: Anxiety, Depression, PTSD Smoking Status: Former smoker Past Alcohol Use History: None Reported Past Drug Use History: None Reported - Past Family History Mother History Unknown: Yes Father History Unknown: Yes Medications and Allergies Home Medications Medication Instructions Recorded Confirmed Type ALPRAZolam [Xanax] 1 mg PO TID PRN 01/18/21 12/20/23 History Albuterol Inhaler [Ventolin Hfa 1 puff INHALATION RT-Q4H PRN 09/27/23 12/20/23 History Inhaler] Isosorbide Mononitrate ER [Imdur] 15 mg PO DAILY 09/27/23 12/20/23 History Levothyroxine Sodium [Synthroid] 137 mcg PO DAILY 09/27/23 12/20/23 History Metoprolol Tartrate [Lopressor] 75 mg PO BID 09/27/23 12/20/23 History Rivaroxaban [Xarelto] 15 mg PO DAILY 09/27/23 12/20/23 History Sertraline [Zoloft] 200 mg PO DAILY 09/27/23 12/20/23 History Dapagliflozin Propanediol [Farxiga] 5 mg PO DAILY 30 Days #30 tab 11/26/23 12/20/23 Rx predniSONE [Deltasone] 40 mg PO DAILY 5 Days #10 tab 12/14/23 12/20/23 Rx Furosemide [Lasix] 40 mg PO BID 30 Days #60 tablet 12/15/23 12/20/23 Rx Potassium Chloride ER [K-Dur 20] 20 meq PO DAILY 30 Days #30 tab 12/15/23 12/20/23 Rx Acetaminophen Tab [Tylenol] 650 mg PO Q6H PRN MDD 3 GM 12/20/23 12/20/23 History Atorvastatin [Lipitor] 40 mg PO HS 12/20/23 12/20/23 History Fluticasone Propionate (Flovent) 2 puff INHALATION RT-DAILY 12/20/23 12/20/23 History Diskus 100mcg/Act Inhalation Ipratropium-Albuterol Nebulize 3 ml INHALATION RT-Q6H PRN 12/20/23 12/20/23 History [Duoneb 0.5 mg-3 mg/3 ml Soln] Magnesium Hydroxide [Milk of 2,400 mg PO Q72H PRN 12/20/23 12/20/23 History Magnesia] Allergies Allergy/AdvReac Type Severity Reaction Status Date / Time iodine AdvReac Hypotension, Verified 12/20/23 20:35 itching, watering eyes lisinopril AdvReac hyperkalemi Verified 12/20/23 20:35 a morphine AdvReac hallucinations, Verified 12/20/23 20:35 behavior change temazepam AdvReac headache Verified 12/20/23 20:35 Physical Exam Vitals: Vital Signs Temp Pulse Resp BP Pulse Ox FiO2 12/21/23 10:28 104 H 24 148/68 98 12/21/23 08:27 100 12/21/23 08:22 92 12/21/23 08:13 101 H 12/21/23 08:11 101 H 12/21/23 07:58 101 H 100 40 12/21/23 07:51 40 12/21/23 06:15 93 18 121/66 98 12/21/23 04:06 40 12/21/23 04:00 96 18 135/103 96 12/21/23 02:00 95 18 136/74 95 12/21/23 00:02 104 H 20 141/84 96 12/20/23 22:38 40 12/20/23 22:33 40 12/20/23 21:35 112 H 20 119/72 95 12/20/23 21:03 107 H 12/20/23 20:41 95 12/20/23 20:40 95 12/20/23 20:15 92 12/20/23 19:47 20 12/20/23 19:38 98.4 F 94 20 129/92 99 Intake and Output 12/20/23 12/21/23 12/21/23 22:59 06:59 14:59 Other: Weight 116.573 kg General: Alert and oriented, wearing a BiPAP Cardiovascular: Regular heart rate, no murmurs Respiratory: Clear to auscultation bilaterally, no wheezing/rhonchi/stridor Abdominal: Diffusely tender to palpation, soft, no abdominal rigidity Extremity: Trace swelling in LE bilaterally Results 12/21/23 11:27 12/20/23 20:15 Cardiac Enzymes 12/20/23 12/20/23 12/21/23 Range/Units 20:15 20:15 01:04 AST 25 (17-59) U/L Troponin I 0.038 H* 0.041 H* (0.000-0.034) ng/mL 10/08/24 Range/Units 03:09 AST (17-59) U/L Troponin I 0.048 H* (0.000-0.034) ng/mL Coagulation 12/20/23 Range/Units 20:15 PT 10.7 (10.0-12.5) sec APTT 23.6 (22.0-30.0) sec CBC 12/20/23 Range/Units 20:15 WBC 9.2 (3.8-10.6) k/uL RBC 3.60 L (4.30-5.90) m/uL Hgb 10.1 L (13.0-17.5) gm/dL Hct 32.9 L (39.0-53.0) % Plt Count 155 (150-450) k/uL Comprehensive Metabolic Panel 12/20/23 Range/Units 20:15 Sodium 137 (137-145) mmol/L Potassium 4.4 (3.5-5.1) mmol/L Chloride 93 L (98-107) mmol/L Carbon Dioxide 41 H* (22-30) mmol/L BUN 52 H (9-20) mg/dL Creatinine 1.70 H (0.66-1.25) mg/dL Glucose 72 L (74-99) mg/dL Calcium 9.3 (8.4-10.2) mg/dL AST 25 (17-59) U/L ALT 14 (4-49) U/L Alkaline Phosphatase 88 (38-126) U/L Total Protein 6.1 L (6.3-8.2) g/dL Albumin 3.8 (3.5-5.0) g/dL Current Medications Generic Name Dose Route Start Last Admin Trade Name Freq PRN Reason Stop Dose Admin Acetaminophen 650 mg 12/20/23 22:44 Acetaminophen Tab 325 Mg Tab PO Q6HR PRN Mild Pain or Fever > 100.5 Al Hydroxide/Mg Hydroxide 15 ml 12/20/23 22:44 Mag Hydrox/Al Hydrox/Simeth 30 Ml Cup PO Q6HR PRN Indigestion Albuterol/Ipratropium 3 ml 12/20/23 22:48 Ipratropium-Albuterol 3 Ml Neb INHALATION RT-Q6H PRN SOB/WHEEZING Albuterol/Ipratropium 3 ml 12/21/23 08:00 12/21/23 07:58 Ipratropium-Albuterol 3 Ml Neb INHALATION 3 ml RT-QID FERNANDO Administration Alprazolam 1 mg 12/20/23 22:48 12/21/23 08:30 Alprazolam 1 Mg Tab PO 1 mg TID PRN Administration Anxiety Atorvastatin Calcium 40 mg 12/21/23 21:00 Atorvastatin 40 Mg Tab PO HS [facility] Budesonide 1 mg 12/21/23 08:00 12/21/23 07:58 Budesonide 1 Mg/2 Ml Nebu INHALATION 1 mg RT-BID FERNANDO Administration Calcium Carbonate/Glycine 1,000 mg 12/20/23 22:44 Calcium Carbonate 500 Mg Chewable PO Q4HR PRN Dyspepsia Dapagliflozin 10 mg 12/21/23 11:15 Dapagliflozin Propanediol 10 Mg Tablet PO DAILY [facility] Famotidine 20 mg 12/21/23 09:00 12/21/23 08:31 Famotidine 20 Mg Tab PO Not Given DAILY [facility] Formoterol Fumarate 20 mcg 12/21/23 08:00 12/21/23 07:58 Formoterol Fumarate 20 Mcg/2 Ml Nebu INHALATION 20 mcg RT-BID [facility] Administration Furosemide 40 mg 12/21/23 09:00 12/21/23 08:31 Furosemide 40 Mg Tab PO Not Given BID [facility] Furosemide 40 mg 12/21/23 11:15 Furosemide 10 Mg/Ml 4 Ml Vial IV Q12HR [facility] Heparin Sodium (Porcine) 0 unit 12/21/23 11:10 Heparin Sodium 1,000 Un/Ml (10ml Vl) IV PER PROTOCOL PRN Low PTT Protocol Heparin Sodium/Sodium Chloride 250 mls @ 13.989 mls/hr 12/21/23 11:15 25,000 unit/ Sodium Chloride IV .[id number] [facility] Protocol 12 UNITS/KG/HR Magnesium Hydroxide 2,400 mg 12/20/23 22:48 Magnesium Hydroxide 2,400 Mg/30 Ml Cup PO Q72H PRN NO BM FOR 3 DAYS Methylprednisolone Sodium Succinate 60 mg 12/21/23 06:00 12/21/23 06:11 Methylprednisolone Sod Succi 125 Mg/2 Ml Vial IV 60 mg Q6HR FERNANDO Administration Metoprolol Tartrate 100 mg 12/21/23 21:00 Metoprolol Tartrate 50 Mg Tab PO BID FERNANDO Naloxone HCl 0.2 mg 12/20/23 22:44 Naloxone 0.4 Mg/Ml 1 Ml Vial IV Q2M PRN Opioid Reversal Potassium Chloride 20 meq 12/21/23 09:00 12/21/23 08:32 Potassium Chloride Er 20 Meq Tab.Er PO Not Given DAILY FERNANDO Sertraline HCl 200 mg 12/21/23 09:00 12/21/23 08:32 Sertraline 100 Mg Tab PO Not Given DAILY FERNANDO Intake and Output 12/20/23 12/21/23 12/21/23 22:59 06:59 14:59 Other: Weight 116.573 kg 12/20/23 20:15 12/20/23 20:15 Assessment and Plan Assessment: 1. Heart Failure with preserved ejection fraction - Last echocardiogram done in September 2023, ejection fraction of 55-60%. - Start Lasix 40 mg IV BID - Start Farxiga 10 mg - Increase Metoprolol tartrate to 100 mg po bid - Low intensity IV heparin drip 2. Type 2 NSTEMI - Recent echo was done in 09/2023. - Continue medical management as above 3. Acute on Chronic hypoxemic respiratory failure - continue Duonebs, formoterol, budesonide, IV solu-medrol 4. Chronic Kidney Disease - baseline creatinine ~ 2 - Continue Farxiga 10 mg 5. Atrial fibrillation with RVR - Continue metoprolol 100 mg bid Time with Patient: Greater than 30
[2023-12-21] MEDS: LORazepam 2 MG/ML INJ IM STA (15:43)
[2023-12-21 16:12] LABS: Glucose,Whole Blood 99 mg/dL (70-110)
--- NOTE | 2023-12-21 16:51 | P.PN ---
Subjective Progress Note Date: 12/21/23 Hospital course: Patient is a very pleasant 73-year-old male with a past medical history of CAD status post stenting, hypertension, hyperlipidemia, chronic diastolic heart failure, persistent atrial fibrillation on Xarelto, COPD with chronic hypoxic respiratory failure 4-5 L home O2 dependent, obstructive sleep apnea BiPAP dependent nightly, chronic kidney disease stage IIIb, severe anxiety with depression, and PTSD. He presented to the hospital secondary on 12/20/2023 from [facility] with a chief complaint of increased shortness of breath over the past 3 days. Upon arrival to our facility patient underwent evaluation in the emergency department. Vital signs upon arrival show blood pressure 129/92, heart rate 94, respiratory rate 20, temp 98.4 F, and SpO2 of 99% on 4 L. EKG showing atrial fibrillation with a rapid ventricular rate of 107 bpm. Chest x- ray showing bilateral vascular congestion and trace pleural effusions consistent with acute heart failure. Labs completed and reviewed. CBC showing normocytic anemia with hemoglobin of 10.1. Coagulation profile normal findings. BMP showing none anion gap metabolic alkalosis with chloride of 93, bicarb of 41, and anion gap of 3. Renal function consistent with known stage IIIb CKD with BUN of 52, creatinine of 1.70, and GFR 40 with baseline creatinine of 2.1. Liver profile unremarkable. Magnesium 1.0. Troponin was elevated at 0.038. proBNP was 7220. Influenza A, influenza B, RSV, and COVID PCR negative. ABG completed showing compensated respiratory acidosis pH of 7.39, pCO2 of 61, pO2 of 58, bicarb 37, total CO2 of 39, and ABG O2 saturation of 92.3. Patient was started on IV heparin infusion for treatment of elevated troponin concerning for NSTEMI. Patient admitted under our services with consultation to cardiology and pulmonology. Physical exam: Patient seen and fully evaluated at bedside. Patient was sleeping and on BiPAP this morning. He was easily awoken via verbal stimuli. He reports his breathing has not improved since arrival and continues to feel short of breath. He denies having any headache, lightheadedness, dizziness, chest pain, palpitations, or any other complaints at this time. Vital signs reviewed and stable. General: Nontoxic, no distress and appears stated age. Chronically ill- appearing. Derm: Skin warm and dry, normal coloration for ethnicity. Head: Atraumatic, normocephalic and symmetric. Eyes: EOM's intact, no lid lag, and anicteric sclera Mouth: no lip lesions, mucus membranes moist Cardiovascular: Irregularly irregular with systolic murmur. Positive posterior tibial pulses bilaterally, and cap refill < 2 seconds. Lungs: Respirations even, regular, and unlabored on BiPAP. Lungs diminished with soft expiratory wheezes noted.. Abdominal: soft, nontender to palpation, no guarding, no appreciable organomegaly. Ext: ROM intact. No gross muscle atrophy, no lower extremity edema, no contractures Neuro: Speech clear, face symmetrical and CN II-XII grossly intact with no noted focal neuro deficits Psych: Alert and oriented to person and place but mildly confused to time and situation. Assessment and Plan of Care: Acute on chronic respiratory failure with hypoxia and hypercarbia Acute exacerbation of chronic diastolic heart failure Elevated troponins, likely due type II NSTEMI secondary to CHF exacerbation Chronic persistent atrial fibrillation, currently with RVR with rate 90s to 110s. History of CAD status post stenting Hypertension Hyperlipidemia Chronic kidney disease stage IIIb -Cardiology evaluated, reviewed documentation in chart. -Continue to provide supplemental oxygen and titrate as patient tolerates. Currently on BiPAP with IPAP of 10, EPAP 5, FiO2 40% and to be titrated accordingly to keep SpO2 equal to or greater than 90%. -Continue low intensity heparin infusion for treatment of NSTEMI with close monitoring of PTT for goal therapeutic range of 45 to 79 seconds. -Telemetry monitoring. -Continue monitoring I's and O's with daily weights -Continue cardiac medication regimen with aspirin 81 mg daily, Lipitor 40 mg nightly, Farxiga 10 mg daily, and metoprolol 100 mg twice daily. -Continue close monitoring of renal function and electrolytes while diuresing. Currently creatinine 1.70 with a baseline creatinine around 2.1. COPD exacerbation, secondary to above -Monitor pulse-oximetry -Pulmonology following, reviewed documentation in chart -Duonebs scheduled 4 times daily and as needed for SOB and/or wheezing along with Pulmicort 1 mg inhalation twice daily, Perforomist 20 mcg inhalation twice daily. -Continue Solu-Medrol 60 mg IV every 6 hours. Acute on chronic anemia. Thrombocytopenia -Hemoglobin currently stable at 8.9 and platelet count of 131. -Patient denies having any noted bleeding or black tarry stools. -Patient currently on heparin infusion for elevated troponins. Will continue to monitor hemoglobin closely with repeat CBC this evening and again tomorrow morning. Hypothyroidism -Continue daily medication regimen with levothyroxine 137 mcg daily. Order placed for TSH with free T4. Anxiety and depression PTSD -Continue daily medication regimen with Zoloft 200 mg daily and Xanax 1 mg 3 times daily as needed for severe anxiety/panic attack. Data and imaging reviewed: Morning labs reviewed. CBC showing bicytopenia with hemoglobin of 8.9 and platelet count of 131. Troponins were trended resulting at 0.038, 0.041, and 0.048. Vital signs reviewed. Blood pressure 148/68, heart rate 104, respiratory rate 24, and SpO2 of 98% on BiPAP (100% on 5 L O2 via nasal cannula). Patient going back and forth between BiPAP and nasal cannula as he is on home BiPAP nightly and while napping. CODE STATUS: DNR/DNI DVT prophylaxis: Heparin Anticipated discharge date: Pending clinical course Anticipated discharge place: Pending clinical course Patient was seen independently by Nurse Practitioner. This document was prepared using [employer] dictation software. Please allow for errors in ribbon cutter while rare they do occur. I reviewed the documentation as provided by the XAVIER above, who is the original author of this note. I agree with the documented assessment and plan, with the following changes: none Objective - Vital Signs Vital signs: Vital Signs Temp 98.4 F 12/20/23 19:38 Pulse 92 12/21/23 08:22 Resp 18 12/21/23 06:15 BP 121/66 12/21/23 06:15 Pulse Ox 100 12/21/23 08:27 FiO2 40 12/21/23 07:58 Intake & Output 12/20/23 12/21/23 12/21/23 18:59 06:59 18:59 Weight 116.573 kg - Labs CBC & Chem 7: 12/21/23 11:27 12/20/23 20:15 Labs: Abnormal Lab Results - Last 24 Hours (Table) 12/20/23 12/20/23 12/20/23 Range/Units 20:15 20:15 20:15 RBC 3.60 L (4.30-5.90) m/uL Hgb 10.1 L (13.0-17.5) gm/dL Hct 32.9 L (39.0-53.0) % MCHC 30.7 L (31.0-37.0) g/dL Neutrophils # 8.1 H (1.3-7.7) k/uL Lymphocytes # 0.7 L (1.0-4.8) k/uL ABG pCO2 (35-45) mmHg ABG pO2 (83-108) mmHg ABG HCO3 (21-25) mmol/L ABG Total CO2 (19-24) mmol/L ABG O2 Saturation (94-97) % Hemoglobin (13.0-17.5) gm/dL Chloride 93 L (98-107) mmol/L Carbon Dioxide 41 H* (22-30) mmol/L BUN 52 H (9-20) mg/dL Creatinine 1.70 H (0.66-1.25) mg/dL Glucose 72 L (74-99) mg/dL Troponin I 0.038 H* (0.000-0.034) ng/mL Total Protein 6.1 L (6.3-8.2) g/dL 12/20/23 12/21/23 12/21/23 Range/Units 22:22 01:04 03:09 RBC (4.30-5.90) m/uL Hgb (13.0-17.5) gm/dL Hct (39.0-53.0) % MCHC (31.0-37.0) g/dL Neutrophils # (1.3-7.7) k/uL Lymphocytes # (1.0-4.8) k/uL ABG pCO2 61 H (35-45) mmHg ABG pO2 58 L* (83-108) mmHg ABG HCO3 37 H (21-25) mmol/L ABG Total CO2 39 H (19-24) mmol/L ABG O2 Saturation 92.3 L (94-97) % Hemoglobin 8.9 L (13.0-17.5) gm/dL Chloride (98-107) mmol/L Carbon Dioxide (22-30) mmol/L BUN (9-20) mg/dL Creatinine (0.66-1.25) mg/dL Glucose (74-99) mg/dL Troponin I 0.041 H* 0.048 H* (0.000-0.034) ng/mL Total Protein (6.3-8.2) g/dL
[2023-12-21] MEDS: ASPIRIN 81 MG PO SCH (16:58)
[2023-12-21 18:08] LABS: HCT 29.2 % (39.0-53.0); Hypochromasia Moderate; MCH 27.9 pg (25.0-35.0); MCHC 30.7 g/dL (31.0-37.0); MCV 91.2 fL (80.0-100.0); Mean Platelet Volume 7.9; Platelet Count 130 k/uL (150-450); RBC 3.21 m/uL (4.30-5.90); RDW 15.1 % (11.5-15.5); WBC 8.6 k/uL (3.8-10.6)
[2023-12-21 18:13] LABS: African American GFR (CKD) 44 (>60 ml/min/1.73 sqM); Blood Urea Nitrogen 42 mg/dL (9-20); Calcium 8.9 mg/dL (8.4-10.2); Chloride 91 mmol/L (98-107); Glucose 88 mg/dL (74-99); Magnesium 1.8 mg/dL (1.6-2.3); Non-African American GFR(CKD) 38 (>60 ml/min/1.73 sqM); Potassium 4.7 mmol/L (3.5-5.1); Sodium 137 mmol/L (137-145)
[2023-12-21 18:20] LABS: Anion Gap 8 mmol/L
[2023-12-21 19:13] LABS: Carbon Dioxide 38 mmol/L (22-30)
[2023-12-21 19:39] LABS: T4, Free (Free Thyroxine) 0.79 ng/dL (0.78-2.19)
[2023-12-21] MEDS: ATORVASTATIN 40 MG TAB PO SCH (23:02)
[2023-12-22 02:35] LABS: Partial Thromboplastin Time 32.7 sec (22.0-30.0); Prothrombin Time 11.4 sec (10.0-12.5)
[2023-12-22 02:41] LABS: Basophils % (A) 0 %; Eosinophils % (A) 0 %; HCT 29.2 % (39.0-53.0); HGB 8.5 gm/dL (13.0-17.5); Hypochromasia Marked; Lymphocytes # (A) 0.2 k/uL (1.0-4.8); Lymphocytes % (A) 2 %; MCH 27.1 pg (25.0-35.0); MCHC 29.2 g/dL (31.0-37.0); MCV 92.6 fL (80.0-100.0); Mean Platelet Volume 7.4; Monocytes # (A) 0.2 k/uL (0-1.0); Monocytes % (A) 3 %; Neutrophils # (A) 7.6 k/uL (1.3-7.7); Neutrophils % (A) 95 %; Platelet Count 140 k/uL (150-450); RBC 3.15 m/uL (4.30-5.90); RDW 14.9 % (11.5-15.5)
[2023-12-22] MEDS: LEVOTHYROXINE 137 MCG TAB PO SCH (06:48)
[2023-12-22 08:47] LABS: African American GFR (CKD) 45 (>60 ml/min/1.73 sqM); Blood Urea Nitrogen 40 mg/dL (9-20); Calcium 8.8 mg/dL (8.4-10.2); Chloride 90 mmol/L (98-107); Glucose 117 mg/dL (74-99); Magnesium 1.9 mg/dL (1.6-2.3); Non-African American GFR(CKD) 39 (>60 ml/min/1.73 sqM); Potassium 4.5 mmol/L (3.5-5.1); Sodium 135 mmol/L (137-145)
[2023-12-22 08:53] LABS: Anion Gap 6 mmol/L
[2023-12-22 09:04] LABS: Carbon Dioxide 39 mmol/L (22-30)
--- NOTE | 2023-12-22 10:53 | P.PN ---
Subjective Progress Note Date: 12/22/23 Hospital course: Patient is a very pleasant 73-year-old male with a past medical history of CAD status post stenting, hypertension, hyperlipidemia, chronic diastolic heart failure, persistent atrial fibrillation on Xarelto, COPD with chronic hypoxic respiratory failure 4-5 L home O2 dependent, obstructive sleep apnea BiPAP dependent nightly, chronic kidney disease stage IIIb, severe anxiety with depression, and PTSD. He presented to the hospital secondary on 12/20/[address] [facility] with a chief complaint of increased shortness of breath over the past 3 days. Upon arrival to our facility patient underwent evaluation in the emergency department. Vital signs upon arrival show blood pressure 129/92, heart rate 94, respiratory rate 20, temp 98.4 F, and SpO2 of 99% on 4 L. EKG showing atrial fibrillation with a rapid ventricular rate of 107 bpm. Chest x- ray showing bilateral vascular congestion and trace pleural effusions consistent with acute heart failure. Labs completed and reviewed. CBC showing normocytic anemia with hemoglobin of 10.1. Coagulation profile normal findings. BMP showing none anion gap metabolic alkalosis with chloride of 93, bicarb of 41, and anion gap of 3. Renal function consistent with known stage IIIb CKD with BUN of 52, creatinine of 1.70, and GFR 40 with baseline creatinine of 2.1. Liver profile unremarkable. Magnesium 1.0. Troponin was elevated at 0.038. proBNP was 7220. Influenza A, influenza B, RSV, and COVID PCR negative. ABG completed showing compensated respiratory acidosis pH of 7.39, pCO2 of 61, pO2 of 58, bicarb 37, total CO2 of 39, and ABG O2 saturation of 92.3. Patient was started on IV heparin infusion for treatment of elevated troponin concerning for NSTEMI. Patient admitted under our services with consultation to cardiology and pulmonology. Physical exam: Patient seen and fully evaluated at bedside. Patient was sleeping and on BiPAP this morning. He was easily awoken via verbal stimuli. He reports his breathing has not improved since arrival and continues to feel short of breath. Patient reports being tired. Currently after assessment, I was informed that patient and his were requesting consult to hospice. Consult was placed to [facility]. Vital signs reviewed and stable. General: Nontoxic, no distress and appears stated age. Chronically ill-a ppearing. Derm: Skin warm and dry, normal coloration for ethnicity. Head: Atraumatic, normocephalic and symmetric. Eyes: EOM's intact, no lid lag, and anicteric sclera Mouth: no lip lesions, mucus membranes moist Cardiovascular: Irregularly irregular with systolic murmur. Positive posterior tibial pulses bilaterally, and cap refill < 2 seconds. Lungs: Respirations even, regular, and unlabored on BiPAP. Lungs diminished with soft expiratory wheezes noted.. Abdominal: soft, nontender to palpation, no guarding, no appreciable organomegaly. Ext: ROM intact. No gross muscle atrophy, no lower extremity edema, no contractures Neuro: Speech clear, face symmetrical and CN II-XII grossly intact with no noted focal neuro deficits Psych: Alert and oriented to person and place but mildly confused to time and situation. Assessment and Plan of Care: Acute on chronic respiratory failure with hypoxia and hypercarbia Acute exacerbation of chronic diastolic heart failure Elevated troponins, likely due type II NSTEMI secondary to CHF exacerbation Chronic persistent atrial fibrillation, currently with RVR with rate 90s to 110s. History of CAD status post stenting Hypertension Hyperlipidemia Chronic kidney disease stage IIIb -Cardiology evaluated, reviewed documentation in chart. -Continue to provide supplemental oxygen and titrate as patient tolerates. Currently on BiPAP with IPAP of 10, EPAP 5, FiO2 40% and to be titrated accordingly to keep SpO2 equal to or greater than 90%. -Continue low intensity heparin infusion for treatment of NSTEMI with close monitoring of PTT for goal therapeutic range of 45 to 79 seconds. PTT currently therapeutic at 49.8. -Telemetry monitoring. -Continue monitoring I's and O's with daily weights -Continue cardiac medication regimen with aspirin 81 mg daily, Lipitor 40 mg nightly, Farxiga 10 mg daily, and metoprolol 100 mg twice daily. -Continue close monitoring of renal function and electrolytes while diuresing. Currently creatinine 1.70 with a baseline creatinine around 2.1. -Consult was placed to hospice per patient and family's request. Pending consult family would like to continue current treatment plan. COPD exacerbation, secondary to above -Monitor pulse-oximetry -Pulmonology following, reviewed documentation in chart -Duonebs scheduled 4 times daily and as needed for SOB and/or wheezing along with Pulmicort 1 mg inhalation twice daily, Perforomist 20 mcg inhalation twice daily. -Continue Solu-Medrol 60 mg IV every 6 hours. Acute on chronic anemia. Thrombocytopenia -Hemoglobin currently stable at 8.9 and platelet count of 131. -Patient denies having any noted bleeding or black tarry stools. -Patient currently on heparin infusion for elevated troponins. Will continue to monitor hemoglobin closely with repeat CBC this evening and again tomorrow morning. Hypothyroidism -Continue daily medication regimen with levothyroxine 137 mcg daily. Order placed for TSH with free T4. Anxiety and depression PTSD -Continue daily medication regimen with Zoloft 200 mg daily and Xanax 1 mg 3 times daily as needed for severe anxiety/panic attack. Data and imaging reviewed: Morning labs reviewed. CBC showing bicytopenia with hemoglobin of 8.5 and platelet count of 140. BMP showing metabolic alkalosis with chloride of 90, bicarb of 39, and anion gap of 6 and elevated but stable renal function with BUN of 40, creatinine of 1.72, GFR of 39. TSH was 10.500, however free T4 normal at 0.79. Magnesium 1.9. PTT therapeutic at 49.8. Vital signs reviewed. Blood pressure 123/78, heart rate 110, respiratory rate 18, temp 97.1 F, and SpO2 of 92% on BiPAP. CODE STATUS: DNR/DNI DVT prophylaxis: Heparin Anticipated discharge date: Pending clinical course Anticipated discharge place: Pending clinical course Patient was seen independently by Nurse Practitioner. This document was prepared using [employer] dictation software. Please allow for errors in school bus monitor while rare they do occur. Patient was seen independently by Arnoldo He NP. I agree with the assessment and plan as above. Objective - Vital Signs Vital signs: Vital Signs Temp 97.2 F L 12/22/23 03:41 Pulse 104 H 12/22/23 08:14 Resp 18 12/22/23 03:41 BP 116/69 12/22/23 03:41 Pulse Ox 98 12/22/23 03:41 FiO2 40 12/22/23 07:54 Intake & Output 12/21/23 12/22/23 12/22/23 18:59 06:59 18:59 Intake Total 152.833 Output Total 1100 Balance -947.167 Weight 116.573 kg Intake: Intake, IV Titration 152.833 Amount Heparin Sod,Pork in 0.45% 152.833 NaCl 25,000 unit In 0.45 % NaCl 1 250ml.bag @ 8. 578 UNITS/KG/HR 10 mls/hr IV .Q24H [facility] Rx#: [id number] Output: Urine 1100 Other: Voiding Method External Catheter - Labs CBC & Chem 7: 12/23/23 05:51 12/23/23 05:51 Labs: Abnormal Lab Results - Last 24 Hours (Table) 12/21/23 12/21/23 12/21/23 Range/Units 11:27 11:27 17:08 RBC 3.23 L 3.21 L (4.30-5.90) m/uL Hgb 8.9 L 9.0 L (13.0-17.5) gm/dL Hct 29.8 L 29.2 L (39.0-53.0) % MCHC 30.0 L 30.7 L (31.0-37.0) g/dL Plt Count 131 L 130 L (150-450) k/uL Lymphocytes # 0.7 L (1.0-4.8) k/uL APTT 20.0 L (22.0-30.0) sec Chloride (98-107) mmol/L Carbon Dioxide (22-30) mmol/L BUN (9-20) mg/dL Creatinine (0.66-1.25) mg/dL TSH (0.465-4.680) mIU/L 12/21/23 12/22/23 12/22/23 Range/Units 17:08 01:52 01:52 RBC 3.15 L (4.30-5.90) m/uL Hgb 8.5 L (13.0-17.5) gm/dL Hct 29.2 L (39.0-53.0) % MCHC 29.2 L (31.0-37.0) g/dL Plt Count 140 L (150-450) k/uL Lymphocytes # 0.2 L (1.0-4.8) k/uL APTT 32.7 H (22.0-30.0) sec Chloride 91 L (98-107) mmol/L Carbon Dioxide 38 H (22-30) mmol/L BUN 42 H (9-20) mg/dL Creatinine 1.77 H (0.66-1.25) mg/dL TSH 10.500 H (0.465-4.680) mIU/L 12/22/23 Range/Units 07:22 RBC (4.30-5.90) m/uL Hgb (13.0-17.5) gm/dL Hct (39.0-53.0) % MCHC (31.0-37.0) g/dL Plt Count (150-450) k/uL Lymphocytes # (1.0-4.8) k/uL APTT 49.8 H (22.0-30.0) sec Chloride (98-107) mmol/L Carbon Dioxide (22-30) mmol/L BUN (9-20) mg/dL Creatinine (0.66-1.25) mg/dL TSH (0.465-4.680) mIU/L
[2023-12-22] MEDS: METOPROLOL TARTRATE 25 MG TAB PO STA (11:38)
--- NOTE | 2023-12-22 12:16 | P.PN ---
Subjective Progress Note Date: 12/22/23 Principal diagnosis: Respiratory failure. Patient is a 73-year-old male with past medical history significant for COPD, chronic hypoxemic respiratory failure, hypertension, hyperlipidemia, coronary artery disease with previous PCI/stenting, chronic diastolic heart failure, atrial fibrillation, chronic kidney disease stage III, hypothyroidism. Patient is normally oxygen dependent on 4 L/min nasal cannula. Of note, patient had a recent hospitalization 12/06/2023 through 12/15/2023. He was seen for acute on top of chronic hypoxemic and hypercapnic respiratory failure. This was secondary to COPD and chronic diastolic heart failure. He was ultimately discharged to [facility]. Patient's main concern is actually that he is not happy at [facility] and the care he has been receiving. He is agitated and voicing that he does not want to go back to the [facility]. He is also sick of answering repeat questions. Apparently, patient called EMS himself at [facility]. Reportedly noted to be short of breath by EMS. ABG, on 3 L/min nasal cannula, was drawn in the emergency department indicating a PaO2 of 58, pCO2 of 61, pH of 7.39. Patient was then placed on BiPAP. Current BiPAP settings are 10/5 and FiO2 of 40%. Chest x-ray showing cardiomegaly, pulmonary vascular congestion, and trace bilateral pleural effusion. Patient refuses to answer most of my questions. Does admit some epigastric discomfort that radiates to his back, but will not elaborate further. States that he did take himself off Lasix [facility] He will not clarify why. Will not answer any my further questioning at this time. Currently afebrile. CBC: WBC count 9.2, hemoglobin 10.1, hematocrit 32.9, platelets 155. CMP: Sodium 137, potassium 4.4, chloride 93, serum bicarb 41, BUN 52, creatinine 1.7, glucose 72. LFTs unremarkable. Troponin 0.038. NT proBNP 7220. EKG: Atrial fibrillation with rapid ventricular response, 107 bpm, RBBB pattern. Negative for influenza, RSV, COVID. No evidence CO2 narcosis. Continues on BIPAP. Vital signs are stable. Progress note dated December 22, 2023. This is a 73-year-old male who was seen in consultation yesterday. Please see the note above. He is seen today in room 355. He is a DO NOT RESUSCITATE patient. He remains on BiPAP, with settings of 10/5, and 40%. He is currently also on IV heparin. He has a history of multiple medical problems including COPD, chronic hypoxemic respiratory failure, hypertension, hyperlipidemia, CAD, diastolic CHF, atrial fibrillation, and stage III chronic kidney disease, among other things. Current labs include a white count 8, hemoglobin 8.5, hematocrit 29.2, and a platelet count of 140,000. PTT is 49.8. Sodium 135, potassium 4.5, chloride 90, CO2 39, BUN 40, creatinine 1.72. Glucose is 117. Calcium 8.8. Objective - Vital Signs Vital signs: Vital Signs Temp 97.1 F L 12/22/23 08:05 Pulse 104 H 12/22/23 11:29 Resp 18 12/22/23 08:05 BP 123/78 12/22/23 08:05 Pulse Ox 92 L 12/22/23 08:05 FiO2 92 12/22/23 08:05 Intake & Output 12/21/23 12/22/23 12/22/23 18:59 06:59 18:59 Intake Total 152.833 71.759 Output Total 1100 700 Balance -947.167 -628.241 Weight 116.573 kg Intake: Intake, IV Titration 152.833 71.759 Amount Heparin Sod,Pork in 0.45% 152.833 71.759 NaCl 25,000 unit In 0.45 % NaCl 1 250ml.bag @ 8. 578 UNITS/KG/HR 10 mls/hr IV .Q24H [facility] Rx#: [id number] Output: Urine 1100 700 Other: Voiding Method External Catheter External Catheter - Exam No acute distress, sleeping, BiPAP mask in place. No distress. HEENT examination is grossly unremarkable. Mucous membranes are moist. No oral lesions. Neck supple. Full range of motion. No adenopathy thyromegaly or neck vein distention. Cardiovascular examination reveals regular rhythm rate. S1-S2 normal. No S3 or S4. No discernible murmur noted. Lungs reveal clear breath sounds. Breath sounds are equal bilaterally. No adventitious lung sounds including wheezes rhonchi or crackles. Abdomen soft bowel sounds are heard. No masses or tenderness. Extremities are intact. No cyanosis clubbing or edema. Skin is without rash or lesion. Neurologic examination is brief but nonfocal. - Labs CBC & Chem 7: 12/22/23 01:52 12/22/23 07:22 Labs: Abnormal Lab Results - Last 24 Hours (Table) 12/21/23 12/21/23 12/21/23 Range/Units 11:27 17:08 17:08 RBC 3.21 L (4.30-5.90) m/uL Hgb 9.0 L (13.0-17.5) gm/dL Hct 29.2 L (39.0-53.0) % MCHC 30.7 L (31.0-37.0) g/dL Plt Count 130 L (150-450) k/uL Lymphocytes # (1.0-4.8) k/uL APTT 20.0 L (22.0-30.0) sec Sodium (137-145) mmol/L Chloride 91 L (98-107) mmol/L Carbon Dioxide 38 H (22-30) mmol/L BUN 42 H (9-20) mg/dL Creatinine 1.77 H (0.66-1.25) mg/dL Glucose (74-99) mg/dL TSH 10.500 H (0.465-4.680) mIU/L 12/22/23 12/22/23 12/22/23 Range/Units 01:52 01:52 07:22 RBC 3.15 L (4.30-5.90) m/uL Hgb 8.5 L (13.0-17.5) gm/dL Hct 29.2 L (39.0-53.0) % MCHC 29.2 L (31.0-37.0) g/dL Plt Count 140 L (150-450) k/uL Lymphocytes # 0.2 L (1.0-4.8) k/uL APTT 32.7 H 49.8 H (22.0-30.0) sec Sodium (137-145) mmol/L Chloride (98-107) mmol/L Carbon Dioxide (22-30) mmol/L BUN (9-20) mg/dL Creatinine (0.66-1.25) mg/dL Glucose (74-99) mg/dL TSH (0.465-4.680) mIU/L 12/22/23 Range/Units 07:22 RBC (4.30-5.90) m/uL Hgb (13.0-17.5) gm/dL Hct (39.0-53.0) % MCHC (31.0-37.0) g/dL Plt Count (150-450) k/uL Lymphocytes # (1.0-4.8) k/uL APTT (22.0-30.0) sec Sodium 135 L (137-145) mmol/L Chloride 90 L (98-107) mmol/L Carbon Dioxide 39 H (22-30) mmol/L BUN 40 H (9-20) mg/dL Creatinine 1.72 H (0.66-1.25) mg/dL Glucose 117 H (74-99) mg/dL TSH (0.465-4.680) mIU/L Assessment and Plan Assessment: Acute COPD exacerbation. Acute exacerbation of chronic diastolic heart failure. Acute on chronic hypoxemic respiratory failure, secondary to a combination of above, currently on BiPAP support. Chronic hypercapnic respiratory failure. Chronic obstructive pulmonary disease. Chronic hypoxemic respiratory failure, normally maintained on 4 L/min nasal cannula. Chronic diastolic heart failure. Coronary artery disease, with previous history of PCI/stenting. Elevated troponins, likely secondary to supply/demand mismatch. History of permanent pacemaker. Chronic atrial fibrillation. History of hypertension. History of hyperlipidemia. Chronic kidney disease stage IIIb. Anemia of chronic disease. History of hypothyroidism. History of anxiety/depression. Plan: Plan dated December 22, 2023. The patient is seen today in room 355. The patient remains on BiPAP. His settings are 10/5 and 40%. The patient remains on IV heparin as well. The patient has been seen by cardiology. Labs, x-rays, and medications are reviewed. He continues on Lasix 40 mg twice a day, and Xarelto, which has been resumed. He continues with GI prophylaxis. He tested negative for influenza, RSV, coronavirus. The patient is a DO NOT RESUSCITATE patient. Prognosis is guarded. We will continue to follow make recommendations along the way. Time with Patient: Less than 30
--- NOTE | 2023-12-22 15:28 | P.PN ---
Subjective Progress Note Date: 12/22/23 SUBJECTIVE: Patient is seen and examined at bedside this a.m. His fluid status is improved as compared to yesterday. He denies having any active chest pain chest pressure shortness of breath. Heart rate 102 bpm, atrial fibrillation, BP 118/66 Labs BUN 40, creatinine 1.72 PHYSICAL EXAMINATION Vital signs reviewed. Head: Normocephalic. Eyes: Sclerae nonicteric. Neck: Brisk carotid upstroke, mildly elevated jugular venous distention. Lungs: Mild wheezing and crackles audible bilateral lung ortiz. Heart: Irregularly irregular pulse , mild systolic murmur audible in right parasternal border Abdomen: Soft nontender, bowel sounds present, Extremities: 1-2+ pitting edema bilateral extremity Neuro: Alert, oriented, no focal neurological deficits. Detailed neuro exam was not performed. ASSESSMENT Acute HFpEF exacerbation CKD Type II NSTEMI Acute hypoxic and hypercapnic respiratory failure COPD exacerbation with moderate pulmonary hypertension A-fib RVR, currently rate controlled Right bundle branch block Pertinent labs TSH 10.5, T4 0.7, NT-proBNP 7000, Cardiac testing Echo September 2023 EF 55 to 60% No obvious regional wall motion abnormality, severe biatrial dilatation, moderate to severe tricuspid regurgitation, RVSP 43 mmHg PLAN Continue IV heparin for next 24 hours. Transition to p.o. anticoagulation thereafter. Continue IV Lasix 40 mg twice daily. Transition to p.o. Bumex 1 mg p.o. twice daily for 5 days thereafter. After 5 days reduce Bumex to 1 mg p.o. daily Continue aspirin, atorvastatin, Farxiga 10 mg daily, Increase metoprolol to 125 units twice daily Not adding MRA/ARB due to CKD. Toi Arce MD, FACC, RPVI Thank you for allowing [facility] to participate in this patient's care. Please contact us in case of any followup questions. Objective - Vital Signs Vital signs: Vital Signs Temp 97.1 F L 12/22/23 08:05 Pulse 104 H 12/22/23 11:29 Resp 16 12/22/23 11:20 BP 118/66 12/22/23 11:20 Pulse Ox 94 L 12/22/23 11:20 FiO2 92 12/22/23 08:05 Intake & Output 12/21/23 12/22/23 12/22/23 18:59 06:59 18:59 Intake Total 152.833 611.759 Output Total 1100 700 Balance -947.167 -88.241 Weight 116.573 kg 115.5 kg Intake: Intake, IV Titration 152.833 71.759 Amount Heparin Sod,Pork in 0.45% 152.833 71.759 NaCl 25,000 unit In 0.45 % NaCl 1 250ml.bag @ 8. 578 UNITS/KG/HR 10 mls/hr IV .Q24H [facility] Rx#: [id number] Oral 540 Output: Urine 1100 700 Other: Voiding Method External Catheter External Catheter - Labs CBC & Chem 7: 12/22/23 01:52 12/22/23 07:22 Labs: Abnormal Lab Results - Last 24 Hours (Table) 12/21/23 12/21/23 12/22/23 Range/Units 17:08 17:08 01:52 RBC 3.21 L 3.15 L (4.30-5.90) m/uL Hgb 9.0 L 8.5 L (13.0-17.5) gm/dL Hct 29.2 L 29.2 L (39.0-53.0) % MCHC 30.7 L 29.2 L (31.0-37.0) g/dL Plt Count 130 L 140 L (150-450) k/uL Lymphocytes # 0.2 L (1.0-4.8) k/uL APTT (22.0-30.0) sec Sodium (137-145) mmol/L Chloride 91 L (98-107) mmol/L Carbon Dioxide 38 H (22-30) mmol/L BUN 42 H (9-20) mg/dL Creatinine 1.77 H (0.66-1.25) mg/dL Glucose (74-99) mg/dL TSH 10.500 H (0.465-4.680) mIU/L 12/22/23 12/22/23 12/22/23 Range/Units 01:52 07:22 07:22 RBC (4.30-5.90) m/uL Hgb (13.0-17.5) gm/dL Hct (39.0-53.0) % MCHC (31.0-37.0) g/dL Plt Count (150-450) k/uL Lymphocytes # (1.0-4.8) k/uL APTT 32.7 H 49.8 H (22.0-30.0) sec Sodium 135 L (137-145) mmol/L Chloride 90 L (98-107) mmol/L Carbon Dioxide 39 H (22-30) mmol/L BUN 40 H (9-20) mg/dL Creatinine 1.72 H (0.66-1.25) mg/dL Glucose 117 H (74-99) mg/dL TSH (0.465-4.680) mIU/L
[2023-12-22] MEDS: ALPRAZolam 0.5 MG TAB PO STA (21:29)
[2023-12-22] MEDS: METOPROLOL TARTRATE 50 MG TAB PO SCH (21:30)
[2023-12-23 06:25] LABS: HCT 25.1 % (39.0-53.0); HGB 7.6 gm/dL (13.0-17.5); Hypochromasia Marked; MCH 27.8 pg (25.0-35.0); MCHC 30.2 g/dL (31.0-37.0); Platelet Count 145 k/uL (150-450); RBC 2.73 m/uL (4.30-5.90); WBC 11.8 k/uL (3.8-10.6)
[2023-12-23 07:50] LABS: African American GFR (CKD) 42 (>60 ml/min/1.73 sqM); Blood Urea Nitrogen 58 mg/dL (9-20); Calcium 8.5 mg/dL (8.4-10.2); Chloride 87 mmol/L (98-107); Glucose 144 mg/dL (74-99); Magnesium 1.9 mg/dL (1.6-2.3); Non-African American GFR(CKD) 36 (>60 ml/min/1.73 sqM); Potassium 4.4 mmol/L (3.5-5.1); Sodium 131 mmol/L (137-145)
[2023-12-23 07:56] LABS: Anion Gap 1 mmol/L
[2023-12-23 08:00] LABS: Carbon Dioxide 43 mmol/L (22-30)
--- NOTE | 2023-12-23 12:41 | P.PN ---
Subjective Progress Note Date: 12/23/23 Principal diagnosis: HPI: [This gentleman has been somewhat noncompliant and refusing medications. However he has no chest pain his fluid status is better he has no shortness of breath at rest. I am suggesting we switch his Lasix from IV to p.o. We will place him on oral Lasix switch him from heparin to Eliquis p.o. for what seems to be atrial fibrillation. His rate is much better controlled. He has a non-ST elevation NV type II. He has chronic kidney disease COPD. We will pursue medical therapy at this time]. PHYSICIAL EXAM: [Vitals are stable JVD not evident S1-S2 heard normally short systolic murmur lungs reveal diminished air entry lower extremities reveal 1+ edema Central nervous system no focal deficits]. IMPRESSION: 1. [Type II non-ST elevation NV]. 2. [COPD with exacerbation]. 3. [Atrial fibrillation controlled rate]. 4. [History of smoking]. 5. [Noncompliance]. RECOMMENDATIONS: [Advised to switch him from IV to oral Lasix and also heparin will be switched from IV heparin to Eliquis. Prognosis remains guarded continue other medications at this time]. Objective - Vital Signs Vital signs: Vital Signs Temp 99.2 F 12/23/23 08:10 Pulse 90 12/23/23 12:31 Resp 18 12/23/23 11:40 BP 99/66 12/23/23 11:40 Pulse Ox 96 12/23/23 11:40 FiO2 40 12/23/23 04:12 Intake & Output 12/22/23 12/23/23 12/23/23 18:59 06:59 18:59 Intake Total 729.759 540 Output Total 700 600 Balance 29.759 -600 540 Weight 115.5 kg 116.5 kg Intake: Intake, IV Titration 71.759 Amount Heparin Sod,Pork in 0.45% 71.759 NaCl 25,000 unit In 0.45 % NaCl 1 250ml.bag @ 8. 578 UNITS/KG/HR 10 mls/hr IV .Q24H [facility] Rx#: [id number] Oral 658 540 Output: Urine 700 600 Other: Voiding Method External Catheter External Catheter External Catheter - Labs CBC & Chem 7: 12/23/23 05:51 12/23/23 05:51 Labs: Abnormal Lab Results - Last 24 Hours (Table) 12/23/23 12/23/23 12/23/23 Range/Units 05:51 05:51 05:51 WBC 11.8 H (3.8-10.6) k/uL RBC 2.73 L (4.30-5.90) m/uL Hgb 7.6 L (13.0-17.5) gm/dL Hct 25.1 L (39.0-53.0) % MCHC 30.2 L (31.0-37.0) g/dL Plt Count 145 L (150-450) k/uL APTT 63.0 H (22.0-30.0) sec Sodium 131 L (137-145) mmol/L Chloride 87 L (98-107) mmol/L Carbon Dioxide 43 H* (22-30) mmol/L BUN 58 H (9-20) mg/dL Creatinine 1.84 H (0.66-1.25) mg/dL Glucose 144 H (74-99) mg/dL
--- NOTE | 2023-12-23 12:44 | P.PN ---
Subjective Progress Note Date: 12/23/23 Principal diagnosis: Respiratory failure. Patient is a 73-year-old male with past medical history significant for COPD, chronic hypoxemic respiratory failure, hypertension, hyperlipidemia, coronary artery disease with previous PCI/stenting, chronic diastolic heart failure, atrial fibrillation, chronic kidney disease stage III, hypothyroidism. Patient is normally oxygen dependent on 4 L/min nasal cannula. Of note, patient had a recent hospitalization 12/06/2023 through 12/15/2023. He was seen for acute on top of chronic hypoxemic and hypercapnic respiratory failure. This was secondary to COPD and chronic diastolic heart failure. He was ultimately discharged to [facility]. Patient's main concern is actually that he is not happy at [facility] and the care he has been receiving. He is agitated and voicing that he does not want to go back to the [facility]. He is also sick of answering repeat questions. Apparently, patient called EMS himself at [facility]. Reportedly noted to be short of breath by EMS. ABG, on 3 L/min nasal cannula, was drawn in the emergency department indicating a PaO2 of 58, pCO2 of 61, pH of 7.39. Patient was then placed on BiPAP. Current BiPAP settings are 10/5 and FiO2 of 40%. Chest x-ray showing cardiomegaly, pulmonary vascular congestion, and trace bilateral pleural effusion. Patient refuses to answer most of my questions. Does admit some epigastric discomfort that radiates to his back, but will not elaborate further. States that he did take himself off [facility] while at [facility]. He will not clarify why. Will not answer any my further questioning at this time. Currently afebrile. CBC: WBC count 9.2, hemoglobin 10.1, hematocrit 32.9, platelets 155. CMP: Sodium 137, potassium 4.4, chloride 93, serum bicarb 41, BUN 52, creatinine 1.7, glucose 72. LFTs unremarkable. Troponin 0.038. NT proBNP 7220. EKG: Atrial fibrillation with rapid ventricular response, 107 bpm, RBBB pattern. Negative for influenza, RSV, COVID. No evidence CO2 narcosis. Continues on BIPAP. Vital signs are stable. Progress note dated December 22, 2023. This is a 73-year-old male who was seen in consultation yesterday. Please see the note above. He is seen today in room 355. He is a DO NOT RESUSCITATE patient. He remains on BiPAP, with settings of 10/5, and 40%. He is currently also on IV heparin. He has a history of multiple medical problems including COPD, chronic hypoxemic respiratory failure, hypertension, hyperlipidemia, CAD, diastolic CHF, atrial fibrillation, and stage III chronic kidney disease, among other things. Current labs include a white count 8, hemoglobin 8.5, hematocrit 29.2, and a platelet count of 140,000. PTT is 49.8. Sodium 135, potassium 4.5, chloride 90, CO2 39, BUN 40, creatinine 1.72. Glucose is 117. Calcium 8.8. Progress note dated December 23, 2023. 73-year-old male seen today in room 355. The patient is on 4 L nasal cannula. No IV fluids. The patient does use a BiPAP at nighttime, with settings of 10/5, and 40%. He is awake and alert, in no acute distress. He is sitting in a chair next to his hospital bed. White count was 1.8, hemoglobin 7.6, hematocrit 25.1, and platelet count 145,000. PTT was 63. Sodium 131, potassium 4.4, chloride 87, CO2 43, BUN 58, creatinine 1.84. Objective - Vital Signs Vital signs: Vital Signs Temp 99.2 F 12/23/23 08:10 Pulse 90 12/23/23 12:31 Resp 18 12/23/23 11:40 BP 99/66 12/23/23 11:40 Pulse Ox 96 12/23/23 11:40 FiO2 40 12/23/23 04:12 Intake & Output 12/22/23 12/23/23 12/23/23 18:59 06:59 18:59 Intake Total 729.759 540 Output Total 700 600 Balance 29.759 -600 540 Weight 115.5 kg 116.5 kg Intake: Intake, IV Titration 71.759 Amount Heparin Sod,Pork in 0.45% 71.759 NaCl 25,000 unit In 0.45 % NaCl 1 250ml.bag @ 8. 578 UNITS/KG/HR 10 mls/hr IV .Q24H [facility] Rx#: [id number] Oral 658 540 Output: Urine 700 600 Other: Voiding Method External Catheter External Catheter External Catheter - Exam No acute distress, awake and alert, currently on 4 L nasal cannula. HEENT examination is grossly unremarkable. Mucous membranes are moist. No oral lesions. Neck supple. Full range of motion. No adenopathy thyromegaly or neck vein distention. Cardiovascular examination reveals regular rhythm rate. S1-S2 normal. No S3 or S4. No discernible murmur noted. Lungs reveal clear breath sounds. Breath sounds are equal bilaterally. No adventitious lung sounds including wheezes rhonchi or crackles. Abdomen soft bowel sounds are heard. No masses or tenderness. Extremities are intact. No cyanosis clubbing or edema. Skin is without rash or lesion. Neurologic examination is brief but nonfocal. - Labs CBC & Chem 7: 12/23/23 05:51 12/23/23 05:51 Labs: Abnormal Lab Results - Last 24 Hours (Table) 12/23/23 12/23/23 12/23/23 Range/Units 05:51 05:51 05:51 WBC 11.8 H (3.8-10.6) k/uL RBC 2.73 L (4.30-5.90) m/uL Hgb 7.6 L (13.0-17.5) gm/dL Hct 25.1 L (39.0-53.0) % MCHC 30.2 L (31.0-37.0) g/dL Plt Count 145 L (150-450) k/uL APTT 63.0 H (22.0-30.0) sec Sodium 131 L (137-145) mmol/L Chloride 87 L (98-107) mmol/L Carbon Dioxide 43 H* (22-30) mmol/L BUN 58 H (9-20) mg/dL Creatinine 1.84 H (0.66-1.25) mg/dL Glucose 144 H (74-99) mg/dL Assessment and Plan Assessment: Acute COPD exacerbation. Acute exacerbation of chronic diastolic heart failure. Acute on chronic hypoxemic respiratory failure, secondary to a combination of above, currently on BiPAP support. Chronic hypercapnic respiratory failure. Chronic obstructive pulmonary disease. Chronic hypoxemic respiratory failure, normally maintained on 4 L/min nasal cannula. Chronic diastolic heart failure. Coronary artery disease, with previous history of PCI/stenting. Elevated troponins, likely secondary to supply/demand mismatch. History of permanent pacemaker. Chronic atrial fibrillation. History of hypertension. History of hyperlipidemia. Chronic kidney disease stage IIIb. Anemia of chronic disease. History of hypothyroidism. History of anxiety/depression. Plan: Plan dated December 22, 2023. The patient is seen today in room 355. The patient remains on BiPAP. His settings are 10/5 and 40%. The patient remains on IV heparin as well. The patient has been seen by cardiology. Labs, x-rays, and medications are reviewed . He continues on Lasix 40 mg twice a day, and Xarelto, which has been resumed. He continues with GI prophylaxis. He tested negative for influenza, RSV, coronavirus. The patient is a DO NOT RESUSCITATE patient. Prognosis is guarded. We will continue to follow make recommendations along the way. Plan dated December 23, 2023. The patient is seen today in room 355. He is awake and alert. No respiratory distress. He is feeling better. He denies any chest pain or pressure. He does use a BiPAP device at nighttime. Currently on 4 L. He denies any distress. Labs, x-rays, and medications are reviewed. The patient is a DO NOT RESUSCITATE patient. We will continue to follow make recommendations along the way. Time with Patient: Less than 30
--- NOTE | 2023-12-23 14:48 | P.PN ---
Subjective Progress Note Date: 12/23/23 Hospital course: Patient is a very pleasant 73-year-old male with a past medical history of CAD status post stenting, hypertension, hyperlipidemia, chronic diastolic heart failure, persistent atrial fibrillation on Xarelto, COPD with chronic hypoxic respiratory failure 4-5 L home O2 dependent, obstructive sleep apnea BiPAP dependent nightly, chronic kidney disease stage IIIb, severe anxiety with depression, and PTSD. He presented to the hospital secondary on 12/20/2023 from [facility] with a chief complaint of increased shortness of breath over the past 3 days. Upon arrival to our facility patient underwent evaluation in the emergency department. Vital signs upon arrival show blood pressure 129/92, heart rate 94, respiratory rate 20, temp 98.4 F, and SpO2 of 99% on 4 L. EKG showing atrial fibrillation with a rapid ventricular rate of 107 bpm. Chest x- ray showing bilateral vascular congestion and trace pleural effusions consistent with acute heart failure. Labs completed and reviewed. CBC showing normocytic anemia with hemoglobin of 10.1. Coagulation profile normal findings. BMP showing none anion gap metabolic alkalosis with chloride of 93, bicarb of 41, and anion gap of 3. Renal function consistent with known stage IIIb CKD with BUN of 52, creatinine of 1.70, and GFR 40 with baseline creatinine of 2.1. Liver profile unremarkable. Magnesium 1.0. Troponin was elevated at 0.038. proBNP was 7220. Influenza A, influenza B, RSV, and COVID PCR negative. ABG completed showing compensated respiratory acidosis pH of 7.39, pCO2 of 61, pO2 of 58, bicarb 37, total CO2 of 39, and ABG O2 saturation of 92.3. Patient was started on IV heparin infusion for treatment of elevated troponin concerning for NSTEMI. Patient admitted under our services with consultation to cardiology and pulmonology. Physical exam: Patient seen and fully evaluated at bedside. Patient was sitting up in chair at bedside this morning. He was on 5 L O2 via nasal cannula and maintaining oxygen saturations well. Patient and family met with dimensional integration engineer yesterday and plan to be discharged home under hospice care tomorrow after supplies can be delivered and room can be set up at home. Patient states he feels better now that he knows he is going to go home, stating he does not want to in the hospital. He denies having any other complaints, questions, or needs at this time. Vital signs reviewed and stable. General: Nontoxic, no distress and appears stated age. Chronically ill- appearing. Derm: Skin warm and dry, normal coloration for ethnicity. Head: Atraumatic, normocephalic and symmetric. Eyes: EOM's intact, no lid lag, and anicteric sclera Mouth: no lip lesions, mucus membranes moist Cardiovascular: Irregularly irregular with systolic murmur. Positive posterior tibial pulses bilaterally, and cap refill < 2 seconds. Lungs: Respirations even, regular, and unlabored on BiPAP. Lungs diminished with soft expiratory wheezes noted.. Abdominal: soft, nontender to palpation, no guarding, no appreciable organomegaly. Ext: ROM intact. No gross muscle atrophy, no lower extremity edema, no contractures Neuro: Speech clear, face symmetrical and CN II-XII grossly intact with no noted focal neuro deficits Psych: Alert and oriented to person and place but mildly confused to time and situation. Assessment and Plan of Care: Acute on chronic respiratory failure with hypoxia and hypercarbia Acute exacerbation of chronic diastolic heart failure Elevated troponins, likely due type II NSTEMI secondary to CHF exacerbation Chronic persistent atrial fibrillation, currently with RVR with rate 90s to 110s. History of CAD status post stenting Hypertension Hyperlipidemia Chronic kidney disease stage IIIb -Cardiology evaluated, reviewed documentation in chart. -Continue to provide supplemental oxygen and titrate as patient tolerates. Currently on BiPAP with IPAP of 10, EPAP 5, FiO2 40% and to be titrated accordingly to keep SpO2 equal to or greater than 90%. -Continue low intensity heparin infusion for treatment of NSTEMI with close monitoring of PTT for goal therapeutic range of 45 to 79 seconds. PTT currently therapeutic at 49.8. -Telemetry monitoring. -Continue monitoring I's and O's with daily weights -Continue cardiac medication regimen with aspirin 81 mg daily, Lipitor 40 mg nightly, Farxiga 10 mg daily, and metoprolol 100 mg twice daily. -Continue close monitoring of renal function and electrolytes while diuresing. Currently creatinine 1.70 with a baseline creatinine around 2.1. -Consult to hospice was placed, patient and family met with hospice team and plan for discharge home on hospice care tomorrow morning. Pending discharge patient to continue current plan of care per patient and family request. COPD exacerbation, secondary to above -Monitor pulse-oximetry -Pulmonology following, reviewed documentation in chart -Duonebs scheduled 4 times daily and as needed for SOB and/or wheezing along with Pulmicort 1 mg inhalation twice daily, Perforomist 20 mcg inhalation twice daily. -Continue Solu-Medrol 60 mg IV every 6 hours. Acute on chronic anemia. Thrombocytopenia -Hemoglobin currently stable at 7.6 and platelet count of 145 -Patient denies having any noted bleeding or black tarry stools. -Patient currently on heparin infusion for elevated troponins. Will continue to monitor hemoglobin closely with repeat CBC this evening and again tomorrow morning. Hypothyroidism -Continue daily medication regimen with levothyroxine 137 mcg daily. Order placed for TSH with free T4. Anxiety and depression PTSD -Continue daily medication regimen with Zoloft 200 mg daily and Xanax 1 mg 3 times daily as needed for severe anxiety/panic attack. Data and imaging reviewed: Morning labs reviewed. CBC showing leukocytosis with WBC count of 11.8 and worsening hemoglobin of 7.6 with platelet count of 145. BMP showing hyponatremia and non-anion gap metabolic alkalosis with chloride of 87, bicarb of 43 and anion gap of 1. Renal function also worsening with BUN of 58, creatinine of 1.84, GFR of 36. Magnesium 1.9. PTT therapeutic at 63.0. Vital signs reviewed. Blood pressure 114/70, heart rate 100, respiratory rate 16, temp 99.2 F, and SpO2 of 93% on 5 L. CODE STATUS: DNR/DNI DVT prophylaxis: Heparin Anticipated discharge date: Tomorrow morning Anticipated discharge place: Home with [facility] Patient was seen independently by Nurse Practitioner. This document was prepared using [employer] dictation software. Please allow for errors in retail supervisor while rare they do occur. Patient was seen independently by Arnoldo He NP. I agree with the assessment and plan as above. Objective - Vital Signs Vital signs: Vital Signs Temp 99 F 12/23/23 04:01 Pulse 95 12/23/23 08:11 Resp 18 12/23/23 04:01 BP 98/57 12/23/23 04:01 Pulse Ox 95 12/23/23 07:51 FiO2 40 12/23/23 04:12 Intake & Output 12/22/23 12/23/23 12/23/23 18:59 06:59 18:59 Intake Total 729.759 Output Total 700 600 Balance 29.759 -600 Weight 115.5 kg 116.5 kg Intake: Intake, IV Titration 71.759 Amount Heparin Sod,Pork in 0.45% 71.759 NaCl 25,000 unit In 0.45 % NaCl 1 250ml.bag @ 8. 578 UNITS/KG/HR 10 mls/hr IV .Q24H [facility] Rx#: [id number] Oral 658 Output: Urine 700 600 Other: Voiding Method External Catheter External Catheter - Labs CBC & Chem 7: 12/23/23 05:51 12/23/23 05:51 Labs: Abnormal Lab Results - Last 24 Hours (Table) 12/22/23 12/23/23 12/23/23 Range/Units 07:22 05:51 05:51 WBC 11.8 H (3.8-10.6) k/uL RBC 2.73 L (4.30-5.90) m/uL Hgb 7.6 L (13.0-17.5) gm/dL Hct 25.1 L (39.0-53.0) % MCHC 30.2 L (31.0-37.0) g/dL Plt Count 145 L (150-450) k/uL APTT (22.0-30.0) sec Sodium 135 L 131 L (137-145) mmol/L Chloride 90 L 87 L (98-107) mmol/L Carbon Dioxide 39 H 43 H* (22-30) mmol/L BUN 40 H 58 H (9-20) mg/dL Creatinine 1.72 H 1.84 H (0.66-1.25) mg/dL Glucose 117 H 144 H (74-99) mg/dL 12/23/23 Range/Units 05:51 WBC (3.8-10.6) k/uL RBC (4.30-5.90) m/uL Hgb (13.0-17.5) gm/dL Hct (39.0-53.0) % MCHC (31.0-37.0) g/dL Plt Count (150-450) k/uL APTT 63.0 H (22.0-30.0) sec Sodium (137-145) mmol/L Chloride (98-107) mmol/L Carbon Dioxide (22-30) mmol/L BUN (9-20) mg/dL Creatinine (0.66-1.25) mg/dL Glucose (74-99) mg/dL
[2023-12-23] MEDS: MAG HYDROX/AL HYDROX/SIMETH 30 ML CUP PO PRN (15:44)
[2023-12-23] MEDS: ALPRAZolam 1 MG TAB PO PRN (15:44)
[2023-12-23] MEDS: APIXABAN 5 MG TAB PO SCH (20:06)
[2023-12-24 09:25] VITALS: BP 117/71; TEMP 97.5
[2023-12-24] MEDS: FUROSEMIDE 40 MG TAB PO SCH (10:03)
--- NOTE | 2023-12-24 11:11 | P.PN ---
Subjective Progress Note Date: 12/24/23 Principal diagnosis: Respiratory failure. Patient is a 73-year-old male with past medical history significant for COPD, chronic hypoxemic respiratory failure, hypertension, hyperlipidemia, coronary artery disease with previous PCI/stenting, chronic diastolic heart failure, atrial fibrillation, chronic kidney disease stage III, hypothyroidism. Patient is normally oxygen dependent on 4 L/min nasal cannula. Of note, patient had a recent hospitalization 12/06/2023 through 12/15/2023. He was seen for acute on top of chronic hypoxemic and hypercapnic respiratory failure. This was secondary to COPD and chronic diastolic heart failure. He was ultimately discharged to [facility]. Patient's main concern is actually that he is not happy at [facility] and the care he has been receiving. He is agitated and voicing that he does not want to go back to the [facility]. He is also sick of answering repeat questions. Apparently, patient called EMS himself at [facility]. Reportedly noted to be short of breath by EMS. ABG, on 3 L/min nasal cannula, was drawn in the emergency department indicating a PaO2 of 58, pCO2 of 61, pH of 7.39. Patient was then placed on BiPAP. Current BiPAP settings are 10/5 and FiO2 of 40%. Chest x-ray showing cardiomegaly, pulmonary vascular congestion, and trace bilateral pleural effusion. Patient refuses to answer most of my questions. Does admit some epigastric discomfort that radiates to his back, but will not elaborate further. States that he did take himself off Lasix while at the [facility]. He will not clarify why. Will not answer any my further questioning at this time. Currently afebrile. CBC: WBC count 9.2, hemoglobin 10.1, hematocrit 32.9, platelets 155. CMP: Sodium 137, potassium 4.4, chloride 93, serum bicarb 41, BUN 52, creatinine 1.7, glucose 72. LFTs unremarkable. Troponin 0.038. NT proBNP 7220. EKG: Atrial fibrillation with rapid ventricular response, 107 bpm, RBBB pattern. Negative for influenza, RSV, COVID. No evidence CO2 narcosis. Continues on BIPAP. Vital signs are stable. Progress note dated December 22, 2023. This is a 73-year-old male who was seen in consultation yesterday. Please see the note above. He is seen today in room 355. He is a DO NOT RESUSCITATE patient. He remains on BiPAP, with settings of 10/5, and 40%. He is currently also on IV heparin. He has a history of multiple medical problems including COPD, chronic hypoxemic respiratory failure, hypertension, hyperlipidemia, CAD, diastolic CHF, atrial fibrillation, and stage III chronic kidney disease, among other things. Current labs include a white count 8, hemoglobin 8.5, hematocrit 29.2, and a platelet count of 140,000. PTT is 49.8. Sodium 135, potassium 4.5, chloride 90, CO2 39, BUN 40, creatinine 1.72. Glucose is 117. Calcium 8.8. Progress note dated December 23, 2023. 73-year-old male seen today in room 355. The patient is on 4 L nasal cannula. No IV fluids. The patient does use a BiPAP at nighttime, with settings of 10/5, and 40%. He is awake and alert, in no acute distress. He is sitting in a chair next to his hospital bed. White count was 1.8, hemoglobin 7.6, hematocrit 25.1, and platelet count 145,000. PTT was 63. Sodium 131, potassium 4.4, chloride 87, CO2 43, BUN 58, creatinine 1.84. Progress note dated December 24, 2023. 73-year-old male seen today in room 355. The patient continues on oxygen, at 4 L. He does use BiPAP at nighttime, with settings of 10/5 and 40%. He is not receiving any IV fluids. Clinically, the patient appears to be doing much better. He states that his breathing is improved. Labs today include only a PTT of 22.6. Objective - Vital Signs Vital signs: Vital Signs Temp 97.5 F L 12/24/23 09:24 Pulse 77 12/24/23 09:58 Resp 18 12/24/23 09:58 BP 117/71 12/24/23 09:24 Pulse Ox 97 12/24/23 09:24 FiO2 40 12/24/23 04:07 Intake & Output 12/23/23 12/24/23 12/24/23 18:59 06:59 18:59 Intake Total 540 Output Total 550 400 Balance 540 -550 -400 Weight 119.5 kg Intake: Oral 540 Output: Urine 550 400 Other: Voiding Method External Catheter Urinal Urinal # Voids 2 - Exam No acute distress, awake and alert, currently on 4 L nasal cannula. HEENT examination is grossly unremarkable. Mucous membranes are moist. No oral lesions. Neck supple. Full range of motion. No adenopathy thyromegaly or neck vein distention. Cardiovascular examination reveals regular rhythm rate. S1-S2 normal. No S3 or S4. No discernible murmur noted. Lungs reveal clear breath sounds. Breath sounds are equal bilaterally. No adventitious lung sounds including wheezes rhonchi or crackles. Abdomen soft bowel sounds are heard. No masses or tenderness. Extremities are intact. No cyanosis clubbing or edema. Skin is without rash or lesion. Neurologic examination is brief but nonfocal. - Labs CBC & Chem 7: 12/23/23 05:51 12/23/23 05:51 Assessment and Plan Assessment: Acute COPD exacerbation. Acute exacerbation of chronic diastolic heart failure. Acute on chronic hypoxemic respiratory failure, secondary to a combination of above, currently on BiPAP support. Chronic hypercapnic respiratory failure. Chronic obstructive pulmonary disease. Chronic hypoxemic respiratory failure, normally maintained on 4 L/min nasal cannula. Chronic diastolic heart failure. Coronary artery disease, with previous history of PCI/stenting. Elevated troponins, likely secondary to supply/demand mismatch. History of permanent pacemaker. Chronic atrial fibrillation. History of hypertension. History of hyperlipidemia. Chronic kidney disease stage IIIb. Anemia of chronic disease. History of hypothyroidism. History of anxiety/depression. Plan: Plan dated December 22, 2023. The patient is seen today in room 355. The patient remains on BiPAP. His settings are 10/5 and 40%. The patient remains on IV heparin as well. The patient has been seen by cardiology. Labs, x-rays, and medications are reviewed. He continues on Lasix 40 mg twice a day, and Xarelto, which has been resumed. He continues with GI prophylaxis. He tested negative for influenza, RSV, coronavirus. The patient is a DO NOT RESUSCITATE patient. Prognosis is guarded. We will continue to follow make recommendations along the way. Plan dated December 23, 2023. The patient is seen today in room 355. He is awake and alert. No respiratory distress. He is feeling better. He denies any chest pain or pressure. He does use a BiPAP device at nighttime. Currently on 4 L. He denies any distress. Labs, x-rays, and medications are reviewed. The patient is a DO NOT RESUSCITATE patient. We will continue to follow make recommendations along the way. Plan dated December 24, 2023. The patient is seen today in room 355. He is lying flat in bed. He appears relatively comfortable. He is not having any conversational dyspnea, use of accessory muscles, or audible wheezing. He is on 4 L. He does use a BiPAP at nighttime. Labs, x-rays, and all medications are reviewed. Prognosis is guarded. We will continue to see the patient as needed. Time with Patient: Less than 30
[2023-12-24 12:11] VITALS: PULSE 80
[2023-12-24] MEDS: diazePAM 5 MG TAB PO PRN (12:14)
[2023-12-24 12:23] VITALS: RESP 16
--- NOTE | 2023-12-24 12:45 | P.DS ---
Providers Date of admission: 12/20/23 22:46 Expected date of discharge: 12/24/23 Attending physician: Keiko Mccarthy MD Consults: 12/20/23 22:44 Consult Physician Routine Consulting Provider: Minesh Gonzalez Consult Reason/Comments: COPD exacerbation Do you want consulting provider notified?: Yes, Notify in am 12/21/23 04:26 Consult Physician Urgent Consulting Provider: Kareem Alejandra Consult Reason/Comments: chf Do you want consulting provider notified?: Yes Primary care physician: [facility] Hospital Course: 73 year old M with PMH of CAD with stenting, HTN, HLD, Diastolic CHF, AFib, COPD on 5L home O2, CKD IIIb, anxiety and depression, PTSD. He presented to the hospital on 12/20/2023 from [facility] with a chief complaint of increased shortness of breath over the past 3 days. Patient underwent evaluation in the ED. Vital signs upon arrival show BP 129/92, HR 94, RR 20, T 98.4 F, and O2 of 99% on 4 L. EKG showed AFib with RVR rate of 107 bpm. CXR showed bilateral vascular congestion and trace pleural effusions consistent with acute heart failure. CBC, Coag panel, CMP significant for RBC 3.6, Hg 10.1, Hct 32.9, Cl 93, bicarb 41, BUN 52, Cr 1.7, glu 72. Magnesium 2.0. Troponin 0.038, 0.041, 0.048. proBNP was 7220. Flu, RSV, COVID negative. ABG pH of 7.39, pCO2 of 61, pO2 of 58, bicarb 37, total CO2 of 39, and ABG O2 saturation of 92.3. Patient was started on IV heparin infusion for treatment of elevated troponin concerning for NSTEMI. Cardiology consulted, started on Lasix IV as well. Pulmonary consulted, placed on BiPAP PRN. On 12/22 RN noted patient was ripping out his IV stating this was a personal decision. Lasix switched to PO and Heparin switched to Eliquis. Family requested consult to hospice and decision made for hospice at home. 12/23 Patient was seen and examined. Currently on BiPAP. Plans for home with hospice hopefully today if equipment is set up at home. General: non toxic, no distress, appears at stated age, on BiPAP Derm: warm, dry Head: atraumatic, normocephalic, symmetric Eyes: EOMI, no lid lag, anicteric sclera Mouth: no lip lesion, mucus membranes moist Cardiovascular: S1S2 reg, no murmur Lungs: Decreased BS R > L, no rhonchi, no rales , no accessory muscle use Ext: no gross muscle atrophy, 1+ bilateral LE edema, no contractures Neuro: no focal neuro deficits Psych: Alert, oriented x 3 Discharge Diagnosis: Acute on chronic respiratory failure with hypoxia and hypercarbia Acute on chronic diastolic CHF exacerbation COPD with exacerbation Atrial fibrillation with RVR Type II NSTEMI CKD stage IIIB Hypochloremic metabolic alkalosis likely due to forced diuresis Normocytic anemia likely AOCD from CKD IIIb Hypertension Hyperlipidemia Hypothyroidism Anxiety and Depression PTSD This complex discharge took 35 minutes to complete. Patient Condition at Discharge: Stable Plan - Discharge Summary New Discharge Prescriptions: New Aspirin 81 mg PO DAILY #30 tab Metoprolol Tartrate [Lopressor] 100 mg PO BID #60 tablet Metoprolol Tartrate [Lopressor] 25 mg PO BID #60 tablet Continue ALPRAZolam [Xanax] 1 mg PO TID PRN PRN Reason: Anxiety Rivaroxaban [Xarelto] 15 mg PO DAILY Albuterol Inhaler [Ventolin Hfa Inhaler] 1 puff INHALATION RT-Q4H PRN PRN Reason: Shortness Of Breath/COPD Levothyroxine Sodium [Synthroid] 137 mcg PO DAILY Dapagliflozin Propanediol [Farxiga] 5 mg PO DAILY 30 Days #30 tab Furosemide [Lasix] 40 mg PO BID 30 Days #60 tablet Ipratropium-Albuterol Nebulize [Duoneb 0.5 mg-3 mg/3 ml Soln] 3 ml INHALATION RT-Q6H PRN PRN Reason: SOB/WHEEZING Atorvastatin [Lipitor] 40 mg PO HS Magnesium Hydroxide [Milk of Magnesia] 2,400 mg PO Q72H PRN PRN Reason: NO BM FOR 3 DAYS Sertraline [Zoloft] 200 mg PO DAILY Potassium Chloride ER [K-Dur 20] 20 meq PO DAILY 30 Days #30 tab Fluticasone Propionate (Flovent) Diskus 100mcg/Act Inhalation 2 puff INHALATION RT-DAILY Acetaminophen Tab [Tylenol] 650 mg PO Q6H PRN MDD 3 GM PRN Reason: Pain Or Fever > 100.5 predniSONE [Deltasone] 40 mg PO DAILY 5 Days #10 tab Discontinued Metoprolol Tartrate [Lopressor] 75 mg PO BID Isosorbide Mononitrate ER [Imdur] 15 mg PO DAILY Discharge Medication List ALPRAZolam [Xanax] 1 mg PO TID PRN 01/18/21 [History] Albuterol Inhaler [Ventolin Hfa Inhaler] 1 puff INHALATION RT-Q4H PRN 09/27/23 [History] Levothyroxine Sodium [Synthroid] 137 mcg PO DAILY 09/27/23 [History] Rivaroxaban [Xarelto] 15 mg PO DAILY 09/27/23 [History] Sertraline [Zoloft] 200 mg PO DAILY 09/27/23 [History] Dapagliflozin Propanediol [Farxiga] 5 mg PO DAILY 30 Days #30 tab 11/26/23 [Rx] Furosemide [Lasix] 40 mg PO BID 30 Days #60 tablet 12/15/23 [Rx] Potassium Chloride ER [K-Dur 20] 20 meq PO DAILY 30 Days #30 tab 12/15/23 [Rx] Acetaminophen Tab [Tylenol] 650 mg PO Q6H PRN MDD 3 GM 12/20/23 [History] Atorvastatin [Lipitor] 40 mg PO HS 12/20/23 [History] Fluticasone Propionate (Flovent) Diskus 100mcg/Act Inhalation 2 puff INHALATION RT-DAILY 12/20/23 [History] Ipratropium-Albuterol Nebulize [Duoneb 0.5 mg-3 mg/3 ml Soln] 3 ml INHALATION RT-Q6H PRN 12/20/23 [History] Magnesium Hydroxide [Milk of Magnesia] 2,400 mg PO Q72H PRN 12/20/23 [History] Aspirin 81 mg PO DAILY #30 tab 12/24/23 [Rx] Metoprolol Tartrate [Lopressor] 25 mg PO BID #60 tablet 12/24/23 [Rx] Metoprolol Tartrate [Lopressor] 100 mg PO BID #60 tablet 12/24/23 [Rx] predniSONE [Deltasone] 40 mg PO DAILY 5 Days #10 tab 12/24/23 [Rx] Follow up Appointment(s)/Referral(s): [facility],Clinic [REFERRING] - 1-2 days Discharge Disposition: HOME WITH HOSPICE
== END 2023-12-24 14:27 | disposition hospice, home (50) | DRG 280 ==
LOC: EC 19:37 → 3SCARD 22:46
PROVIDERS: ADMIT Internal Medicine; ATTEND Internal Medicine
PROC: 5A09357 Assistance with Respiratory Ventilation, Less than 24 Consecutive Hours, Continuous Positive Airway Pressure (ICD-10-PCS; principal; 2023-12-21)
DX: I13.0 Hypertensive heart and chronic kidney disease with heart failure and stage 1 through stage 4 chronic kidney disease, or unspecified chronic kidney disease (principal); I50.33 Acute on chronic diastolic (congestive) heart failure; I21.A1 Myocardial infarction type 2; J96.21 Acute and chronic respiratory failure with hypoxia; J96.22 Acute and chronic respiratory failure with hypercapnia; I48.19 Other persistent atrial fibrillation; J44.1 Chronic obstructive pulmonary disease with (acute) exacerbation; E87.4 Mixed disorder of acid-base balance; Z66 Do not resuscitate; Z51.5 Encounter for palliative care; D63.1 Anemia in chronic kidney disease; I27.20 Pulmonary hypertension, unspecified; Z79.01 Long term (current) use of anticoagulants; Z99.81 Dependence on supplemental oxygen; I45.10 Unspecified right bundle-branch block; N18.32 Chronic kidney disease, stage 3b; E03.9 Hypothyroidism, unspecified; E78.5 Hyperlipidemia, unspecified; E87.8 Other disorders of electrolyte and fluid balance, not elsewhere classified; F32.A Depression, unspecified; F41.9 Anxiety disorder, unspecified; F43.10 Post-traumatic stress disorder, unspecified; I25.10 Atherosclerotic heart disease of native coronary artery without angina pectoris; G47.33 Obstructive sleep apnea (adult) (pediatric); I25.2 Old myocardial infarction; Z79.51 Long term (current) use of inhaled steroids; Z79.84 Long term (current) use of oral hypoglycemic drugs; Z79.890 Hormone replacement therapy; Z79.899 Other long term (current) drug therapy; Z87.891 Personal history of nicotine dependence; Z91.148 Patient's other noncompliance with medication regimen for other reason; Z95.0 Presence of cardiac pacemaker; Z95.5 Presence of coronary angioplasty implant and graft; Z88.5 Allergy status to narcotic agent; Z88.8 Allergy status to other drugs, medicaments and biological substances
CPT/HCPCS: 36415; 36600; 71045; 80048; 80053; 82140; 82805; 83735; 83880; 84439; 84443; 84484; 85025; 85027; 85610; 85730; 87636; 93005; 94640; 94660; 94760; 96361; 96365; 96366; 96367; 96372; 96375; 96376; 99285